=== PATIENT | female | born 1955 | race Caucasian/White ===

== ENCOUNTER 2021-05-26 15:22 | Emergency (ER) | payer OTHER, MEDICARE, SELFPAY ==
--- NOTE | ~2021-05-26 | CT_ITS ---
EXAMINATION: CT ABDOMEN AND PELVIS WITHOUT CONTRAST CLINICAL INFORMATION: Abdominal pain COMPARISON: CT abdomen pelvis 03/14/2018 TECHNIQUE: Multidetector volumetric imaging was performed from the superior aspect of the liver through the pubic symphysis. Sagittal and coronal reformatted images were obtained on the technologist's workstation. This CT examination was performed using dose optimization techniques as appropriate, variously including the following: *Automated exposure control *Adjustment of mA and/or kV according to patient size (this includes techniques or standardized protocols for targeted exams where dose is matched to indication/reason for exam; i.e. extremities or head) *Use of iterative reconstruction technique DLP: 671 mGy-cm FINDINGS: LUNG BASES: The visualized lung bases are unremarkable aside from the presence of a large hiatal hernia. LIVER, GALLBLADDER, AND BILIARY TREE: The liver is normal in size, shape, and attenuation. No focal hepatic lesion or biliary ductal dilatation is present. The gallbladder contains multiple layering gallstones but is otherwise unremarkable with no evidence of wall thickening, or obvious pericholecystic inflammatory changes. PANCREAS: Unremarkable. SPLEEN: Unremarkable. Splenules are present ADRENAL GLANDS: 1.8 cm left adrenal mass measuring water density is stable consistent with a benign adenoma. The right adrenal gland appears normal. KIDNEYS AND URETERS: The kidneys are normal in size, shape, and attenuation. No hydronephrosis, hydroureter, or calculi seen. No perinephric stranding. BLADDER: Empty but unremarkable GASTROINTESTINAL TRACT: There is thickening of the proximal sigmoid colon with inflammatory changes in the surrounding fat consistent with acute diverticulitis. No free air or pericolonic fluid collections are seen. On the prior 03/14/2018 study this area of colon appeared normal. The small and large bowel are otherwise unremarkable. The appendix is unremarkable. ABDOMINAL WALL: No significant hernia is appreciated. LYMPH NODES: Normal. VASCULAR: Unremarkable. PELVIC VISCERA: An anteverted uterus is present. An abnormal adnexal mass or free intraperitoneal fluid is not seen. OSSEOUS STRUCTURES: Minor degenerative changes present in the spine. A hemangioma is present in L4. CT/CT abdomen pelvis wo con IMPRESSION: Acute uncomplicated sigmoid diverticulitis
[2021-05-26 15:43] VITALS: BP 135/71; PULSE 83; RESP 18; TEMP 37; O2SAT 96; BMI 32.8
--- NOTE | 2021-05-26 17:28 | ED_ITS ---
HPI - Abdominal Pain General Chief Complaint: Abdominal Pain Stated Complaint: abd pain Source: patient Mode of arrival: ambulatory Limitations: no limitations History of Present Illness HPI narrative: 65-year-old female is here today with past medical history of GERD, diverticulitis, hiatal hernia, right breast cyst removal, anemia, hypertension, cholesterolemia is here for complaining of abdominal pain x1 week. Patient reports that her pain is in right and left lower quadrant. Patient reports that is tender to touch and radiates to her flanks bilaterally. Patient denies any urinary frequency, burning, odor, hematuria. Patient reports nausea no vomiting, no diarrhea. Reports she moves her bowels normally. Patient states that she had low blood count and had exploratory capsule upper endoscopy as well as colonoscopy at [facility].. Patient reports that her colonoscopy showed no polyps and no acute processes. Patient does report that she had diverticulitis in the past. Patient reports that this pain does not feel as bad as the pain that she had when she had diverticulitis. MD elicited complaint: abdominal pain and flank pain Pertinent past history: diverticulitis and gastritis Onset (ago): day(s) Pain Consistency: constant Location: RLQ, LLQ, L flank and R flank Quality: cramping Radiation: bilateral flank Exacerbating factors: nothing Relieving factors: nothing Related Data Previous Rx's Medication Instructions Recorded ciprofloxacin HCl 500 mg tablet 500 mg PO BID 10 Days #20 tab 05/26/21 ibuprofen 600 mg tablet 600 mg PO Q8H PRN #20 tab 05/26/21 metronidazole 500 mg tablet 500 mg PO TID 10 Days #30 tab 05/26/21 (Flagyl) Allergies Allergy/AdvReac Type Severity Reaction Status Date / Time Sulfa (Sulfonamide Allergy Unknown UNKNOWN, Verified 05/26/21 15:42 Antibiotics) rash, [SULFA (SULFONAMIDE sweating ANTIBIOTICS)] telmisartan Allergy Unknown Unknown Verified 05/26/21 15:42 Review of Systems Review of Systems Constitutional : No Weight loss, No Fever, No Chills, No Night Sweats, No Fatigue, No Malaise ENT/Mouth : No Hearing loss, No Ear Pain, No Nasal Congestion, No Sinus Pain, No Hoarseness, No sore throat, No Rhinorrhea, No Swallowing Difficulty Eyes: No Eye Pain, No Swelling, No Redness, No Foreign Body, No Discharge, No Vision Changes Cardiovascular : No Chest Pain, No SOB, No Dyspnea on Exertion, No Orthopnea, No Edema, No Palpitations Respiratory : No Cough, No Sputum, No Wheezing, No Smoke Exposure, No Dyspnea Gastrointestinal : Nausea, No Vomiting, No Diarrhea, No Constipation, abdominal Pain, No Hematochezia, No Melena Genitourinary : no irregular bleeding, No Dysuria, No Urinary Frequency, No Hematuria, No Urinary Incontinence, No Urgency, Flank Pain, No Urinary Flow Changes, No Hesitancy Musculoskeletal : No joint pain, No Myalgias, No Joint Swelling Skin : No Skin Lesions, No rash Neuro : No Weakness, No Numbness, No Paresthesias, No Loss of Consciousness, No Dizziness, No Headache Psych : No Anxiety/Panic, No Depression, No SI/HI/AH/VH, No Social Issues, Heme/Lymph: No Bruising, No Bleeding,No Lymphadenopathy Endocrine : No Polyuria, No Polydipsia, No Temperature Intolerance Yes all other systems are reviewed and are negative Physical Exam Vital Signs: Vital Signs: Last Vital Signs Temp 98 F 05/26/21 17:34 Pulse 79 05/26/21 17:34 Resp 18 05/26/21 17:34 BP 151/65 H 05/26/21 17:34 Pulse Ox 96 05/26/21 17:34 Body Mass Index 32.8 Const: General: healthy appearing, well developed and in distress Nutritional Appearance: well nourished Orientation/consciousness: patient oriented x3 HENMT: Head: Yes normal to inspection, Yes normocephalic and Yes atraumatic Ears: hearing grossly normal bilaterally and external ears normal General nose exam: Normal external nose present Face and sinus: Yes normal facial exam Mouth: Normal oral and palatal mucosa present Throat: Yes posterior oropharynx normal and Yes tonsils normal Neck: Neck: Yes normal visual inspection, Yes full ROM and Yes trachea midline Thyroid: Thyroid normal Resp: Effort & Inspection: normal respiratory effort and able to speak in complete sentences Auscultation: clear to auscultation bilaterally Cardio: Rate: regular rate Rhythm: regular rhythm GI: Inspection: Yes normal to inspection, No distended and Yes obesity Palpation (GI): Soft to palpation, Tenderness to palpation present (GI) (Right and left lower quadrant) and No hepatosplenomegaly present Auscultation: normal bowel sounds Skin: General skin exam: elasticity normal, turgor normal and dry skin Neuro: General: patient oriented x3 Course Course Course Narrative: 65-year-old female with past medical history of GERD, diverticulitis, hiatal hernia, right breast cyst removal, anemia, hypertension and cholesterolemia is here today for complaining of bilateral lower quadrant pain. Patient reports that the pain started about a week ago and it radiates to her back. Patient denies urinary frequency, pain with urination, hematuria. Reports nausea, no vomiting, no diarrhea, no constipation, no hematochezia, no melena, no dysphagia, no odynophagia or dyspepsia. Patient reports that she just had exploratory upper endoscopy with capsule and colonoscopy for anemia. That was done at [facility]. Will order labs, abdominal CT rule out diverticulitis, kidney stones, hydronephrosis Reevaluation(s) Reevaluation #1: Mild leukocytosis, urine came back positive for nitrates,, CT scan shows acute uncomplicated sigmoid diverticulitis. Patient has a history of diverticulitis in the past and was on oral antibiotics at home. Patient clinically looks great, pain under control. Call placed to Dr. Dukes for consult. . Patient does have a GI specialist at [facility] that she can follow-up with. I will give her dose of levofloxacin for UTI her, that will cover her for diverticulitis. I will also give her oral Flagyl. Reevaluation #2: Spoke with Dr. Dukes and will send patient home. Patient will take her 1st dose antibiotics and she can continue for 10 more days. Patient was instructed to call her GI specialist . Patient is agreeable to this plan and verbalizes understanding of instructions. She was given the opportunity to ask questions and all questions answered. I advised her to return to emergency department if her symptoms will get she will have any other concerning symptoms MDM - Abdominal Pain Lab Data Result diagrams: 05/26/21 17:47 05/26/21 18:41 Labs: Lab Results 05/26/21 05/26/21 05/26/21 Range/Units 17:47 17:47 17:47 WBC 12.9 H (4.8-10.8) X10*3/uL RBC 4.52 (4.20-5.50) X10*6/uL Hgb 11.9 L (12.0-16.0) g/dl Hct 37.8 (37-47) % MCV 83.6 (80-98) fL MCH 26.3 L (27.0-33.0) pg MCHC 31.5 (31.0-35.0) g/dl RDW 13.2 (11.0-16.0) % Plt Count 231 (160-400) X10*3/uL MPV 11.2 (9.4-12.3) fL Immature Gran % (Auto) 0.5 H (0.0-0.4) % Neut % (Auto) 81.9 H (45-73) % Lymph % (Auto) 7.7 L (20-40) % [place] % (Auto) 9.5 (2-11) % Eos % (Auto) 0.2 (0-4) % Baso % (Auto) 0.2 (0-2) % Lymph # (Auto) 1.0 L (1.2-4.9) X10*3/uL [place] # (Auto) 1.2 (0.1-1.2) X10*3/uL Eos # (Auto) 0.0 (0.0-0.4) X10*3/uL Baso # (Auto) 0.0 (0.0-0.2) X10*3/uL Abs Immat Gran (auto) 0.07 H (0.00-0.03) X10*3/uL Absolute Neuts (auto) 10.6 H (2.0-8.3) X10*3/uL Absolute Nucleated RBC 0.000 (0.0-0.012) X10*3/uL Nucleated RBC % (auto) 0.0 (0.0-0.2) /100WBC Sodium (135-145) mmol/L Potassium (3.3-5.1) mmol/L Chloride (96-108) mmol/L Carbon Dioxide (22-29) mmol/L Anion Gap (12-20) BUN (9-16) mg/dL Creatinine (0.5-1.4) mg/dL Estim Creat Clear Calc Estimated GFR Random Glucose (60-115) mg/dL Calcium (8.4-10.2) mg/dL Total Bilirubin (0.0-1.0) mg/dL AST (5-31) U/L ALT (0-31) U/L Alkaline Phosphatase (39-117) U/L Total Protein (6.5-8.0) g/dL Albumin (3.5-5.0) g/dL Lipase Cancelled Urine Color YELLOW Urine Appearance HAZY Urine pH 6.0 (5.0-8.0) Ur Specific [place] 1.025 (1.005-1.025) Urine Protein 2+ H (NEG-TRACE) MG/DL Urine Glucose (UA) 100 H (NEG) MG/DL Urine Ketones 5 (NEG) MG/DL Urine Blood TRACE (NEG) Urine Nitrite POS H (NEG) Ur Leukocyte Esterase 1+ H (NEG) Urine RBC 0-2 (0) /HPF Urine WBC 1-4 (0-4) /HPF Ur Squamous Epith Cells 3+ /LPF Calcium Oxalate Crystal 1+ /LPF Urine Bacteria 2+ /LPF Urine Yeast TRACE /HPF 05/26/21 Range/Units 18:41 WBC (4.8-10.8) X10*3/uL RBC (4.20-5.50) X10*6/uL Hgb (12.0-16.0) g/dl Hct (37-47) % MCV (80-98) fL MCH (27.0-33.0) pg MCHC (31.0-35.0) g/dl RDW (11.0-16.0) % Plt Count (160-400) X10*3/uL MPV (9.4-12.3) fL Immature Gran % (Auto) (0.0-0.4) % Neut % (Auto) (45-73) % Lymph % (Auto) (20-40) % [place] % (Auto) (2-11) % Eos % (Auto) (0-4) % Baso % (Auto) (0-2) % Lymph # (Auto) (1.2-4.9) X10*3/uL [place] # (Auto) (0.1-1.2) X10*3/uL Eos # (Auto) (0.0-0.4) X10*3/uL Baso # (Auto) (0.0-0.2) X10*3/uL Abs Immat Gran (auto) (0.00-0.03) X10*3/uL Absolute Neuts (auto) (2.0-8.3) X10*3/uL Absolute Nucleated RBC (0.0-0.012) X10*3/uL Nucleated RBC % (auto) (0.0-0.2) /100WBC Sodium 140 (135-145) mmol/L Potassium 3.1 L (3.3-5.1) mmol/L Chloride 105 (96-108) mmol/L Carbon Dioxide 26 (22-29) mmol/L Anion Gap 12 (12-20) BUN 8 L (9-16) mg/dL Creatinine 0.73 (0.5-1.4) mg/dL Estim Creat Clear Calc 83.6 Estimated GFR > 60 Random Glucose 105 (60-115) mg/dL Calcium 8.6 (8.4-10.2) mg/dL Total Bilirubin 0.6 (0.0-1.0) mg/dL AST 9 (5-31) U/L ALT < 6 (0-31) U/L Alkaline Phosphatase 100 (39-117) U/L Total Protein 6.2 L (6.5-8.0) g/dL Albumin 3.8 (3.5-5.0) g/dL Lipase 16 Urine Color Urine Appearance Urine pH (5.0-8.0) Ur Specific [place] (1.005-1.025) Urine Protein (NEG-TRACE) MG/DL Urine Glucose (UA) (NEG) MG/DL Urine Ketones (NEG) MG/DL Urine Blood (NEG) Urine Nitrite (NEG) Ur Leukocyte Esterase (NEG) Urine RBC (0) /HPF Urine WBC (0-4) /HPF Ur Squamous Epith Cells /LPF Calcium Oxalate Crystal /LPF Urine Bacteria /LPF Urine Yeast /HPF Imaging Data CT scan - abdomen: Radiologist's impression: FINDINGS: LUNG BASES: The visualized lung bases are unremarkable aside from the presence of a large hiatal hernia.? LIVER, GALLBLADDER, AND BILIARY TREE: The liver is normal in size, shape, and attenuation. No focal hepatic lesion or biliary ductal dilatation is present. The gallbladder contains multiple layering gallstones but is otherwise unremarkable with no evidence of ? wall thickening, or obvious pericholecystic inflammatory changes.? PANCREAS: Unremarkable.? SPLEEN: Unremarkable. Splenules are present ADRENAL GLANDS:? 1.8 cm left adrenal mass measuring water density is stable consistent with a benign adenoma. The right adrenal gland appears normal.? KIDNEYS AND URETERS: The kidneys are normal in size, shape, and attenuation. No hydronephrosis, hydroureter, or calculi seen. No perinephric stranding. ? BLADDER: Empty but unremarkable? GASTROINTESTINAL TRACT: There is thickening of the proximal sigmoid colon with inflammatory changes in the surrounding fat consistent with acute diverticulitis. No free air or pericolonic fluid collections are seen. On the prior 03/14/2018 study this area of colon appeared normal. The small and large bowel are otherwise unremarkable. The appendix is unremarkable.? ABDOMINAL WALL: No significant hernia is appreciated.? LYMPH NODES: Normal. VASCULAR: Unremarkable. PELVIC VISCERA: An anteverted uterus is present. An abnormal adnexal mass or free intraperitoneal fluid is not seen.? OSSEOUS STRUCTURES: Minor degenerative changes present in the spine. A hemangioma is present in L4.? Discharge Plan Discharge Clinical Impression: Diverticulitis, Abdominal pain, Acute UTI Patient Disposition: Home, Self-Care Instructions: Diverticulitis (ED), Urinary Tract Infection in Women (ED), Diverticulitis Diet (ED) Additional Instructions: You were seen here today for abdominal pain. Your urine shows urinary tract infection. CT of abdomen shows non complicated diverticulitis. You were given 1st dose of antibiotics at the emergency room and will be placed on 7 day therapy. Please follow-up with your GI specialist at [facility], please follow-up with your primary care provider. You may need more antibiotics. Please follow diverticulitis diet as given to you at the emergency department. Please do clear liquids for the next 3 days. You may return to emergency department if his symptoms will get worse or if you experience any additional can concerning symptoms Prescriptions: New ciprofloxacin HCl 500 mg tablet 500 mg PO BID 10 Days Qty: 20 RF: 0 metronidazole [Flagyl] 500 mg tablet 500 mg PO TID 10 Days Qty: 30 RF: 0 ibuprofen 600 mg tablet 600 mg PO Q8H PRN (Reason: pain) Qty: 20 RF: 0 Interventions: ED Discharge Assessment Last Done: 05/26/21 20:44 Discharge Date/Time: 05/26/21 21:03 [facility] Past Medical History Medical History (Updated 05/27/21 @ 00:01 by Lynn Polk) Breast CA Diverticulitis Social History Social History Alcohol intake: never Patient Tobacco Use Status: Never used Tobacco Use of substances other than those prescribed or required for medical reasons: No Advance Directives: No Advance Directives Information Provided: No
[2021-05-26 17:34] VITALS: BP 151/65; PULSE 79; RESP 18; TEMP 36.6; O2SAT 96
[2021-05-26 17:55] LABS: MANUAL DIFF FLAG NO
[2021-05-26 17:58] LABS: Appearance Urine HAZY; Color Urine YELLOW; Glucose Urine UA 100 MG/DL (NEG); Leukocyte Esterase Urine 1+ (NEG); Nitrite Urine POS (NEG); Specific Gravity - Urine 1.025 (1.005-1.025); UACC Culture Trigger YES; Urine Blood TRACE (NEG); Urine Ketones 5 MG/DL (NEG); Urine Protein 2+ MG/DL (NEG-TRACE)
[2021-05-26 18:00] LABS: Basophils Percent Auto 0.2 % (0-2); Eosinophils Percent Auto 0.2 % (0-4); Hematocrit 37.8 % (37-47); Hemoglobin 11.9 g/dl (12.0-16.0); Imm Gran Abs Auto 0.07 X10*3/uL (0.00-0.03); Imm Gran Pct Auto 0.5 % (0.0-0.4); Lymphocytes Percent Auto 7.7 % (20-40); Mean Corpuscular HGB Conc 31.5 g/dl (31.0-35.0); Mean Corpuscular Hemoglobin 26.3 pg (27.0-33.0); Mean Corpuscular Volume 83.6 fL (80-98); Mean Platelet Volume 11.2 fL (9.4-12.3); Monocytes Absolute Auto 1.2 X10*3/uL (0.1-1.2); Monocytes Percent Auto 9.5 % (2-11); Neutrophils Absolute Auto 10.6 X10*3/uL (2.0-8.3); Neutrophils Percent Auto 81.9 % (45-73); Platelet Count 231 X10*3/uL (160-400); Red Blood Count 4.52 X10*6/uL (4.20-5.50); Red Cell Distribution Width 13.2 % (11.0-16.0); White Blood Count 12.9 X10*3/uL (4.8-10.8)
[2021-05-26] MEDS: Morphine Sulfate 2 MG/ML CARTRIDGE IVPUSH (18:17)
[2021-05-26] MEDS: 0.9 % Sodium Chloride 1,000 ML 999 ML IV (18:18)
[2021-05-26 18:21] LABS: Bacteria Urine 2+ /LPF; Calcium Oxalate Crystals Urine 1+ /LPF; Squamous Epithelial Cell Urine 3+ /LPF
[2021-05-26 18:23] LABS: RBC Urine 0-2 /HPF (0)
[2021-05-26 19:08] LABS: Alanine Aminotransferase < 6 U/L (0-31); Albumin Level 3.8 g/dL (3.5-5.0); Alkaline Phosphatase 100 U/L (39-117); Anion Gap 12 (12-20); Aspartate Amino Transferase 9 U/L (5-31); Bilirubin Total 0.6 mg/dL (0.0-1.0); Blood Urea Nitrogen 8 mg/dL (9-16); Calcium 8.6 mg/dL (8.4-10.2); Carbon Dioxide 26 mmol/L (22-29); Chloride 105 mmol/L (96-108); Creatinine Clr Calc Pharmacy 83.6; Estimated Glomerular Filt Rate > 60; Glucose Random 105 mg/dL (60-115); Lipase 16 U/L (8-78); Potassium 3.1 mmol/L (3.3-5.1); Sodium 140 mmol/L (135-145); Total Protein 6.2 g/dL (6.5-8.0)
[2021-05-26] MEDS: metroNIDAZOLE 500 MG TABLET PO (20:22)
[2021-05-26] MEDS: levoFLOXacin 500 MG TABLET PO (20:22)
== END 2021-05-26 21:03 | disposition home or self-care (01) ==
PROVIDERS: Nurse Practitioner Family; Emergency Provider Emergency Medicine Emergency Medical Services
DX: K57.32 Diverticulitis of large intestine without perforation or abscess without bleeding (principal); N39.0 Urinary tract infection, site not specified; R10.9 Unspecified abdominal pain; Z79.899 Other long term (current) drug therapy
CPT/HCPCS: 36415; 74176; 80053; 81001; 83690; 85025; 87086; 96361; 96374; 99284; J2270

== ENCOUNTER 2023-06-01 01:22 | Day surgery (SDC) | payer OTHER, MEDICARE, SELFPAY ==
[2023-06-01] VITALS (9 sets, daily range): BP systolic 123–180; BP diastolic 55–93; PULSE 75–93; RESP 16–18; TEMP 36.8–38.1; O2SAT 94–99; BMI 28.7
--- NOTE | ~2023-06-01 | FL_ITS ---
EXAMINATION: XR FLUOROSCOPY WITH IMAGES CLINICAL INFORMATION: Left ureteral stone. COMPARISON: None available. TECHNIQUE: Fluoroscopy Supervised By: Dr. Supa Doll. Fluoroscopy Time: 47.5 seconds. Cumulative Dose: 15.89 mGy. DAP: None available. Images: 2. FINDINGS: Images demonstrate a left ureteral stent in satisfactory position. There is an oval-shaped increased density questionable for a distal left ureteral stone. FL/FL guidance in OR IMPRESSION: Fluoroscopy guidance for left internal ureteral stent placement
--- NOTE | ~2023-06-01 | CT_ITS ---
EXAMINATION: CT ABDOMEN AND PELVIS WITHOUT CONTRAST CLINICAL INFORMATION: Left ureteral stone COMPARISON: 05/26/2021 TECHNIQUE: Multidetector volumetric imaging was performed from the superior aspect of the liver through the pubic symphysis. Sagittal and coronal reformatted images were obtained on the technologist's workstation. This CT examination was performed using dose optimization techniques as appropriate, variously including the following: *Automated exposure control *Adjustment of mA and/or kV according to patient size (this includes techniques or standardized protocols for targeted exams where dose is matched to indication/reason for exam; i.e. extremities or head) *Use of iterative reconstruction technique DLP: 600 mGy-cm FINDINGS: LUNG BASES: Mild bibasilar atelectasis. Large hiatal hernia. LIVER, GALLBLADDER, AND BILIARY TREE: The liver demonstrates hypoattenuation consistent with steatosis. No focal hepatic lesion or biliary ductal dilatation is identified on this noncontrast exam. Multiple gallstones are present. No appreciable gallbladder wall thickening or surrounding inflammation. PANCREAS: Unremarkable. SPLEEN: Unremarkable. ADRENAL GLANDS: Redemonstrated 1.8 cm left adrenal nodule with density of a lipid rich adenoma; no follow-up recommended. Right adrenal gland is unremarkable. KIDNEYS AND URETERS: There is a mid left ureteral calculus measuring 7 mm with mild hydronephrosis. Few scattered punctate calculi are present in the left kidney. No right hydronephrosis. BLADDER: Nearly empty and not well assessed. GASTROINTESTINAL TRACT: No evidence of bowel obstruction or significant wall thickening. The appendix is unremarkable. No free fluid or free air is seen. ABDOMINAL WALL: No significant hernia is appreciated. LYMPH NODES: Normal. VASCULAR: Scattered atherosclerotic calcification. PELVIC VISCERA: Unremarkable. OSSEOUS STRUCTURES: Multilevel degenerative changes in the spine. CT/CT abdomen pelvis wo IV con IMPRESSION: 1. Mid left ureteral calculus measuring 7 mm with mild hydronephrosis. 2. Few scattered punctate left renal calculi. 3. Cholelithiasis. 4. Large hiatal hernia.
[2023-06-01 01:44] LABS: MANUAL DIFF FLAG NO
[2023-06-01 01:50] LABS: Basophils Percent Auto 0.3 % (0-2); Hematocrit 33.7 % (37.0-47.0); Hemoglobin 10.2 g/dl (12.0-16.0); Imm Gran Abs Auto 0.08 X10*3/uL (0.00-0.03); Imm Gran Pct Auto 0.6 % (0.0-0.4); Lymphocytes Absolute Auto 0.9 X10*3/uL (1.2-4.9); Lymphocytes Percent Auto 6.6 % (20-40); Mean Corpuscular HGB Conc 30.3 g/dl (31.0-35.0); Mean Corpuscular Hemoglobin 24.5 pg (27.0-33.0); Mean Platelet Volume 11.2 fL (9.4-12.3); Monocytes Absolute Auto 0.6 X10*3/uL (0.1-1.2); Monocytes Percent Auto 4.6 % (2-11); Neutrophils Absolute Auto 11.9 x10*3/uL (2.0-8.3); Neutrophils Percent Auto 87.9 % (45-73); Platelet Count 278 X10*3/uL (160-400); Red Blood Count 4.16 X10*6/uL (4.20-5.50); Red Cell Distribution Width 15.4 % (11.0-16.0); White Blood Count 13.6 X10*3/uL (4.8-10.8)
[2023-06-01 01:59] LABS: Anion Gap 15 (12-20); Blood Urea Nitrogen 10 mg/dL (9-16); Calcium 9.7 mg/dL (8.4-10.2); Carbon Dioxide 22 mmol/L (22-29); Chloride 108 mmol/L (96-108); Creatinine Clr Calc Pharmacy 45.2; Estimated Glomerular Filt Rate 49; Glucose Random 138 mg/dL (60-115); Potassium 3.4 mmol/L (3.3-5.1); Sodium 142 mmol/L (135-145)
--- NOTE | 2023-06-01 02:02 | ED.FEMALEGU ---
HPI - Female Genitourinary General Chief complaint: Urogenital-Female Stated complaint: Kidney stones Time Seen by Provider: 06/01/23 01:52 Source: patient Mode of arrival: ambulatory Limitations: no limitations History of Present Illness HPI Narrative: Patient with History of kidney stones was seen at [facility] on 05/27 diagnosed with 5 mm mid ureteral stone with mild hydronephrosis patient was seen by urologist yesterday advised to go to the ER if pain gets worse for last few hours patient been having severe pain with nausea and vomiting no fever no chills Related Data Previous Rx's Medication Instructions Recorded ciprofloxacin HCl 500 mg tablet 500 mg PO BID 10 days #20 tabs 05/26/21 ibuprofen 600 mg tablet 600 mg PO Q8H PRN pain #20 tabs 05/26/21 metronidazole 500 mg tablet 500 mg PO TID 10 days #30 tabs 05/26/21 (Flagyl) Allergies Allergy/AdvReac Type Severity Reaction Status Date / Time Sulfa (Sulfonamide Allergy Unknown UNKNOWN, Verified 05/26/21 15:42 Antibiotics) rash, [SULFA (SULFONAMIDE sweating ANTIBIOTICS)] telmisartan Allergy Unknown Unknown Verified 05/26/21 15:42 Review of Systems Review of Systems: Yes all other systems are reviewed and are negative [facility] Past Medical History Medical History Kidney stone Breast CA Diverticulitis Social History Social History Alcohol intake: current Alcohol intake frequency: holidays/special occasions only Patient Tobacco Use Status: Never used Tobacco Smoked in Last 30 Days: No Use of substances other than those prescribed or required for medical reasons: No Advance Directives: No Advance Directives Information Provided: Yes Physical Exam Vital Signs: Vital Signs: Last Vital Signs Temp 100.5 F H 06/01/23 01:24 Pulse 93 06/01/23 01:24 Resp 16 06/01/23 01:24 BP 180/55 H 06/01/23 01:24 Pulse Ox 99 06/01/23 01:24 O2 Del Method Room Air 06/01/23 01:24 BMI result Body Mass Index 28.7 Appearance: Alert. Oriented X3. In moderate distress. Eyes: PERRLA, No Nystagmus ENT: Pharynx normal. Oral Mucosa moist Neck: Normal inspection. Neck supple. CVS: Normal heart rate and rhythm. Pulses normal. Respiratory: No respiratory distress. Equal air entry bilateral, no wheezing/rales/rhonchi Abdomen: Soft and nontender. Bowel sounds are present, no mass palpable, L CVA tenderness+ Skin: Skin warm and dry. Normal skin color. Normal skin turgor. Extremities: No lower extremity edema. No calf tenderness Neuro: Oriented X 3. No motor deficit. Medications Administered Generic Name Dose Route Start Last Admin Trade Name Freq PRN Reason Stop Dose Admin Sodium Chloride 1,000 mls @ 999 mls/hr 06/01/23 06:10 06/01/23 06:41 Ns IV 06/01/23 07:10 999 mls/hr .Q1H1M ONE Administration Discontinued Medications Generic Name Dose Route Start Last Admin Trade Name Freq PRN Reason Stop Dose Admin Sodium Chloride 1,000 mls @ 999 mls/hr 06/01/23 02:14 06/01/23 04:35 Ns IV 06/01/23 03:14 Infused .Q1H1M ONE Infusion Ketorolac Tromethamine 30 mg 06/01/23 02:14 06/01/23 02:37 Ketorolac Tromethamine 30 Mg/Ml Vial IVPUSH 06/01/23 02:15 30 mg ONCE ONE Administration Morphine Sulfate 4 mg 06/01/23 02:14 06/01/23 02:37 Morphine Sulfate 4 Mg/Ml Cartridge IVPUSH 06/01/23 02:15 4 mg ONCE ONE Administration Protocol Ondansetron HCl 4 mg 06/01/23 02:14 06/01/23 02:37 Ondansetron Hcl 4 Mg/2 Ml Vial IVPUSH 06/01/23 02:15 4 mg ONCE ONE Administration Tamsulosin HCl 0.4 mg 06/01/23 05:55 06/01/23 06:42 Tamsulosin Hcl 0.4 Mg Capsule PO 06/01/23 05:56 0.4 mg ONCE ONE Administration Medical Decision Making Medical Decision Making [facility] Narrative: Patient with left renal colic with 5 mm mid ureteric stone seen in the CT scan done on 05/27 at [facility] patient received IV pain medication still having dull pain will continue to hydrate case discussed with urologist see the patient in the ER advised to get ultrasound of the kidneys Case discussed with radiology would be better to do CT scan as stone is in mid ureter will do CT scan CT scan showed still left mid ureteric stone with moderate hydro Dr. Doll to see the patient in a Differential Diagnosis Differential Diagnoses: The differential diagnosis associated with the presentation includes Ureteric stone/UTI/diverticular disease Admission/Observation Consideration of admission/observation: Escalation of care including admission/observation considered Lab Data MDM Lab Attestation statement: I reviewed the patient's lab results. 06/01/23 01:39 06/01/23 01:39 Labs: Lab Results 06/01/23 Range/Units 01:39 WBC 13.6 H (4.8-10.8) X10*3/uL RBC 4.16 L (4.20-5.50) X10*6/uL Hgb 10.2 L (12.0-16.0) g/dl Hct 33.7 L (37.0-47.0) % MCV 81.0 (80.0-98.0) fL MCH 24.5 L (27.0-33.0) pg MCHC 30.3 L (31.0-35.0) g/dl RDW 15.4 (11.0-16.0) % Plt Count 278 (160-400) X10*3/uL MPV 11.2 (9.4-12.3) fL Immature Gran % (Auto) 0.6 H (0.0-0.4) % Neut % (Auto) 87.9 H (45-73) % Lymph % (Auto) 6.6 L (20-40) % [place] % (Auto) 4.6 (2-11) % Eos % (Auto) 0.0 (0-4) % Baso % (Auto) 0.3 (0-2) % Lymph # (Auto) 0.9 L (1.2-4.9) X10*3/uL [place] # (Auto) 0.6 (0.1-1.2) X10*3/uL Eos # (Auto) 0.0 (0.0-0.4) X10*3/uL Baso # (Auto) 0.0 (0.0-0.2) X10*3/uL Abs Immat Gran (auto) 0.08 H (0.00-0.03) X10*3/uL Absolute Neuts (auto) 11.9 H (2.0-8.3) x10*3/uL Absolute Nucleated RBC 0.000 (0.0-0.012) X10*3/uL Nucleated RBC % (auto) 0.0 (0.0-0.2) /100WBC Sodium 142 (135-145) mmol/L Potassium 3.4 (3.3-5.1) mmol/L Chloride 108 (96-108) mmol/L Carbon Dioxide 22 (22-29) mmol/L Anion Gap 15 (12-20) BUN 10 (9-16) mg/dL Creatinine 1.10 (0.5-1.4) mg/dL Estim Creat Clear Calc 45.2 Estimated GFR 49 Random Glucose 138 H (60-115) mg/dL Calcium 9.7 D (8.4-10.2) mg/dL Independent Interpretation I performed an independent interpretation of an: CT Scan Interpretation: Left mid ureteric stone with mod hydronephrosis Discharge Plan Discharge Clinical Impression: Ureteric calculus Prescriptions: No Action ciprofloxacin HCl 500 mg tablet 500 mg PO BID 10 Days Qty: 20 0RF metronidazole [Flagyl] 500 mg tablet 500 mg PO TID 10 Days Qty: 30 0RF ibuprofen 600 mg tablet 600 mg PO Q8H PRN (Reason: pain) Qty: 20 0RF
[2023-06-01] MEDS: Ketorolac Tromethamine 30 MG/ML VIAL IVPUSH (02:37)
[2023-06-01] MEDS: 0.9 % Sodium Chloride 1,000 ML 999 ML IV ×2 (02:37→06:41)
[2023-06-01] MEDS: ondansetron HCL 4 MG/2 ML VIAL IVPUSH ×2 (02:37→09:53)
[2023-06-01] MEDS: Morphine Sulfate 4 MG/ML CARTRIDGE IVPUSH (02:37)
--- OUTSIDE RECORDS SUMMARY | 2023-06-01 02:43 | XMS_ITS | Continuity of Care Document ---
Author Name Unknown Organization [facility] Adult Address [address] [place] [address]- Care Team Providers Care Cpc Coder Name Role Phone Louis ALVES, Radha Primary Care Physician Encounter [facility] [place] Date(s): 01/27/22 - 02/26/22 [facility] [address] [place] [id number]- Attending Physician: Ernie Sánchez Admitting Physician: Ernie Sánchez Referring Physician: AdmtrErnie Allergies, Adverse Reactions, Alerts Substance Reaction Severity Status sulfa drugs swelling, itching Active Immunizations Given and Recorded Vaccine Date Status Refusal Reason SARS-CoV-2 (COVID-19) mRNA BNT-162b2 vac 08/16/21 Recorded SARS-CoV-2 (COVID-19) mRNA BNT-162b2 vac 01/23/21 Recorded SARS-CoV-2 (COVID-19) mRNA BNT-162b2 vac 01/02/21 Recorded influenza virus vaccine, inactivated 06/21/21 Yash rded influenza virus vaccine, inactivated 06/09/20 Yash rded influenza virus vaccine, inactivated 1 06/19/19 Gi josefina zoster vaccine, inactivated 11/07/18 Recorded zoster vaccine, inactivated 09/06/18 Recorded Influenza Virus Vaccine (oldterm) 06/04/18 Recorde d Influenza Virus Vaccine (oldterm) 05/07/17 Recorde d Influenza Virus Vaccine (oldterm) 05/22/16 Recorde d Influenza Virus Vaccine (oldterm) 08/10/15 Recorde d Influenza Virus Vaccine (oldterm) 06/18/14 Recorde d Influenza Virus Vaccine (oldterm) 06/26/13 Recorde d Influenza Virus Vaccine (oldterm) 07/30/12 Recorde d pneumococcal 13-valent vaccine 03/04/18 Recorded Zoster Vaccine Live 11/10/13 Recorded Zoster Vaccine Live 08/11/13 Recorded pneumococcal 23-valent vaccine 07/30/13 Recorded tetanus/diphtheria/pertussis, acel(Tdap) 04/14/11 Given 1Result Comment: [facility] [id number] Medications amLODIPine 5 mg oral tablet 5 mg, 1, tablet, By Mouth, Daily, # 90 tablet, Refills 3, Tot. Refills 3, Maintenance, 12/09/21 16:47:00 EDT, Route to Pharmacy Electronically, [facility]/pharmacy #[id number], Partial fill upon patient request if the prescription is for a schedule II opioid drug.... Start Date: 12/09/21 Status: Ordered CPAP Machine See Instructions, # 1 each, Maintenance, AutoCPAP 8-20 cm H20, use Daily when sleeping, 12/17/21 13:03:00 EDT, Supply Start Date: 12/17/21 Status: Ordered [facility] OLOPATADINE 0.1% EYE DROPS INSTILL 1 DROP ONCE/DAY BOTH EYES EVERYDAY FOR ALLERGY Start Date: 12/17/21 Status: Ordered ferrous sulfate 325 mg oral enteric coated tablet 1, tablet, By Mouth, 2 times a day, # 180 tablet, Refills 1, Route to Pharmacy Electronically, [facility] STORE [id number], 165.1, cm, 01/27/22 12:56:00 EDT, Height, 84.36, kg, 12/17/21 15:48:00 EDT, Dry Weight Start Date: 02/08/22 Status: Ordered Multivitamin Daily, 0 Refills, Maintenance, 09/15/20 15:23:00 EST, Partial fill upon patient request if the prescription is for a schedule II opioid drug. Start Date: 09/15/20 Status: Ordered omeprazole 40 mg oral enteric coated capsule 1 capsule, By Mouth, Daily, # 30 capsule, 2 Refills, [facility] STORE [id number], 165.1, cm, 01/10/22 15:58:00 EDT, Height, 84.36, kg, 12/17/21 15:48:00 EDT, Dry Weight Start Date: 01/16/22 Status: Ordered Potassium Chloride (Xst-Ebqf-Zml 10) 10 mEq oral tablet, extended release 1 tablet = 10 mEq, By Mouth, Daily, # 90 tablet, 3 Refills, Maintenance, 11/29/21 19:05:00 EDT, [id number], Partial fill upon patient request if the prescription is for a schedule II opioid drug., 165.1, cm, 11/28/21 15:50:00 EDT, Height, 89.7... Start Date: 11/29/21 Status: Ordered pravastatin 40 mg oral tablet 1 tablet, By Mouth, Daily at bedtime, # 90 tablet, 1 Refills, 12/07/21 13:16:00 EDT, [id number], 165.1, cm, 12/07/21 7:39:00 EDT, Height, 84.2, kg, 12/02/21 22:06:00 EDT, Dry Weight Start Date: 12/07/21 Status: Ordered ProAir HFA 90 mcg/inh inhalation aerosol 2 puffs, Inhalation, 4 times a day, PRN NEEDED FOR WHEEZING, # 18 each, 5 Refills, [facility] STORE [id number], 17, INHALE 2 PUFFS BY MOUTH FOUR TIMES DAILY NEEDED FOR WHEEZING, 165.1, cm, 08/25/21 10:33:00 EST, Height, 89.7, kg, 12/17/20 9:14:00 EDT, Dry W... Start Date: 09/06/21 Status: Ordered sertraline 100 mg oral tablet 1 tablet = 100 mg, By Mouth, Daily, # 90 tablet, 3 Refills, Soft Stop, 08/25/20 9:28:00 EST, [id number], 165, cm, 08/16/20 14:03:00 EST, Height, 79, kg, 04/05/20 8:33:00 EDT, Dry Weight Start Date: 08/25/20 Status: Ordered tamoxifen 20 mg oral tablet 1 tablet = 20 mg, By Mouth, Daily, # 90 tablet, 3 Refills, Maintenance, 02/25/21 11:24:00 EDT, Tablet, [id number], Partial fill upon patient request if the prescription is for a schedule II opioid drug., 165.1, cm, 02/25/21 11:11:00 EDT, Heigh... 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 Sex
--- OUTSIDE RECORDS SUMMARY | 2023-06-01 02:43 | XMS_ITS | Continuity of Care Document ---
Author Name Unknown Organization [facility] Address [address] [place] [address] [address] [place] [address]- Care Team Providers Care Household Coordinator Name Role Phone Louis ALVES, Radha Primary Care Physician [place] [facility] [id number] Date(s): 06/05/22 - 06/12/[address] [place] [address]- Encounter Diagnosis Diverticulitis(Discharge Diagnosis) - 06/05/22 Attending Physician: Alberto ALVES, Mayra Acosta Referring Physician: Noah Silvestre MD Allergies, Adverse Reactions, Alerts Substance Reaction Severity Status sulfa drugs swelling, itching Active Immunizations Given and Recorded Vaccine Date Status Refusal Reason SARS-CoV-2 (COVID-19) mRNA-1273 vaccine 02/25/22 R ecorded SARS-CoV-2 (COVID-19) mRNA BNT-162b2 vac 08/16/21 Recorded [...] Recorded tetanus/diphtheria/pertussis, acel(Tdap) 04/14/11 Given 1Result Comment: [facility] 35213-227-26 Medications amLODIPine 5 mg oral tablet 5 mg, 1, tablet, By Mouth, Daily, # 90 tablet, Refills 3, Tot. Refills 3, Maintenance, 12/09/21 16:47:00 EDT, Route to Pharmacy Electronically, [facility]/pharmacy #[id number], Partial fill upon patient request if the prescription is for a schedule II opioid drug.... Start Date: 12/09/21 Status: Ordered CPAP Machine See Instructions, # 1 each, Maintenance, AutoCPAP 8-20 cm H20, use Daily when sleeping, 12/17/21 13:03:00 EDT, Supply Start Date: 12/17/21 Status: Ordered [facility] OLOPATADINE 0.1% EYE DROPS INSTILL 1 DROP ONCE/DAY BOTH EYES EVERYDAY FOR ALLERGY Start Date: 12/17/21 Status: Ordered esomeprazole 40 mg oral enteric coated capsule 1 capsule = 40 mg, By Mouth, Daily, # 90 capsule, 1 Refills, Maintenance, 03/16/22 15:30:00 EDT, ECCapsule, [facility]/pharmacy #[id number], Partial fill upon patient request if the prescription is for a schedule II opioid drug., 165.1, cm, 03/14/22 11:16:00 EDT,... Start Date: 03/16/22 Status: Ordered Multivitamin Daily, 0 Refills, Maintenance, 09/15/20 15:23:00 EST, Partial fill upon patient request if the prescription is for a schedule II opioid drug. Start Date: 09/15/20 Status: Ordered Potassium Chloride (Hqu-Yqto-Pyn 10) 10 mEq oral tablet, extended release [...] at bedtime, # 90 tablet, 1 Refills, Maintenance, 06/03/22 20:32:00 EDT, [id number], 165, cm, 04/04/22 12:32:00 EDT, Height, 83.5, kg, 04/04/22 12:32:00 EDT, Dry Weight Start Date: 06/03/22 Status: Ordered ProAir HFA 90 mcg/inh inhalation aerosol 2 puffs, Inhalation, 4 times a day, PRN NEEDED FOR WHEEZING, # 18 each, 2 Refills, 03/14/22 11:48:00 EDT, [id number], 17, 2 puffs Inhalation 4 times a day,PRN: NEEDED FOR WHEEZING, 165.1, cm, 03/14/22 11:16:00 EDT, Height, 84.36, kg, 04/0... Start Date: 03/14/22 Status: Ordered Readi-Cat 2 oral suspension See Instructions, take [address] scan as directed by radiology, # 2 each, 0 Refills, Maintenance, 04/04/22 13:43:00 EDT, [id number], Partial fill upon patient request if the prescription is for a schedule II opioid drug., take 2 landon... Start Date: 04/04/22 Status: Ordered sertraline 100 mg oral tablet [...] EDT, Heigh... Start Date: 02/25/21 Status: Ordered Vitamin D3 1000 intl units oral capsule 1 capsule = 25 mcg, By Mouth, Daily, # 75 capsule, 0 Refills, Maintenance, 04/04/22 12:15:00 EDT, Capsule, Partial fill upon patient request if the prescription is for a schedule II opioid drug. Start Date: 04/04/22 Status: Ordered Problem List Condition Confirmation Course Effective Dates Status H ealth Status Informant Asthma Confirmed Active Asthma Confirmed Active Atypical ductal hyperplasia of right breast and flat atypia Confirmed 09/02/20 Active Diverticulitis Confirmed Active Hyperlipidemia, unspecified Confirmed Active HTN (hypertension) Confirmed Active Iron deficiency anemia Confirmed Active Obese class I Confirmed Active Sleep apnea, obstructive Confirmed 2010 Active Major depression, recurrent Confirmed Active Spinal stenosis Confirmed Active Diagnosis Diagnosis Type Effective Dates Health Status Cl inical Service Informant Diverticulitis Discharge Diagnosis 06/05/22 Vital Signs Most recent to oldest [Reference Range]: 1 Height 165 cm (06/05/22 9:55 AM) Weight 83.0 kg (06/05/22 9:55 AM) Pulse Rate [55-90 bpm] 77 bpm (06/05/22 9:55 AM) Body Mass Index [18.5-24.99 kg/m2] 30.49 kg/m2 *>HHI* (06/05/22 9:55 AM) Blood Pressure [90-138/55-84 mm Hg] 125/ 77mm Hg (06/05/22 9:55 AM) Temperature [96.8-100.4 DegF] 97.8 DegF (06/05/22 9:55 AM) Blood pressure sites Arm, right (06/05/22 9:55 AM) Temperature Route Temporal (06/05/22 9:55 AM) Social History Social History Type Response Tobacco Other: none. Sex Patient Care team information Personnel Name: Radha Myers MD Address: Address: [address] [place] [address] [address]
--- OUTSIDE RECORDS SUMMARY | 2023-06-01 02:43 | XMS_ITS | Continuity of Care Document ---
Author Name Unknown Organization [facility] Adult Address [address] [place] [address]- Care Team Providers Care Commercial Airline Pilot Name Role Phone Louis ALVES, Radha Primary Care Physician [phone] Encounter [facility] [place] Date(s): 04/02/23 - 05/02/23 [facility] [address] [place] [address]- Allergies, Adverse Reactions, Alerts Substance Reaction Severity Status sulfa drugs swelling, itching Active Immunizations Given and Recorded Vaccine Date Status Refusal Reason influenza virus vaccine, inactivated 1 07/16/22 Gi josefina influenza virus vaccine, inactivated 06/21/21 Yash rded influenza virus vaccine, inactivated 06/09/20 Yash rded influenza virus vaccine, inactivated 2 06/19/19 Gi josefina SARS-CoV-2 (COVID-19) mRNA-1273 vaccine 02/25/22 R ecorded SARS-CoV-2 (COVID-19) mRNA BNT-162b2 vac 08/16/21 Recorded SARS-CoV-2 (COVID-19) mRNA BNT-162b2 vac 01/23/21 Recorded SARS-CoV-2 (COVID-19) mRNA BNT-162b2 vac 01/02/21 Recorded zoster vaccine, inactivated 11/07/18 Recorded zoster vaccine, inactivated 09/06/18 Recorded Influenza Virus Vaccine (oldterm) 06/04/18 Recorde d Influenza Virus Vaccine (oldterm) 05/07/17 Recorde d Influenza Virus Vaccine (oldterm) 05/22/16 Recorde d Influenza Virus Vaccine (oldterm) 08/10/15 Recorde d Influenza Virus Vaccine (oldterm) 06/18/14 Recorde d Influenza Virus Vaccine (oldterm) 10/17/13 Recorde d Influenza Virus Vaccine (oldterm) 07/30/12 Recorde d pneumococcal 13-valent vaccine 03/04/18 Recorded Zoster Vaccine Live 11/10/13 Recorded Zoster Vaccine Live 08/11/13 Recorded pneumococcal 23-valent vaccine 07/30/13 Recorded tetanus/diphtheria/pertussis, acel(Tdap) 04/14/11 Given 1Early/Late Reason: Early/Late Reason: Other : Requested from pharmacy, arrived late 2Result Comment: [facility] [id number] Medications amLODIPine 10 mg oral tablet 10 mg, 1, tablet, By Mouth, Daily, # 90 tablet, Refills 1, Tot. Refills 1, Maintenance, 02/22/23 16:16:00 EDT, Route to Pharmacy Electronically, [facility]/pharmacy #[id number], Partial fill upon patient request if the prescription is for a schedule II opioid drug... Start Date: 02/22/23 Status: Ordered CPAP Machine See Instructions, # 1 each, Maintenance, AutoCPAP 8-20 cm H20, use Daily when sleeping, 12/17/21 13:03:00 EDT, Supply Start Date: 12/17/21 Status: Ordered ferrous sulfate 325 mg oral enteric coated tablet 1, tablet, By Mouth, 2 times a day, # 180 tablet, Refills 1, Maintenance, 02/12/23 18:37:00 EDT, Route to Pharmacy Electronically, [id number], 165, cm, 01/11/23 11:14:00 EDT, Height, 80.6, kg, 02/09/23 12:00:00 EDT, Dry Weight Start Date: 02/12/23 Status: Ordered gabapentin 600 mg oral tablet 1 tablet = 600 mg, 2 times a day, 0 Refills, Maintenance, 06/21/22 12:59:00 EDT, Partial fill upon patient request if the prescription is for a schedule II opioid drug. Start Date: 06/21/22 Status: Ordered Multivitamin Daily, 0 Refills, Maintenance, 09/15/20 15:23:00 EST, Partial fill upon patient request if the prescription is for a schedule II opioid drug. Start Date: 09/15/20 Status: Ordered omeprazole 40 mg oral enteric coated capsule 1 capsule = 40 mg, By Mouth, Daily, # 90 capsule, 1 Refills, Maintenance, 09/20/22 18:10:00 EST, ECCapsule, [facility]/pharmacy #[id number], Partial fill upon patient request if the prescription is for a schedule II opioid drug., 165, cm, 09/15/22 13:35:00 EST, H... Start Date: 09/20/22 Status: Ordered Potassium Chloride (Xsq-Amcu-Idb 10) 10 mEq oral tablet, extended release 1 tablet, By Mouth, Daily, # 30 tablet, 11 Refills, Maintenance, 10/26/22 15:24:00 EST, [id number], 165, cm, 09/15/22 13:35:00 EST, Height, 79.8, kg, 07/30/22 10:04:00 EST, Dry Weight Start Date: 10/26/22 Status: Ordered pravastatin 40 mg oral tablet 1 tablet, By Mouth, Daily at bedtime, # 30 tablet, 5 Refills, Maintenance, 04/18/23 7:34:00 EDT, [facility], 158.5, cm, 03/22/23 13:30:00 EDT, Height, 79.6, kg, 03/28/23 5:12:00 EDT, Dry Weight Start Date: 04/18/23 Status: Ordered ProAir HFA 90 mcg/inh inhalation aerosol 2 puffs, Inhalation, 4 times a day, PRN NEEDED FOR WHEEZING, # 18 each, 2 Refills, 03/14/22 11:48:00 EDT, [facility]/pharmacy #[id number], 17, 2 puffs Inhalation 4 times a day,PRN: NEEDED FOR WHEEZING, 165.1, cm, 03/14/22 11:16:00 EDT, Height, 84.36, kg, 04/0... Start Date: 03/14/22 Status: Ordered sertraline 100 mg oral tablet 1 tablet, By Mouth, Daily, # 90 tablet, 3 Refills, Maintenance, 06/30/22 13:51:00 EDT, [facility] STORE 43228, 165, cm, 06/21/22 12:30:00 EDT, Height, 83.5, kg, 04/04/22 12:32:00 EDT, Dry Weight Start Date: 06/30/22 Status: Ordered tamoxifen 20 mg oral tablet 1 tablet = 20 mg, By Mouth, Daily, # 30 tablet, 11 Refills, Maintenance, 09/13/22 10:45:00 EST, Tablet, [id number], Partial fill upon patient request if the prescription is for a schedule II opioid drug., 165, cm, 09/13/22 10:29:00 EST, Height... Start Date: 09/13/22 Status: Ordered traMADol 50 mg oral tablet 0.5 tablet = 25 mg, Daily, 0 Refills, Maintenance, 06/21/22 13:28:00 EDT, Partial fill upon patientrequest if the prescription is for a schedule II opioid drug. Start Date: 06/21/22 Status: Ordered Problem List Condition Confirmation Course Effective Dates Status Health St atus Informant Asthma Confirmed Active Asthma Confirmed Active Atypical ductal hyperplasia (ADH), Right breast, 2020 Confirmed 09/02/20 Active Hyperlipidemia, unspecified Confirmed Active HTN (hypertension) Confirmed Active Iron deficiency anemia Confirmed Active Obese class I Confirmed Active Sleep apnea, obstructive Confirmed 2009 Active Major depression, recurrent Confirmed Active Spinal stenosis Confirmed Active Social History Social History Type Response Tobacco Other: none. Sex Patient Care team information Care Team Personnel Name: Yaneth Frankel RN Position: [facility] RN Member Role: Primary Care Nurse Name: Keena Thakkar RN Position: [facility] RN Member Role: Primary Care Nurse Name: Emili Alexander RN Position: [facility] RN Member Role: Primary Care Nurse Name: Sapna Narayanan RN Position: S RN Member Role: Primary Care Nurse Name: Anna Vaca RN Position: [facility] RN Member Role: Primary Care Nurse Name: Loren Spangler RN Position: [facility] RN Member Role: Primary Care Nurse Name: Cayla Gannon RN Position: [facility] SN RN Member Role: Primary Care Nurse Name: Mignon Ibarra RN Position: [facility] RN Member Role: Primary Care Nurse Name: Patricia Lieberman RN Position: [facility] OB RN Member Role: Primary Care Nurse Name: Radha Myers MD Position: [facility] Physician - Primary Care Member Role: PCP Address: Address: [address] [place] [address] [address] [place] [address]- [place] Name: Asiya Baker RN Position: S RN Member Role: Primary Care Nurse Name: Paramjit Solomon RN Position: S RN Member Role: Primary Care Nurse Care Team Related Persons Name: RAKAN FIGUEROA Address: home [address] [place] [address] JAMI AMADOR [id number]
--- OUTSIDE RECORDS SUMMARY | 2023-06-01 02:43 | XMS_ITS | Continuity of Care Document ---
Author Name Unknown Organization [facility] Adult Address [address] [place] [address]- Care Team Providers Care Director Digital Sales Name Role Phone Louis ALVES, Ajaywestern reserve hospitalfig[facility]eroa Primary Care Physician Encounter [facility] [place] Date(s): 08/27/19 - 09/03/[address] [address]- [facility] Encounter Diagnosis Asthma exacerbation(Discharge Diagnosis) - 08/27/19 Attending Physician: Joycelyn ALVES Magi Allergies, Adverse Reactions, Alerts Substance Reaction Severity Status sulfa drugs Active Immunizations Given and Recorded Vaccine Date Status Refusal Reason influenza virus vaccine, inactivated 1 06/19/19 Gi josefina zoster vaccine, inactivated 11/07/18 Recorded Influenza Virus Vaccine (oldterm) 06/04/18 Recorde [...] Recorded tetanus/diphtheria/pertussis, acel(Tdap) 04/14/11 Given 1Result Comment: [facility] [id number] Medications albuterol 0.083% inhalation solution 3 mL = 2.5 mg, Inhalation, Every 6 hours, PRN for wheezing, # 25 each, 0 Refills, Maintenance, 08/27/19 14:29:00 EST, Solution, [facility]/pharmacy #[id number], 167, cm, 08/27/19 13:50:00 EST, Height, 88, kg, 06/08/19 6:36:00 EDT, Dry Weight Start Date: 08/27/19 Status: Ordered albuterol 0.083% inhalation solution 3 mL = 2.5 mg, Inhalation, Once, PRN for wheezing, admin via [facility] in office Lot# [id number] exp#09/29/20, # 3 mL, 0 Refills, Soft Stop, 08/27/19 14:44:00 EST, Solution, Dry Weight Start Date: 08/27/19 Status: Ordered amLODIPine 2.5 mg oral tablet 2.5 mg, 1, tablet, By Mouth, Daily, # 90 tablet, Refills 3, Tot. Refills 3, Maintenance, 05/19/19 11:59:33 EDT, Route to Pharmacy Electronically, [id number], [facility]/pharmacy #[id number] Start Date: 05/19/19 Status: Ordered Azithromycin 5 Day Dose Pack 250 mg oral tablet 1 pack/packet, By Mouth, Once, # 6 tablet, 0 Refills, Soft Stop, 08/27/19 14:27:00 EST, Tablet, [facility]/pharmacy #[id number], 167, cm, 08/27/19 13:50:00 EST, Height, 88, kg, 06/08/19 6:36:00 EDT, Dry Weight Start Date: 08/27/19 Status: Ordered Breo Ellipta 200 mcg-25 mcg/inh inhalation powder TAKE 1 PUFF BY MOUTH EVERY DAY Start Date: 08/27/19 Status: Ordered Dulera 200 mcg-5 mcg/inh inhalation aerosol 2 puffs, Inhalation, 2 times a day, 0 Refills, Maintenance, 04/09/14 12:14:01, Aerosol Start Date: 04/09/14 Status: Ordered Horizant 600 mg oral tablet, extended release = 600 mg, By Mouth, 2 times a day, # 60 capsule, 0 Refills, Maintenance, 03/26/18 14:57:09 EDT, ER Tablet Start Date: 03/26/18 Status: Ordered omeprazole 40 mg oral enteric coated capsule 1 capsule = 40 mg, By Mouth, Daily, # 90 capsule, 3 Refills, Maintenance, 03/17/19 15:03:22 EDT, ECCapsule Start Date: 03/17/19 Status: Ordered pravastatin 20 mg oral tablet 1 tablet = 20 mg, By Mouth, Daily, # 30 tablet, 0 Refills, Maintenance, 04/09/14 12:14:31, Tablet Start Date: 04/09/14 Status: Ordered predniSONE 10 mg oral tablet See Instructions, 4 tablet By Mouth Daily for 3 days, 3 tabs for 3 days, 2 tabs for 3 days, 1 tab for 3 days, # 30 tablet, 0 Refills, Maintenance, 08/27/19 14:26:00 EST, [id number], 167, cm, 08/27/19 13:50:00 EST, Height, 88, kg, 06/08/19 6:36... Start Date: 08/27/19 Status: Ordered ProAir HFA 90 mcg/inh inhalation aerosol with adapter 2 puffs, Inhalation, 4 times a day, 0 Refills, Maintenance, 07/08/14 9:44:33 Start Date: 07/08/14 Status: Ordered Remifentanil 1 tablet, By Mouth, 2 times a day, 0 Refills, Maintenance, 10/11/11 10:08:43 Start Date: 10/11/11 Status: Ordered sertraline 100 mg oral tablet See Instructions, # 90 tablet, Refills 1 Tot. Refills 1, TAKE 1 TABLET BY MOUTH EVERY DAY, [id number] Start Date: 07/08/19 Status: Ordered Problem List Condition Effective Dates Status Health Status Inform ant Asthma(Confirmed) Active Depression(Confirmed) Active Hypertension(Confirmed) 2012 Active Sleep apnea, obstructive(Confirmed) 2009 Active Osteoarthritis(Confirmed) Active Spinal stenosis(Confirmed) Active Diagnosis Diagnosis Type Effective Dates Health Status Clinical Service Informant Asthma exacerbation Discharge Diagnosis 08/27/19 Vital Signs Most recent to oldest [Reference Range]: 1 Height 167 cm (08/27/19 1:50 PM) Weight 87.4 kg (08/27/19 1:50 PM) Oxygen Saturation [94-100 %] 98 % (08/27/19 1:50 PM) Pulse Rate [55-90 bpm] 97 bpm *H* (08/27/19 1:50 PM) Body Mass Index [18.5-24.99] 31.34 *>HHI* (08/27/19 1:50 PM) Blood Pressure [90-138/55-84 mm Hg] 110/ 62mm Hg (08/27/19 1:50 PM) Temperature [96.8-100.4 DegF] 98.5 DegF (08/27/19 1:50 PM) Mode of Delivery (Oxygen) Room air (08/27/19 1:50 PM) Blood pressure sites Arm, left (08/27/19 1:50 PM) Temperature Route Oral (08/27/19 1:50 PM) Weight Obtained Via Standing scale (08/27/19 1:50 PM) Social History Social History Type Response Tobacco Other: none. Sex
--- OUTSIDE RECORDS SUMMARY | 2023-06-01 02:43 | XMS_ITS | Continuity of Care Document ---
Author Name Unknown Organization [facility] Adult Address [address] [place] [address]- Care Team Providers Care Elementary Science Teacher Name Role Phone Louis ALVES, Radha Primary Care Physician [phone] Encounter [facility] Date(s): 04/05/20 - 05/05/20 [facility] Adult [address] [place] [address]- [facility] Allergies, Adverse Reactions, Alerts Substance Reaction Severity [...] Recorded tetanus/diphtheria/pertussis, acel(Tdap) 04/14/11 Given 1Result Comment: [facility] [id number] Medications albuterol 0.083% inhalation solution 3 mL = 2.5 mg, Inhalation, Every 6 hours, PRN for wheezing, # 25 each, 0 Refills, Maintenance, 03/30/20 2:55:00 EDT, Solution Start Date: 03/30/20 Status: Ordered Horizant 600 mg oral tablet, extended release = 600 mg, By Mouth, 2 times a day, # 60 capsule, 0 Refills, Maintenance, 03/30/20 2:55:00 EDT, ER Tablet Start Date: 03/30/20 Status: Ordered ipratropium nasal 21 mcg/inh spray 2 sprays, Nares, Both, 2 times a day, # 30 mL, 0 Refills, Maintenance, 03/30/20 2:55:00 EDT, [place] Start Date: 03/30/20 Status: Ordered NuLYTELY with Flavor Packs oral powder for reconstitution 240 mL, By Mouth, Every 10 minutes, # 4,000 mL, 0 Refills, Maintenance, 03/30/20 19:13:00 EDT, REC Powder, [facility]/pharmacy #[id number], 240 mL By Mouth Every 10 minutes, 165, cm, 03/30/20 14:58:00 EDT, Height, 79.8, kg, 03/30/20 15:13:00 EDT, Dry Weight Start Date: 03/30/20 Status: Ordered omeprazole 40 mg oral enteric coated capsule 1 capsule = 40 mg, By Mouth, Daily, # 30 capsule, 0 Refills, Maintenance, 03/30/20 2:56:00 EDT, EC Capsule Start Date: 03/30/20 Status: Ordered pravastatin 40 mg oral tablet 1 tablet = 40 mg, By Mouth, Daily at bedtime, # 30 tablet, 0 Refills, Maintenance, 03/30/20 2:56:00EDT, Tablet Start Date: 03/30/20 Status: Ordered sertraline 100 mg oral tablet 1 tablet = 100 mg, By Mouth, Daily, # 30 tablet, 0 Refills, Maintenance, 03/30/20 2:56:00 EDT, Tablet Start Date: 03/30/20 Status: Ordered Problem List Condition Effective Dates Status Health Status Inform ant Symptomatic anemia(Confirmed) Active Asthma(Confirmed) Active Asthma(Confirmed) Active Depression(Confirmed) Active Hypertension(Confirmed) 2013 Active Sleep apnea, obstructive(Confirmed) 2009 Active Osteoarthritis(Confirmed) Active Spinal stenosis(Confirmed) Active Social History Social History Type Response Tobacco Other: none. Sex
--- OUTSIDE RECORDS SUMMARY | 2023-06-01 02:43 | XMS_ITS | Continuity of Care Document ---
Author Name Unknown Organization [facility] Address [address] [place] [address]- Care Team Providers Care Rigging Worker Name Role Phone Louis ALVES, Radha Primary Care Physician [phone] Encounter [facility] Date(s): 01/27/21 - 02/26/21 [facility] [address] [facility] [place] [address]- Allergies, Adverse Reactions, Alerts Substance Reaction Severity [...] Recorded tetanus/diphtheria/pertussis, acel(Tdap) 04/14/11 Given 1Result Comment: [facility] [id number] Medications Albuterol (Eqv-ProAir HFA) Inhalation, Every 6 hours, 0 Refills, Maintenance, 09/15/20 15:34:00 EST, Partial fill upon patientrequest if the prescription is for a schedule II opioid drug. Start Date: 09/15/20 Status: Ordered ferrous sulfate 325 mg oral enteric coated tablet 325 mg, 1, tablet, By Mouth, 2 times a day, # 180 tablet, Refills 1, Tot. Refills 1, Maintenance, 12/23/20 11:27:00 EDT, Route to Pharmacy Electronically, [facility]/pharmacy #[id number], Partial fill upon patient request if the prescription is for a schedule II o... Start Date: 12/23/20 Status: Ordered Horizant 600 mg oral tablet, extended release = 600 mg, By Mouth, 2 times a day, # 60 capsule, 0 Refills, Maintenance, 03/30/20 2:55:00 EDT, ER Tablet Start Date: 03/30/20 Status: Ordered Magnesium Citrate = 500 mg, By Mouth, Daily, 0 Refills, Maintenance, 09/15/20 15:23:00 EST, Partial fill upon patientrequest if the prescription is for a schedule II opioid drug. Start Date: 09/15/20 Status: Ordered Multivitamin Daily, 0 Refills, Maintenance, 09/15/20 15:23:00 EST, Partial fill upon patient request if the prescription is for a schedule II opioid drug. Start Date: 09/15/20 Status: Ordered omeprazole 40 mg oral enteric coated capsule 1 capsule = 40 mg, By Mouth, Daily, # 90 capsule, 1 Refills, Maintenance, 11/21/20 16:41:00 EDT, Suspension, [facility]/pharmacy #[id number], 165.1, cm, 09/30/20 16:26:00 EST, Height, 87.5, kg, 09/30/20 16:26:00 EST, Dry Weight Start Date: 11/21/20 Stop Date: 05/20/21 Status: Ordered pravastatin 40 mg oral tablet 1 tablet, By Mouth, Daily at bedtime, # 90 tablet, 1 Refills, Maintenance, 12/23/20 11:27:00 EDT, [facility]/pharmacy #[id number], 165.1, cm, 12/17/20 9:14:00 EDT, Height, 89.7, kg, 12/17/20 9:14:00 EDT, Dry Weight Start Date: 12/23/20 Status: Ordered sertraline 100 mg oral tablet [...] right breast and flat atypia(Confirmed) 09/02/20 Active Depression(Confirmed) Active Iron deficiency anemia(Confirmed) Active Sleep apnea, obstructive(Confirmed) 2009 Active Spinal stenosis(Confirmed) Active Social History Social History Type Response Tobacco Other: none. Sex
--- OUTSIDE RECORDS SUMMARY | 2023-06-01 02:43 | XMS_ITS | Continuity of Care Document ---
Author Name Unknown Organization [facility] Adult Address [address] [place] [address]- Care Team Providers Care Academic Affairs Assistant Name Role Phone Louis ALVES, Radha Primary Care Physician En[facility] Date(s): 08/16/20 - 08/23/20 [facility] Adult [address] [place] [address]- Encounter Diagnosis Well adult exam(Discharge Diagnosis) - 08/16/20 Dizziness(Discharge Diagnosis) - 08/16/20 Iron deficiency anemia(Discharge Diagnosis) - 08/20/20 Attending Physician: Radha Myers MD Allergies, Adverse Reactions, Alerts Substance Reaction [...] Recorded tetanus/diphtheria/pertussis, acel(Tdap) 04/14/11 Given 1Result Comment: [facility] [id number] Medications ferrous sulfate 325 mg oral enteric coated tablet 325 mg, 1, tablet, By Mouth, 2 times a day, # 180 tablet, Refills 1, Tot. Refills 1, Maintenance, 08/20/20 18:07:00 EST, Route to Pharmacy Electronically, [facility]/pharmacy #[id number], Partial fill upon patient request if the prescription is for a schedule II o... Start Date: 08/20/20 Status: Ordered Horizant 600 mg oral tablet, extended release = 600 mg, By Mouth, 2 times a day, # 60 capsule, 0 Refills, Maintenance, 03/30/20 2:55:00 EDT, ER Tablet Start Date: 03/30/20 Status: Ordered omeprazole 40 mg oral enteric coated capsule 1 capsule = 40 mg, By Mouth, Daily, # 90 capsule, 1 Refills, Maintenance, 05/25/20 16:41:00 EDT, Suspension, [facility]/pharmacy #[id number], 165, cm, 04/22/20 7:24:00 EDT, Height, 79, kg, 04/05/20 8:33:00 EDT, Dry Weight Start Date: 05/25/20 Stop Date: 11/21/20 Status: Ordered pravastatin 40 mg oral tablet [...] Status Inform ant Asthma(Confirmed) Active Asthma(Confirmed) Active Depression(Confirmed) Active Iron deficiency anemia(Confirmed) Active Sleep apnea, obstructive(Confirmed) 2009 Active Spinal stenosis(Confirmed) Active Diagnosis Diagnosis Type Effective Dates Health Status Clinical Service Informant Well adult exam Discharge Diagnosis 08/16/20 Dizziness Discharge Diagnosis 08/16/20 Iron deficiency anemia Discharge Diagnosis 08/20/20 Vital Signs Most recent to oldest [Reference Range]: 1 Height 165 cm (08/16/20 2:03 PM) Weight 86.6 kg (08/16/20 2:03 PM) Oxygen Saturation [94-100 %] 99 % (08/16/20 2:03 PM) Pulse Rate [55-90 bpm] 85 bpm (08/16/20 2:03 PM) Body Mass Index [18.5-24.99] 31.81 *>HHI* (08/16/20 2:03 PM) Blood Pressure [90-138/55-84 mm Hg] 128/ 70mm Hg (08/16/20 2:03 PM) Respiratory Rate [16-30 br/min] 18 br/mi n (08/16/20 2:03 PM) Temperature [96.8-100.4 DegF] 98.1 DegF (08/16/20 2:03 PM) Mode of Delivery (Oxygen) Room air (08/16/20 2:03 PM) Blood pressure sites Arm, left (08/16/20 2:03 PM) Temperature Route Oral (08/16/20 2:03 PM) Weight Obtained Via Standing scale (08/16/20 2:03 PM) Social History Social History Type Response Tobacco Other: none. Sex
--- OUTSIDE RECORDS SUMMARY | 2023-06-01 02:43 | XMS_ITS | Continuity of Care Document ---
Author Name Unknown Organization [facility] Adult Address [address] [place] [address]- Care Team Providers Care Log Operations Coordinator Name Role Phone Louis ALVES, Radha Primary Care Physician Encounter [facility] Date(s): 03/29/20 - 04/28/20 [facility] Adult [address] [place] [address] [facility] Allergies, Adverse Reactions, Alerts Substance [...] Recorded tetanus/diphtheria/pertussis, acel(Tdap) 04/14/11 Given 1Result Comment: [facility] [id number] Medications albuterol 0.083% inhalation solution 3 mL [...] mL, 0 Refills, Maintenance, 03/30/20 2:55:00 EDT, [place] Start Date: 03/30/20 Status: Ordered NuLYTELY with Flavor Packs oral powder for reconstitution 240 mL, By Mouth, Every 10 minutes, # 4,000 mL, 0 Refills, Maintenance, 03/30/20 19:13:00 EDT, REC Powder, [facility]/pharmacy #[id number], 240 mL By Mouth Every 10 [...]
--- OUTSIDE RECORDS SUMMARY | 2023-06-01 02:43 | XMS_ITS | Continuity of Care Document ---
Author Name Unknown Organization [facility] Address [address] [place] [phone]- Care Team Providers Care Transformer Shop Supervisor Name Role Phone Louis ALVES, Radha Primary Care Physician [phone] Encounter [facility] Date(s): 12/17/21 - 12/20/[address] [address] Discharge Disposition: A-D/C Home Attending Physician: Kenia YUNG MD, Adin T Admitting Physician: Kenia YUNG MD, Adin T Referring Physician: Not on Staff, Referring MD Allergies, Adverse Reactions, Alerts Substance Reaction [...] 04/14/11 Given 1Result Comment: [facility] [id number] Medications acetaminophen 325 mg oral tablet 650 mg, Tablet, By Mouth, 12/20/21 5:00:00 EDT Start Date: 12/20/21 Stop Date: 12/20/21 Status: Completed acetaminophen 325 mg oral tablet 650 mg, 2, tablet, By Mouth, Every 4 hours, # 24 tablet, Refills 0, Tot. Refills 0, Maintenance, 12/20/21 11:37:00 EDT, Route to Pharmacy Electronically, [facility], Partial fill upon patient request if the prescription is for a schedule... Start Date: 12/20/21 Status: Ordered amLODIPine 5 mg oral tablet 5 mg, Tablet, By Mouth, 12/20/21 9:00:00 EDT Start Date: 12/20/21 Stop Date: 12/20/21 Status: Completed amLODIPine 5 mg oral tablet 5 mg, 1, tablet, By Mouth, Daily, # 90 tablet, Refills 3, Tot. Refills 3, Maintenance, 12/09/21 16:47:00 EDT, Route to Pharmacy Electronically, [facility]/pharmacy #[id number], Partial fill upon patient request if the prescription is for a schedule II opioid drug.... Start Date: 12/09/21 Status: Ordered Augmentin 875 mg-125 mg oral tablet 1 tablet, By Mouth, Every 12 hours, for 10 days, # 20 tablet, 0 Refills, Acute 12/30/21 11:28:00 EDT, 12/20/21 11:28:00 EDT, Tablet, [facility], Partial fill upon patient request if theprescription is for a schedule II opioid drug., 165... Start Date: 12/20/21 Stop Date: 12/30/21 Status: Ordered CPAP Machine See Instructions, # 1 each, Maintenance, AutoCPAP 8-20 cm H20, use Daily when sleeping, 12/17/21 13:03:00 EDT, Supply Start Date: 12/17/21 Status: Ordered [facility] OLOPATADINE 0.1% EYE DROPS INSTILL 1 DROP ONCE/DAY BOTH EYES EVERYDAY FOR ALLERGY Start Date: 12/17/21 Status: Ordered ferrous sulfate 325 mg oral enteric coated tablet 325 mg, 1, tablet, By Mouth, 2 times a day, # 180 tablet, Refills 1, Tot. Refills 1, Maintenance, 09/05/21 13:29:00 EST, Route to Pharmacy Electronically, [facility]/pharmacy #[id number], Partial fill upon patient request if the prescription is for a schedule II o... Start Date: 09/05/21 Status: Ordered gabapentin 300 mg oral capsule 600 mg, Capsule, By Mouth, 12/20/21 9:00:00 EDT Start Date: 12/20/21 Stop Date: 12/20/21 Status: Completed Horizant 600 mg oral tablet, extended release = 600 mg, By Mouth, 2 times a day, # 60 capsule, 0 Refills, Maintenance, 03/30/20 2:55:00 EDT, ER Tablet Start Date: 03/30/20 Status: Ordered Multivitamin Daily, 0 Refills, Maintenance, 09/15/20 15:23:00 EST, Partial fill upon patient request if the prescription is for a schedule II opioid drug. Start Date: 09/15/20 Status: Ordered omeprazole 40 mg oral enteric coated capsule 1 capsule, By Mouth, Daily, # 30 capsule, 2 Refills, [facility] STORE [id number], 165.1, cm, 11/11/21 12:40:00 EST, Height, 89.7, kg, 12/17/20 9:14:00 EDT, Dry Weight Start Date: 11/14/21 Status: Ordered Potassium Chloride (Tcz-Dfqw-Uep 10) 10 mEq oral tablet, extended release 1 tablet = 10 mEq, By Mouth, Daily, # 90 tablet, 3 Refills, Maintenance, 11/29/21 19:05:00 EDT, [facility]/pharmacy #[id number], Partial fill upon patient [...] FOR WHEEZING, # 18 each, 5 Refills, [id number], 17, INHALE 2 PUFFS BY MOUTH FOUR [...] 3 Refills, Maintenance, 02/25/21 11:24:00 EDT, Tablet, [facility]/pharmacy #[id number], Partial fill upon patient request if the prescription is for a schedule II opioid drug., 165.1, cm, 02/25/21 11:11:00 EDT, Heigh... Start Date: 02/25/21 Status: Ordered turmeric 500 mg oral capsule 1 capsule = 500 mg, By Mouth, Daily, # 60 capsule, 0 Refills, Maintenance, 12/17/21 13:03:00 EDT, Capsule, Partial fill upon patient request if the prescription is for a schedule II opioid drug. 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) 09/02/20 Active Hyperlipidemia, unspecified(Confirmed) Active HTN (hypertension)(Confirmed) Active Iron deficiency anemia(Confirmed) Active Obese class I(Confirmed) Active Sleep apnea, obstructive(Confirmed) 2009 Active Major depression, recurrent(Confirmed) Active Spinal stenosis(Confirmed) Active Results Orders for Microbiology Reports Name Date Wound Deep Culture w/ Gram Smear (DEEP W OUND CULTURE) 12/17/21 Anaerobic Culture 12/17/21 Microbiology Reports TEST:Anaerobic Culture STATUS:Unauthenticated BODY SITE: SOURCE:FLUID COLLECTED DATE/TIME:12/17/21 3:30 PM Anaerobic Culture SPECIMEN DESCRIPTION : FLUID ABDOMEN SPECIAL REQUESTS : NONE CULTURE : NO ANAEROBES ISOLATED SO FAR. REPORT STATUS : PRELIMINARY REPORT TEST:Deep Wound Culture STATUS:Auth (Verified) BODY SITE: SOURCE:FLUID COLLECTED DATE/TIME:12/17/21 3:30 PM Deep Wound Culture SPECIMEN DESCRIPTION : FLUID ABDOMEN SPECIAL REQUESTS : NONE GRAM STAIN : 1+ SQ.EPITHELIAL CELLS 1+ GRAM NEGATIVE RODS CULTURE : NO GROWTH 2 DAYS REPORT STATUS : FINAL 12/20/2021 Vital Signs Most recent to oldest [Reference Range]: 1 2 3 Height 165.1 cm (12/19/21 7:43 PM) 165.1 cm (12/18/21 2:00 PM) 165.1 cm (12/18/21 12:00 PM) Weight 84.36 kg (12/17/21 3:48 PM) Oxygen Saturation [94-100 %] 97 % (12/20/21 12:00 PM) 97 % (12/20/21 7:00 AM) 97 % (12/20/21 4:00 AM) Pulse Rate [55-90 bpm] 59 bpm (12/20/21 12:00 PM) 50 bpm *L* (12/20/21 7:00 AM) 54 bpm *L* (12/20/21 4:00 AM) Body Mass Index [18.5-24.99] 30.95 *>HHI* (12/17/21 3:48 PM) Blood Pressure [90-138/55-84 mm Hg] 114/63mm Hg (12/20/21 12:00 PM) 126/63mm Hg (12/20/21 7:56 AM) 128/63mm Hg (12/20/21 4:00 AM) Respiratory Rate [16-30 br/min] 18 br/min (12/20/21 12:00 PM) 18 br/min (12/20/21 9:17 AM) 18 br/min (12/20/21 9:17 AM) Temperature [96.8-100.4 DegF] 98.2 DegF (12/20/21 12:00 PM) 97.7 DegF (12/20/21 7:00 AM) 97.9 DegF (12/20/21 4:00 AM) Mode of Delivery (Oxygen) Room air (12/20/21 12:00 PM) Room air (12/20/21 7:00 AM) Room air (12/20/21 4:00 AM) Blood pressure sites Arm, left (12/20/21 12:00 PM) Arm, left (12/20/21 7:00 AM) Arm, left (12/20/21 4:00 AM) Temperature Route Oral (12/20/21 12:00 PM) Oral (12/20/21 7:00 AM) Oral (12/20/21 4:00 AM) Dry Weight 84.36 kg (12/17/21 3:48 PM) Weight Obtained Via Patient/family state d (12/17/21 3:48 PM) Social History Social History Type Response Tobacco Other: none. Sex
--- OUTSIDE RECORDS SUMMARY | 2023-06-01 02:43 | XMS_ITS | Continuity of Care Document ---
Author Name Unknown Organization [facility] Adult Address [address] [place] [address]- Care Team Providers Care Mail Messenger Name Role Phone Louis ALVES, [facility] Primary Care Physician Encounter [facility] Date(s): 12/09/21 - 02/08/22 [facility] Adult [address] [place] [address]- Attending Physician: Not on Staff, Attending MD Allergies, Adverse Reactions, Alerts Substance Reaction [...] tetanus/diphtheria/pertussis, acel(Tdap) 04/14/11 Given 1Result Comment: [facility] [id number] Medications amLODIPine 5 mg oral tablet 5 mg, 1, tablet, By Mouth, Daily, # 90 tablet, Refills 3, Tot. Refills 3, Maintenance, 12/09/21 16:47:00 EDT, Route to Pharmacy Electronically, [facility]/pharmacy #[id number], Partial fill upon patient request if the prescription is for a schedule II opioid drug.... Start Date: 12/09/21 Status: Ordered CPAP Machine See Instructions, # 1 each, Maintenance, AutoCPAP 8-20 cm H20, use Daily when sleeping, 12/17/21 13:03:00 EDT, Supply Start Date: 12/17/21 Status: Ordered [facility] OLOPATADINE 0.1% EYE DROPS INSTILL 1 DROP ONCE/DAY BOTH EYES EVERYDAY FOR ALLERGY Start Date: 12/17/21 Status: Ordered ferrous sulfate 325 mg oral enteric coated tablet 1, tablet, By Mouth, 2 times a day, # 180 tablet, Refills 1, Route to Pharmacy Electronically, [id number], 165.1, cm, 01/27/22 12:56:00 EDT, Height, 84.36, kg, 12/17/21 15:48:00 EDT, Dry Weight Start Date: 02/08/22 Status: Ordered Multivitamin Daily, 0 Refills, Maintenance, 09/15/20 15:23:00 EST, Partial fill upon patient request if the prescription is for a schedule II opioid drug. Start Date: 09/15/20 Status: Ordered omeprazole 40 mg oral enteric coated capsule 1 capsule, By Mouth, Daily, # 30 capsule, 2 Refills, [facility], 165.1, cm, 01/10/22 15:58:00 EDT, Height, 84.36, kg, 12/17/21 15:48:00 EDT, Dry Weight Start Date: 01/16/22 Status: Ordered Potassium Chloride (Mwm-Utcf-Muf 10) 10 mEq oral tablet, extended release [...] # 18 each, 5 Refills, [id number], 17, INHALE 2 PUFFS BY MOUTH FOUR [...]
--- OUTSIDE RECORDS SUMMARY | 2023-06-01 02:43 | XMS_ITS | Continuity of Care Document ---
Author Name Unknown Organization [facility] Address [address] [place] [address]- Care Team Providers Care Institute Scientist Name Role Phone Radha Myers MD Primary Care Physician Encounter [facility] Date(s): 10/20/19 - 10/21/[address] [address]- [facility] Encounter Diagnosis Influenza A(Final) - 10/21/19 Discharge Disposition: A-D/C Home Attending Physician: Pillo Flores MD Admitting Physician: Pillo Flores MD Referring Physician: Not on Staff, Referring MD [...] Recorded tetanus/diphtheria/pertussis, acel(Tdap) 04/14/11 Given 1Result Comment: [facility] [id number] Medications albuterol 0.083% inhalation solution 3 mL = 2.5 mg, Inhalation, Every 6 hours, PRN for wheezing, # 25 each, 0 Refills, Maintenance, 08/27/19 14:29:00 EST, Solution, [facility]/pharmacy #[id number], 167, cm, 08/27/19 13:50:00 EST, Height, 88, kg, 06/08/19 6:36:00 EDT, Dry Weight Start Date: 08/27/19 Status: Ordered albuterol 0.083% inhalation solution 3 mL = 2.5 mg, Inhalation, Once, PRN for wheezing, admin via [facility] in office Lot# [id number] exp#09/29/20, # 3 mL, 0 Refills, Soft Stop, 08/27/19 14:44:00 EST, Solution, Dry Weight Start Date: 08/27/19 Status: Ordered amLODIPine 2.5 mg oral tablet 2.5 mg, 1, tablet, By Mouth, Daily, # 90 tablet, Refills 3, Tot. Refills 3, Maintenance, 05/19/19 11:59:33 EDT, Route to Pharmacy Electronically, [id number], [facility]/pharmacy #[id number] Start Date: 05/19/19 Status: Ordered Azithromycin 5 Day Dose Pack 250 mg oral tablet 1 pack/packet, By Mouth, Once, # 6 tablet, 0 Refills, Soft Stop, 08/27/19 14:27:00 EST, Tablet, [facility]/pharmacy #[id number], 167, cm, 08/27/19 13:50:00 EST, Height, [...] tablet, 0 Refills, Maintenance, 08/27/19 14:26:00 EST, [facility]/pharmacy #[id number], 167, cm, 08/27/19 13:50:00 EST, Height, 88, kg, 06/08/19 6:36... Start Date: 08/27/19 Status: Ordered predniSONE 20 mg oral tablet 2 tablet = 40 mg, By Mouth, Daily, for 5 days, # 10 tablet, 0 Refills, Acute 10/26/19 2:18:00 EST, 10/21/19 2:18:00 EST, Tablet, [facility]/pharmacy #[id number], 167, cm, 08/27/19 13:50:00 EST, Height, 88, kg, 06/08/19 6:36:00 EDT, Dry Weight Start Date: 10/21/19 Stop Date: 10/26/19 Status: Ordered ProAir HFA 90 mcg/inh inhalation [...] 2009 Active Osteoarthritis(Confirmed) Active Spinal stenosis(Confirmed) Active Results Radiology Reports * Exam Date Time Procedure Performing Provider Status 10/20/19 8:50 PM Chest 2 Views Frontal and Lat Hanna Justin; Auth (Verified) Notes: (Chest 2 Views Frontal and Lat) Reason For Exam: Cough RESULT: Chest 2 Views Frontal and Lat Chest 2 Views Frontal and Lat Reason: Cough; Clinical Question(s): Other:; Hx of Present Illness: cough x 2 mths and has been on 2 prescriptions already and was sent toed by pcp and sent to [place] [facility] after having hoarse voise today and was sent to ed by Dr Stein; Other Objective Findings: Pt with cough, hoarse vioce, sppeakingshort sentences. clear mucus. COMPARISON: 04/08/14. FINDINGS: LINES AND TUBES: None. LUNGS AND PLEURA: Clear lungs. Normal pulmonary vascularity. No pleural effusion. No pneumothorax. HEART, MEDIASTINUM AND WOODY: Heart is normal in size. There is a large hiatal hernia. BONES AND SOFT TISSUES: No acute abnormality. IMPRESSION: No pneumonia. Large hiatal hernia. WSN: [id number] Dictated By: Ismael Becerril MD Dictated Date/Time: 10/20/19 9:12 pm Reviewed By: Ismael Becerril MD Signed By: Ismael Becerril MD Signed Date/Time: 10/20/19 9:12 pm Transcribed By: XAVIER Transcribed Date/Time: 10/20/19 9:10 pm Vital Signs Most recent to oldest [Reference Range]: 1 2 3 Oxygen Saturation [94-100 %] 97 % (10/21/19 2:20 AM) 98 % (10/21/19 1:16 AM) 96 % (10/20/19 8:30 PM) Pulse Rate [55-90 bpm] 76 bpm (10/21/19 2:20 AM) 78 bpm (10/21/19 1:16 AM) 78 bpm (10/20/19 8:30 PM) Blood Pressure [90-138/55-84 mm Hg] 127/72mm Hg (10/21/19 2:20 AM) 135/49mm Hg (10/21/19 1:16 AM) 103/77mm Hg (10/20/19 8:30 PM) Respiratory Rate [16-30 br/min] 20 br/min (10/21/19 2:20 AM) 21 br/min (10/21/19 1:16 AM) 19 br/min (10/20/19 8:30 PM) Temperature [96.8-100.4 DegF] 98.4 DegF (10/21/19 1:16 AM) 99.3 DegF (10/20/19 8:30 PM) 98.7 DegF (10/20/19 6:43 PM) Mode of Delivery (Oxygen) Room air (10/21/19 2:20 AM) Room air (10/21/19 1:16 AM) Room air (10/20/19 8:30 PM) Blood pressure sites Arm, right (10/21/19 2:20 AM) Arm, right (10/20/19 8:30 PM) Temperature Route Oral (10/21/19 1:16 AM) Oral (10/20/19 8:30 PM) Oral (10/20/19 6:43 PM) Social History Social History Type Response Tobacco Other: none. Sex
--- OUTSIDE RECORDS SUMMARY | 2023-06-01 02:43 | XMS_ITS | Continuity of Care Document ---
Author Name Unknown Organization [facility] Address [address] [place] [address]- Care Team Providers Care Field Hauler Name Role Phone Louis ALVES, Radha Primary Care Physician [phone] [place] [facility] [place] 10[place]/20 [facility] [address] [place] [address]- Attending Physician: Ernie Sánchez Admitting Physician: Ernie [...] Recorded tetanus/diphtheria/pertussis, acel(Tdap) 04/14/11 Given 1Result Comment: [facility] [id number] Medications Albuterol (Eqv-ProAir HFA) Inhalation, Every 6 [...] 08/20/20 18:07:00 EST, Route to Pharmacy Electronically, [facility]/pharmacy #[id number], Partial fill upon patient [...] 1 Refills, Maintenance, 05/25/20 16:41:00 EDT, Suspension, [facility]/pharmacy #[id number], 165, cm, 04/22/20 7:24:00 EDT, Height, 79, kg, 04/05/20 8:33:00 EDT, Dry Weight Start Date: 05/25/20 Stop Date: 11/21/20 Status: Ordered pravastatin 40 mg oral tablet 1 tablet = 40 mg, By Mouth, Daily at bedtime, will need labs for refills, # 30 tablet, 0 Refills, Maintenance, 08/31/20 16:02:00 EST, Tablet, [id number], Partial fill upon patient request if the prescription is for a schedule II opioid drug.,... 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 Sex
--- OUTSIDE RECORDS SUMMARY | 2023-06-01 02:43 | XMS_ITS | Continuity of Care Document ---
Author Name Unknown Organization [facility] Address [address] [place] [address]- Care Team Providers Care Optimization Manager Name Role Phone Radha Myers MD Primary Care Physician [place] [facility] [place] 11/14/21 - 12/14/21 [facility] [address] [place] [address]- Allergies, Adverse Reactions, Alerts Substance Reaction Severity [...] Recorded tetanus/diphtheria/pertussis, acel(Tdap) 04/14/11 Given 1Result Comment: [facility] [id number] Medications amLODIPine 5 mg oral tablet 5 mg, 1, tablet, By Mouth, Daily, # 90 tablet, Refills 3, Tot. Refills 3, Maintenance, 12/09/21 16:47:00 EDT, Route to Pharmacy Electronically, [facility]/pharmacy #[id number], Partial fill upon patient request if the prescription is for a schedule II opioid drug.... Start Date: 12/09/21 Status: Ordered ferrous sulfate 325 mg oral enteric coated tablet 325 mg, 1, tablet, By Mouth, 2 times a day, # 180 tablet, Refills 1, Tot. Refills 1, Maintenance, 09/05/21 13:29:00 EST, Route to Pharmacy Electronically, [facility]/pharmacy #[id number], Partial fill upon patient request if the prescription is for a schedule II o... Start Date: 09/05/21 Status: Ordered Horizant 600 mg oral tablet, [...] # 30 capsule, 2 Refills, [facility] STORE [id number], 165.1, cm, 11/11/21 12:40:00 EST, Height, 89.7, kg, 12/17/20 9:14:00 EDT, Dry Weight Start Date: 11/14/21 Status: Ordered Potassium Chloride (Lbz-Hptr-Fnt 10) 10 mEq oral tablet, extended release [...] # 18 each, 5 Refills, [facility], 17, INHALE 2 PUFFS BY MOUTH FOUR [...] flat atypia(Confirmed) 09/02/20 Active Hyperlipidemia, unspecified(Confirmed) Active Iron deficiency anemia(Confirmed) Active Obese class I(Confirmed) Active Sleep apnea, obstructive(Confirmed) 2009 Active Major depression, recurrent(Confirmed) Active Spinal stenosis(Confirmed) Active Social History Social History Type Response Tobacco Other: none. Sex
--- OUTSIDE RECORDS SUMMARY | 2023-06-01 02:43 | XMS_ITS | Continuity of Care Document ---
Author Name Unknown Organization [facility] Address [address] [place] [address]- Care Team Providers Care Material Handling Supervisor Name Role Phone Louis ALVES, Radha Primary Care Physician [phone] [place] [facility] [place] 03/28/23 - 03/28/[address] [address]- Discharge Disposition: A-D/C Walkout Attending Physician: Not on Staff, Attending MD Admitting Physician: Not on Staff, Admitting MD Referring Physician: Not on Staff, Referring [...] Requested from pharmacy, arrived late 2Result Comment: [facility] [id number] Medications amLODIPine 10 mg oral tablet 10 mg, 1, tablet, By Mouth, Daily, # 90 tablet, Refills 1, Tot. Refills 1, Maintenance, 02/22/23 16:16:00 EDT, Route to Pharmacy Electronically, [facility]/pharmacy #[id number], Partial fill upon patient request if [...] EDT, Route to Pharmacy Electronically, [id number], 165, cm, 01/11/23 11:14:00 EDT, Height, 80.6, [...] 1 Refills, Maintenance, 09/20/22 18:10:00 EST, ECCapsule, [facility]/pharmacy #[id number], Partial fill upon patient request if the prescription is for a schedule II opioid drug., 165, cm, 09/15/22 13:35:00 EST, H... Start Date: 09/20/22 Status: Ordered Potassium Chloride (Lgw-Iyft-Kaf 10) 10 mEq oral tablet, extended release 1 tablet, By Mouth, Daily, # 30 tablet, 11 Refills, Maintenance, 10/26/22 15:24:00 EST, [facility], 165, cm, 09/15/22 13:35:00 EST, Height, 79.8, kg, 07/30/22 10:04:00 EST, Dry Weight Start Date: 10/26/22 Status: Ordered pravastatin 40 mg oral tablet 1 tablet, By Mouth, Daily at bedtime, # 30 tablet, 5 Refills, Maintenance, 10/26/22 14:06:00 EST, [facility], 165, cm, 09/15/22 13:35:00 EST, Height, 79.8, kg, 07/30/22 10:04:00 EST, Dry Weight Start Date: 10/26/22 Status: Ordered ProAir HFA 90 mcg/inh inhalation aerosol 2 puffs, Inhalation, 4 times a day, PRN NEEDED FOR WHEEZING, # 18 each, 2 Refills, 03/14/22 11:48:00 EDT, [facility]/pharmacy #[id number], 17, 2 puffs Inhalation 4 times a day,PRN: NEEDED FOR WHEEZING, 165.1, cm, 03/14/22 11:16:00 EDT, Height, 84.36, kg, 04/0... Start Date: 03/14/22 Status: Ordered sertraline 100 mg oral tablet 1 tablet, By Mouth, Daily, # 90 tablet, 3 Refills, Maintenance, 06/30/22 13:51:00 EDT, [facility], 165, cm, 06/21/22 12:30:00 EDT, Height, 83.5, kg, 04/04/22 12:32:00 EDT, Dry Weight Start Date: 06/30/22 Status: Ordered tamoxifen 20 mg oral tablet 1 tablet = 20 mg, By Mouth, Daily, # 30 tablet, 11 Refills, Maintenance, 09/13/22 10:45:00 EST, Tablet, [facility]/pharmacy #[id number], Partial fill upon patient request if [...] Active Atypical ductal hyperplasia (ADH), Right breast, 2019 Confirmed 09/02/20 Active Hyperlipidemia, unspecified Confirmed Active HTN (hypertension) Confirmed Active Iron deficiency anemia Confirmed Active Obese class I Confirmed Active Sleep apnea, obstructive Confirmed 2009 Active Major depression, recurrent Confirmed Active Spinal stenosis Confirmed Active Vital Signs Most recent to oldest [Reference Range]: 1 Oxygen Saturation [94-100 %] 96 % (03/28/23 5:12 AM) Pulse Rate [55-90 bpm] 85 bpm (03/28/23 5:12 AM) Blood Pressure [90-138/55-84 mm Hg] 148/ 80mm Hg *H* (03/28/23 5:12 AM) Temperature [96.8-100.4 DegF] 98.4 DegF (03/28/23 5:12 AM) Mode of Delivery (Oxygen) Room air (03/28/23 5:12 AM) Blood pressure sites Arm, left (03/28/23 5:12 AM) Temperature Route Oral (03/28/23 5:12 AM) Dry Weight 79.6 kg (03/28/23 5:12 AM) Social History Social History Type Response Tobacco Other: none. Sex Patient Care team information Care Team Personnel Name: Yaneth Frankel RN Position: [facility] RN Member Role: Primary Care Nurse Name: Keena Thakkar RN Position: [facility] RN Member Role: Primary Care Nurse Name: Emili Alexnader RN Position: [facility] RN Member Role: Primary Care Nurse Name: Sapna Narayanan RN Position: [facility] RN Member Role: Primary Care Nurse Name: Anna Vaca RN Position: [facility] RN Member Role: Primary Care Nurse Name: Loren Spangler RN Position: [facility] RN Member Role: Primary Care Nurse Name: Mignon Ibarra RN Position: [facility] RN Member Role: Primary Care Nurse Name: Patricia Lieberman RN Position: [facility] OB RN Member Role: Primary Care Nurse Name: Radha Meyrs MD Position: [facility] Physician - Primary Care Member Role: PCP Address: Address: [address] [place] [address]- Name: Asiya Baker RN Position: [facility] RN Member Role: Primary Care Nurse Name: Paramjit Solomon RN Position: [facility] RN Member Role: Primary Care Nurse Care Team Related Persons Name: RAKAN FIGUEROA Address: [address] [address]
--- OUTSIDE RECORDS SUMMARY | 2023-06-01 02:44 | XMS_ITS | Continuity of Care Document ---
Author Name Unknown Organization [facility] Address [address] [place] [address]- Care Team Providers Care Junior Legal Secretary Name Role Phone Radha Myers MD Primary Care Physician [phone] [place] [facility] [place]): [place]17[place] [facility] [address] [place] [address]- Encounter Diagnosis History of diverticulitis(Discharge Diagnosis) - 01/16/22 Attending Physician: Radha Myers MD Allergies, Adverse [...] Recorded tetanus/diphtheria/pertussis, acel(Tdap) 04/14/11 Given 1Result Comment: [facility] [id number] Medications acetaminophen 325 mg oral tablet 650 mg, 2, tablet, By Mouth, Every 4 hours, # 24 tablet, Refills 0, Tot. Refills 0, Maintenance, 12/20/21 11:37:00 EDT, Route to Pharmacy Electronically, [facility], Partial fill upon patient request if the prescription is for a schedule... Start Date: 12/20/21 Status: Ordered amLODIPine 5 mg oral tablet 5 mg, 1, tablet, By Mouth, Daily, # 90 tablet, Refills 3, Tot. Refills 3, Maintenance, 12/09/21 16:47:00 EDT, Route to Pharmacy Electronically, [facility]/pharmacy #[id number], Partial fill upon patient request if the prescription is for a schedule II opioid drug.... Start Date: 12/09/21 Status: Ordered CPAP Machine See Instructions, # 1 each, Maintenance, AutoCPAP 8-20 cm H20, use Daily when sleeping, 12/17/21 13:03:00 EDT, Supply Start Date: 12/17/21 Status: Ordered [facility] OLOPATADINE 0.1% EYE DROPS INSTILL 1 DROP ONCE/DAY BOTH EYES EVERYDAY FOR ALLERGY Start Date: 12/17/21 Status: Ordered ferrous sulfate 325 mg oral enteric coated tablet 325 mg, 1, tablet, By Mouth, 2 times a day, # 180 tablet, Refills 1, Tot. Refills 1, Maintenance, 09/05/21 13:29:00 EST, Route to Pharmacy Electronically, [facility]/pharmacy #[id number], Partial fill upon patient request if the prescription is for a schedule II o... Start Date: 09/05/21 Status: Ordered Multivitamin Daily, 0 Refills, Maintenance, 09/15/20 15:23:00 EST, Partial fill upon patient request if the prescription is for a schedule II opioid drug. Start Date: 09/15/20 Status: Ordered NuLYTELY with Flavor Packs oral powder for reconstitution See Instructions, per GI office, # 4,000 mL, 0 Refills, Maintenance, 01/11/22 13:46:00 EDT, [facility], Partial fill upon patient request if the prescription is for a schedule II opioiddrug., per GI office, 165.1, cm, 01/10/22 15:58:00... Start Date: 01/11/22 Status: Ordered omeprazole 40 mg oral enteric coated capsule 1 capsule, By Mouth, Daily, # 30 capsule, 2 Refills, [facility], 165.1, cm, 01/10/22 15:58:00 EDT, Height, 84.36, kg, 12/17/21 15:48:00 EDT, Dry Weight Start Date: 01/16/22 Status: Ordered Potassium Chloride (Zww-Bltd-Qfc 10) 10 mEq oral tablet, extended release 1 tablet = 10 mEq, By Mouth, Daily, # 90 tablet, 3 Refills, Maintenance, 11/29/21 19:05:00 EDT, [facility]/pharmacy #[id number], Partial fill upon patient request [...] # 18 each, 5 Refills, [facility], 17, INHALE 2 PUFFS BY MOUTH FOUR [...] Major depression, recurrent(Confirmed) Active Spinal stenosis(Confirmed) Active Diagnosis Diagnosis Type Effective Dates Health Status Clinical Service Informant History of diverticulitis Discharge Diagnosis 01/16/22 Vital Signs Most recent to oldest [Reference Range]: 1 2 3 Height 165.1 cm (01/10/22 3:58 PM) 165.1 cm (01/10/22 3:27 PM) 165.1 cm (01/10/22 3:11 PM) Weight 82.8 kg (01/10/22 3:11 PM) Oxygen Saturation [94-100 %] 95 % (01/10/22 3:58 PM) 92 % *L* (01/10/22 3:11 PM) Pulse Rate [55-90 bpm] 80 bpm (01/10/22 3:58 PM) 94 bpm *H* (01/10/22 3:11 PM) Body Mass Index [18.5-24.99] 30.38 *>HHI* (01/10/22 3:11 PM) Blood Pressure [90-138/55-84 mm Hg] 127/83mm Hg (01/10/22 3:58 PM) 141/83mm Hg *H* (01/10/22 3:27 PM) 143/75mm Hg *H* (01/10/22 3:11 PM) Respiratory Rate [16-30 br/min] 20 br/min (01/10/22 3:58 PM) Temperature [96.8-100.4 DegF] 98.2 DegF (01/10/22 3:11 PM) Mode of Delivery (Oxygen) Room air (01/10/22 3:58 PM) Room air (01/10/22 3:11 PM) Blood pressure sites Arm, left (01/10/22 3:58 PM) Arm, right (01/10/22 3:11 PM) Temperature Route Oral (01/10/22 3:11 PM) Weight Obtained Via Standing scale (01/10/22 3:11 PM) Social History Social History Type Response Tobacco Other: none. Sex
--- OUTSIDE RECORDS SUMMARY | 2023-06-01 02:44 | XMS_ITS | Continuity of Care Document ---
Author Name Unknown Organization [facility] Address [address] [place] [address]- Care Team Providers Care Senior Strategy Analyst Name Role Phone Louis ALVES, Radha Primary Care Physician [place] [facility] [place](s): 10/26/20 - 11/25/20 [facility] [address] [place] [phone]- Allergies, Adverse Reactions, Alerts Substance Reaction Severity [...] tetanus/diphtheria/pertussis, acel(Tdap) 04/14/11 Given 1Result Comment: [facility] [id number] Medications Albuterol (Eqv-ProAir HFA) Inhalation, Every 6 [...] 08/20/20 18:07:00 EST, Route to Pharmacy Electronically, [facility]/pharmacy #[id number], Partial fill upon patient request if [...] 1 Refills, Maintenance, 11/21/20 16:41:00 EDT, Suspension, [facility]/pharmacy #[id number], 165.1, cm, 09/30/20 16:26:00 EST, Height, 87.5, kg, 09/30/20 16:26:00 EST, Dry Weight Start Date: 11/21/20 Stop Date: 05/20/21 Status: Ordered pravastatin 40 mg oral tablet 1 tablet = 40 mg, By Mouth, Daily at bedtime, will need labs for refills, # 30 tablet, 0 Refills, Maintenance, 11/21/20 10:54:00 EDT, Tablet, [facility]/pharmacy #[id number], Partial fill upon patient request if the prescription is for a schedule II opioid drug.,... Start Date: 11/21/20 Status: Ordered sertraline 100 mg oral tablet [...]
--- OUTSIDE RECORDS SUMMARY | 2023-06-01 02:44 | XMS_ITS | Continuity of Care Document ---
Author Name Unknown Organization [facility] Address [address] [place] [address]- Care Team Providers Care Veneer Grader Name Role Phone Louis ALVES, Radha Primary Care Physician [id number] Date(s): 06/22/22 - 09/11/22 [facility] [address] [place] [address]- Discharge Disposition: A-D/C Home Attending Physician[facility] Admitting Physician: Solange Walker Referring Physician: Candida SECONDS INSPECTOR, Shine Dattatra Allergies, Adverse Reactions, Alerts Substance Reaction Severity [...] late 2Result Comment: [facility] 43223-065-85 Medications acetaminophen 325 mg oral tablet 650 mg, 2, tablet, By Mouth, Every 6 hours, PRN, # 30 tablet, Refills 0, Tot. Refills 0, Maintenance, Pain , Moderate, 07/18/22 10:14:00 EST, Route to Pharmacy Electronically, [facility]/pharmacy #[id number], Partial fill upon patient request if the prescription i... Start Date: 07/18/22 Status: Ordered amLODIPine 5 mg oral tablet 5 mg, 1, tablet, By Mouth, Daily, # 90 tablet, Refills 3, Tot. Refills 3, Maintenance, 12/09/21 16:47:00 EDT, Route to Pharmacy Electronically, [facility]/pharmacy #[id number], Partial fill upon patient request if the prescription is for a schedule II opioid drug.... Start Date: 12/09/21 Status: Ordered CPAP Machine See Instructions, # 1 each, Maintenance, AutoCPAP 8-20 cm H20, use Daily when sleeping, 12/17/21 13:03:00 EDT, Supply Start Date: 12/17/21 Status: Ordered [facility] OLOPATADINE 0.1% EYE DROPS INSTILL 1 DROP ONCE/DAY BOTH EYES EVERYDAY FOR ALLERGY Start Date: 12/17/21 Status: Ordered [facility] OLOPATADINE 0.1% EYE DROPS [facility] OLOPATADINE 0.1% EYE DROPS, 0 Refills, Maintenance, 06/21/22 12:58:00 EDT Start Date: 06/21/22 Status: Ordered dexamethasone/neomycin/polymyxin B ophthalmic 1 mg-3.5 mg-42262 u/gm ointment 0 Refills, Maintenance, 06/21/22 12:59:00 EDT, Partial fill upon patient request if the prescription is for a schedule II opioid drug. Start Date: 06/21/22 Status: Ordered ferrous sulfate 325 mg oral enteric coated tablet 1, tablet, By Mouth, 2 times a day, # 180 tablet, Refills 1, Maintenance, 06/30/22 13:50:00 EDT, Route to [facility]ically[id number], 165, cm, 06/21/22 12:30:00 EDT, Height, 83.5, kg, 04/04/22 12:32:00 EDT, Dry Weight Start Date: 06/30/22 Status: Ordered gabapentin 600 mg oral tablet [...] Daily, # 30 capsule, 0 Refills, Maintenance, 06/21/22 12:59:00 EDT, [facility], Partial fill upon patient request if the prescription is for a schedule II opioid drug. Start Date: 06/21/22 Status: Ordered Potassium Chloride (Icm-Eslg-Sng 10) 10 mEq oral tablet, extended release 0 Refills, Maintenance, 06/21/22 12:58:00 EDT, Partial fill upon patient request if the prescription is for a schedule II opioid drug. Start Date: 06/21/22 Status: Ordered pravastatin 40 mg oral tablet 1 tablet, By Mouth, Daily at bedtime, # 90 tablet, 1 Refills, Maintenance, 06/03/22 20:32:00 EDT, [facility]/pharmacy #[id number], 165, cm, 04/04/22 12:32:00 EDT, Height, 83.5, kg, 04/04/22 12:32:00 EDT, Dry Weight Start Date: 06/03/22 Status: Ordered ProAir HFA 90 mcg/inh inhalation aerosol 2 puffs, Inhalation, 4 times a day, PRN NEEDED FOR WHEEZING, # 18 each, 2 Refills, 03/14/22 11:48:00 EDT, [facility]/pharmacy #[id number], 17, 2 puffs Inhalation 4 times a day,PRN: NEEDED FOR WHEEZING, 165.1, cm, 03/14/22 11:16:00 EDT, Height, 84.36, kg, 04/0... Start Date: 03/14/22 Status: Ordered sertraline 100 mg oral tablet 1 tablet, By Mouth, Daily, # 90 tablet, 3 Refills, Maintenance, 06/30/22 13:51:00 EDT, [id number], 165, cm, 06/21/22 12:30:00 EDT, Height, 83.5, kg, 04/04/22 12:32:00 EDT, Dry Weight Start Date: 06/30/22 Status: Ordered tamoxifen 20 mg oral tablet 1 tablet = 20 mg, By Mouth, Daily, # 90 tablet, 3 Refills, Maintenance, 02/25/21 11:24:00 EDT, Tablet, [facility]/pharmacy #[id number], Partial fill upon patient request if the prescription is for a schedule II opioid drug., 165.1, cm, 02/25/21 11:11:00 EDT, Nav[facility]... Start Date: 02/25/21 Status: Ordered traMADol 50 mg oral tablet 0.5 tablet = 25 mg, Daily, 0 Refills, Maintenance, 06/21/22 13:28:00 EDT, Partial fill upon patientrequest if the prescription is for a schedule II opioid drug. Start Date: 06/21/22 Status: Ordered Vitamin D3 1000 intl units [...] (ADH), Right breast, 2020 Confirmed 09/02/20 Active Diverticulitis Confirmed Active Hyperlipidemia, unspecified Confirmed Active HTN (hypertension) Confirmed Active Iron deficiency anemia Confirmed Active Sleep apnea, obstructive Confirmed 2010 Active Major depression, recurrent Confirmed Active Spinal stenosis Confirmed Active Vital Signs Most recent to oldest [Reference Range]: 1 Height 165 cm (07/12/22 2:23 PM) Weight 82.5 kg (07/12/22 2:23 PM) Oxygen Saturation [94-100 %] 98 % (07/12/22 2:23 PM) Pulse Rate [55-90 bpm] 87 bpm (07/12/22 2: PM) Body Mass Index [18.5-24.99 kg/m2] 30.3 kg/m2 *>HHI* (07/12/22 2:23 PM) Blood Pressure [90-138/55-84 mm Hg] 165/ 84mm Hg *H* (07/12/22: PM) Temperature [96.8-100.4 DegF] 98.2 DegF (07/12/22 2:23 PM) Mode of Delivery (Oxygen) Room air (07/12/22: PM) Blood pressure sites Arm, right (07/12/22 2:23 PM) Temperature Route Oral (07/12/22 2:23 PM) Dry Weight 82.5 kg (07/12/22 2:23 PM) Weight Obtained Via Standing scale (07/12/22 2:23 PM) Dry Weight Obtained Via Standing scale (07/12/22 2:23 PM) Social History Social History Type Response Tobacco Other: none. Sex Note * Martine Michaud: PERFORM, SIGN, VERIFY Event Display: Patient Education/Instruction Authored Date: [id number] [facility] *Heme/Onc Adult Clinical Summary Name SHALOM FIGUEROA Age 66 Years 1955 PCP Louis ALVES, Radha PCP Visit Date 06/22/2022 15:53:00 Additional Instructions: Scheduled Appointments?? Future Appointments ?[facility] ?Phone:??--?Fax:??-- ?Appt. Date:??07/14/2022?7:15 AM ?Scheduled Provider:??Alberto ALVES , Mayra Acosta ?*[facility] [address] ?[place],??[place],??[address] ?Phone:??--?Fax:??-- ?Appt. Date:??08/17/2022?2:00 PM ?Scheduled Provider:??Alberto ALVES , Mayra N ?*[facility] ?[address]??[place],??[place],??[address] ?Phone:??--?Fax:??-- ?Appt. Date:??08/30/2022?1:30 PM ?Scheduled Provider:??Coleman SECONDS INSPECTOR , Jasmyne L ?*[facility] ?[address]??[place],??[place],??[address] ?Phone:??--?Fax:??-- ?Appt. Date:??09/15/2022?2:05 PM ?Scheduled Provider:??Radha Myers MD ?[facility] ?[address]??[place],??[place],??[address] ?Phone:??[phone]?Fax:??-- ?Appt. Date:??10/03/2022?1:00 PM ?Scheduled Provider:??[facility] 5 Follow-Up Instructions ?? With: Address: When: Donna Weems [address] [place] [address] [place] [address] [facility] (1) 10/12/2022 11:30 AM Diagnosis Medications: Please continue your medications until treatment is completed or stopped by your provider. Discuss any questions related to medications with your provider. Medications to Continue Taking That Have Changed These medications were not printed or sent to your pharmacy - Ferrous Sulfate (ferrous sulfate 325 mg oral enteric coated tablet) 1 tab(s) Oral twice a day. Refills: 1. Next Dose: - Sertraline (sertraline 100 mg oral tablet) 1 tab(s) Oral Daily. Refills: 3. Next Dose: Medications to Continue with No Changes These medications were not printed or sent to your pharmacy Albuterol (ProAir HFA 90 mcg/inh inhalation aerosol) 2 puff(s) Inhalation 4 times a day as needed NEEDED FOR WHEEZING. Refills: 2. Next Dose: Amlodipine (amLODIPine 5 mg oral tablet) 1 tab(s) Oral Daily. Refills: 3. Next Dose: Barium Sulfate (Readi-Cat 2 oral suspension) take [address] scan as directed by radiology. Refills: 0. Next Dose: Cholecalciferol (Vitamin D3 1000 intl units oral capsule) 1 capsule Oral Daily. Next Dose: Dexameth/Neomycin/Polymyxin B ophthalmic (dexamethasone/neomycin/polymyxin B ophthalmic 1 mg-3.5 mg-54603 u/gm ointment) Next Dose: Durable Medical Equipment (CPAP Machine) See Instructions. AutoCPAP 8-20 cm H20, use Daily when sleeping. Next Dose: Durable Medical Equipment ([facility] OLOPATADINE 0.1% EYE DROPS) INSTILL 1 DROP ONCE/DAY BOTH EYES EVERYDAY FOR ALLERGY. Next Dose: Gabapentin (gabapentin 600 mg oral tablet) 1 tab(s) twice a day. Next Dose: Miscellaneous Rx ([facility] OLOPAT[facility]INE 0.1% EYE DROPS) Next Dose: Multivitamin Daily. Next Dose: Omeprazole (omeprazole 40 mg oral enteric coated capsule) 1 capsule Oral Daily. Next Dose: Potassium Chloride (Potassium Chloride (Qok-Eazl-Bze 10) 10 mEq oral tablet, extended release) Next Dose: Pravastatin (pravastatin 40 mg oral tablet) 1 tab(s) Oral Daily at Bedtime. Refills: 1. Next Dose: Tamoxifen (tamoxifen 20 mg oral tablet) 1 tab(s) Oral Daily. Refills: 3. Next Dose: Tramadol (traMADol 50 mg oral tablet) 0.5 tab(s) Daily. Next Dose: Allergy Info:?? sulfa drugs Medications Given This Visit Future Orders ?No future orders Vital Signs Height 165 cm Weight 82.5 kg BMI 30.3 kg/m2 Blood Pressure 165 mm Hg/84 mm Hg Temperature 98.2 DegF Pulse Rate 87 bpm Respiratory Rate 02 Sat Mode of Delivery 98 %/Room air You can now view a summary of your hospital visit from the comfort of your home through a free online portal called [employer]. [employer] is a website that allows you to securely view your medical information including discharge summary, medications and follow-up visits. ??You can alsosend a secure electronic message to your doctor???s office to request appointments, renew medications or just ask a question. You can enroll at [email or web address] or register during your next office visit. Disclaimer:?? The information provided is of a general nature and is intended to be used in conjunction with the recommendations and advice of your health care practitioner. ??Every effort has been made to ensure that the information provided is accurate and complete at the time it is provided to you however, as your needs change, or, as new ??information becomes available, different or additional instructions may be required. If you have questions, please consult with your primary care provider or pharmacist, as appropriate. ??This information is not intended to serve as substitution for assessment and evaluation by a qualified health care provider. If you do not have a primary care provider, you may find a [facility] provider by calling [facility] [employer] at [phone]. For information about the plan of care including goals and instructions for your diagnosis, please see the patient education orders section of this document. Patient Education Materials?? The content of this educational material or handout may have been modified, supplemented, or adapted from its original content and format to support your individualized medical care. Patient Care team information Care Team Personnel Name: Yaneth Frankel RN Position: [facility] RN Member Role: Primary Care Nurse Name: Keena Thakkar RN Position: S RN Member Role: Primary Care Nurse Name: Emili Alexander RN Position: S RN Member Role: Primary Care Nurse Name: Sapna Cagle RN Position: S RN Member Role: Primary Care Nurse Name: Anna Vaca RN Position: S RN Member Role: Primary Care Nurse Name: Loren Spangler RN Position: S RN Member Role: Primary Care Nurse Name: Cayla Gannon RN Position: S RN Member Role: Primary Care Nurse Name: Mignon Ibarra RN Position: S RN Member Role: Primary Care Nurse Name: Patricia Lieberman RN Position: [facility] AMB Nurse Member Role: Primary Care Nurse Name: Radha Myers MD Position: [facility] Primary Care Physician Member Role: PCP Address: Address: [address] [place] [address]- Name: Asiya Baker RN Position: S RN Member Role: Primary Care Nurse Name: Paramjit Solomon RN Position: S RN Member Role: Primary Care Nurse Care Team Related Persons Name: RAKAN FIGUEROA Address: home [address] [place] [address]
--- OUTSIDE RECORDS SUMMARY | 2023-06-01 02:44 | XMS_ITS | Continuity of Care Document ---
Author Name Unknown Organization [facility] Address [address] [place] [address]- Care Team Providers Care Hotel Room Attendant Name Role Phone Louis ALVES, Radha [id number] Date[facility] 10/09/22 - 03/13/23 [facility] [address] [place] [address]- Discharge Disposition: A-D/C Home Attending Physician: Donna Weems MD Admitting Physician: Donna Weems MD Referring Physician: Radha Myers MD Allergies, Adverse Reactions, [...] Requested from pharmacy, arrived late 2Result Comment: [facility] [id number] Medications albuterol CFC free 90 mcg/inh inhalation aerosol 2, puffs, Inhalation, 4 times a day, PRN, # 6.7 Gm, Refills 0, Tot. Refills 0, Maintenance, 12/06/22 16:55:00 EDT, Aerosol, Route to Pharmacy Electronically, [id number], [facility]/pharmacy #[id number], 165, cm, 12/06/22 14:13:00 EDT, Hei... Start Date: 12/06/22 Stop Date: 01/05/23 Status: Ordered amLODIPine 10 mg oral tablet 10 mg, 1, tablet, By Mouth, Daily, # 90 tablet, Refills 1, Tot. Refills 1, Maintenance, 02/22/23 16:16:00 EDT, Route to Pharmacy Electronically, [facility]/pharmacy #[id number], Partial fill upon patient request if the prescription is for a schedule II opioid drug... Start Date: 02/22/23 Status: Ordered CPAP Machine See Instructions, # 1 each, Maintenance, AutoCPAP 8-20 cm H20, use Daily when sleeping, 12/17/21 13:03:00 EDT, Supply Start Date: 12/17/21 Status: Ordered [facility] OLOPATADINE 0.1% EYE DROPS [facility] OLOPATADINE 0.1% EYE DROPS, 0 Refills, Maintenance, 06/21/22 12:58:00 EDT Start Date: 06/21/22 Status: Ordered dexamethasone/neomycin/polymyxin B ophthalmic 1 mg-3.5 mg-71626 u/gm ointment 0 Refills, Maintenance, 06/21/22 12:59:00 EDT, Partial fill upon patient request if the prescription is for a schedule II opioid drug. Start Date: 06/21/22 Status: Ordered ferrous sulfate 325 mg oral enteric coated tablet 1, tablet, By Mouth, 2 times a day, # 180 tablet, Refills 1, Maintenance, 02/12/23 18:37:00 EDT, Route to Pharmacy Electronically, [id number], 165, cm, 01/11/23 11:14:00 EDT, Height, 80.6, kg, 02/09/23 12:00:00 EDT, Dry Weight Start Date: 02/12/23 Status: Ordered fluticasone 50 mcg/inh nasal spray 2 sprays, Nares, Both, Daily in AM, # 16 Gm, 0 Refills, Maintenance, 11/26/22 13:41:00 EDT, [place], [facility]/pharmacy #[id number], Partial fill upon patient request if the prescription is for a schedule II opioid drug., 2 sprays Nares, Both Daily in AM, 165, cm,... Start Date: 11/26/22 Status: Ordered gabapentin 600 mg oral tablet [...] 1 Refills, Maintenance, 09/20/22 18:10:00 EST, ECCapsule, [facility]/pharmacy #[id number], Partial fill upon patient request if the prescription is for a schedule II opioid drug., 165, cm, 09/15/22 13:35:00 EST, H... Start Date: 09/20/22 Status: Ordered Potassium Chloride (Jzv-Fpnm-Tzi 10) 10 mEq oral tablet, extended release 1 tablet, By Mouth, Daily, # 30 tablet, 11 Refills, Maintenance, 10/26/22 15:24:00 EST, [facility], 165, cm, 09/15/22 13:35:00 EST, Height, 79.8, kg, 07/30/22 10:04:00 EST, Dry Weight Start Date: 10/26/22 Status: Ordered pravastatin 40 mg oral tablet 1 tablet, By Mouth, Daily at bedtime, # 30 tablet, 5 Refills, Maintenance, 10/26/22 14:06:00 EST, [facility], 165, cm, 09/15/22 13:35:00 EST, Height, 79.8, [...] Refills, Maintenance, 06/30/22 13:51:00 EDT, [facility], 165, cm, 06/21/22 12:30:00 EDT, Height, 83.5, [...] anemia Confirmed Active Sleep apnea, obstructive Confirmed 2009 Active Major depression, recurrent Confirmed Active Spinal stenosis Confirmed Active Results Orders for Microbiology Reports Name Date Urine Culture (Culture Urine) 01/11/23 Microbiology Reports TEST:Urine Culture STATUS:Auth (Verified) BODY SITE: SOURCE:URINE COLLECTED DATE/TIME:01/11/23 12:09 PM Urine Culture SPECIMEN DESCRIPTION : URINE CLEAN CATCH/MIDSTREAM SPECIAL REQUESTS : NONE CULTURE : Mixed bacterial nicky, indicative of urogenital contamination. REPORT STATUS : FINAL 01/12/2023 Vital Signs Most recent to oldest [Reference Range]: 1 Height 165 cm (01/11/23 11:14 AM) Weight 79.2 kg (01/11/23 11:14 AM) Oxygen Saturation [94-100 %] 97 % (01/11/23 11:14 AM) Pulse Rate [55-90 bpm] 85 bpm (01/11/23 11:14 AM) Body Mass Index [18.5-24.99 kg/m2] 29.09 kg/m2 *H* (01/11/23 11:14 AM) Blood Pressure [90-138/55-84 mm Hg] 141/ 87mm Hg *H* (01/11/23 11:14 AM) Temperature [96.8-100.4 DegF] 97.3 DegF (01/11/23 11:14 AM) Mode of Delivery (Oxygen) Room air (01/11/23 11:14 AM) Blood pressure sites Arm, left (01/11/23 11:14 AM) Temperature Route Temporal (01/11/23 11:14 AM) Dry Weight 79.2 kg (01/11/23 11:14 AM) Weight Obtained Via Standing scale (01/11/23 11:14 AM) Dry Weight Obtained Via Standing scale (01/11/23 11:14 AM) Social History Social History Type Response Tobacco Other: none. Sex Patient Care team information Care Team Personnel Name: Jostin RN, Yaneth Position: [facility] RN Member Role: Primary Care Nurse Name: Keena Thakkar RN Position: [facility] RN Member Role: Primary Care Nurse Name: Emili Alexander RN Position: [facility] RN Member Role: Primary Care Nurse Name: Sapna Narayanan RN Position: [facility] RN Member [...] Primary Care Member Role: PCP Address: Address: [address] [place] [phone]- Name: Asiya Baker RN Position: [facility] RN Member Role: Primary Care Nurse Name: Paramjit Solomon RN Position: [facility] RN Member Role: Primary Care Nurse Care Team Related Persons Name: RAKAN FIGUEROA Address: [address] [address]
--- OUTSIDE RECORDS SUMMARY | 2023-06-01 02:44 | XMS_ITS | Continuity of Care Document ---
Author Name Unknown Organization [facility] Adult Address [address] [place] [address]- Care Team Providers Care Notching Machine Operator Name Role Phone Radha Myers MD Primary Care Physician [phone] [facility] Date(s): 12/16/21 - 01/15/22 [facility] [address] [place] [address]- Allergies, Adverse Reactions, Alerts Substance Reaction Severity [...] tetanus/diphtheria/pertussis, acel(Tdap) 04/14/11 Given 1Result Comment: [facility] 41937-389-02 Medications acetaminophen 325 mg oral tablet 650 mg, 2, tablet, By Mouth, Every 4 hours, # 24 tablet, Refills 0, Tot. Refills 0, Maintenance, 12/20/21 11:37:00 EDT, Route to Pharmacy Electronically, [facility], Partial fill upon patient request if the prescription is for a schedule... Start Date: 12/20/21 Status: Ordered amLODIPine 5 mg oral tablet 5 mg, 1, tablet, By Mouth, Daily, # 90 tablet, Refills 3, Tot. Refills 3, Maintenance, 12/09/21 16:47:00 EDT, Route to Pharmacy Electronically, [facility]/pharmacy #[id number], Partial fill upon patient request if the prescription is for a schedule II opioid drug.... Start Date: 12/09/21 Status: Ordered CPAP Machine See Instructions, # 1 each, Maintenance, AutoCPAP 8-20 cm H20, use Daily when sleeping, 12/17/21 13:03:00 EDT, Supply Start Date: 12/17/21 Status: Ordered [facility] OLOPATADINE 0.1% EYE DROPS INSTILL 1 DROP ONCE/DAY BOTH EYES EVERYDAY FOR ALLERGY Start Date: 12/17/21 Status: Ordered ferrous sulfate 325 mg oral enteric coated tablet 325 mg, 1, tablet, By Mouth, 2 times a day, # 180 tablet, Refills 1, Tot. Refills 1, Maintenance, 09/05/21 13:29:00 EST, Route to Pharmacy Electronically, [facility]/pharmacy #[id number], Partial fill upon [...] mL, 0 Refills, Maintenance, 01/11/22 13:46:00 EDT, [facility], Partial fill upon patient request if the prescription is for a schedule II opioiddrug., per GI office, 165.1, cm, 01/10/22 15:58:00... Start Date: 01/11/22 Status: Ordered omeprazole 40 mg oral enteric coated capsule 1 capsule, By Mouth, Daily, # 30 capsule, 2 Refills, [id number], 165.1, cm, 11/11/21 12:40:00 EST, Height, 89.7, kg, 12/17/20 9:14:00 EDT, Dry Weight Start Date: 11/14/21 Status: Ordered Potassium Chloride (Jdo-Aeur-Tso 10) 10 mEq oral tablet, extended release [...] FOR WHEEZING, # 18 each, 5 Refills, [facility], 17, INHALE 2 PUFFS BY MOUTH FOUR [...]
--- OUTSIDE RECORDS SUMMARY | 2023-06-01 02:44 | XMS_ITS | Continuity of Care Document ---
Author Name Unknown Organization [facility] Adult Address [address] [place] [address]- Care Team Providers Care Loader Machine Name Role Phone Louis ALVES, Radha Primary Care Physician En[place] [facility] Date(s): 05/17/20 - 06/16/20 [facility] Adult [address] [place] [address]- [facility] Allergies, Adverse Reactions, Alerts Substance [...] Recorded tetanus/diphtheria/pertussis, acel(Tdap) 04/14/11 Given 1Result Comment: [facility] 84047-445-29 Medications albuterol 0.083% inhalation solution 3 mL [...] mL, 0 Refills, Maintenance, 03/30/20 2:55:00 EDT, [place] Start Date: 03/30/20 Status: Ordered NuLYTELY with Flavor Packs oral powder for reconstitution 240 mL, By Mouth, Every 10 minutes, # 4,000 mL, 0 Refills, Maintenance, 03/30/20 19:13:00 EDT, REC Powder, [facility]/pharmacy #[id number], 240 mL By Mouth Every 10 minutes, 165, cm, 03/30/20 14:58:00 EDT, Height, 79.8, kg, 03/30/20 15:13:00 EDT, Dry Weight Start Date: 03/30/20 Status: Ordered omeprazole 40 mg oral enteric coated capsule 1 capsule = 40 mg, By Mouth, Daily, # 90 capsule, 1 Refills, Maintenance, 05/25/20 16:41:00 EDT, Suspension, [facility]/pharmacy #[id number], 165, cm, 04/22/20 [...] Asthma(Confirmed) Active Asthma(Confirmed) Active Depression(Confirmed) Active Hypertension(Confirmed) 2012 Active Sleep apnea, obstructive(Confirmed) 2009 Active Osteoarthritis(Confirmed) Active Spinal stenosis(Confirmed) Active Social History Social History Type Response Tobacco Other: none. Sex
--- OUTSIDE RECORDS SUMMARY | 2023-06-01 02:44 | XMS_ITS | Continuity of Care Document ---
Author Name Unknown Organization [facility] ter Address [address] [place] [address]- Care Team Providers Care Copyist Name Role Phone Radha Myers MD Primary Care Physician Encounter [facility] [place] Date(s): 04/05/20 - 04/05/[address] [address]- [facility] Discharge Disposition: A-D/C Home Attending Physician: Noah Silvestre MD Admitting Physician: Noah Silvestre MD Referring Physician: Noah Silvestre MD Allergies, Adverse [...] Comment: [facility] 56138-016-29 Medications albuterol 0.083% inhalation solution 3 mL [...] mL, 0 Refills, Maintenance, 03/30/20 2:55:00 EDT, [place] Start Date: 03/30/20 Status: Ordered NuLYTELY with Flavor Packs oral powder for reconstitution 240 mL, By Mouth, Every 10 minutes, # 4,000 mL, 0 Refills, Maintenance, 03/30/20 19:13:00 EDT, REC Powder, [facility]/pharmacy #[id number], 240 mL By Mouth Every [...] 2009 Active Osteoarthritis(Confirmed) Active Spinal stenosis(Confirmed) Active Procedures Procedure Date Related Diagnosis Body Site Status Colonoscopy 7/27/20 Completed Colonoscopy 04/05/20 Completed Esophagogastroduodenoscopy and biopsy 04/05/20 Completed Vital Signs Most recent to oldest [Reference Range]: 1 2 3 Height 165 cm (04/05/20 8:33 AM) Oxygen Saturation [94-100 %] 98 % (04/05/20 11:01 AM) 100 % (04/05/20 10:47 AM) 97 % (04/05/20 8:33 AM) Pulse Rate [55-90 bpm] 79 bpm (04/05/20 8:33 AM) Blood Pressure [90-138/55-84 mm Hg] 160/75mm Hg *H* (04/05/20 11:01 AM) 128/90mm Hg (04/05/20 10:47 AM) 153/83mm Hg *H* (04/05/20 8:33 AM) Respiratory Rate [16-30 br/min] 18 br/min (04/05/20 11:01 AM) 18 br/min (04/05/20 10:47 AM) 20 br/min (04/05/20 8:33 AM) Temperature [96.8-100.4 DegF] 97.6 DegF (04/05/20 8:33 AM) Mode of Delivery (Oxygen) Room air (04/05/20 11:01 AM) Room air (04/05/20 10:47 AM) Room air (04/05/20 8:33 AM) Blood pressure sites Arm, left (04/05/20 11:01 AM) Arm, left (04/05/20 10:47 AM) Arm, right (04/05/20 8:33 AM) Temperature Route Temporal (04/05/20 8:33 AM) Dry Weight 79 kg (04/05/20 8:33 AM) Dry Weight Obtained Via Patient/family s tated (04/05/20 8:33 AM) Social History Social History Type Response Tobacco Other: none. Sex
--- OUTSIDE RECORDS SUMMARY | 2023-06-01 02:44 | XMS_ITS | Continuity of Care Document ---
Author Name Unknown Organization [facility] Adult Address [address] [place] [address]- Care Team Providers Care Bit Bender Name Role Phone Louis ALVES, Radha Primary Care Physician [place] [facility] [place] 04/10/23 - 05/10/23 [facility] Adult [address] [place] [id number]- Allergies, Adverse Reactions, Alerts Substance Reaction Severity [...] Requested from pharmacy, arrived late 2Result Comment: [facility] [id number] Medications amLODIPine 10 mg oral tablet 10 mg, 1, tablet, By Mouth, Daily, # 90 tablet, Refills 1, Tot. Refills 1, Maintenance, 02/22/23 16:16:00 EDT, Route to Pharmacy Electronically, [facility]/pharmacy #[id number], Partial fill upon [...] EDT, Route to Pharmacy Electronically, [id number], 165, cm, 01/11/23 11:14:00 EDT, Height, 80.6, [...] 1 Refills, Maintenance, 09/20/22 18:10:00 EST, ECCapsule, [facility]/pharmacy #[id number], Partial fill upon patient request if the prescription is for a schedule II opioid drug., 165, cm, 09/15/22 13:35:00 EST, H... Start Date: 09/20/22 Status: Ordered Potassium Chloride (Wnv-Emeb-Vxy 10) 10 mEq oral tablet, extended release 1 tablet, By Mouth, Daily, # 30 tablet, 11 Refills, Maintenance, 10/26/22 15:24:00 EST, [id number], 165, cm, 09/15/22 13:35:00 EST, Height, 79.8, kg, 07/30/22 10:04:00 EST, Dry Weight Start Date: 10/26/22 Status: Ordered pravastatin 40 mg oral tablet 1 tablet, By Mouth, Daily at bedtime, # 30 tablet, 5 Refills, Maintenance, 04/18/23 7:34:00 EDT, [id number], 158.5, cm, 03/22/23 13:30:00 EDT, Height, 79.6, kg, 03/28/23 5:12:00 EDT, Dry Weight Start Date: 04/18/23 Status: Ordered ProAir HFA 90 mcg/inh inhalation aerosol 2 puffs, Inhalation, 4 times a day, PRN NEEDED FOR WHEEZING, # 18 each, 2 Refills, 03/14/22 11:48:00 EDT, [facility]/pharmacy #[id number], 17, 2 puffs Inhalation 4 times a day,PRN: NEEDED FOR WHEEZING, 165.1, cm, 03/14/22 11:16:00 EDT, Height, 84.36, kg, 04/0... Start Date: 03/14/22 Status: Ordered sertraline 100 mg oral tablet 1 tablet, By Mouth, Daily, # 90 tablet, 3 Refills, Maintenance, 06/30/22 13:51:00 EDT, [id number], 165, cm, 06/21/22 12:30:00 EDT, Height, 83.5, [...] Team Personnel Name: Yaneth Frankel RN Position: [facility] RN Member Role: Primary Care Nurse Name: Keena Thakkar RN Position: [facility] RN Member Role: Primary Care Nurse Name: Emili Alexander RN Position: [facility] RN Member Role: Primary Care Nurse Name: Sapna Narayanan RN Position: [facility] RN Member Role: Primary Care Nurse Name: Anna Vaca RN Position: [facility] RN Member Role: Primary Care Nurse Name: Loren Spangler RN Position: [facility] RN Member Role: Primary Care Nurse Name: Cayla Gannon RN Position: [facility] SN RN Member Role: Primary Care Nurse Name: Mignon Ibarra RN Position: [facility] RN Member Role: Primary Care Nurse Name: Patricia Lieberman RN Position: [facility] AMB Nurse Member Role: Primary Care Nurse Name: Radha Myers MD Position: [facility] Physician - Primary Care Member Role: PCP Address: Address: [address] [place] [address] [address] [place] [address]- [place] Name: Asiya Baker RN Position: S RN Member Role: Primary Care Nurse Name: Paramjit Solomon RN Position: [facility] RN Member Role: Primary Care Nurse Care Team Related Persons Name: RAKAN FIGUEROA Address: home [address] [place] [address] [place] [address]
--- OUTSIDE RECORDS SUMMARY | 2023-06-01 02:44 | XMS_ITS | Continuity of Care Document ---
Author Name Unknown Organization [facility] ter Address [address] [place] [address]- Care Team Providers Care Capper Machine Operator Name Role Phone Louis ALVES, Radha Primary Care Physician [place] [facility] [place] 10/13/[address] [address] Attending Physician: Robert Eldridge DO Admitting Physician: Robert Eldridge DO Allergies, Adverse Reactions, Alerts Substance Reaction Severity [...] Recorded tetanus/diphtheria/pertussis, acel(Tdap) 04/14/11 Given 1Result Comment: [facility] 75031-430-04 Medications Albuterol (Eqv-ProAir HFA) Inhalation, Every 6 [...] 08/20/20 18:07:00 EST, Route to Pharmacy Electronically, [facility]/pharmacy #[id number], Partial fill upon patient [...] 1 Refills, Maintenance, 05/25/20 16:41:00 EDT, Suspension, [facility]/pharmacy #[id number], 165, cm, 04/22/20 7:24:00 EDT, Height, 79, kg, 04/05/20 8:33:00 EDT, Dry Weight Start Date: 05/25/20 Stop Date: 11/21/20 Status: Ordered pravastatin 40 mg oral tablet 1 tablet = 40 mg, By Mouth, Daily at bedtime, will need labs for refills, # 30 tablet, 0 Refills, Maintenance, 08/31/20 16:02:00 EST, Tablet, [facility]/pharmacy #[id number], Partial fill upon patient [...]
--- OUTSIDE RECORDS SUMMARY | 2023-06-01 02:44 | XMS_ITS | Continuity of Care Document ---
Author Name Unknown Organization [facility] Adult Address [address] [place] [address]- Care Team Providers Care Transportation Mechanic Name Role Phone Louis ALVES, Radha Primary Care Physician Encounter [facility] [place] Date(s): 09/17/22 - 10/17/22 [facility] [address] [place] [address]- Allergies, Adverse Reactions, Alerts Substance Reaction Severity [...] Requested from pharmacy, arrived late 2Result Comment: [facility] [id number] Medications amLODIPine 5 mg oral tablet 5 [...] EDT, Supply Start Date: 12/17/21 Status: Ordered [facility] OLOPATADINE 0.1% EYE DROPS [facility] OLOPATADINE 0.1% EYE DROPS, 0 Refills, Maintenance, 06/21/22 12:58:00 EDT Start Date: 06/21/22 Status: Ordered dexamethasone/neomycin/polymyxin B ophthalmic 1 mg-3.5 mg-95432 u/gm ointment 0 Refills, Maintenance, 06/21/22 12:59:00 EDT, Partial fill upon patient request if the prescription is for a schedule II opioid drug. Start Date: 06/21/22 Status: Ordered ferrous sulfate 325 mg oral enteric coated tablet 1, tablet, By Mouth, 2 times a day, # 180 tablet, Refills 1, Maintenance, 06/30/22 13:50:00 EDT, Route to Pharmacy Electronically, [id number], 165, cm, 06/21/22 12:30:00 EDT, Height, 83.5, [...] 1 Refills, Maintenance, 09/20/22 18:10:00 EST, ECCapsule, [facility]/pharmacy #[id number], Partial fill upon patient request if the prescription is for a schedule II opioid drug., 165, cm, 09/15/22 13:35:00 EST, H... Start Date: 09/20/22 Status: Ordered pravastatin 40 mg oral tablet [...] Refills, Maintenance, 06/30/22 13:51:00 EDT, [facility], 165, cm, 06/21/22 12:30:00 EDT, Height, 83.5, [...] Team Personnel Name: Yaneth Frankel RN Position: [facility] RN Member Role: Primary Care Nurse Name: Keena Thakkar RN Position: [facility] RN Member Role: Primary Care Nurse Name: Emili Alexander RN Position: [facility] RN Member Role: Primary Care Nurse Name: Sapna Narayanan RN Position: [facility] RN Member Role: Primary Care Nurse Name: Anna Vaca RN Position: [facility] RN Member Role: Primary Care Nurse Name: Loren Spangler RN Position: [facility] RN Member Role: Primary Care Nurse Name: Cayla Gannon RN Position: [facility] RN Member Role: Primary Care Nurse Name: Mignon Ibarra RN Position: [facility] RN Member Role: Primary Care Nurse Name: Patricia Lieberman RN Position: [facility] [place] Nurse Member Role: Primary Care Nurse Name: Radha Myers MD Position: [facility] Primary Care Physician Member Role: PCP [facility] 3rd [place] [address]- Name: Asiya Baker RN Position: [facility] RN Member Role: Primary Care Nurse Name: Paramjit Solomon RN Position: [facility] RN Member Role: Primary Care Nurse Care Team Related Persons Name: RAKAN FIGUEROA Address: [address] [place] [address]
--- OUTSIDE RECORDS SUMMARY | 2023-06-01 02:44 | XMS_ITS | Continuity of Care Document ---
Author Name Unknown Organization [facility] Adult Address [address] [place] [address]- Care Team Providers Care Sql Server Bi Developer Name Role Phone Louis ALVES, Radha Primary Care Physician [phone] Encounter [facility] [place] Date(s): 09/18/22 - 10/18/22 [facility] Adult [address] [place] [phone]- Allergies, Adverse Reactions, Alerts Substance Reaction Severity [...] 2Result Comment: [facility] 56579-896-33 Medications amLODIPine 5 mg oral tablet 5 mg, 1, tablet, By Mouth, Daily, # 90 tablet, Refills 3, Tot. Refills 3, Maintenance, 12/09/21 16:47:00 EDT, Route to Pharmacy Electronically, [facility]/pharmacy #[id number], Partial fill upon patient request if the prescription is for a schedule II opioid drug.... Start Date: 12/09/21 Status: Ordered CPAP Machine See Instructions, # 1 each, Maintenance, AutoCPAP 8-20 cm H20, use Daily when sleeping, 12/17/21 13:03:00 EDT, Supply Start Date: 12/17/21 Status: Ordered [facility] OLOPATADINE 0.1% EYE DROPS [facility] OLOPATADINE 0.1% EYE DROPS, 0 Refills, Maintenance, 06/21/22 12:58:00 EDT Start Date: 06/21/22 Status: Ordered dexamethasone/neomycin/polymyxin B ophthalmic 1 mg-3.5 mg-78412 u/gm ointment 0 Refills, Maintenance, 06/21/22 12:59:00 EDT, Partial fill upon patient request if the prescription is for a schedule II opioid drug. Start Date: 06/21/22 Status: Ordered ferrous sulfate 325 mg oral enteric coated tablet 1, tablet, By Mouth, 2 times a day, # 180 tablet, Refills 1, Maintenance, 06/30/22 13:50:00 EDT, Route to Pharmacy Electronically, [id number], 165, cm, 06/21/22 12:30:00 EDT, Height, 83.5, [...] 1 Refills, Maintenance, 09/20/22 18:10:00 EST, ECCapsule, [facility]/pharmacy #[id number], Partial fill upon patient request if the prescription is for a schedule II opioid drug., 165, cm, 09/15/22 13:35:00 EST, H... Start Date: 09/20/22 Status: Ordered pravastatin 40 mg oral tablet 1 tablet, By Mouth, Daily at bedtime, # 90 tablet, 1 Refills, Maintenance, 06/03/22 20:32:00 EDT, [facility]/pharmacy #[id number], 165, cm, 04/04/22 12:32:00 EDT, Height, 83.5, kg, 04/04/22 12:32:00 EDT, Dry Weight Start Date: 06/03/22 Status: Ordered ProAir HFA 90 mcg/inh inhalation aerosol 2 puffs, Inhalation, 4 times a day, PRN NEEDED FOR WHEEZING, # 18 each, 2 Refills, 03/14/22 11:48:00 EDT, [facility]/pharmacy #[id number], 17, 2 puffs Inhalation 4 times a day,PRN: NEEDED FOR WHEEZING, 165.1, cm, 03/14/22 11:16:00 EDT, Height, 84.36, kg, 04/0... Start Date: 03/14/22 Status: Ordered sertraline 100 mg oral tablet 1 tablet, By Mouth, Daily, # 90 tablet, 3 Refills, Maintenance, 06/30/22 13:51:00 EDT, [id number], 165, cm, 06/21/22 12:30:00 EDT, Height, 83.5, [...] Team Personnel Name: Yaneth Frankel RN Position: [facility] RN Member Role: Primary Care Nurse Name: Keena Thakkar RN Position: [facility] RN Member Role: Primary Care Nurse Name: Emili Alexander RN Position: [facility] RN Member Role: Primary Care Nurse Name: Sapna Narayanan RN Position: [facility] RN Member Role: Primary Care Nurse Name: Anna Vaca RN Position: [facility] RN Member Role: Primary Care Nurse Name: Loren Spangler RN Position: [facility] RN Member Role: Primary Care Nurse Name: Cayla Gannon RN Position: [facility] RN Member Role: Primary Care Nurse Name: Mignon Ibarra RN Position: [facility] RN Member Role: Primary Care Nurse Name: Patricia Lieberman RN Position: [facility] [place] Nurse Member Role: Primary Care Nurse Name: Radha Myers MD Position: [facility] Primary Care Physician Member Role: PCP [facility]: [address] [address] [place] [address]- Name: Asiya Baker RN Position: [facility] RN Member Role: Primary Care Nurse Name: Paramjit Solomon RN Position: [facility] RN Member Role: Primary Care Nurse Care Team Related Persons Name: RAKAN FIGUEROA Address: [address] [place] [address]
--- OUTSIDE RECORDS SUMMARY | 2023-06-01 02:44 | XMS_ITS | Continuity of Care Document ---
Author Name Unknown Organization [facility] Address [address] [place] [address]- Care Team Providers Care Cctv Technician Name Role Phone Louis ALVES, Radha Primary [facility] Phys[id number] Date(s): 08/23/20 - 09/22/20 [facility] [address] [place] [address]- Attending Physician: Ernie Sánchez Admitting Physician: Ernie [...] Recorded tetanus/diphtheria/pertussis, acel(Tdap) 04/14/11 Given 1Result Comment: [facility] [id number] Medications Albuterol (Eqv-ProAir HFA) Inhalation, Every 6 [...] 08/20/20 18:07:00 EST, Route to Pharmacy Electronically, [facility]/pharmacy #[id number], Partial fill upon patient request if [...] 1 Refills, Maintenance, 05/25/20 16:41:00 EDT, Suspension, [facility]/pharmacy #[id number], 165, cm, 04/22/20 7:24:00 EDT, Height, 79, kg, 04/05/20 8:33:00 EDT, Dry Weight Start Date: 05/25/20 Stop Date: 11/21/20 Status: Ordered oxyCODONE 5 mg oral tablet 5 mg, 1, tablet, By Mouth, Every 4 hours, PRN, # 5 tablet, Refills 0, Tot. Refills 0, Acute 09/24/20 14:30:00 EST, Pain , Mild, 09/22/20 14:16:00 EST, Print Requisition, Partial fill upon patient request if the prescription is for a schedule II opioid... Start Date: 09/22/20 Stop Date: 09/24/20 Status: Ordered pravastatin 40 mg oral tablet [...] Dry Weight Start Date: 08/25/20 Status: Ordered traMADol 50 mg oral tablet 1 tablet = 50 mg, By Mouth, Every 6 hours, PRN Pain , Severe, # 10 tablet, 0 Refills, Acute 09/25/20 12:20:00 EST, 09/22/20 12:20:00 EST, [id number], Partial fill upon patient request if the prescription is for a schedule II opioid drug., 165.... 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 Sex
--- OUTSIDE RECORDS SUMMARY | 2023-06-01 02:44 | XMS_ITS | Continuity of Care Document ---
Author Name Unknown Organization [facility] Address [address] [place] [address]- Care Team Providers Care Shock Absorber Installer Name Role Phone Louis ALVES, Radha Primary Care Physician Encounter [facility] Date(s): 09/15/22 - 09/22/22 [facility] [address] [place] [address]- Encounter Diagnosis Iron deficiency anemia(Discharge Diagnosis) - 09/15/22 HTN (hypertension)(Discharge Diagnosis) - 09/17/22 Hyperlipidemia, unspecified(Discharge Diagnosis) - 09/17/22 Attending Physician: Radha Myers MD Allergies, Adverse [...] Requested from pharmacy, arrived late 2Result Comment: [facility] 81717-825-81 Medications amLODIPine 5 mg oral tablet 5 mg, 1, tablet, By Mouth, Daily, # 90 tablet, Refills 3, Tot. Refills 3, Maintenance, 12/09/21 16:47:00 EDT, Route to Pharmacy Electronically, [facility]/pharmacy #[id number], Partial fill upon patient request if the prescription is for a schedule II opioid drug.... Start Date: 12/09/21 Status: Ordered CPAP Machine See Instructions, # 1 each, Maintenance, AutoCPAP 8-20 cm H20, use Daily when sleeping, 12/17/21 13:03:00 EDT, Supply Start Date: 12/17/21 Status: Ordered [facility] OLOPATADINE 0.1% EYE DROPS [facility] OLOPATADINE 0.1% EYE DROPS, 0 Refills, Maintenance, 06/21/22 12:58:00 EDT Start Date: 06/21/22 Status: Ordered dexamethasone/neomycin/polymyxin B ophthalmic 1 mg-3.5 mg-25512 u/gm ointment 0 Refills, Maintenance, 06/21/22 12:59:00 EDT, Partial fill upon patient request if the prescription is for a schedule II opioid drug. Start Date: 06/21/22 Status: Ordered ferrous sulfate 325 mg oral enteric coated tablet 1, tablet, By Mouth, 2 times a day, # 180 tablet, Refills 1, Maintenance, 06/30/22 13:50:00 EDT, Route to Pharmacy Electronically, [facility] STORE [id number], 165, cm, 06/21/22 12:30:00 EDT, Height, 83.5, [...] 1 Refills, Maintenance, 09/20/22 18:10:00 EST, ECCapsule, [facility]/pharmacy #[id number], Partial fill upon patient request [...] Refills, Maintenance, 06/30/22 13:51:00 EDT, [facility], 165, cm, 06/21/22 12:30:00 EDT, Height, 83.5, [...] Confirmation Course Effective Dates Status Health St at Informant Asthma Confirmed Active Asthma Confirmed Active Atypical ductal hyperplasia (ADH), Right breast, 2020 Confirmed 09/02/20 Active Hyperlipidemia, unspecified Confirmed Active HTN (hypertension) Confirmed Active Iron deficiency anemia Confirmed Active Sleep apnea, obstructive Confirmed 2009 Active Major depression, recurrent Confirmed Active Spinal stenosis Confirmed Active Diagnosis Diagnosis Type Effective Dates Health Status Clinical Service Informant Iron deficiency anemia Discharge Diagnosis 09/15/22 HTN (hypertension) Discharge Diagnosis 09/17/22 Hyperlipidemia, unspecified Discharge Diagnosis 09/17/22 Vital Signs Most recent to oldest [Reference Range]: 1 Height 165 cm (09/15/22 1:35 PM) Weight 80.7 kg (09/15/22 1:35 PM) Oxygen Saturation [94-100 %] 97 % (09/15/22 1:35 PM) Pulse Rate [55-90 bpm] 91 bpm *H* (09/15/22 1:35 PM) Body Mass Index [18.5-24.99 kg/m2] 29.64 kg/m2 *H* (09/15/22 1:35 PM) Blood Pressure [90-138/55-84 mm Hg] 123/ 79mm Hg (09/15/22 1:35 PM) Temperature [96.8-100.4 DegF] 98.4 DegF (09/15/22 1:35 PM) Mode of Delivery (Oxygen) Room air (09/15/22 1:35 PM) Blood pressure sites Arm, right (09/15/22 1:35 PM) Temperature Route Oral (09/15/22 1:35 PM) Weight Obtained Via Standing scale (09/15/22 1:35 PM) Social History Social History Type Response Tobacco Other: none. Sex Note * Anna Cee: PERFORM, SIGN, VERIFY Event Display: Patient Education/Instruction Authored Date: [id number] [facility] *[facility] Clinical Summary Name SHALOM FIGUEROA Age 66 Years 1955 PCP Louis ALVES, Radha PCP Visit Date 09/15/2022 13:32:00 Additional Instructions: Scheduled Appointments?? Future Appointments ?[facility] ?[address]??[place],??[place],??[address] ?Phone:??[phone]?Fax:??-- ?Appt. Date:??10/03/2022?1:00 PM ?Scheduled Provider:??[facility] 5 Follow-Up Instructions ?? Diagnosis Iron deficiency anemia, unspecified Medications: Please continue your medications until treatment is completed or stopped by your provider. Discuss any questions related to medications with your provider. Medications to Continue Taking That Have Changed These medications were not printed or sent to your pharmacy - Durable Medical Equipment (CPAP Machine) See Instructions. AutoCPAP 8-20 cm H20, use Daily when sleeping. Next Dose: Medications to Continue with No Changes These medications were not printed or sent to your pharmacy Albuterol (ProAir HFA 90 mcg/inh inhalation aerosol) 2 puff(s) Inhalation 4 times a day as needed NEEDED FOR WHEEZING. Refills: 2. Next Dose: Amlodipine (amLODIPine 5 mg oral tablet) 1 tab(s) Oral Daily. Refills: 3. Next Dose: Cholecalciferol (Vitamin D3 1000 intl units oral capsule) 1 capsule Oral Daily. Next Dose: Dexameth/Neomycin/Polymyxin B ophthalmic (dexamethasone/neomycin/polymyxin B ophthalmic 1 mg-3.5 mg-44045 u/gm ointment) Next Dose: Ferrous Sulfate (ferrous sulfate 325 mg oral enteric coated tablet) 1 tab(s) Oral twice a day. Refills: 1. Next Dose: Gabapentin (gabapentin 600 mg oral tablet) 1 tab(s) twice a day. Next Dose: Miscellaneous Rx ([facility] OLOPATADINE 0.1% EYE DROPS) Next Dose: Multivitamin Daily. Next Dose: Omeprazole (omeprazole 40 mg oral enteric coated capsule) 1 capsule Oral Daily. Next Dose: Potassium Chloride (Potassium Chloride (Jfp-Tiyu-Peu 10) 10 mEq oral tablet, extended release) Next Dose: Pravastatin (pravastatin 40 mg oral tablet) 1 tab(s) Oral Daily at Bedtime. Refills: 1. Next Dose: Sertraline (sertraline 100 mg oral tablet) 1 tab(s) Oral Daily. Refills: 3. Next Dose: Tamoxifen (tamoxifen 20 mg oral tablet) 1 tab(s) Oral Daily. Refills: 11. Next Dose: Tramadol (traMADol 50 mg oral tablet) 0.5 tab(s) Daily. Next Dose: No Longer Take the Following Medications Acetaminophen (acetaminophen 325 mg oral tablet) 2 tab(s) Oral every 6 hours as needed Pain , Moderate. Refills: 0. Allergy Info:?? sulfa drugs Medications Given This Visit Future Orders ?Comprehensive Metabolic Panel? Order Date:09/15/22?- Complete on or after?09/15/22 ?CBC? Order Date:09/15/22?- Complete on or after?09/15/22 Vital Signs Height 165 cm Weight 80.7 kg BMI 29.64 kg/m2 Blood Pressure 123 mm Hg/79 mm Hg Temperature 98.4 DegF Pulse Rate 91 bpm Respiratory Rate 02 Sat Mode of Delivery 97 %/Room air You can now view a summary of your hospital visit from the comfort of your home through a free online portal called [employer]. [employer] is a website that allows you to securely view your medical information including discharge summary, medications and follow-up visits. ??You can alsosend a secure electronic message to your doctor???s office to request appointments, renew medications or just ask a question. You can enroll at [email or web address] or register during your next office visit. [...] primary care provider, you may find a [facility] provider by calling [facility] Link at [phone]. For information about the plan of care [...] Team Personnel Name: Yaneth Frankel RN Position: [facility] RN Member Role: Primary Care Nurse Name: Keena Thakkar RN Position: [facility] RN Member Role: Primary Care Nurse Name: Emili Alexander RN Position: [facility] RN Member Role: Primary Care Nurse Name: Sapna Narayanan RN Position: [facility] RN Member Role: Primary Care Nurse Name: Anna Vaca RN Position: [facility] RN Member Role: Primary Care Nurse Name: Loren Spangler RN Position: [facility] RN Member Role: Primary Care Nurse Name: Cayla Gannon RN Position: [facility] RN Member Role: Primary Care Nurse Name: Mignon Ibarra RN Position: [facility] RN Member Role: Primary Care Nurse Name: Patricia Lieberman RN Position: [facility] Nurse Member Role: Primary Care Nurse Name: Radha Myers MD Position: [facility] Primary Care Physician Member Role: PCP Address: Address: [address] [place] [address] [address] [place] [address]- Name: Asiya Baker RN Position: [facility] RN Member Role: Primary Care Nurse Name: Paramjit Solomon RN Position: [facility] RN Member Role: Primary Care Nurse Care Team Related Persons Name: RAKAN FIGUEROA Address: [address] [address]
--- OUTSIDE RECORDS SUMMARY | 2023-06-01 02:44 | XMS_ITS | Continuity of Care Document ---
Author Name Unknown Organization [facility] Address [address] [place] [address]- Care Team Providers Care Auto Striper Name Role Phone Louis ALVES, Radha Primary Care Physician [phone] Encounter [facility] Date(s): 04/14/20 - 04/21/20 [facility] [address] [place] [address]- [facility] Attending Physician: Not on Staff, Attending MD [...] Comment: [facility] [id number] Medications albuterol 0.083% inhalation solution 3 mL [...] mL, 0 Refills, Maintenance, 03/30/20 2:55:00 EDT, [place] Start Date: 03/30/20 Status: Ordered NuLYTELY with Flavor Packs oral powder for reconstitution 240 mL, By Mouth, Every 10 minutes, # 4,000 mL, 0 Refills, Maintenance, 03/30/20 19:13:00 EDT, REC Powder, [facility]/pharmacy #[id number], 240 mL By Mouth [...] 2009 Active Osteoarthritis(Confirmed) Active Spinal stenosis(Confirmed) Active Vital Signs Most recent to oldest [Reference Range]: 1 Height 165 cm (04/14/20 12:54 PM) Weight 80.1 kg (04/14/20 12:54 PM) Oxygen Saturation [94-100 %] 98 % (04/14/20 12:54 PM) Pulse Rate [55-90 bpm] 82 bpm (04/14/20 12:54 PM) Body Mass Index [18.5-24.99] 29.42 *H* (04/14/20 12:54 PM) Blood Pressure [90-138/55-84 mm Hg] 130/ 58mm Hg (04/14/20 12:54 PM) Blood pressure sites Arm, right (04/14/20 12:54 PM) Social History Social History Type Response Tobacco Other: none. Sex
--- OUTSIDE RECORDS SUMMARY | 2023-06-01 02:44 | XMS_ITS | Continuity of Care Document ---
Author Name Unknown Organization [facility] Address Unknown Care Team Providers Care Vice President Of Business Development Name Role Phone Louis ALVES, Radha Primary Care Physician [phone] Encounter [facility] Date(s): 01/04/22 - 01/11/22 [facility] Attending Physician: Cayden Delgado MD Allergies, Adverse Reactions, Alerts Substance Reaction [...] tetanus/diphtheria/pertussis, acel(Tdap) 04/14/11 Given 1Result Comment: [facility] [id number] Medications acetaminophen 325 mg oral tablet 650 mg, 2, tablet, By Mouth, Every 4 hours, # 24 tablet, Refills 0, Tot. Refills 0, Maintenance, 12/20/21 11:37:00 EDT, Route to Pharmacy Electronically, [facility], Partial fill upon patient request if the prescription is for a schedule... Start Date: 12/20/21 Status: Ordered amLODIPine 5 mg oral tablet 5 mg, 1, tablet, By Mouth, Daily, # 90 tablet, Refills 3, Tot. Refills 3, Maintenance, 12/09/21 16:47:00 EDT, Route to Pharmacy Electronically, [facility]/pharmacy #[id number], Partial fill upon patient request if the prescription is for a schedule II opioid drug.... Start Date: 12/09/21 Status: Ordered CPAP Machine See Instructions, # 1 each, Maintenance, AutoCPAP 8-20 cm H20, use Daily when sleeping, 12/17/21 13:03:00 EDT, Supply Start Date: 12/17/21 Status: Ordered [facility] OLOPATADINE 0.1% EYE DROPS INSTILL 1 DROP ONCE/DAY BOTH EYES EVERYDAY FOR ALLERGY Start Date: 12/17/21 Status: Ordered ferrous sulfate 325 mg oral enteric coated tablet 325 mg, 1, tablet, By Mouth, 2 times a day, # 180 tablet, Refills 1, Tot. Refills 1, Maintenance, 09/05/21 13:29:00 EST, Route to Pharmacy Electronically, [facility]/pharmacy #[id number], Partial fill upon patient request [...] mL, 0 Refills, Maintenance, 01/11/22 13:46:00 EDT, [facility], Partial fill upon patient request if the prescription is for a schedule II opioiddrug., per GI office, 165.1, cm, 01/10/22 15:58:00... Start Date: 01/11/22 Status: Ordered omeprazole 40 mg oral enteric coated capsule 1 capsule, By Mouth, Daily, # 30 capsule, 2 Refills, [email or web address], 165.1, cm, 11/11/21 12:40:00 EST, Height, 89.7, kg, 12/17/20 9:14:00 EDT, Dry Weight Start Date: 11/14/21 Status: Ordered Potassium Chloride (Ryx-Gxyb-Hio 10) 10 mEq oral tablet, extended release [...] FOR WHEEZING, # 18 each, 5 Refills, [email or web address], 17, INHALE 2 PUFFS BY MOUTH FOUR [...] Major depression, recurrent(Confirmed) Active Spinal stenosis(Confirmed) Active Vital Signs Most recent to oldest [Reference Range]: 1 Height 165.1 cm (01/04/22 2:32 PM) Weight 82.0 kg (01/04/22 2:32 PM) Pulse Rate [55-90 bpm] 84 bpm (01/04/22 2:32 PM) Body Mass Index [18.5-24.99] 30.08 *>HHI* (01/04/22 2:32 PM) Blood Pressure [90-138/55-84 mm Hg] 132/ 55mm Hg (01/04/22 2:32 PM) Temperature [96.8-100.4 DegF] 97.6 DegF (01/04/22 2:32 PM) Blood pressure sites Arm, left (01/04/22 2:32 PM) Temperature Route Temporal (01/04/22 2:32 PM) Weight Obtained Via Standing scale (01/04/22 2:32 PM) Social History Social History Type Response Tobacco Other: none. Sex
--- OUTSIDE RECORDS SUMMARY | 2023-06-01 02:44 | XMS_ITS | Continuity of Care Document ---
Author Name Unknown Organization [facility] Address [address] [place] [address]- Care Team Providers Care Shampoo Assistant Name Role Phone Radha Myers MD Primary Care Physician [place] [facility] [place] 02/25[place]21 - 03/04/21 [facility] [address] [place] [address]- Encounter Diagnosis Burn-out(Final) - Discharge Disposition: A-D/C Home Attending Physician: Aminata Deras MD Admitting Physician: Aminata Deras MD Referring Physician: Radha Myers MD Allergies, [...] Recorded tetanus/diphtheria/pertussis, acel(Tdap) 04/14/11 Given 1Result Comment: [facility] [id number] Medications Albuterol (Eqv-ProAir HFA) Inhalation, Every 6 [...] 12/23/20 11:27:00 EDT, Route to Pharmacy Electronically, [facility]/pharmacy #[id number], Partial fill upon patient request [...] 1 Refills, Maintenance, 11/21/20 16:41:00 EDT, Suspension, [facility]/pharmacy #[id number], 165.1, cm, 09/30/20 16:26:00 EST, Height, 87.5, kg, 09/30/20 16:26:00 EST, Dry Weight Start Date: 11/21/20 Stop Date: 05/20/21 Status: Ordered pravastatin 40 mg oral tablet 1 tablet, By Mouth, Daily at bedtime, # 90 tablet, 1 Refills, Maintenance, 12/23/20 11:27:00 EDT, [id number], 165.1, cm, 12/17/20 9:14:00 EDT, Height, [...] 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 Sex
--- OUTSIDE RECORDS SUMMARY | 2023-06-01 02:44 | XMS_ITS | Continuity of Care Document ---
Author Name Unknown Organization [facility] Address [address] [place] [address]- Care Team Providers Care Waste Management Recycling Technician Name Role Phone Louis ALVES, Radha Primary Care Physician Encounter [facility] [place] Date(s): 09/08/21 - 10/08/21 [facility] [address] [place] [address]- Attending Physician: Ernie Sánchez Admitting Physician: Ernie [...] tetanus/diphtheria/pertussis, acel(Tdap) 04/14/11 Given 1Result Comment: [facility] [id number] Medications ferrous sulfate 325 mg oral enteric coated tablet 325 mg, 1, tablet, By Mouth, 2 times a day, # 180 tablet, Refills 1, Tot. Refills 1, Maintenance, 09/05/21 13:29:00 EST, Route to Pharmacy Electronically, [facility]/pharmacy #[id number], Partial fill upon patient request if [...] Mouth, Daily, # 30 capsule, 2 Refills, [facility] ST[facility] 51423, 165.1, cm, 09/08/21 8:30:00 EST, Height, 89.7, kg, 12/17/20 9:14:00 EDT, Dry Weight Start Date: 09/23/21 Status: Ordered pravastatin 40 mg oral tablet 1 tablet, By Mouth, Daily at bedtime, # 90 tablet, 1 Refills, [facility] 28875, 165.1, cm, 06/23/21 9:19:00 EDT, Height, 89.7, kg, 12/17/20 9:14:00 EDT, Dry Weight Start Date: 07/23/21 Status: Ordered ProAir HFA 90 mcg/inh inhalation aerosol 2 puffs, Inhalation, 4 times a day, PRN NEEDED FOR WHEEZING, # 18 each, 5 Refills, [facility], 17, INHALE 2 PUFFS BY MOUTH FOUR [...] 3 Refills, Maintenance, 02/25/21 11:24:00 EDT, Tablet, [facility]/pharmacy #[id number], Partial fill upon patient request if [...]
--- OUTSIDE RECORDS SUMMARY | 2023-06-01 02:44 | XMS_ITS | Continuity of Care Document ---
Author Name Unknown Organization [facility] Address [address] [place] [address]- Care Team Providers Care Library Services Dean Name Role Phone Radha Myers MD Primary Care Physician Encounter [facility] Date(s): 06/21/22 - 07/21/22 [facility] [address] [place], [place] [address] Attending Physician: Ernie Sánchez Admitting Physician: AdmErnie corado Referring Physician: Admtr, Edgard8 Allergies, Adverse Reactions, Alerts Substance Reaction Severity [...] Requested from pharmacy, arrived late 2Result Comment: [facility] [id number] Medications acetaminophen 325 mg oral tablet 650 mg, 2, tablet, By Mouth, Every 6 hours, PRN, # 30 tablet, Refills 0, Tot. Refills 0, Maintenance, Pain , Moderate, 07/18/22 10:14:00 EST, Route to Pharmacy Electronically, [facility]/pharmacy #[id number], Partial fill upon patient request if the prescription i... Start Date: 07/18/22 Status: Ordered amLODIPine 5 mg oral tablet 5 mg, 1, tablet, By Mouth, Daily, # 90 tablet, Refills 3, Tot. Refills 3, Maintenance, 12/09/21 16:47:00 EDT, Route to Pharmacy Electronically, [facility]/pharmacy #[id number], Partial fill upon patient request if [...] Status: Ordered dexamethasone/neomycin/polymyxin B ophthalmic 1 mg-3.5 mg-89510 u/gm ointment 0 Refills, Maintenance, 06/21/22 12:59:00 EDT, Partial fill upon patient request if the prescription is for a schedule II opioid drug. Start Date: 06/21/22 Status: Ordered ferrous sulfate 325 mg oral enteric coated tablet 1, tablet, By Mouth, 2 times a day, # 180 tablet, Refills 1, Maintenance, 06/30/22 13:50:00 EDT, Route to [facility]acy Electronically, [facility], 165, cm, 06/21/22 12:30:00 EDT, Height, 83.5, [...] Start Date: 06/21/22 Status: Ordered Potassium Chloride (Nnm-Gigp-Hti 10) 10 mEq oral tablet, extended release 0 Refills, Maintenance, 06/21/22 12:58:00 EDT, Partial fill upon patient request if the prescription is for a schedule II opioid drug. Start Date: 06/21/22 Status: Ordered pravastatin 40 mg oral tablet 1 tablet, By Mouth, Daily at bedtime, # 90 tablet, 1 Refills, Maintenance, 06/03/22 20:32:00 EDT, [facility]/pharmacy #[id number], 165, cm, 04/04/22 12:32:00 EDT, Height, 83.5, kg, 04/04/22 12:32:00 EDT, Dry Weight Start Date: 06/03/22 Status: Ordered ProAir HFA 90 mcg/inh inhalation aerosol 2 puffs, Inhalation, 4 times a day, PRN NEEDED FOR WHEEZING, # 18 each, 2 Refills, 03/14/22 11:48:00 EDT, [facility]/pharmacy #[id number], 17, 2 puffs Inhalation 4 times a day,PRN: NEEDED FOR WHEEZING, 165.1, cm, 03/14/22 11:16:00 EDT, Height, 84.36, kg, 04/0... Start Date: 03/14/22 Status: Ordered sertraline 100 mg oral tablet 1 tablet, By Mouth, Daily, # 90 tablet, 3 Refills, Maintenance, 06/30/22 13:51:00 EDT, [facility], 165, cm, 06/21/22 12:30:00 EDT, Height, 83.5, kg, 04/04/22 12:32:00 EDT, Dry Weight Start Date: 06/30/22 Status: Ordered tamoxifen 20 mg oral tablet 1 tablet = 20 mg, By Mouth, Daily, # 90 tablet, 3 Refills, Maintenance, 02/25/21 11:24:00 EDT, Tablet, [facility]/pharmacy #[id number], Partial fill upon patient request if the prescription is for a schedule II opioid drug., 165.1, cm, 02/25/21 11:11:00 EDT, Heigh... Start Date: 02/25/21 Status: Ordered traMADol 50 [...] Team Personnel Name: Yaneth Frankel RN Position: [facility] RN Member Role: Primary Care Nurse Name: Keena Thakkar RN Position: [facility] RN Member Role: Primary Care Nurse Name: Emili Alexander RN Position: [facility] RN Member Role: Primary Care Nurse Name: Sapna Cagle RN Position: [facility] RN Member Role: Primary Care Nurse Name: Loren Spangler RN Position: [facility] RN Member Role: Primary Care Nurse Name: Mignon Ibarra RN Position: [facility] RN Member Role: Primary Care Nurse Name: Patricia Lieberman RN Position: [facility] AMB Nurse Member Role: Primary Care Nurse Name: Radha Myers MD Position: [facility] Primary Care Physician Member Role: PCP Address: Address: [address] [place] [address] [address] [place] [address]- Name: Asiya Baker RN Position: [facility] RN Member Role: Primary Care Nurse Name: Paramjit Solomon RN Position: [facility] RN Member Role: Primary Care Nurse Care Team Related Persons Name: RAKAN FIGUEROA Address: [address] [address]
--- OUTSIDE RECORDS SUMMARY | 2023-06-01 02:44 | XMS_ITS | Continuity of Care Document ---
Author Name Unknown Organization [facility] ter Address [address] [place] [id number]- Care Team Providers Care Draw Bench Operator Name Role Phone Louis ALVES, Radha Primary Care Physician [place] [facility] [place] 05/26/23 - 05/27/[address] [address]- Encounter Diagnosis Abdominal pain(Final) - 05/26/23 Discharge Disposition: A-D/C Home Attending Physician: Raya Redding MD Admitting Physician: Raya Redding MD Referring Physician: Not on Staff, Referring [...] Requested from pharmacy, arrived late 2Result Comment: [facility] [id number] Medications acetaminophen 500 mg oral tablet 2 tablet = 1,000 mg, By Mouth, Every 6 hours, PRN as needed for pain, for 5 days, # 40 tablet, 0 Refills, Acute 06/01/23 1:44:00 EDT, 05/27/23 1:44:00 EDT, Tablet, [facility]/pharmacy #[id number], Partial fill upon patient request if the prescription is for a sche... Start Date: 05/27/23 Stop Date: 06/01/23 Status: Ordered Albuterol (Eqv-ProAir HFA) 90 mcg/inh inhalation aerosol 2 puffs, Inhalation, 4 times a day, PRN NEEDED FOR WHEEZING, # 8.5 each, 2 Refills, Maintenance,05/16/23 21:53:00 EDT, [facility]/pharmacy #[id number], 17, 2 puffs Inhalation 4 times a day,x30 days,PRN: NEEDED FOR WHEEZING, 158.5, cm, 03/22/23 13:30:00 EDT,... Start Date: 05/16/23 Stop Date: 08/14/23 Status: Ordered amLODIPine 10 mg oral tablet 10 mg, 1, tablet, By Mouth, Daily, # 90 tablet, Refills 1, Tot. Refills 1, Maintenance, 02/22/23 16:16:00 EDT, Route to Pharmacy Electronically, [facility]/pharmacy #[id number], Partial fill upon patient request if [...] 02/12/23 18:37:00 EDT, Route to Pharmacy Electronically, [facility] STORE [id number], 165, cm, 01/11/23 11:14:00 EDT, Height, 80.6, kg, 02/09/23 12:00:00 EDT, Dry Weight Start Date: 02/12/23 Status: Ordered gabapentin 600 mg oral tablet 1 tablet = 600 mg, 2 times a day, 0 Refills, Maintenance, 06/21/22 12:59:00 EDT, Partial fill upon patient request if the prescription is for a schedule II opioid drug. Start Date: 06/21/22 Status: Ordered MorPHINE Immediate Release Tablet 15 mg, Tablet, By Mouth, Every 4 hours, PRN for Pain , Moderate, STAT, 05/27/23 0:48:00 EDT Start Date: 05/27/23 Stop Date: 05/27/23 Status: Discontinued Multivitamin Daily, 0 Refills, Maintenance, 09/15/20 15:23:00 EST, Partial fill upon patient request if the prescription is for a schedule II opioid drug. Start Date: 09/15/20 Status: Ordered omeprazole 40 mg oral enteric coated capsule 1 capsule = 40 mg, By Mouth, Daily, # 90 capsule, 1 Refills, Maintenance, 09/20/22 18:10:00 EST, ECCapsule, [facility]/pharmacy #[id number], Partial fill upon patient request if the prescription is for a schedule II opioid drug., 165, cm, 09/15/22 13:35:00 EST, H... Start Date: 09/20/22 Status: Ordered Potassium Chloride (Kcs-Xbqz-Uji 10) 10 mEq oral tablet, extended release 1 tablet, By Mouth, Daily, # 30 tablet, 11 Refills, Maintenance, 10/26/22 15:24:00 EST, [id number], 165, cm, 09/15/22 13:35:00 EST, Height, 79.8, kg, 07/30/22 10:04:00 EST, Dry Weight Start Date: 10/26/22 Status: Ordered pravastatin 40 mg oral tablet 1 tablet, By Mouth, Daily at bedtime, # 30 tablet, 5 Refills, Maintenance, 04/18/23 7:34:00 EDT, [id number], 158.5, cm, 03/22/23 13:30:00 EDT, Height, 79.6, kg, 03/28/23 5:12:00 EDT, Dry Weight Start Date: 04/18/23 Status: Ordered sertraline 100 mg oral tablet 1 tablet, By Mouth, Daily, # 90 tablet, 3 Refills, Maintenance, 06/30/22 13:51:00 EDT, [id number], 165, cm, 06/21/22 12:30:00 EDT, Height, 83.5, kg, 04/04/22 12:32:00 EDT, Dry Weight Start Date: 06/30/22 Status: Ordered tamoxifen 20 mg oral tablet 1 tablet = 20 mg, By Mouth, Daily, # 30 tablet, 11 Refills, Maintenance, 09/13/22 10:45:00 EST, Tablet, [facility]/pharmacy #[id number], Partial fill upon patient request if the prescription is for a schedule II opioid drug., 165, cm, 09/13/22 10:29:00 EST, Height... Start Date: 09/13/22 Status: Ordered tamsulosin 0.4 mg oral capsule 0.4 mg, 1, capsule, By Mouth, Daily, # 14 capsule, Refills 0, Tot. Refills 0, Maintenance, :48:00 EDT, Route to Pharmacy Electronically, [facility]/pharmacy #[id number], Partial fill upon patient request if the prescription is for a schedule II opioid . Start Date: 05/27/23 Stop Date: 06/10/23 Status: Ordered traMADol 50 mg oral tablet [...] Confirmed Active Spinal stenosis Confirmed Active Results Radiology Reports * Exam Date Time Procedure Performing Provider Status 05/26/23 11:[address] Abd/Pelvis W/ IV Contrast Only Valeria Linares; Auth (Verified) Notes: (CT Abd/Pelvis W/ IV Contrast Only) Reason For Exam: LLQ abdominal pain;Other: RESULT: CT Abd/Pelvis W/ IV Contrast Only CT Abd/Pelvis W/ IV Contrast Only Hx of Present Illness: L flank pain x 2 days; Reason: Other:; LLQ abdominal pain; Clinical Question(s): Abscess. TECHNIQUE: Spiral CT through the abdomen and pelvis with IV contrast formatted in 3 planes. 100 cc of Omnipaque 300 was administered intravenously. This study was performed without oral contrast. Weight-based protocol using automatic tube modulation was used to optimize exposure parameters. CTDIvol Body: 14.20 mGy, DLP Body: 696 mGy*cm. COMPARISON: Multiple priors most recently 04/12/2022. FINDINGS: [employer] Leak Tester View Findings, Lines and Tubes: None. Visualized Chest: Lung bases are clear. No pleural effusion. The heart is normal in size. No pericardial effusion. Diaphragm: Unremarkable. Liver: Diffuse low-attenuation throughout the liver parenchyma consistent with hepatic steatosis. No evidence of mass. Gallbladder: Cholelithiasis without evidence of acute cholecystitis. Bile ducts: No biliary ductal dilation. Spleen: Normal. Accessory splenic tissue is incidentally noted. Pancreas: Parenchymal calcification seen at the head of the pancreas, may be due to prior episodes of pancreatitis. Adrenal glands: Stable 1.5 cm left adrenal adenoma. Unremarkable appearance of the right adrenal gland. Kidneys and ureters: 5 mm stone in the mid left ureter resulting in mild left hydronephrosis. Subtle delayed nephrogram of the left kidney. Mild hyperemia and stranding around the proximal ureter. Additional tiny punctate nonobstructing stones seen within the left kidney. Mild scarring at the lowerpole of the right kidney, otherwise normal. Small hypodensities that are too small to characterize are noted, requiring no dedicated follow up. Bladder: Normal. Reproductive organs: Unremarkable. Stomach, small bowel, and large bowel: Large type III paraesophageal hernia. No evidence of obstruction or inflammation. Mild colonic diverticulosis. Evidence of prior sigmoid anastomosis appears intact. Appendix: Normal. Peritoneum and retroperitoneum: No ascites or pneumoperitoneum. No omental or mesenteric lesions. Lymph nodes: No enlarged lymph nodes. Blood vessels: Mild vascular calcifications but no aneurysm. No evidence of venous thrombosis. Abdominal and pelvic wall: Unremarkable. Bones: No acute abnormality. 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 Mild multilevel degenerative change in the spine. IMPRESSION: 5 mm stone in the mid left ureter resulting in mild hydronephrosis. Findings were communicated [employer] by Dr. Pollo Vasquez to Magalie Lynn DO on 05/27/2023 at 12:09 AM . I have personally reviewed the images and I agree with this report. WSN: [id number] Ordering Physician: Magalie Lynn Dictated By: Pollo Vasquez DO Dictated Date/Time: 05/27/23 5:56 am Reviewed By: Sandi Ray MD Signed By: Sandi Ray MD Signed Date/Time: 05/27/23 6:01 am Transcribed By: XAVIER Transcribed Date/Time: 05/27/23 0:17 am Vital Signs Most recent to oldest [Reference Range]: 1 2 3 Height 158 cm (05/27/23 1:53 AM) 158 cm (05/26/23 11:26 PM) 158 cm (05/26/23 9:12 PM) Weight 75.9 kg (05/27/23 1:53 AM) 75.9 kg (05/26/23 11:26 PM) 75.9 kg (05/26/23 9:12 PM) Oxygen Saturation [94-100 %] 97 % (05/27/23 1:53 AM) 97 % (05/26/23 11:26 PM) 97 % (05/26/23 9:12 PM) Pulse Rate [55-90 bpm] 75 bpm (05/27/23 1:53 AM) 70 bpm (05/26/23 11:26 PM) 83 bpm (05/26/23 9:12 PM) Body Mass Index [18.5-24.99 kg/m2] 30.4 kg/m2 *>HHI* (05/27/23 1:53 AM) 30.4 kg/m2 *>HHI* (05/26/23 11:26 PM) 30.4 kg/m2 *>HHI* (05/26/23 9:12 PM) Blood Pressure [90-138/55-84 mm Hg] 157/57mm Hg *H* (05/27/23 1:53 AM) 148/62mm Hg *H* (05/26/23 11:26 PM) 104/81mm Hg (05/26/23 9:12 PM) Respiratory Rate [16-30 br/min] 18 br/min (05/27/23 1:53 AM) 19 br/min (05/27/23 12:51 AM) 16 br/min (05/26/23 11:26 PM) Temperature [96.8-100.4 DegF] 99.0 DegF (05/27/23 1:53 AM) 99.2 DegF (05/26/23 11:26 PM) 99.5 DegF (05/26/23 9:12 PM) Mode of Delivery (Oxygen) Room air (05/27/23 1:53 AM) Room air (05/26/23 11:26 PM) Room air (05/26/23 9:05 PM) Blood pressure sites Arm, left (05/27/23 1:53 AM) Arm, left (05/26/23 11:26 PM) Arm, right (05/26/23 9:12 PM) Temperature Route Oral (05/27/23 1:53 AM) Oral (05/26/23 11:26 PM) Oral (05/26/23 9:12 PM) Dry Weight 75.9 kg (05/27/23 1:53 AM) 75.9 kg (05/26/23 11:26 PM) 75.9 kg (05/26/23 9:12 PM) Weight Obtained Via Standing scale (05/26/23 9:12 PM) Dry Weight Obtained Via Standing scale (05/26/23 9:12 PM) Social History Social History Type Response Tobacco Other: none. Sex EKG study * Event Display: EKG Authored Date: Note * Rosalba Kathleen: PERFORM Event Display: Patient Education Leaflets Authored Date: Kidney Stone with Pain ?? [id number] Kidney Stone with Pain The sharp cramping pain on either side of your lower back and nausea or vomiting that you have are because of??a small stone that has formed in the kidney. It's now passing down a narrow tube (ureter) on its way to your bladder. Once the stone reaches your bladder, the pain will often decrease. Butit may come back as the stone continues to pass out of the bladder and through the urethra. The ston e may pass in your urine stream in 1 piece. The size may be 1/16 inch to 1/4 inch (1 mm to 6 mm). Or the stone may break up into tenzin-like fragments that you may not even notice. Once you have had a kidney stone, you may be at risk of getting another one in the future. There are 4 types of kidney stones. Eighty percent are calcium stones???mostly calcium oxalate but also somewith calcium phosphate. The other 3 types include uric acid stones, struvite stones (from a preceding infection) and, rarely, cystine stones. Most stones will pass on their own. But they may take from a few hours to a few days. Sometimes thestone is too large to pass by itself. In that case, the healthcare provider will need to use??otherways to remove the stone. These methods include: ??? Shock Wave Lithotripsy. This??noninvasive procedure uses high energy sound waves to break up the stone and allow it to easily pass. ??? Ureteroscopy. This??procedure inserts a tool through the urethra and bladder and into the ureter to pull out the stone. This procedure is done under anesthesia. ??? Surgery. You may need surgery to remove the stone. Home care The following are general care guidelines: ??? Drink plenty of fluids. This means at least 12, 8-ounce glasses of fluid???mostly water???a day. ??? Each time you pee (urinate), do so in a jar. Pour the urine from the jar through the strainer and into the toilet. Continue doing this until 24 hours after your pain stops. By then, if there was a kidney stone, it should pass from your bladder. Some stones dissolve into sand-like particles and pass right through the strainer. In that case, you won???t ever see a stone. ??? Save any stone that you find in the strainer and bring it to your healthcare provider for a detailed exam. It may be possible to stop certain types of stones from forming. Forthis reason, it's important to know what kind of stone you have. ??? Try to stay as active as possible. This will help the stone pass. Don't stay in bed unless your pain keeps you from getting up. You may notice a red, pink, or brown color to your urine. This is normal while passing a kidney stone.??? If you develop pain, you may take ibuprofen or naproxen for pain, unless another medicine was pr escribed.??Talk with your healthcare provider before using these medicines if you have chronic liver or kidney disease. Or if you've??had a stomach ulcer or digestive bleeding. ?? Preventing??stones Each year for the next 5 to??7 years,??you are at risk that??a??new stone will form. Your risk is a50% chance over this time period.??The risk is higher??if you have a family history of kidney stones or have certain chronic illnesses like high blood pressure, obesity, or??diabetes.?Making changes to your lifestyle and diet may lower your??risk for another stone. Most kidney stones are made of calcium. The following is advice for preventing another??calcium stone.??If you don???t know the type of stone you have, follow this advice until the cause of your stone is found. Things that help: ??? The most important thing you can do is to drink plenty of fluids each day. See home care above.? Eat foods that contain phytates. These include??wheat, rice, rye, barley, and beans. Phytates are substances that may lower your risk for??any type of stone to form. ??? Eat more fruits and vegetables.??Choose those that are??high in potassium. ??? Eat foods high in natural citrate, such as??fruit and low-sugar fruit juices, such as lemon juice. Citrate can protect againstkidney stones because it stops crystals from turning into stones ??? Having too little calcium in your diet can put you at risk for??calcium??kidney stones. Eat a normal amount of calcium in your diet and talk??with your healthcare provider??if you are taking calcium supplements. Cutting back on your calcium intake may raise your risk.??New research shows that eating calcium-rich and oxalate-richfoods together lowers your risk for stones by binding the minerals in the stomach and intestines before they can reach the kidneys. ? Limit salt intake to 2??grams (1??teaspoon) per day. High sodium in your diet will increase the amount of calcium sent into your urine. This can increase your chances of developing another stone. Use limited amounts when cooking, and don???t add salt at the table.??Processed and canned foods are usually high in salt.? Spinach, rhubarb, peanuts, cashews, almonds, grapefruit, and grapefruit juice are all high oxalate foods. You should limit how much of these you eat or??eat them with??calcium-rich foods. These include dairy products, dark leafy greens, soy products, and calcium-enriched foods. ??? Reducing the amount of animal meat, shellfish, and high protein foods in your diet may lower your risk for uric acid stones. These foods have high amounts of a natural chemical compound called purines. Eating a lot of food with purines can make your body produce more uric acid. Limiting alcohol is also recommended to decrease uric acid production. ??? Limit the amount of sugar (sucrose) and soft drinks with fructose in??your??diet.? If you take vitamin C as a supplement, don't take more than 1,000 mg a day. ??? A dietitian or your healthcareprovider can give you??information about??changes in your diet that will help prevent more??kidney stones from forming. ?? Follow-up care Follow up with your??healthcare provider, or as advised,??if the pain lasts more than 48 hours. Talk with your provider about urine and blood tests to find out the cause of your stone. If you had an X-ray, CT scan, or other diagnostic test, you will be told of any new findings that may affect your care. ?? Call 911 Call 911 if you have: ??? Weakness, dizziness, or fainting ?? When to get medical care Call your healthcare provider right away if any of these occur: ??? Pain that is not controlled by the medicine given ??? Repeated vomiting or unable to keep down fluids ??? Fever of 100.4??F (38??C)or higher, or as advised by your provider ??? Passage of solid red or brown urine (can't see through it) or urine with lots of blood clots ??? Foul-smelling or cloudy urine ??? Unable to pee for 8 hours and increasing bladder pressure ?? Last Reviewed Date: 2022 ?? [id number] [employer]. All rights reserved. This information is not intended as a substitute for professional medical care. Always follow your healthcare professional's instructions. ?? * Padma WING, Rosalba Lawler: PERFORM Event Display: Patient Education Leaflets Authored Date: [id number] Urine Strainer ?? [id number] Urine Strainer You may be trying to pass a kidney stone. A urine strainer is used to collect a kidney stone from the urine stream. Collection method ??? Each time you urinate, do so in a jar. ??? Pour the urine from the jar through the strainer and into the toilet. ??? Save any particles or stones. ??? Wash your hands when you are done. ??? Keep doing this until 24 hours after your pain stops. By then, if there was a kidney stone, it should have passed out of your bladder. Some stones dissolve into sandlike particles. These pass right through the strainer. In that case, you won't ever see a stone. ?? Follow-up care Save any stone that you find in a small container, and bring it to your healthcare provider for analysis. This will help your healthcare provider find out what type of stone was passed. This information may be used to help prevent some types of stones from forming again. Follow your provider's advice on fluid intake, possible diet changes, and follow-up appointments. ?? When to get medical advice Contact your healthcare provider right away if symptoms of a kidney stone return, such as: ??? Sharp pain in your lower belly, side, or lower back ??? Fever of 100.4??F (38??C) or higher, or as directed by your healthcare provider ??? Vomiting ??? Bloody or bad-smelling urine ??? Pain that increases or gets worse with urination ?? Last Reviewed Date: 2022 ?? [employer]. All rights reserved. This information is not intended as a substitute for professional medical care. Always follow your healthcare professional's instructions. ?? Patient Care team information Care Team Personnel Name: Yaneth Frankel RN Position: [facility] RN Member Role: Primary Care Nurse Name: Keena Thakkar RN Position: [facility] RN Member Role: Primary Care Nurse Name: Emili Alexander RN Position: [facility] RN Member Role: Primary Care Nurse Name: Sapna Narayanan RN Position: [facility] RN Member Role: Primary Care Nurse Name: Anna Vaca RN Position: [facility] RN Member Role: Primary Care Nurse Name: Loren Spangler RN Position: [facility] RN Member Role: Primary Care Nurse Name: Cayla Gannon RN Position: [facility] SN RN Member Role: Primary Care Nurse Name: Mginon Ibarra RN Position: [facility] RN Member Role: Primary Care Nurse Name: Patricia Lieberman RN Position: [facility] OB RN Member Role: Primary Care Nurse Name: Radha Myers MD Position: [facility] Physician - Primary Care Member Role: PCP Address: Address: [address] [place] [id number]- Name: Asiya Baker RN Position: [facility] RN Member Role: Primary Care Nurse Name: Paramjit Solomon RN Position: [facility] RN Member Role: Primary Care Nurse Name: Irais Chavez Position: [facility] ED TA [facility] Member Role: Devops Consultant Name: Rosalba Kathleen Position: [facility] Associate Professional Member Role: ED Physician Forger Helper Address: Address: [address] [place] [id number]- Name: Raya Redding MD Position: [facility] ED Medicine MD Member Role: ED Attending Physician Address: Address: [address] [place] [id number]- Name: Kylah Magaña RN Position: [facility] ED RN W/OE and Tasks Member Role: Patient Care Provider Name: Chelsea Bolden Position: [facility] ED [facility] Member Role: Devops Consultant Care Team Related Persons Name: RAKAN FIGUEROA Address: home [address] [place] [address] [place] [address]
--- OUTSIDE RECORDS SUMMARY | 2023-06-01 02:44 | XMS_ITS | Continuity of Care Document ---
Author Name Unknown Organization [facility] Address [address] [place] [address] ve [address] [place] [address]- Care Team Providers Care Picker Name Role Phone Louis ALVES, Radha Primary Care Physician [phone] Encounter [facility] Date(s): 08/17/22 - 09/16/[address] [place] [address]- Attending Physician: Ernie Sánchez Admitting Physician: Ernie [...] Requested from pharmacy, arrived late 2Result Comment: [facility] [id number] Medications amLODIPine 5 mg oral tablet 5 mg, 1, tablet, By Mouth, Daily, # 90 tablet, Refills 3, Tot. Refills 3, Maintenance, 12/09/21 16:47:00 EDT, Route to Pharmacy Electronically, [facility]/pharmacy #[id number], Partial fill upon patient request if the prescription is for a schedule II opioid drug.... Start Date: 12/09/21 Status: Ordered CPAP Machine See Instructions, # 1 each, Maintenance, AutoCPAP 8-20 cm H20, use Daily when sleeping, 12/17/21 13:03:00 EDT, Supply Start Date: 12/17/21 Status: Ordered [facility] OLOPATADINE 0.1% EYE DROPS [facility] OLOPATADINE 0.1% EYE DROPS, 0 Refills, Maintenance, 06/21/22 12:58:00 EDT Start Date: 06/21/22 Status: Ordered dexamethasone/neomycin/polymyxin B ophthalmic 1 mg-3.5 mg-68787 u/gm ointment 0 Refills, Maintenance, 06/21/22 12:59:00 EDT, Partial fill upon patient request if the prescription is for a schedule II opioid drug. Start Date: 06/21/22 Status: Ordered ferrous sulfate 325 mg oral enteric coated tablet 1, tablet, By Mouth, 2 times a day, # 180 tablet, Refills 1, Maintenance, 06/30/22 13:50:00 EDT, Route to Pharmacy Electronically, [facility] STORE [id number], 165, cm, 06/21/22 12:30:00 EDT, Height, 83.5, [...] Start Date: 06/21/22 Status: Ordered Potassium Chloride (Aau-Ycnz-Koi 10) 10 mEq oral tablet, extended release 0 Refills, Maintenance, 06/21/22 12:58:00 EDT, Partial fill upon patient request if the prescription is for a schedule II opioid drug. Start Date: 06/21/22 Status: Ordered pravastatin 40 mg oral tablet 1 tablet, By Mouth, Daily at bedtime, # 90 tablet, 1 Refills, Maintenance, 06/03/22 20:32:00 EDT, [facility]/pharmacy #[id number], 165, cm, 04/04/22 12:32:00 EDT, Height, 83.5, kg, 04/04/22 12:32:00 EDT, Dry Weight Start Date: 06/03/22 Status: Ordered ProAir HFA 90 mcg/inh inhalation aerosol 2 puffs, Inhalation, 4 times a day, PRN NEEDED FOR WHEEZING, # 18 each, 2 Refills, 03/14/22 11:48:00 EDT, [facility]/pharmacy #[id number], 17, 2 puffs Inhalation 4 times a day,PRN: NEEDED FOR WHEEZING, 165.1, cm, 03/14/22 11:16:00 EDT, Height, 84.36, kg, 04/0... Start Date: 03/14/22 Status: Ordered sertraline 100 mg oral tablet 1 tablet, By Mouth, Daily, # 90 tablet, 3 Refills, Maintenance, 06/30/22 13:51:00 EDT, [facility], 165, cm, 06/21/22 12:30:00 EDT, Height, 83.5, kg, 04/04/22 12:32:00 EDT, Dry Weight Start Date: 06/30/22 Status: Ordered tamoxifen 20 mg oral tablet 1 tablet = 20 mg, By Mouth, Daily, # 30 tablet, 11 Refills, Maintenance, 09/13/22 10:45:00 EST, Tablet, [facility]/pharmacy #[id number], Partial fill upon patient request if [...] team information Care Team Personnel Name: Yaneth Frnakel RN Position: [facility] RN Member Role: Primary Care Nurse [...] Care Nurse Name: Cayla Gannon RN Position: [facility] RN Member Role: Primary Care Nurse Name: Mignon Ibarra RN Position: [facility] RN Member Role: Primary Care Nurse Name: Patricia Lieberman RN Position: [facility] AMB Nurse Member Role: Primary Care Nurse Name: Radha Myers MD Position: [facility] Primary Care Physician Member Role: PCP Address: Address: [address] [place] [address]- Name: Asiya Baker RN Position: [facility] RN Member Role: Primary Care Nurse Name: Paramjit Solomon RN Position: [facility] RN Member Role: Primary Care Nurse Care Team Related Persons Name: RAKAN FIGUEROA Address: [address] [place] [address]
--- OUTSIDE RECORDS SUMMARY | 2023-06-01 02:44 | XMS_ITS | Continuity of Care Document ---
Author Name Unknown Organization [facility] Address [address] [place] [address]- Care Team Providers Care Rebar Bender Name Role Phone Radha Myers MD Primary Care Physician Encounter [facility] Date(s): 12/15/21 - 01/14/22 [facility] [address] [place] [address]- Allergies, Adverse Reactions, Alerts Substance Reaction Severity [...] Recorded tetanus/diphtheria/pertussis, acel(Tdap) 04/14/11 Given 1Result Comment: [facility] [id number] Medications acetaminophen 325 mg oral tablet 650 mg, 2, tablet, By Mouth, Every 4 hours, # 24 tablet, Refills 0, Tot. Refills 0, Maintenance, 12/20/21 11:37:00 EDT, Route to Pharmacy Electronically, [facility], Partial fill upon patient request if the prescription is for a schedule... Start Date: 12/20/21 Status: Ordered amLODIPine 5 mg oral tablet 5 mg, 1, tablet, By Mouth, Daily, # 90 tablet, Refills 3, Tot. Refills 3, Maintenance, 12/09/21 16:47:00 EDT, Route to Pharmacy Electronically, [facility]/pharmacy #[id number], Partial fill upon patient request if the prescription is for a schedule II opioid drug.... Start Date: 12/09/21 Status: Ordered CPAP Machine See Instructions, # 1 each, Maintenance, AutoCPAP 8-20 cm H20, use Daily when sleeping, 12/17/21 13:03:00 EDT, Supply Start Date: 12/17/21 Status: Ordered [facility] OLOPATADINE 0.1% EYE DROPS INSTILL 1 DROP ONCE/DAY BOTH EYES EVERYDAY FOR ALLERGY Start Date: 12/17/21 Status: Ordered ferrous sulfate 325 mg oral enteric coated tablet 325 mg, 1, tablet, By Mouth, 2 times a day, # 180 tablet, Refills 1, Tot. Refills 1, Maintenance, 09/05/21 13:29:00 EST, [facility] mL, 0 Refills, Maintenance, 01/11/22 13:46:00 EDT, [facility], Partial fill upon patient request if the prescription is for a schedule II opioiddrug., per GI office, 165.1, cm, 01/10/22 15:58:00... Start Date: 01/11/22 Status: Ordered omeprazole 40 mg oral enteric coated capsule 1 capsule, By Mouth, Daily, # 30 capsule, 2 Refills, [facility], 165.1, cm, 11/11/21 12:40:00 EST, Height, 89.7, kg, 12/17/20 9:14:00 EDT, Dry Weight Start Date: 11/14/21 Status: Ordered Potassium Chloride (Zta-Eqnq-Xth 10) 10 mEq oral tablet, extended release [...] FOR WHEEZING, # 18 each, 5 Refills, [facility] 43840, 17, INHALE 2 PUFFS BY MOUTH FOUR [...]
--- OUTSIDE RECORDS SUMMARY | 2023-06-01 02:44 | XMS_ITS | Continuity of Care Document ---
Author Name Unknown Organization [facility] Address [address] [place] [address]- Care Team Providers Care Campus Ambassador Name Role Phone Louis ALVES, Radha Primary Care Physician Encounter [facility] Date(s): 04/05/20 - 05/09/20 [facility] [address] [place] [address]- [facility] Attending Physician: Radha Myers MD Allergies, Adverse [...] Recorded tetanus/diphtheria/pertussis, acel(Tdap) 04/14/11 Given 1Result Comment: [facility] 37750-533-72 Medications albuterol 0.083% inhalation solution 3 mL [...] mL, 0 Refills, Maintenance, 03/30/20 2:55:00 EDT, Bernard Start Date: 03/30/20 Status: Ordered NuLYTELY with Flavor Packs oral powder for reconstitution 240 mL, By Mouth, Every 10 minutes, # 4,000 mL, 0 Refills, Maintenance, 03/30/20 19:13:00 EDT, REC Powder, [facility]/pharmacy #[id number], 240 mL By Mouth [...]
--- OUTSIDE RECORDS SUMMARY | 2023-06-01 02:45 | XMS_ITS | Continuity of Care Document ---
Author Name Unknown Organization [facility] Address [address] [place] [address]- Care Team Providers Care Pipe Organ Technician Name Role Phone Louis ALVES, Radha Primary Care Physician [phone] [place] [facility] [place]s): 11/04/19 - 11/14/19 [facility] [address] [place] [address]- [facility] Attending Physician: Ernie Sánchez Admitting Physician: Ernie Sánchez Referring Physician: Ernie Sánchez Allergies, Adverse Reactions, Alerts Substance Reaction Severity [...] 04/14/11 Given 1Result Comment: [facility] 38839-924-69 Medications albuterol 0.083% inhalation solution 3 mL = 2.5 mg, Inhalation, Every 6 hours, PRN for wheezing, # 25 each, 0 Refills, Maintenance, 08/27/19 14:29:00 EST, Solution, [facility]/pharmacy #[id number], 167, cm, 08/27/19 13:50:00 EST, Height, 88, kg, 06/08/19 6:36:00 EDT, Dry Weight Start Date: 08/27/19 Status: Ordered albuterol 0.083% inhalation solution 3 mL = 2.5 mg, Inhalation, Once, PRN for wheezing, admin via [facility] in office Lot# [id number] exp#09/29/20, # 3 mL, 0 Refills, Soft Stop, 08/27/19 14:44:00 EST, Solution, Dry Weight Start Date: 08/27/19 Status: Ordered amLODIPine 2.5 mg oral tablet 2.5 mg, 1, tablet, By Mouth, Daily, # 90 tablet, Refills 3, Tot. Refills 3, Maintenance, 05/19/19 11:59:33 EDT, Route to Pharmacy Electronically, [id number], [facility]/pharmacy #[id number] Start Date: 05/19/19 Status: Ordered Azithromycin 5 Day Dose Pack 250 mg oral tablet 1 pack/packet, By Mouth, Once, # 6 tablet, 0 Refills, Soft Stop, 08/27/19 14:27:00 EST, Tablet, [facility]/pharmacy #[id number], 167, cm, 08/27/19 13:50:00 EST, Height, 88, kg, 06/08/19 6:36:00 EDT, Dry Weight Start Date: 08/27/19 Status: Ordered Breo Ellipta 200 mcg-25 mcg/inh inhalation powder TAKE 1 PUFF BY MOUTH EVERY DAY Start Date: 08/27/19 Status: Ordered Horizant 600 mg oral tablet, [...]
--- OUTSIDE RECORDS SUMMARY | 2023-06-01 02:45 | XMS_ITS | Continuity of Care Document ---
Author Name Unknown Organization [facility] Address [address] [place] [address]- Care Team Providers Care Recreation Facility Attendant Name Role Phone Radha Myers MD Primary Care Physician Encounter [facility] Date(s): 08/23/20 - 03/24/21 [facility] [address] [place] [address] Discharge Disposition: A-D/C Home Attending Physician: Patricia Linda MD Admitting Physician: Patricia Linda MD Referring Physician: Radha Myers MD Allergies, [...] tetanus/diphtheria/pertussis, acel(Tdap) 04/14/11 Given 1Result Comment: [facility] [id number] Medications Albuterol (Eqv-ProAir HFA) Inhalation, Every 6 [...] 12/23/20 11:27:00 EDT, Route to Pharmacy Electronically, [facility]/pharmacy #[id number], Partial fill upon patient request [...] 1 Refills, Maintenance, 11/21/20 16:41:00 EDT, Suspension, [id number], 165.1, cm, 09/30/20 16:26:00 EST, Height, [...]
--- OUTSIDE RECORDS SUMMARY | 2023-06-01 02:45 | XMS_ITS | Continuity of Care Document ---
Author Name Unknown Organization [facility] Address [address] [place] [address]- Care Team Providers Care Print Designer Name Role Phone Louis ALVES, Radha Primary Care Physician Encounter [facility] Date(s): 08/21/20 - 09/20/20 [facility] [address] [place] [address]- Allergies, Adverse Reactions, Alerts Substance Reaction Severity [...] tetanus/diphtheria/pertussis, acel(Tdap) 04/14/11 Given 1Result Comment: [facility] [id number] Medications Albuterol (Eqv-ProAir HFA) Inhalation, Every 6 [...] 08/20/20 18:07:00 EST, Route to Pharmacy Electronically, [facility]/pharmacy #[id number], Partial fill upon patient request [...] 1 Refills, Maintenance, 05/25/20 16:41:00 EDT, Suspension, [facility]/pharmacy #[id number], 165, cm, 04/22/20 7:24:00 EDT, Height, [...]
--- OUTSIDE RECORDS SUMMARY | 2023-06-01 02:45 | XMS_ITS | Continuity of Care Document ---
Author Name Unknown Organization [facility] Address [address] [place] [address]- Care Team Providers Care Hairspring Assembler Name Role Phone Radha Myers MD Primary Care Physician Encounter [facility] Date(s): 05/21/21 - 09/18/21 [facility] [address] [place] [address]- Attending Physician: Aminata Deras MD Admitting Physician: [...] 06/26/13 Recorde d Influenza Virus Vaccine (oldterm) 11/20/12 Recorde d pneumococcal 13-valent vaccine 03/04/18 Recorded Zoster Vaccine Live 11/10/13 Recorded Zoster Vaccine Live 08/11/13 Recorded pneumococcal 23-valent vaccine 07/30/13 Recorded tetanus/diphtheria/pertussis, acel(Tdap) 04/14/11 Given 1Result Comment: [facility] 3] [id number] Medications ferrous sulfate 325 mg oral enteric coated tablet 325 mg, 1, tablet, By Mouth, 2 times a day, # 180 tablet, Refills 1, Tot. Refills 1, Maintenance, 09/05/21 13:29:00 EST, Route to Pharmacy Electronically, [facility]/pharmacy [...] Mouth, Daily, # 30 capsule, 2 Refills, [facility] 55495, 165.1, cm, 06/23/21 9:19:00 EDT, Height, 89.7, kg, 12/17/20 9:14:00 EDT, Dry Weight Start Date: 07/22/21 Status: Ordered pravastatin 40 mg oral tablet 1 tablet, By Mouth, Daily at bedtime, # 90 tablet, 1 Refills, [facility] 43682, 165.1, cm, 06/23/21 9:19:00 EDT, Height, 89.7, kg, 12/17/20 9:14:00 EDT, Dry Weight Start Date: 07/23/21 Status: Ordered ProAir HFA 90 mcg/inh inhalation aerosol 2 puffs, Inhalation, 4 times a day, PRN NEEDED FOR WHEEZING, # 18 each, 5 Refills, [facility], 17, INHALE 2 PUFFS BY MOUTH FOUR [...] 3 Refills, Maintenance, 02/25/21 11:24:00 EDT, Tablet, [facility]/pharmacy #[id number], Partial fill upon patient [...]
--- OUTSIDE RECORDS SUMMARY | 2023-06-01 02:45 | XMS_ITS | Continuity of Care Document ---
Author Name Unknown Organization [facility] Address [address] [place] [address]- Care Team Providers Care Orchid Hand Name Role Phone Radha Myers MD Primary Care Physician Encounter [facility] Date(s): 08/15/21 - 08/22/21 [facility] [address] [place] [address]- Encounter Diagnosis Well adult exam(Discharge Diagnosis) - 08/15/21 Asthma(Discharge Diagnosis) - 08/15/21 Iron deficiency anemia(Discharge Diagnosis) - 08/15/21 Major depression, recurrent(Discharge Diagnosis) - 08/15/21 Hyperlipidemia, unspecified(Discharge Diagnosis) - 08/15/21 Elevated blood sugar(Discharge Diagnosis) - 08/17/21 Attending Physician: Radha Myers MD Allergies, Adverse Reactions, Alerts Substance Reaction Severity Status sulfa drugs swelling, itching Active Immunizations Given and Recorded Vaccine Date Status Refusal Reason influenza virus vaccine, inactivated 06/21/21 Yash rded influenza virus vaccine, inactivated 06/09/20 Yash rded influenza virus vaccine, inactivated 1 06/19/19 Gi josefina SARS-CoV-2 (COVID-19) mRNA BNT-162b2 vac 01/23/21 Recorded [...] Recorded tetanus/diphtheria/pertussis, acel(Tdap) 04/14/11 Given 1Result Comment: [facility] 24770-139-36 Medications albuterol CFC free 90 mcg/inh inhalation aerosol 2, puffs, Inhalation, 4 times a day, PRN, # 18 Gm, Refills 0, Tot. Refills 0, Maintenance, 06/28/2117:03:00 EDT, Aerosol, Route to Pharmacy Electronically, [id number], [facility]/pharmacy #[id number], 165.1, cm, 06/23/21 9:19:00 EDT, Hei... Start Date: 06/28/21 Status: Ordered ferrous sulfate 325 mg oral enteric coated tablet 325 mg, 1, tablet, By Mouth, 2 times a day, # 180 tablet, Refills 1, Tot. Refills 1, Maintenance, 04/07/21 16:15:00 EDT, Route to Pharmacy Electronically, [facility]/pharmacy #[id number], Partial fill upon patient request if the prescription is for a schedule II o... Start Date: 04/07/21 Status: Ordered Horizant 600 mg oral tablet, [...] # 30 capsule, 2 Refills, [facility], 165.1, cm, 06/23/21 9:19:00 EDT, Height, 89.7, kg, 12/17/20 9:14:00 EDT, Dry Weight Start Date: 07/22/21 Status: Ordered pravastatin 40 mg oral tablet 1 tablet, By Mouth, Daily at bedtime, # 90 tablet, 1 Refills, [facility], 165.1, cm, 06/23/21 9:19:00 EDT, Height, 89.7, kg, 12/17/20 9:14:00 EDT, Dry Weight Start Date: 07/23/21 Status: Ordered sertraline 100 mg oral tablet [...] Hyperlipidemia, unspecified(Confirmed) Active Iron deficiency anemia(Confirmed) Active Sleep apnea, obstructive(Confirmed) 2009 Active Major depression, recurrent(Confirmed) Active Spinal stenosis(Confirmed) Active Diagnosis Diagnosis Type Effective Dates Health Status Clinical Service Informant Well adult exam Discharge Diagnosis 08/15/21 Asthma Discharge Diagnosis 08/15/21 Iron deficiency anemia Discharge Diagnosis 08/15/21 Major depression, recurrent Discharge Diagnosis 08/15/21 Hyperlipidemia, unspecified Discharge Diagnosis 08/15/21 Elevated blood sugar Discharge Diagnosis 08/17/21 Vital Signs Most recent to oldest [Reference Range]: 1 Height 165.10 cm (08/15/21 11:08 AM) Weight 86 kg (08/15/21 11:08 AM) Oxygen Saturation [94-100 %] 96 % (08/15/21 11:08 AM) Pulse Rate [55-90 bpm] 78 bpm (08/15/21 11:08 AM) Body Mass Index [18.5-24.99] 31.55 *>HHI* (08/15/21 11:08 AM) Blood Pressure [90-138/55-84 mm Hg] 137/ 84mm Hg (08/15/21 11:08 AM) Mode of Delivery (Oxygen) Room air (08/15/21 11:08 AM) Blood pressure sites Arm, left (08/15/21 11:08 AM) Weight Obtained Via Standing scale (08/15/21 11:08 AM) Social History Social History Type Response Tobacco Other: none. Sex
--- OUTSIDE RECORDS SUMMARY | 2023-06-01 02:45 | XMS_ITS | Continuity of Care Document ---
Author Name Unknown Organization [facility] Address [address] [place] [address]- Care Team Providers Care Board Finisher Name Role Phone Louis ALVES, Radha Primary Care Physician Encounter [facility] Date(s): 09/05/21 - 10/05/21 [facility] [address] [place] [address]- Allergies, Adverse Reactions, Alerts Substance Reaction Severity [...] Recorded tetanus/diphtheria/pertussis, acel(Tdap) 04/14/11 Given 1Result Comment: [facility] 84512-747-84 Medications ferrous sulfate 325 mg oral enteric coated tablet 325 mg, 1, tablet, By Mouth, 2 times a day, # 180 tablet, Refills 1, Tot. Refills 1, Maintenance, 09/05/21 13:29:00 EST, Route to Pharmacy Electronically, [facility]/pharmacy #[id number], Partial fill upon patient [...] Mouth, Daily, # 30 capsule, 2 Refills, [facility] 87486, 165.1, cm, 09/08/21 8:30:00 EST, Height, 89.7, kg, 12/17/20 9:14:00 EDT, Dry Weight Start Date: 09/23/21 Status: Ordered pravastatin 40 mg oral tablet 1 tablet, By Mouth, Daily at bedtime, # 90 tablet, 1 Refills, [facility] 30127, 165.1, cm, 06/23/21 9:19:00 EDT, Height, 89.7, kg, 12/17/20 9:14:00 EDT, Dry Weight Start Date: 07/23/21 Status: Ordered ProAir HFA 90 mcg/inh inhalation aerosol 2 puffs, Inhalation, 4 times a day, PRN NEEDED FOR WHEEZING, # 18 each, 5 Refills, [facility]6880, 17, INHALE 2 PUFFS BY MOUTH FOUR [...]
--- OUTSIDE RECORDS SUMMARY | 2023-06-01 02:45 | XMS_ITS | Continuity of Care Document ---
Author Name Unknown Organization [facility] Address [address] [place] [address]- Care Team Providers Care Cnc Lathe Programmer Name Role Phone Louis ALVES, Radha Primary Care Physician [phone] Encounter [facility] Date(s): 06/22/22 - 07/22/22 [facility] [address] [place] [address] Attending Physician: Admmickie, Ernie Admitting Physician: Admtr, Ernie Referring Physician: Admtr, Ar8 Allergies, Adverse Reactions, Alerts Substance Reaction Severity [...] Comment: [facility] 09171-027-97 Medications acetaminophen 325 mg oral tablet 650 mg, 2, tablet, By Mouth, Every 6 hours, PRN, # 30 tablet, Refills 0, Tot. Refills 0, Maintenance, Pain , Moderate, 07/18/22 10:14:00 EST, Route to Pharmacy Electronically, [facility]/pharmacy #[id number], Partial fill upon patient request if the prescription i... Start Date: 07/18/22 Status: Ordered amLODIPine 5 mg oral tablet 5 mg, 1, tablet, By Mouth, Daily, # 90 tablet, Refills 3, Tot. Refills 3, Maintenance, 12/09/21 16:47:00 EDT, Route to Pharmacy Electronically, [facility]/pharmacy #[id number], Partial fill upon patient request if [...] Status: Ordered dexamethasone/neomycin/polymyxin B ophthalmic 1 mg-3.5 mg-10283 u/gm ointment 0 Refills, Maintenance, 06/21/22 12:59:00 EDT, Partial fill upon patient request if the prescription is for a schedule II opioid drug. Start Date: 06/21/22 Status: Ordered ferrous sulfate 325 mg oral enteric coated tablet 1, tablet, By Mouth, 2 times a day, # 180 tablet, Refills 1, Maintenance, 06/30/22 13:50:00 EDT, Route to Pharmacy Electronically, [facility], 165, cm, 06/21/22 12:30:00 EDT, Height, 83.5, [...] Start Date: 06/21/22 Status: Ordered Potassium Chloride (Esc-Zidp-Tlr 10) 10 mEq oral tablet, extended release 0 Refills, Maintenance, 06/21/22 12:58:00 EDT, Partial fill upon patient request if the prescription is for a schedule II opioid drug. Start Date: 06/21/22 Status: Ordered pravastatin 40 mg oral tablet 1 tablet, By Mouth, Daily at bedtime, # 90 tablet, 1 Refills, Maintenance, 06/03/22 20:32:00 EDT, [facility]/pharmacy #[id number], 165, cm, 04/04/22 12:32:00 EDT, Height, 83.5, kg, 04/04/22 12:32:00 EDT, Dry Weight Start Date: 06/03/22 Status: Ordered ProAir HFA 90 mcg/inh inhalation aerosol 2 puffs, Inhalation, 4 times a day, PRN NEEDED FOR WHEEZING, # 18 each, 2 Refills, 03/14/22 11:48:00 EDT, [facility]/pharmacy #[id number], 17, 2 puffs Inhalation 4 times a day,PRN: NEEDED FOR WHEEZING, 165.1, cm, 03/14/22 11:16:00 EDT, Height, 84.36, kg, 04/0... Start Date: 03/14/22 Status: Ordered sertraline 100 mg oral tablet 1 tablet, By Mouth, Daily, # 90 tablet, 3 Refills, Maintenance, 06/30/22 13:51:00 EDT, [facility], 165, cm, 06/21/22 12:30:00 EDT, Height, 83.5, kg, 04/04/22 12:32:00 EDT, Dry Weight Start Date: 06/30/22 Status: Ordered tamoxifen 20 mg oral tablet 1 tablet = 20 mg, By Mouth, Daily, # 90 tablet, 3 Refills, Maintenance, 02/25/21 11:24:00 EDT, Tablet, [facility]/pharmacy #[id number], Partial fill upon patient request if [...] Team Personnel Name: Yaneth Frankel RN Position: [facility] RN Member Role: Primary Care Nurse Name: Keena Thakkar RN Position: [facility] RN Member Role: Primary Care Nurse Name: Emili Alexander RN Position: S RN Member Role: Primary Care Nurse Name: Sapna Cagle RN Position: [facility] RN Member Role: Primary Care Nurse Name: Loren Spangler RN Position: [facility] RN Member Role: Primary Care Nurse Name: Mignon Ibarra RN Position: [facility] RN Member Role: Primary Care Nurse Name: Patricia Lieberman RN Position: [facility] AMB Nurse Member Role: Primary Care Nurse Name: Radha Myers MD Position: [facility] Primary Care Physician Member Role: PCP Address: Address: [address] [place] [address]- Name: Asiya Baker RN Position: [facility] RN Member Role: Primary Care Nurse Name: Paramjit Solomon RN Position: [facility] RN Member Role: Primary Care Nurse Care Team Related Persons Name: CAROLINA RAKAN Address: [address] [address]
--- OUTSIDE RECORDS SUMMARY | 2023-06-01 02:45 | XMS_ITS | Continuity of Care Document ---
Author Name Unknown Organization [facility] Address [address] [place] [address]- Care Team Providers Care Staffing Consultant Name Role Phone Louis ALVES, Radha Primary Care Physician [phone] [place] [facility] [place] [facility] [address] [place] [address]- Allergies, Adverse Reactions, Alerts Substance Reaction Severity [...] 04/14/11 Given 1Result Comment: [facility] 45033-772-14 Medications acetaminophen 325 mg oral tablet 650 mg, 2, tablet, By Mouth, Every 4 hours, # 24 tablet, Refills 0, Tot. Refills 0, Maintenance, 12/20/21 11:37:00 EDT, Route to Pharmacy Electronically, [facility], Partial fill upon patient request if the prescription is for a schedule... Start Date: 12/20/21 Status: Ordered amLODIPine 5 mg oral tablet 5 mg, 1, tablet, By Mouth, Daily, # 90 tablet, Refills 3, Tot. Refills 3, Maintenance, 12/09/21 16:47:00 EDT, Route to Pharmacy Electronically, [facility]/pharmacy #[id number], Partial fill upon patient request if the prescription is for a schedule II opioid drug.... Start Date: 12/09/21 Status: Ordered Augmentin 875 mg-125 mg oral tablet 1 tablet, By Mouth, Every 12 hours, for 10 days, # 20 tablet, 0 Refills, Acute 12/30/21 11:28:00 EDT, 12/20/21 11:28:00 EDT, Tablet, [facility], Partial fill upon patient request if theprescription is for a schedule II opioid drug., 165... Start Date: 12/20/21 Stop Date: 12/30/21 Status: Ordered CPAP Machine See Instructions, # 1 each, Maintenance, AutoCPAP 8-20 cm H20, use Daily when sleeping, 12/17/21 13:03:00 EDT, Supply Start Date: 12/17/21 Status: Ordered [facility] OLOPATADINE 0.1% EYE DROPS INSTILL 1 DROP ONCE/DAY BOTH EYES EVERYDAY FOR ALLERGY Start Date: 12/17/21 Status: Ordered ferrous sulfate 325 mg oral enteric coated tablet 325 mg, 1, tablet, By Mouth, 2 times a day, # 180 tablet, Refills 1, Tot. Refills 1, Maintenance, 09/05/21 13:29:00 EST, [facility] # 30 capsule, 2 Refills, [id number], 165.1, cm, 11/11/21 12:40:00 EST, Height, 89.7, kg, 12/17/20 9:14:00 EDT, Dry Weight Start Date: 11/14/21 Status: Ordered Potassium Chloride (Csy-Rdst-Cuw 10) 10 mEq oral tablet, extended release [...] # 18 each, 5 Refills, [id number], 17, INHALE 2 PUFFS BY MOUTH FOUR [...]
--- OUTSIDE RECORDS SUMMARY | 2023-06-01 02:45 | XMS_ITS | Continuity of Care Document ---
Author Name Unknown Organization [facility] Adult Address [address] [place] [phone]- Care Team Providers Care Senior Mechanical Engineer Name Role Phone Radha Myers MD Primary Care Physician [phone] [place] [facility] [place]21 [facility] [address] [place] [phone]- Allergies, Adverse Reactions, Alerts Substance Reaction Severity [...] Recorded tetanus/diphtheria/pertussis, acel(Tdap) 04/14/11 Given 1Result Comment: [facility] [place] [id number] Medications amLODIPine 5 mg oral tablet 5 mg, 1, tablet, By Mouth, Daily, # 90 tablet, Refills 3, Tot. Refills 3, Maintenance, 12/09/21 16:47:00 EDT, Route to Pharmacy Electronically, [facility]/pharmacy #[id number], Partial fill upon patient request if the prescription is for a schedule II opioid drug.... Start Date: 12/09/21 Status: Ordered ferrous sulfate 325 mg oral enteric coated tablet 325 mg, 1, tablet, By Mouth, 2 times a day, # 180 tablet, Refills 1, Tot. Refills 1, Maintenance, 09/05/21 13:29:00 EST, Route to Pharmacy Electronically, [facility]/pharmacy #[id number], Partial fill upon patient request [...] Mouth, Daily, # 30 capsule, 2 Refills, [facility], 165.1, cm, 11/11/21 12:40:00 EST, Height, 89.7, kg, 12/17/20 9:14:00 EDT, Dry Weight Start Date: 11/14/21 Status: Ordered Potassium Chloride (Yma-Fpgr-Uaf 10) 10 mEq oral tablet, extended release [...] # 18 each, 5 Refills, [facility], 17, INHALE 2 PUFFS BY MOUTH FOUR [...]
--- OUTSIDE RECORDS SUMMARY | 2023-06-01 02:45 | XMS_ITS | Continuity of Care Document ---
Author Name Unknown Organization [facility] Adult Address [address] [place] [address]- Care Team Providers Care Orchid Transplanter Name Role Phone Louis ALVES, Radha Primary Care Physician En[place] [facility] [place](s): 05/24/20 - 06/23/20 [facility] [address] [place] [phone]- [facility] Allergies, Adverse Reactions, Alerts Substance Reaction Severity [...] Given 1Result Comment: [facility] [id number] Medications albuterol 0.083% inhalation solution 3 mL [...] mL, 0 Refills, Maintenance, 03/30/20 2:55:00 EDT, [place] Start Date: 03/30/20 Status: Ordered NuLYTELY with Flavor Packs oral powder for reconstitution 240 mL, By Mouth, Every 10 minutes, # 4,000 mL, 0 Refills, Maintenance, 03/30/20 19:13:00 EDT, REC Powder, [facility]/pharmacy #[id number], 240 mL By Mouth Every 10 minutes, 165, cm, 03/30/20 14:58:00 EDT, Height, 79.8, kg, 03/30/20 15:13:00 EDT, Dry Weight Start Date: 03/30/20 Status: Ordered omeprazole 40 mg oral enteric coated capsule 1 capsule = 40 mg, By Mouth, Daily, # 90 capsule, 1 Refills, Maintenance, 05/25/20 16:41:00 EDT, Suspension, [facility]/pharmacy #[id number], 165, cm, 04/22/20 7:24:00 EDT, [...]
--- OUTSIDE RECORDS SUMMARY | 2023-06-01 02:45 | XMS_ITS | Continuity of Care Document ---
Author Name Unknown Organization [facility] ter Address [address] [place] [address]- Care Team Providers Care Nuclear Equipment Test Engineer Name Role Phone Radha Myers MD Primary Care Physician [place] [facility] [place] Date(s): 05/25/21 - 05/25/[address] [address]- Discharge Disposition: A-D/C Walkout Attending Physician: Lyle Salcedo MD Admitting Physician: Lyle Salcedo MD Referring Physician: Not on Staff, Referring [...] 1Result Comment: [facility] [id number] Medications Albuterol (Eqv-ProAir HFA) Inhalation, Every 6 [...] 04/07/21 16:15:00 EDT, Route to Pharmacy Electronically, [facility] [...] tablet, 1 Refills, Maintenance, 12/23/20 11:27:00 EDT, [facility]/pharmacy #[id number], 165.1, cm, 12/17/20 9:14:00 EDT, Height, [...] Refills, Maintenance, 02/25/21 11:24:00 EDT, Tablet, [facility] [...] [Reference Range]: 1 Oxygen Saturation [94-100 %] 97 % (05/25/21 5:38 PM) Pulse Rate [55-90 bpm] 81 bpm (05/25/21 5:38 PM) Blood Pressure [90-138/55-84 mm Hg] 147/ 66mm Hg *H* (05/25/21 5:38 PM) Respiratory Rate [16-30 br/min] 18 br/mi n (05/25/21 5:38 PM) Temperature [96.8-100.4 DegF] 98.4 DegF (05/25/21 5:38 PM) Mode of Delivery (Oxygen) Room air (05/25/21 5:38 PM) Blood pressure sites Arm, right (05/25/21 5:38 PM) Temperature Route Oral (05/25/21 5:38 PM) Social History Social History Type Response Tobacco Other: none. Sex
--- OUTSIDE RECORDS SUMMARY | 2023-06-01 02:45 | XMS_ITS | Continuity of Care Document ---
Author Name Unknown Organization [facility] Address [address] [facility] [place] [address]- Care Team Providers Care Ribbon Lapper Tender Name Role Phone Louis ALVES, Radha Primary Care Physician [place] [facility] [place] 10/04/22 - 11/03/22 [facility] [address] [facility] [place] [address]- Allergies, Adverse Reactions, Alerts Substance Reaction Severity [...] Requested from pharmacy, arrived late 2Result Comment: [facility] [id number] Medications amLODIPine 5 mg oral tablet 1 tablet, By Mouth, Daily, # 30 tablet, 5 Refills, Maintenance, 10/26/22 14:05:00 EST, [facility], 165, cm, 09/15/22 13:35:00 EST, Height, 79.8, kg, 07/30/22 10:04:00 EST, Dry Weight Start Date: 10/26/22 Status: Ordered CPAP Machine See Instructions, # 1 each, Maintenance, AutoCPAP 8-20 cm H20, use Daily when sleeping, 12/17/21 13:03:00 EDT, Supply Start Date: 12/17/21 Status: Ordered [facility] OLOPATADINE 0.1% EYE DROPS [facility] OLOP[facility] 0.1% EYE DROPS, 0 Refills, Maintenance, 06/21/22 12:58:00 EDT Start Date: 06/21/22 Status: Ordered dexamethasone/neomycin/polymyxin B ophthalmic 1 mg-3.5 mg-68440 u/gm ointment 0 Refills, Maintenance, 06/21/22 12:59:00 EDT, Partial fill upon patient request if the prescription is for a schedule II opioid drug. Start Date: 06/21/22 Status: Ordered ferrous sulfate 325 mg oral enteric coated tablet 1, tablet, By Mouth, 2 times a day, # 180 tablet, Refills 1, Maintenance, 06/30/22 13:50:00 EDT, Route to Pharmacy Electronically, [id number], 165, cm, 06/21/22 12:30:00 EDT, Height, 83.5, [...] 1 Refills, Maintenance, 09/20/22 18:10:00 EST, ECCapsule, [facility]/pharmacy #[id number], Partial fill upon patient request if the prescription is for a schedule II opioid drug., 165, cm, 09/15/22 13:35:00 EST, H... Start Date: 09/20/22 Status: Ordered Potassium Chloride (Oqv-Dbsw-Yzt 10) 10 mEq oral tablet, extended release 1 tablet, By Mouth, Daily, # 30 tablet, 11 Refills, Maintenance, 10/26/22 15:24:00 EST, [facility], 165, cm, 09/15/22 13:35:00 EST, Height, 79.8, kg, 07/30/22 10:04:00 EST, Dry Weight Start Date: 10/26/22 Status: Ordered pravastatin 40 mg oral tablet 1 tablet, By Mouth, Daily at bedtime, # 30 tablet, 5 Refills, Maintenance, 10/26/22 14:06:00 EST, [facility], 165, cm, 09/15/22 13:35:00 EST, Height, 79.8, [...] Refills, Maintenance, 06/30/22 13:51:00 EDT, [facility], 165, cm, 06/21/22 12:30:00 EDT, Height, 83.5, kg, 04/04/22 12:32:00 EDT, Dry Weight Start Date: 06/30/22 Status: Ordered tamoxifen 20 mg oral tablet 1 tablet = 20 mg, By Mouth, Daily, # 30 tablet, 11 Refills, Maintenance, 09/13/22 10:45:00 EST, Tablet, [facility]/pharmacy #[id number], Partial fill upon patient request if [...] Team Personnel Name: Yaneth Frankel RN Position: [facility] RN Member Role: Primary Care [...] Care Nurse Name: Patricia Lieberman RN Position: [facility] AMB Nurse Member Role: Primary Care Nurse Name: Radha Myers MD Position: [facility] Primary Care Physician Member Role: PCP Address: Address: [address] [place] [address]- Name: Asiya Baker RN Position: [facility] RN Member Role: Primary Care Nurse Name: Paramjit Solomon RN Position: [facility] RN Member Role: Primary Care Nurse Care Team Related Persons Name: RAKAN FIGUEROA Address: home [address] [place] [id number]
--- OUTSIDE RECORDS SUMMARY | 2023-06-01 02:45 | XMS_ITS | Continuity of Care Document ---
Author Name Unknown Organization [facility] Address [address] [place] [address]- Care Team Providers Care Registered Diet Technician Name Role Phone Louis ALVES, Radha Primary Care Physician [phone] [place] [facility] [place]/14[place] - 06/13/20 [facility] [address] [place] [address]- [facility] Allergies, Adverse Reactions, Alerts Substance Reaction [...] 04/14/11 Given 1Result Comment: [facility] [id number] Medications albuterol 0.083% inhalation solution 3 mL [...] mL, 0 Refills, Maintenance, 03/30/20 2:55:00 EDT, [place] Start Date: 03/30/20 Status: Ordered NuLYTELY with Flavor Packs oral powder for reconstitution 240 mL, By Mouth, Every 10 minutes, # 4,000 mL, 0 Refills, Maintenance, 03/30/20 19:13:00 EDT, REC Powder, [facility]/pharmacy #[id number], 240 mL By Mouth Every 10 minutes, 165, cm, 03/30/20 14:58:00 EDT, Height, 79.8, kg, 03/30/20 15:13:00 EDT, Dry Weight Start Date: 03/30/20 Status: Ordered omeprazole 40 mg oral enteric coated capsule 1 capsule = 40 mg, By Mouth, Daily, # 90 capsule, 1 Refills, Maintenance, 05/25/20 16:41:00 EDT, Suspension, [facility]/pharmacy #[id number], 165, cm, 04/22/20 7:24:00 EDT, Height, [...]
--- OUTSIDE RECORDS SUMMARY | 2023-06-01 02:45 | XMS_ITS | Continuity of Care Document ---
Author Name Unknown Organization [facility] Adult Address [address] [place] [address]- Care Team Providers Care Relationship Mgr Name Role Phone Louis ALVES, Radha Primary Care Physician [phone] Encounter [facility] Date(s): 03/22/23 - 03/29/23 [facility] Adult [address] [place] [address]- Encounter Diagnosis Medicare annual wellness visit, subsequent(Discharge Diagnosis) - 03/22/23 Asthma(Discharge Diagnosis) - 03/22/23 Atypical ductal hyperplasia (ADH), Right breast, 2020(Discharge Diagnosis) - 03/22/23 HTN (hypertension)(Discharge Diagnosis) - 03/22/23 Hyperlipidemia, unspecified(Discharge Diagnosis) - 03/22/23 Iron deficiency anemia(Discharge Diagnosis) - 03/22/23 Major depression, recurrent(Discharge Diagnosis) - 03/22/23 Spinal stenosis(Discharge Diagnosis) - 03/22/23 Attending Physician: Radha Myers MD Allergies, Adverse [...] Requested from pharmacy, arrived late 2Result Comment: [facility] [id number] Medications amLODIPine 10 mg oral tablet 10 mg, 1, tablet, By Mouth, Daily, # 90 tablet, Refills 1, Tot. Refills 1, Maintenance, 02/22/23 16:16:00 EDT, Route to Pharmacy Electronically, [facility]/pharmacy #[id number], Partial fill upon patient request if the [...] 02/12/23 18:37:00 EDT, Route to Pharmacy Electronically, [facility] STORE [id number], 165, cm, 01/11/23 11:14:00 EDT, Height, 80.6, kg, 02/09/23 12:00:00 EDT, Dry Weight Start Date: 02/12/23 Status: Ordered gabapentin 600 mg oral tablet 1 tablet = 600 mg, 2 times a day, 0 Refills, Maintenance, 10/12/22 12:59:00 EDT, Partial fill upon patient request [...] 1 Refills, Maintenance, 09/20/22 18:10:00 EST, ECCapsule, [facility]/pharmacy #[id number], Partial fill upon patient request if the prescription is for a schedule II opioid drug., 165, cm, 09/15/22 13:35:00 EST, H... Start Date: 09/20/22 Status: Ordered Potassium Chloride (Uua-Zmbg-Tlo 10) 10 mEq oral tablet, extended release 1 tablet, By Mouth, Daily, # 30 tablet, 11 Refills, Maintenance, 10/26/22 15:24:00 EST, [facility], 165, cm, 09/15/22 13:35:00 EST, Height, 79.8, kg, 07/30/22 10:04:00 EST, Dry Weight Start Date: 10/26/22 Status: Ordered pravastatin 40 mg oral tablet 1 tablet, By Mouth, Daily at bedtime, # 30 tablet, 5 Refills, Maintenance, 10/26/22 14:06:00 EST, [facility], 165, cm, 09/15/22 13:35:00 EST, Height, 79.8, kg, 07/30/22 10:04:00 EST, Dry Weight Start Date: 10/26/22 Status: Ordered ProAir HFA 90 mcg/inh inhalation aerosol 2 puffs, Inhalation, 4 times a day, PRN NEEDED FOR WHEEZING, # 18 each, 2 Refills, 03/14/22 11:48:00 EDT, [facility]/pharmacy #[id number], 17, 2 puffs Inhalation 4 times a day,PRN: NEEDED FOR WHEEZING, 165.1, cm, 03/14/22 11:16:00 EDT, Height, 84.36, kg, 04/0... Start Date: 03/14/22 Status: Ordered sertraline 100 mg oral tablet 1 tablet, By Mouth, Daily, # 90 tablet, 3 Refills, Maintenance, 06/30/22 13:51:00 EDT, [facility], 165, cm, 06/21/22 12:30:00 EDT, Height, 83.5, kg, 04/04/22 12:32:00 EDT, Dry Weight Start Date: 06/30/22 Status: Ordered tamoxifen 20 mg oral tablet 1 tablet = 20 mg, By Mouth, Daily, # 30 tablet, 11 Refills, Maintenance, 09/13/22 10:45:00 EST, Tablet, [facility]/pharmacy #[id number], Partial fill upon patient [...] Effective Dates Health Status Clinical Service Informant Medicare annual wellness visit, subsequent Discharge Diagnosis 03/22/23 Asthma Discharge Diagnosis 03/22/23 Atypical ductal hyperplasia (ADH), Right breast, 2019 Discharge Diagnosis 03/22/23 HTN (hypertension) Discharge Diagnosis 03/22/23 Hyperlipidemia, unspecified Discharge Diagnosis 03/22/23 Iron deficiency anemia Discharge Diagnosis 03/22/23 Major depression, recurrent Discharge Diagnosis 03/22/23 Spinal stenosis Discharge Diagnosis 03/22/23 Vital Signs Most recent to oldest [Reference Range]: 1 2 Height 158.5 cm (03/22/23 1:30 PM) 158.5 cm (03/22/23 1:15 PM) Weight 81.1 kg (03/22/23 1:15 PM) Oxygen Saturation [94-100 %] 97 % (03/22/23 1:15 PM) Pulse Rate [55-90 bpm] 83 bpm (03/22/23 1:15 PM) Body Mass Index [18.5-24.99 kg/m2] 32.28 kg/m2 *>HHI* (03/22/23 1:15 PM) Blood Pressure [90-138/55-84 mm Hg] 131/ 80mm Hg (03/22/23 1:30 PM) 146/80mm Hg *H* (03/22/23 1:15 PM) Temperature [96.8-100.4 DegF] 98.6 DegF (03/22/23 1:15 PM) Mode of Delivery (Oxygen) Room air (03/22/23 1:15 PM) Blood pressure sites Arm, left (03/22/23 1:30 PM) Arm, left (03/22/23 1:15 PM) Temperature Route Oral (03/22/23 1:15 PM) Weight Obtained Via Standing scale (03/22/23 1:15 PM) Social History Social History Type Response Tobacco Other: none. Sex Note * Colon , Jovita: PERFORM, SIGN, VERIFY Event Display: Patient Education/Instruction Authored Date: [id number] [facility] *[facility] [place] [facility] Clinical Summary Name SHALOM FIGUEROA Age 67 Years 1955 PCP Radha Myers MD PCP Visit Date 03/22/2023 13:05:00 Additional Instructions: Scheduled Appointments?? Future Appointments ?[facility] ?[address]??[place],??[place],??[address] ?Phone:??[phone]?Fax:??-- ?Appt. Date:??10/09/2023?10:00 AM ?Scheduled Provider:??[facility] 3D Mammo Rm 2 Follow-Up Instructions ?? With: Address: When: Louis ALVES, Radha 03/22/2023 12:00 AM Comments: fu 6 months annual 1 yr Diagnosis Iron deficiency anemia, unspecified; Hyperlipidemia, unspecified; Unspecified benign mammary dysplasia of right breast; Encounter for general adult medical examination without abnormal findings; Spinal stenosis, site unspecified; Unspecified asthma, uncomplicated; Major depressive disorder, recurrent, unspecified; Essential (primary) hypertension Medications: Please continue your medications until treatment is completed or stopped by your provider. Discuss any questions related to medications with your provider. Medications to Continue Taking That Have Changed These medications were not printed or sent to your pharmacy - Albuterol (ProAir HFA 90 mcg/inh inhalation aerosol) 2 puff(s) Inhalation 4 times a day as neededAS NEEDED FOR WHEEZING. Refills: 2. Next Dose: Medications to Continue with No Changes These medications were not printed or sent to your pharmacy Amlodipine (amLODIPine 10 mg oral tablet) 1 tab(s) Oral Daily. Refills: 1. Next Dose: Durable Medical Equipment (CPAP Machine) See Instructions. AutoCPAP 8-20 cm H20, use Daily when sleeping. Next Dose: Ferrous Sulfate (ferrous sulfate 325 mg oral enteric coated tablet) 1 tab(s) Oral twice a day. Refills: 1. Next Dose: Gabapentin (gabapentin 600 mg oral tablet) 1 tab(s) twice a day. Next Dose: Multivitamin Daily. Next Dose: Omeprazole (omeprazole 40 mg oral enteric coated capsule) 1 capsule Oral Daily. Refills: 1. Next Dose: Potassium Chloride (Potassium Chloride (Ctj-Mqee-Snt 10) 10 mEq oral tablet, extended release) 1 tab(s) Oral Daily. Refills: 11. Next Dose: Pravastatin (pravastatin 40 mg oral tablet) 1 tab(s) Oral Daily at Bedtime. Refills: 5. Next Dose: Sertraline (sertraline 100 mg oral tablet) 1 tab(s) Oral Daily. Refills: 3. Next Dose: Tamoxifen (tamoxifen 20 mg oral tablet) 1 tab(s) Oral Daily. Refills: 11. Next Dose: Tramadol (traMADol 50 mg oral tablet) 0.5 tab(s) Daily. Next Dose: No Longer Take the Following Medications Dexameth/Neomycin/Polymyxin B ophthalmic (dexamethasone/neomycin/polymyxin B ophthalmic 1 mg-3.5 mg-60749 u/gm ointment) Fluticasone Nasal (fluticasone 50 mcg/inh nasal spray) 2 spray(s) Nares, Both Daily in the morning.Refills: 0. Miscellaneous Rx ([facility] OLOPAT[facility] 0.1% EYE DROPS) Allergy Info:?? sulfa drugs Medications Given This Visit Future Orders ?Comprehensive Metabolic Panel? Order Date:03/22/23?- Complete on or after?03/22/23 ?Lipid Panel? Order Date:03/22/23?- Complete on or after?03/22/23 Vital Signs Height 158.5 cm Weight 81.1 kg BMI 32.28 kg/m2 Blood Pressure 131 mm Hg/80 mm Hg Temperature 98.6 DegF Pulse Rate 83 bpm Respiratory Rate 02 Sat Mode of Delivery 97 %/Room air You can now view a summary of your hospital visit from the comfort of your home through a free online portal called [employer]. [employer] is a website that allows you to securely view your medical information including discharge summary, medications and follow-up visits. ??You can alsosend a secure electronic message to your doctor???s office to request appointments, renew medications or just ask a question. You can enroll at [email or web address] or register during your next office [...] primary care provider, you may find a [facility] provider by calling [facility]Water at [phone]. For information about the plan of care including goals and instructions for your diagnosis, please see the patient education orders section of this document. Patient Education Materials?? The content of this educational material or handout may have been modified, supplemented, or adapted from its original content and format to support your individualized medical care. Prevention Guidelines, Women Ages 65 and Older Screening tests and vaccines are an important part of managing your health. Health counseling is essential, too. Below are guidelines for these, for women ages 65 and older. Talk with your healthcareprovider to make sure you???re up to date on what you need. Screening Who needs it How often Type 2 diabetes or prediabetes All adults beginning at age 45 and adults without symptoms at any age who are overweight or obese and have 1 or more additional risk factors for diabetes At least every 3 years Alcohol misuse All women in this age group At routine exams Blood pressure All women in this age group Every 2 years if your blood pressure is less than 120/80 mm Hg; yearly if your systolic blood pressure is 120 to 139 mm Hg, or your diastolic blood pressure reading is 80 to 89 mm Hg Breast cancer All women in this age group Yearly mammogram and clinical breast exam1 Cervical cancer Only women who had abnormal screening results before age 65 Talk with your healthcare provider Chlamydia Women at increased risk for infection At routine exams Colorectal cancer All women in this age group1 Flexible sigmoidoscopy every 5 years, or colonoscopy every 10 years, or double- contrast barium enema every 5 years; yearly fecal occult blood test or fecal immunochemical test; or a stool DNA test asoften as your healthcare provider advises; talk with your healthcare provider about which tests arebest for you Depression All women in this age group At routine exams Gonorrhea Sexually active women at increased risk for infection At routine exams Hepatitis C Anyone at increased risk; 1 time for those born between 1945 and 1964 At routine exams High cholesterol or triglycerides All women in this age group who are at risk for coronary artery disease At least every 5 years HIV Women at increased risk for infection ??? talk with your healthcare provider At routine exams Lung cancer Adults age 55 to 80 who have smoked Yearly screening in smokers with 30 pack-year history of smoking or who quit within 15 years Obesity All women in this age group At routine exams Osteoporosis All women in this age group Bone density test at age 65, then follow-up as advised by your healthcare provider Syphilis Women at increased risk for infection ??? talk with your healthcare provider At routine exams Thyroid-Stimulating Hormone (TSH) All women in this age group Every 5 years Tuberculosis Women at increased risk for infection ??? talk with your healthcare provider Ask your healthcare provider Vision All women in this age group Every 1 to 2 years; if you have a chronic health condition, ask your healthcare provider if you need exams more often Vaccine Who needs it How often Chickenpox (varicella) All women in this age group who have no record of this infection or vaccine 2 doses; second dose should be given at least 4 weeks after the first dose Hepatitis A Women at increased risk for infection ??? talk with your healthcare provider 2 doses given 6 months apart Hepatitis B Women at increased risk for infection ??? talk with your healthcare provider 3 doses over 6 months; second dose should be given 1 month after the first dose; the third dose should be given at least 2 months after the second dose and at least 4 months after the first dose Haemophilus influenza??Type B (HIB) Women at increased risk for infection ??? talk with your healthcare provider 1 to 3 doses Influenza (flu) All women in this age group Once a year Pneumococcal??conjugate vaccine (PCV13)??and pneumococcal polysaccharide??vaccine (PPSV23) All women in this age group 1 dose of each vaccine Tetanus/diphtheria/pertussis (Td/Tdap) booster All women in this age group Td every 10 years, or a one-time dose of Tdap instead of a Td booster after age 18, then Td every 10 years Zoster All women in this age group 1 dose Counseling Who needs it How often Diet and exercise Women who are overweight or obese When diagnosed, and then at routine exams Fall prevention (exercise and vitamin D supplements) All women in this age group At routine exams Sexually transmitted infection prevention Women at increased risk for infection ??? talk with your healthcare provider At routine exams Use of daily aspirin Women ages 55 and up in this age group who are at risk for cardiovascular health problems such as stroke When your risk is known Use of tobacco and the health effects it can cause All women in this age group Every exam 1American [employer] Society ?? 0580-2181 The [employer]. [address] [place] [address]. All rights reserved. This information is not intended as a substitute for professional medical care. Always follow your healthcare professional's instructions. Patient Care team information Care Team Personnel Name: Yaneth Frankel RN Position: [facility] RN Member Role: Primary Care Nurse Name: Keena Thakkar RN Position: [facility] RN Member Role: Primary Care Nurse Name: Emili Alexander RN Position: [facility] RN Member Role: Primary Care Nurse Name: Sapna Narayanan RN Position: [facility] RN Member Role: Primary Care Nurse Name: Anna Vaca RN Position: S RN Member Role: Primary Care Nurse Name: Loren Spangler RN Position: S RN Member Role: Primary Care Nurse Name: Mignon Ibarra RN Position: S RN Member Role: Primary Care Nurse Name: Patricia Lieberman RN Position: [facility] OB RN Member Role: Primary Care Nurse Name: Radha Myers MD Position: [facility] Physician - Primary Care Member Role: PCP Address: Address: [address] [place] [address]- Name: Asiya Baker RN Position: [facility] RN Member Role: Primary Care Nurse Name: Paramjit Solomon RN Position: [facility] RN Member Role: Primary Care Nurse Care Team Related Persons Name: RAKAN FIGUEROA Address: home [address] [place] [id number]
--- OUTSIDE RECORDS SUMMARY | 2023-06-01 02:45 | XMS_ITS | Continuity of Care Document ---
Author Name Unknown Organization [facility] Adult Address [address] [place] [address]- Care Team Providers Care Rn Pediatric Name Role Phone Louis ALVES, Radha Primary Care Physician [place] [facility] [place]04[place] - 11/11/[address] [address]- [facility] Encounter Diagnosis Depression(Discharge Diagnosis) - 11/04/19 Attending Physician: Anisha Galvan NP Allergies, Adverse Reactions, Alerts Substance Reaction Severity [...] 04/14/11 Given 1Result Comment: [facility] [id number] Medications albuterol 0.083% inhalation solution 3 mL = 2.5 mg, Inhalation, Every 6 hours, PRN for wheezing, # 25 each, 0 Refills, Maintenance, 08/27/19 14:29:00 EST, [facility], [id number], 167, cm, 08/27/19 13:50:00 EST, Height, 88, kg, 06/08/19 6:36:00 EDT, Dry Weight Start Date: 08/27/19 Status: Ordered albuterol 0.083% inhalation solution 3 mL = 2.5 mg, Inhalation, Once, PRN for wheezing, admin via [facility] in office Lot# [id number] exp#09/29/20, # 3 mL, 0 Refills, Soft Stop, 08/27/19 14:44:00 EST, Solution, Dry Weight Start Date: 08/27/19 Status: Ordered amLODIPine 2.5 mg oral tablet 2.5 mg, 1, tablet, By Mouth, Daily, # 90 tablet, Refills 3, Tot. Refills 3, Maintenance, 05/19/19 11:59:33 EDT, Route to Pharmacy Electronically, [id number], [id number] Start Date: 05/19/19 Status: Ordered Azithromycin 5 Day Dose Pack 250 mg oral tablet 1 pack/packet, By Mouth, Once, # 6 tablet, 0 Refills, Soft Stop, 08/27/19 14:27:00 EST, Tablet, [id number], 167, cm, 08/27/19 13:50:00 EST, Height, 88, kg, 06/08/19 6:36:00 EDT, Dry Weight Start Date: 08/27/19 Status: Ordered benzonatate 100 mg oral capsule 1 capsule = 100 mg, By Mouth, 3 times a day, for 10 days, # 30 capsule, 0 Refills, Acute 11/14/19 10:23:00 EST, 11/04/19 10:23:00 EST, Capsule, [id number], 167, cm, 11/04/19 10:11:00 EST, Height, 88, kg, 06/08/19 6:36:00 EDT, Dry Weight Start Date: 11/04/19 Stop Date: 11/14/19 Status: Ordered Breo Ellipta 200 mcg-25 mcg/inh inhalation powder TAKE 1 PUFF BY MOUTH EVERY DAY Start Date: 08/27/19 Status: Ordered Horizant 600 mg oral tablet, extended release = 600 mg, By Mouth, 2 times a day, # 60 capsule, 0 Refills, Maintenance, 03/26/18 14:57:09 EDT, ER Tablet Start Date: 03/26/18 Status: Ordered Levaquin 500 mg oral tablet 1 tablet = 500 mg, By Mouth, Every 24 hours, for 10 days, # 10 tablet, 0 Refills, Acute 11/14/19 10:23:00 EST, 11/04/19 10:23:00 EST, Tablet, [facility]/pharmacy #[id number], 167, cm, 11/04/19 10:11:00 EST, Height, 88, kg, 06/08/19 6:36:00 EDT, Dry Weight Start Date: 11/04/19 Stop Date: 11/14/19 Status: Ordered omeprazole 40 mg oral enteric [...] 0 Refills, Maintenance, 08/27/19 14:26:00 EST, [facility]/pharmacy #[id number], 167, cm, 08/27/19 13:50:00 EST, Height, [...] TAKE 1 TABLET BY MOUTH EVERY DAY, [facility]/pharmacy #[id number] Start Date: 07/08/19 Status: Ordered Problem List Condition Effective Dates Status Health Status Inform ant Asthma(Confirmed) Active Depression(Confirmed) Active Hypertension(Confirmed) 2012 Active Sleep apnea, obstructive(Confirmed) 2009 Active Osteoarthritis(Confirmed) Active Spinal stenosis(Confirmed) Active Diagnosis Diagnosis Type Effective Dates Health Status Clini main Service Informant Depression Discharge Diagnosis 11/04/19 Vital Signs Most recent to oldest [Reference Range]: 1 2 Height 167 cm (11/04/19 10:11 AM) 167 cm (11/04/19 10:01 AM) Weight 83.8 kg (11/04/19 10:01 AM) Oxygen Saturation [94-100 %] 97 % (11/04/19 10:01 AM) Pulse Rate [55-90 bpm] 107 bpm *H* (11/04/19 10:01 AM) Body Mass Index [18.5-24.99] 30.05 *>HHI* (11/04/19 10:01 AM) Blood Pressure [90-138/55-84 mm Hg] 136/ 70mm Hg (11/04/19 10:11 AM) 146/72mm Hg *H* (11/04/19 10:01 AM) Temperature [96.8-100.4 DegF] 98.2 DegF (11/04/19 10:01 AM) Mode of Delivery (Oxygen) Room air (11/04/19 10:01 AM) Blood pressure sites Arm, right (11/04/19 10:11 AM) Arm, left (11/04/19 10:01 AM) Temperature Route Oral (11/04/19 10:01 AM) Weight Obtained Via Standing scale (11/04/19 10:01 AM) Social History Social History Type Response Tobacco Other: none. Sex
--- OUTSIDE RECORDS SUMMARY | 2023-06-01 02:45 | XMS_ITS | Continuity of Care Document ---
Author Name Unknown Organization [facility] Adult Address [address] [place] [address]- Care Team Providers Care Social Media Marketing Manager Name Role Phone Radha Myers MD Primary Care Physician Encounter [facility] Date(s): 06/23/21 - 06/30/21 [facility] Adult [address] [place] [address]- Encounter Diagnosis History of diverticulitis(Discharge Diagnosis) - 06/26/21 Attending Physician: Radha Myers MD Allergies, Adverse [...] 04/14/11 Given 1Result Comment: [facility] [id number] Medications Albuterol (Eqv-ProAir HFA) Inhalation, Every 6 hours, 0 Refills, Maintenance, 09/15/20 15:34:00 EST, Partial fill upon patientrequest if the prescription is for a schedule II opioid drug. Start Date: 09/15/20 Status: Ordered albuterol CFC free 90 mcg/inh inhalation aerosol 2, puffs, Inhalation, 4 times a day, PRN, # 18 Gm, Refills 0, Tot. Refills 0, Maintenance, 06/28/2117:03:00 EDT, Aerosol, Route to Pharmacy Electronically, [id number], [facility]/pharmacy #[id number], 165.1, cm, 06/23/21 9:19:00 EDT, Hei... Start Date: 06/28/21 Status: Ordered ferrous sulfate 325 mg oral enteric coated tablet 325 mg, 1, tablet, By Mouth, 2 times a day, # 180 tablet, Refills 1, Tot. Refills 1, Maintenance, 04/07/21 16:15:00 EDT, Route to Pharmacy Electronically, [facility]/pharmacy #[id number], Partial fill upon patient request if [...] capsule 1 capsule, By Mouth, Daily, # 90 capsule, 0 Refills, [facility] STORE 52990, 165.1, cm, 03/04/21 9:26:00 EDT, Height, 89.7, kg, 12/17/20 9:14:00 EDT, Dry Weight Start Date: 05/29/21 Status: Ordered pravastatin 40 mg oral tablet [...] Service Informant History of diverticulitis Discharge Diagnosis 06/26/21 Vital Signs Most recent to oldest [Reference Range]: 1 Height 165.10 cm (06/23/21 9:19 AM) Social History Social History Type Response Tobacco Other: none. Sex
--- OUTSIDE RECORDS SUMMARY | 2023-06-01 02:45 | XMS_ITS | Continuity of Care Document ---
Author Name Unknown Organization [facility] Address [address] [place] [phone]- Care Team Providers Care Cost Manager Name Role Phone Louis ALVES, Radha Primary Care Physician Encounter [facility] Date(s): 06/01/21 - 07/01/21 [facility] [address] [place] [id number]- Allergies, Adverse Reactions, Alerts Substance Reaction Severity [...] acel(Tdap) 04/14/11 Given 1Result Comment: [facility] [id number] Medications Albuterol (Eqv-ProAir HFA) Inhalation, Every 6 [...] 06/28/2117:03:00 EDT, Aerosol, Route to Pharmacy Electronically, [id number], [facility]/pharmacy #[id number], 165.1, cm, 06/23/21 9:19:00 EDT, Hei... Start Date: 06/28/21 Status: Ordered ferrous sulfate 325 mg oral enteric coated tablet 325 mg, 1, tablet, By Mouth, 2 times a day, # 180 tablet, Refills 1, Tot. Refills 1, Maintenance, 04/07/21 16:15:00 EDT, Route to Pharmacy Electronically, [facility]/pharmacy #[id number], Partial fill upon patient request [...] Mouth, Daily, # 90 capsule, 0 Refills, [facility] STORE 88412, 165.1, cm, 03/04/21 9:26:00 EDT, Height, 89.7, [...]
--- OUTSIDE RECORDS SUMMARY | 2023-06-01 02:45 | XMS_ITS | Continuity of Care Document ---
Author Name Unknown Organization [facility] Adult Address [address] [place] [address]- Care Team Providers Care Manager Information Name Role Phone Radha Myers MD Primary Care Physician Encounter [facility] [place] Date(s): 09/08/21 - 09/15/21 [facility] Adult [address] [place] [address]- Attending Physician: Radha Myers MD Allergies, Adverse [...] 13-valent vaccine 03/04/18 Recorded Zoster Vaccine Live 3/3/14 Recorded Zoster Vaccine Live 08/11/13 Recorded pneumococcal 23-valent vaccine 07/30/13 Recorded tetanus/diphtheria/pertussis, acel(Tdap) 04/14/11 Given 1Result Comment: [facility] 23598-535-46 Medications ferrous sulfate 325 mg oral enteric coated tablet 325 mg, 1, tablet, By Mouth, 2 times a day, # 180 tablet, Refills 1, Tot. Refills 1, Maintenance, 09/05/21 13:29:00 EST, Route to Pharmacy Electronically, [facility]/pharmacy #[id number], Partial fill upon patient request [...] Mouth, Daily, # 30 capsule, 2 Refills, [facility] STORE 97362, 165.1, cm, 06/23/21 9:19:00 EDT, Height, 89.7, kg, 12/17/20 9:14:00 EDT, Dry Weight Start Date: 07/22/21 Status: Ordered pravastatin 40 mg oral tablet 1 tablet, By Mouth, Daily at bedtime, # 90 tablet, 1 Refills, [facility] STORE 28188, 165.1, cm, 06/23/21 9:19:00 EDT, Height, 89.7, kg, 12/17/20 9:14:00 EDT, Dry Weight Start Date: 07/23/21 Status: Ordered ProAir HFA 90 mcg/inh inhalation aerosol 2 puffs, Inhalation, 4 times a day, PRN NEEDED FOR WHEEZING, # 18 each, 5 Refills, [facility], 17, INHALE 2 PUFFS BY MOUTH FOUR [...] 3 Refills, Maintenance, 02/25/21 11:24:00 EDT, Tablet, [facility]/pharmacy #[id number], Partial fill upon patient request [...] oldest [Reference Range]: 1 Height 165.10 cm (09/08/21 8:30 AM) Social History Social History Type Response Tobacco Other: none. Sex
--- OUTSIDE RECORDS SUMMARY | 2023-06-01 02:45 | XMS_ITS | Continuity of Care Document ---
Author Name Unknown Organization [facility] Adult Address [address] [place] [address]- Care Team Providers Care Director Of Sports Medicine Name Role Phone Louis ALVES, Radha Primary Care Physician Encounter [facility] [place] Date(s): 03/14/22 - 04/13/22 [facility] Adult [address] [place] [address]- Allergies, Adverse Reactions, Alerts Substance Reaction Severity [...] tetanus/diphtheria/pertussis, acel(Tdap) 04/14/11 Given 1Result Comment: [facility] [id number] Medications amLODIPine 5 mg oral tablet 5 mg, 1, tablet, By Mouth, Daily, # 90 tablet, Refills 3, Tot. Refills 3, Maintenance, 12/09/21 16:47:00 EDT, Route to Pharmacy Electronically, [facility]/pharmacy #[id number], Partial fill upon patient request if the prescription is for a schedule II opioid drug.... Start Date: 12/09/21 Status: Ordered CPAP Machine See Instructions, # 1 each, Maintenance, AutoCPAP 8-20 cm H20, use Daily when sleeping, 12/17/21 13:03:00 EDT, Supply Start Date: 12/17/21 Status: Ordered [facility] OLOPATADINE 0.1% EYE DROPS INSTILL 1 DROP ONCE/DAY BOTH EYES EVERYDAY FOR ALLERGY Start Date: 12/17/21 Status: Ordered esomeprazole 40 mg oral enteric coated capsule 1 capsule = 40 mg, By Mouth, Daily, # 90 capsule, 1 Refills, Maintenance, 03/16/22 15:30:00 EDT, ECCapsule, [facility]/pharmacy #[id number], Partial fill upon patient request if the prescription is for a schedule II opioid drug., 165.1, cm, 03/14/22 11:16:00 EDT,... Start Date: 03/16/22 Status: Ordered Multivitamin Daily, 0 Refills, Maintenance, 09/15/20 15:23:00 EST, Partial fill upon patient request if the prescription is for a schedule II opioid drug. Start Date: 09/15/20 Status: Ordered Potassium Chloride (Ajh-Oxoi-Jlq 10) 10 mEq oral tablet, extended release 1 tablet = 10 mEq, By Mouth, Daily, # 90 tablet, 3 Refills, Maintenance, 11/29/21 19:05:00 EDT, [facility]/pharmacy #[id number], Partial fill upon [...] opioid drug., 165.1, cm, 02/25/21 11:11:00 EDT, [facility]... Start Date: 02/25/21 Status: Ordered Vitamin D3 1000 intl units oral capsule 1 capsule = 25 mcg, By Mouth, Daily, # 75 capsule, 0 Refills, Maintenance, 04/04/22 12:15:00 EDT, Capsule, Partial fill upon patient request if the prescription is for a schedule II opioid drug. Start Date: 04/04/22 Status: Ordered Problem List Condition Effective Dates [...]
--- OUTSIDE RECORDS SUMMARY | 2023-06-01 02:45 | XMS_ITS | Continuity of Care Document ---
Author Name Unknown Organization [facility] Adult Address [address] [place] [address]- Care Team Providers Care Sterile Processing Manager Name Role Phone Radha Myers MD Primary Care Physician Encounter [facility] [place] Date(s): 03/04/21 - 03/11/21 [facility] Adult [address] [place] [address]- Encounter Diagnosis Medicare annual wellness visit, subsequent(Discharge Diagnosis) - 03/04/21 Major depression, recurrent(Discharge Diagnosis) - 03/04/21 Attending Physician: Radha Myers MD Allergies, Adverse [...] Recorded tetanus/diphtheria/pertussis, acel(Tdap) 04/14/11 Given 1Result Comment: [facility] [id number] Medications Albuterol (Eqv-ProAir HFA) Inhalation, Every 6 [...] 12/23/20 11:27:00 EDT, Route to Pharmacy Electronically, [facility]/pharmacy [...] 1 Refills, Maintenance, 11/21/20 16:41:00 EDT, Suspension, [facility]/pharmacy #[id number], 165.1, cm, 09/30/20 16:26:00 EST, Height, [...] Medicare annual wellness visit, subsequent Discharge Diagnosis 03/04/21 Major depression, recurrent Discharge Diagnosis 03/04/21 Vital Signs Most recent to oldest [Reference Range]: 1 Height 165.10 cm (03/04/21 9:26 AM) Weight 89.2 kg (03/04/21 9:26 AM) Oxygen Saturation [94-100 %] 98 % (03/04/21 9:26 AM) Pulse Rate [55-90 bpm] 63 bpm (03/04/21 9:26 AM) Body Mass Index [18.5-24.99] 32.72 *>HHI* (03/04/21 9:26 AM) Blood Pressure [90-138/55-84 mm Hg] 130/ 70mm Hg (03/04/21 9:26 AM) Mode of Delivery (Oxygen) Room air (03/04/21 9:26 AM) Blood pressure sites Arm, left (03/04/21 9:26 AM) Weight Obtained Via Standing scale (6/25/21 9:26 AM) Social History Social History Type Response Tobacco Other: none. Sex
--- OUTSIDE RECORDS SUMMARY | 2023-06-01 02:45 | XMS_ITS | Continuity of Care Document ---
Author Name Unknown Organization [facility] Adult Address [address] [place] [address]- Care Team Providers Care Seed Laboratory Assistant Name Role Phone Louis ALVES, Radha Primary Care Physician Encounter [facility] [place] Date(s): 11/29/21 - 12/29/21 [facility] Adult [address] [place] [address]- Allergies, Adverse Reactions, Alerts Substance Reaction Severity [...] Recorded tetanus/diphtheria/pertussis, acel(Tdap) 04/14/11 Given 1Result Comment: [facility] [id number] Medications acetaminophen 325 mg oral tablet 650 mg, 2, tablet, By Mouth, Every 4 hours, # 24 tablet, Refills 0, Tot. Refills 0, Maintenance, 12/20/21 11:37:00 EDT, Route to Pharmacy Electronically, [facility], Partial fill upon patient request if the prescription is for a schedule... Start Date: 12/20/21 Status: Ordered amLODIPine 5 mg oral tablet 5 mg, 1, tablet, By Mouth, Daily, # 90 tablet, Refills 3, Tot. Refills 3, Maintenance, 12/09/21 16:47:00 EDT, Route to Pharmacy Electronically, [facility]/pharmacy #[id number], Partial fill upon patient request if the prescription is for a schedule II opioid drug.... Start Date: 12/09/21 Status: Ordered Augmentin 875 mg-125 mg oral tablet 1 tablet, By Mouth, Every 12 hours, for 10 days, # 20 tablet, 0 Refills, Acute 12/30/21 11:28:00 EDT, 12/20/21 11:28:00 EDT, Tablet, [facility], Partial fill upon patient request if theprescription is for a schedule II opioid drug., 165... Start Date: 12/20/21 Stop Date: 12/30/21 Status: Ordered CPAP Machine See Instructions, # 1 each, Maintenance, AutoCPAP 8-20 cm H20, use Daily when sleeping, 12/17/21 13:03:00 EDT, Supply Start Date: 12/17/21 Status: Ordered [facility] OLOPATADINE 0.1% EYE DROPS INSTILL 1 DROP ONCE/DAY BOTH EYES EVERYDAY FOR ALLERGY Start Date: 12/17/21 Status: Ordered ferrous sulfate 325 mg oral enteric coated tablet 325 mg, 1, tablet, By Mouth, 2 times a day, # 180 tablet, Refills 1, Tot. Refills 1, Maintenance, 09/05/21 13:29:00 EST, Route to Pharmacy Electronically, [facility]/pharmacy #[id number], Partial fill upon patient [...] # 30 capsule, 2 Refills, [facility], 165.1, cm, 11/11/21 12:40:00 EST, Height, 89.7, kg, 12/17/20 9:14:00 EDT, Dry Weight Start Date: 11/14/21 Status: Ordered Potassium Chloride (Bmx-Ubjs-Hzj 10) 10 mEq oral tablet, extended release [...] # 18 each, 5 Refills, [facility], 17, INHALE 2 PUFFS BY MOUTH FOUR [...]
--- OUTSIDE RECORDS SUMMARY | 2023-06-01 02:45 | XMS_ITS | Continuity of Care Document ---
Author Name Unknown Organization [facility] Address [address] [place] [address]- Care Team Providers Care Senior Energy Market Coordinator Name Role Phone Louis ALVES, Radha Primary Care Physician Encounter [place] Date(s): 12/02/21 - 12/07/[address] [address]- Encounter Diagnosis Diverticulitis(Final) - 12/04/21 Discharge Disposition: A-D/C Home Attending Physician: Chalo GOTTI, Reham Admitting Physician: Wong Soto MD Referring Physician: Not on Staff, Referring [...] Given 1Result Comment: [facility] [id number] Medications ferrous sulfate 325 mg oral enteric coated tablet 325 mg, 1, tablet, By Mouth, 2 times a day, # 180 tablet, Refills 1, Tot. Refills 1, Maintenance, 09/05/21 13:29:00 EST, Route to Pharmacy Electronically, [facility]/pharmacy #[id number], Partial fill upon patient request if the prescription is for a schedule II o... Start Date: 09/05/21 Status: Ordered gabapentin 300 mg oral capsule 600 mg, Capsule, By Mouth, 12/07/21 9:00:00 EDT Start Date: 12/07/21 Stop Date: 12/07/21 Status: Completed gabapentin 300 mg oral capsule 600 mg, Capsule, By Mouth, 12/06/21 21:00:00 EDT Start Date: 12/06/21 Stop Date: 12/06/21 Status: Completed Horizant 600 mg oral tablet, [...] Mouth, Daily, # 30 capsule, 2 Refills, [facility] STORE 03626, 165.1, cm, 11/11/21 12:40:00 EST, Height, 89.7, kg, 12/17/20 9:14:00 EDT, Dry Weight Start Date: 11/14/21 Status: Ordered Potassium Chloride (Ncr-Oyad-Znp 10) 10 mEq oral tablet, extended release [...] # 18 each, 5 Refills, [facility], 17, INHALE 2 PUFFS BY MOUTH FOUR [...] II opioid drug., 165.1, cm, 02/25/21 11:11:00 [place] Start Date: 02/25/21 Status: Ordered Problem List [...] oldest [Reference Range]: 1 2 3 Height 165.10 cm (12/07/21 7:39 AM) 165.10 cm (12/06/21 7:48 PM) 165.10 cm (12/03/21 7:52 PM) Weight 84.2 kg (12/02/21 10:06 PM) 84.2 kg (12/02/21 10:00 PM) Oxygen Saturation [94-100 %] 99 % (12/07/21 7:39 AM) 98 % (12/06/21 7:48 PM) 96 % (12/06/21 8:00 AM) Pulse Rate [55-90 bpm] 50 bpm *L* (12/07/21 7:39 AM) 56 bpm (12/06/21 7:48 PM) 91 bpm *H* (12/06/21 8:00 AM) Body Mass Index [18.5-24.99] 30.89 *>HHI* (12/02/21 10:06 PM) Blood Pressure [90-138/55-84 mm Hg] 144/64mm Hg *H* (12/07/21 7:39 AM) 132/64mm Hg (12/06/21 7:48 PM) 140/58mm Hg *H* (12/06/21 8:00 AM) Respiratory Rate [16-30 br/min] 18 br/min (12/07/21 8:24 AM) 18 br/min (12/07/21 7:39 AM) 17 br/min (12/06/21 9:58 PM) Temperature [96.8-100.4 DegF] 98.2 DegF (12/07/21 7:39 AM) 98.4 DegF (12/06/21 7:48 PM) 97.8 DegF (12/06/21 8:00 AM) Mode of Delivery (Oxygen) Room air (12/07/21 7:39 AM) Room air (12/06/21 7:48 PM) Room air (12/05/21 8:00 PM) Blood pressure sites Arm, right (12/07/21 7:39 AM) Arm, right (12/06/21 7:48 PM) Arm, right (12/06/21 8:00 AM) Temperature Route Oral (12/07/21 7:39 AM) Oral (12/06/21 7:48 PM) Oral (12/06/21 8:00 AM) Dry Weight 84.2 kg (12/02/21 10:06 PM) Weight Obtained Via Bed scale (12/02/21 10:06 PM) Bed scale (12/02/21 10:00 PM) Social History Social History Type Response Tobacco Other: none. Sex
--- OUTSIDE RECORDS SUMMARY | 2023-06-01 02:45 | XMS_ITS | Continuity of Care Document ---
Author Name Unknown Organization [facility] Adult Address [address] [place] [address]- Care Team Providers Care Training Coordinator Name Role Phone Louis ALVES, Radha Primary Care Physician [phone] [place] [facility] [place] 06/28[place]21 - 07/28/21 [facility] Adult [address] [place] [address]- Allergies, Adverse Reactions, Alerts Substance Reaction Severity [...] Given 1Result Comment: [facility] 22736-094-56 Medications Albuterol (Eqv-ProAir HFA) Inhalation, Every 6 [...] 06/28/2117:03:00 EDT, Aerosol, Route to Pharmacy Electronically, [id number], [facility]/pharmacy #[id number], 165.1, cm, 06/23/21 9:19:00 EDT, Hei... Start Date: 06/28/21 Status: Ordered ferrous sulfate 325 mg oral enteric coated tablet 325 mg, 1, tablet, By Mouth, 2 times a day, # 180 tablet, Refills 1, Tot. Refills 1, Maintenance, 04/07/21 16:15:00 EDT, Route to Pharmacy Electronically, [facility]/pharmacy #[id number], Partial fill upon [...] Mouth, Daily, # 30 capsule, 2 Refills, [facility] STORE 01975, 165.1, cm, 06/23/21 9:19:00 EDT, Height, 89.7, kg, 12/17/20 9:14:00 EDT, Dry Weight Start Date: 07/22/21 Status: Ordered pravastatin 40 mg oral tablet 1 tablet, By Mouth, Daily at bedtime, # 90 tablet, 1 Refills, [facility] STORE 56117, 165.1, cm, 06/23/21 9:19:00 EDT, Height, 89.7, [...] 3 Refills, Maintenance, 02/25/21 11:24:00 EDT, Tablet, [facility]/pharmacy #[id number], Partial fill upon [...]
--- OUTSIDE RECORDS SUMMARY | 2023-06-01 02:45 | XMS_ITS | Continuity of Care Document ---
Author Name Unknown Organization [facility] Address [address] [place] [address]- Care Team Providers Care Pathology Tech Name Role Phone Radha Myers MD Primary Care Physician [id number] Date(s): 10/09/22 - 11/08/22 [facility] [address] [place] [address] Attending Physician: Ernie Sánchez Admitting Physician: [...] from pharmacy, arrived late 2Result Comment: [facility] [id number] Medications amLODIPine 5 mg oral tablet 1 tablet, By Mouth, Daily, # 30 tablet, 5 Refills, Maintenance, 10/26/22 14:05:00 EST, [facility], 165, cm, 09/15/22 13:35:00 EST, Height, 79.8, [...] Status: Ordered dexamethasone/neomycin/polymyxin B ophthalmic 1 mg-3.5 mg-42452 u/gm ointment 0 Refills, Maintenance, 06/21/22 12:59:00 EDT, Partial fill upon patient request if the prescription is for a schedule II opioid drug. Start Date: 06/21/22 Status: Ordered ferrous sulfate 325 mg oral enteric coated tablet 1, tablet, By Mouth, 2 times a day, # 180 tablet, Refills 1, Maintenance, 06/30/22 13:50:00 EDT, Route to Pharmacy Electronically, [facility] 48579, 165, cm, 06/21/22 12:30:00 EDT, Height, 83.5, [...] 1 Refills, Maintenance, 09/20/22 18:10:00 EST, ECCapsule, [facility]/pharmacy #[id number], Partial fill upon patient request if the prescription is for a schedule II opioid drug., 165, cm, 09/15/22 13:35:00 EST, H... Start Date: 09/20/22 Status: Ordered Potassium Chloride (Hxz-Bmid-Nno 10) 10 mEq oral tablet, extended release 1 tablet, By Mouth, Daily, # 30 tablet, 11 Refills, Maintenance, 10/26/22 15:24:00 EST, [facility], 165, cm, 09/15/22 13:35:00 EST, Height, 79.8, kg, 07/30/22 10:04:00 EST, Dry Weight Start Date: 10/26/22 Status: Ordered pravastatin 40 mg oral tablet 1 tablet, By Mouth, Daily at bedtime, # 30 tablet, 5 Refills, Maintenance, 10/26/22 14:06:00 EST, [facility], 165, cm, 09/15/22 13:35:00 EST, Height, 79.8, kg, 07/30/22 10:04:00 EST, Dry Weight Start Date: 10/26/22 Status: Ordered ProAir HFA 90 mcg/inh inhalation aerosol 2 puffs, Inhalation, 4 times a day, PRN NEEDED FOR WHEEZING, # 18 each, 2 Refills, 03/14/22 11:48:00 EDT, [facility]/pharmacy #[id number], 17, 2 puffs Inhalation 4 times a day,PRN: NEEDED FOR WHEEZING, 165.1, cm, 03/14/22 11:16:00 EDT, Height, 84.36, kg, 04/0... Start Date: 03/14/22 Status: Ordered sertraline 100 mg oral tablet 1 tablet, By Mouth, Daily, # 90 tablet, 3 Refills, Maintenance, 06/30/22 13:51:00 EDT, [facility], 165, cm, 06/21/22 12:30:00 EDT, Height, 83.5, kg, 04/04/22 12:32:00 EDT, Dry Weight Start Date: 06/30/22 Status: Ordered tamoxifen 20 mg oral tablet 1 tablet = 20 mg, By Mouth, Daily, # 30 tablet, 11 Refills, Maintenance, 09/13/22 10:45:00 EST, Tablet, [facility]/pharmacy #[id number], Partial fill upon patient request [...] Team Personnel Name: Yaneth Frankel RN Position: [facility] RN Member Role: Primary Care [...] Care Nurse Name: Mignon Ibarra RN Position: [facility] RN Member Role: Primary Care Nurse Name: Patricia Lieberman RN Position: [facility] AMB Nurse Member Role: Primary Care Nurse Name: Radha Myers MD Position: [facility] Primary Care Physician Member Role: PCP Address: Address: [address] [place] [address]- Name: Asiya Baker RN Position: [facility] RN Member Role: Primary Care Nurse Name: Paramjit Solomon RN Position: [facility] RN Member Role: Primary Care Nurse Care Team Related Persons Name: RAKAN FIGUEROA Address: home [address] [place] [address]
--- OUTSIDE RECORDS SUMMARY | 2023-06-01 02:45 | XMS_ITS | Continuity of Care Document ---
Author Name Unknown Organization [facility] Adult Address [address] [place] [address]- Care Team Providers Care Bell Captain Name Role Phone Radha Myers MD Primary Care Physician Encounter [facility] [place] Date(s): 11/16/21 - 12/16/21 [facility] [address] [place] [address]- Allergies, Adverse Reactions, Alerts Substance Reaction Severity [...] tetanus/diphtheria/pertussis, acel(Tdap) 04/14/11 Given 1Result Comment: [facility] 26237-445-50 Medications amLODIPine 5 mg oral tablet 5 mg, 1, tablet, By Mouth, Daily, # 90 tablet, Refills 3, Tot. Refills 3, Maintenance, 12/09/21 16:47:00 EDT, Route to Pharmacy Electronically, [facility]/pharmacy #[id number], Partial fill upon patient request if the prescription is for a schedule II opioid drug.... Start Date: 12/09/21 Status: Ordered ferrous sulfate 325 mg oral enteric coated tablet 325 mg, 1, tablet, By Mouth, 2 times a day, # 180 tablet, Refills 1, Tot. Refills 1, Maintenance, 09/05/21 13:29:00 EST, Route to Pharmacy Electronically, [facility]/pharmacy #[id number], Partial fill upon patient request [...] Mouth, Daily, # 30 capsule, 2 Refills, [facility] STORE 40266, 165.1, cm, 11/11/21 12:40:00 EST, Height, 89.7, kg, 12/17/20 9:14:00 EDT, Dry Weight Start Date: 11/14/21 Status: Ordered Potassium Chloride (Qgh-Fpex-Bax 10) 10 mEq oral tablet, extended release [...] FOR WHEEZING, # 18 each, 5 Refills, [facility] ST[facility] 70722, 17, INHALE 2 PUFFS BY MOUTH FOUR [...]
--- OUTSIDE RECORDS SUMMARY | 2023-06-01 02:46 | XMS_ITS | Continuity of Care Document ---
Author Name Unknown Organization [facility] Address [address] [place] [address]- Care Team Providers Care International Guest Coordinator Name Role Phone Radha Myers MD Primary Care Physician [place] [facility] [place](s): 04/12/22 - 05/12/22 [facility] [address] [place] [address]- [place] Allergies, Adverse Reactions, Alerts Substance Reaction Severity [...] 04/14/11 Given 1Result Comment: [facility] [id number] Medications amLODIPine 5 mg oral tablet 5 [...] 1 Refills, Maintenance, 03/16/22 15:30:00 EDT, ECCapsule, [facility]/pharmacy #[id number], Partial fill upon patient request if the prescription is for a schedule II opioid drug., 165.1, cm, 03/14/22 11:16:00 EDT,... Start Date: 03/16/22 Status: Ordered Multivitamin Daily, 0 Refills, Maintenance, 09/15/20 15:23:00 EST, Partial fill upon patient request if the prescription is for a schedule II opioid drug. Start Date: 09/15/20 Status: Ordered Potassium Chloride (Npo-Hwsc-Fwa 10) 10 mEq oral tablet, extended release 1 tablet = 10 mEq, By Mouth, Daily, # 90 tablet, 3 Refills, Maintenance, 11/29/21 19:05:00 EDT, [facility]/pharmacy #[id number], Partial [...] cm, 02/25/21 11:11:00 EDT, Heigh... Start Date: 6/18/21 Status: Ordered Vitamin D3 1000 intl units [...] History Type Response Tobacco Other: none. Sex Care Team Personnel Name: Radha Myers MD Address: [address] [place] [address] [address] [place], [place] [address]
--- OUTSIDE RECORDS SUMMARY | 2023-06-01 02:46 | XMS_ITS | Continuity of Care Document ---
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 [id number] Medications albuterol CFC free 90 mcg/inh inhalation aerosol 2, puffs, Inhalation, 4 times a day, PRN, # 6.7 Gm, Refills 0, Tot. Refills 0, Maintenance, 12/06/22 16:55:00 EDT, Aerosol, Route to Pharmacy Electronically, [id number], [facility]/pharmacy #[id number], 165, cm, 12/06/22 14:13:00 EDT, Hei... Start Date: 12/06/22 Stop Date: 01/05/23 Status: Ordered amLODIPine 10 mg oral tablet 10 mg, 1, tablet, By Mouth, Daily, # 90 tablet, Refills 1, Tot. Refills 1, Maintenance, 02/22/23 16:16:00 EDT, Route to Pharmacy Electronically, [facility]/pharmacy #[id number], Partial fill upon patient request if the prescription is for a schedule II opioid drug... Start Date: 02/22/23 Status: Ordered CPAP Machine See Instructions, # 1 each, Maintenance, AutoCPAP 8-20 cm H20, use Daily when sleeping, 12/17/21 13:03:00 EDT, Supply Start Date: 12/17/21 Status: Ordered [facility] OLOPATADINE 0.1% EYE DROPS [facility] OLOPATADINE 0.1% EYE DROPS, 0 Refills, Maintenance, 06/21/22 12:58:00 EDT Start Date: 06/21/22 Status: Ordered dexamethasone/neomycin/polymyxin B ophthalmic 1 mg-3.5 mg-45623 u/gm ointment 0 Refills, Maintenance, 06/21/22 12:59:00 EDT, Partial fill upon patient request if the prescription is for a schedule II opioid drug. Start Date: 06/21/22 Status: Ordered ferrous sulfate 325 mg oral enteric coated tablet 1, tablet, By Mouth, 2 times a day, # 180 tablet, Refills 1, Maintenance, 02/12/23 18:37:00 EDT, Route to Pharmacy Electronically, [id number], 165, cm, 01/11/23 11:14:00 EDT, Height, 80.6, kg, 02/09/23 12:00:00 EDT, Dry Weight Start Date: 02/12/23 Status: Ordered fluticasone 50 mcg/inh nasal spray 2 sprays, Nares, Both, Daily in AM, # 16 Gm, 0 Refills, Maintenance, 11/26/22 13:41:00 EDT, [place], [facility]/pharmacy #[id number], Partial fill upon patient request if [...] 1 Refills, Maintenance, 09/20/22 18:10:00 EST, ECCapsule, [facility]/pharmacy #[id number], Partial fill upon patient request if the prescription is for a schedule II opioid drug., 165, cm, 09/15/22 13:35:00 EST, H... Start Date: 09/20/22 Status: Ordered Potassium Chloride (Dwe-Nsch-Tex 10) 10 mEq oral tablet, extended release 1 tablet, By Mouth, Daily, # 30 tablet, 11 Refills, Maintenance, 10/26/22 15:24:00 EST, [id number], 165, cm, 09/15/22 13:35:00 EST, Height, 79.8, kg, 07/30/22 10:04:00 EST, Dry Weight Start Date: 10/26/22 Status: Ordered pravastatin 40 mg oral tablet 1 tablet, By Mouth, Daily at bedtime, # 30 tablet, 5 Refills, Maintenance, 10/26/22 14:06:00 EST, [facility], 165, cm, 09/15/22 13:35:00 EST, Height, 79.8, kg, 07/30/22 10:04:00 EST, Dry Weight Start Date: 10/26/22 Status: Ordered ProAir HFA 90 mcg/inh inhalation aerosol 2 puffs, Inhalation, 4 times a day, PRN NEEDED FOR WHEEZING, # 18 each, 2 Refills, 03/14/22 11:48:00 EDT, [facility]/pharmacy #[id number], 17, 2 puffs Inhalation 4 times a day,PRN: NEEDED FOR WHEEZING, 165.1, cm, 03/14/22 11:16:00 EDT, Height, 84.36, kg, 04/0... Start Date: 03/14/22 Status: Ordered sertraline 100 mg oral tablet 1 tablet, By Mouth, Daily, # 90 tablet, 3 Refills, Maintenance, 06/30/22 13:51:00 EDT, [id number], 165, cm, 06/21/22 12:30:00 EDT, Height, 83.5, [...] Effective Dates Health Status Clinical Service Informant HTN (hypertension) Discharge Diagnosis 02/23/23 Iron deficiency anemia Discharge Diagnosis 02/23/23 Vital Signs Most recent to oldest [Reference Range]: 1 Height 165 cm (02/22/23 3:08 PM) Weight 80.4 kg (02/22/23 3:08 PM) Body Mass Index [18.5-24.99 kg/m2] 29.53 kg/m2 *H* (02/22/23 3:08 PM) Weight Obtained Via Patient/family state d (02/22/23 3:08 PM) Social History Social History Type Response Tobacco Other: none. Sex Patient Care team information Care Team Personnel Name: Yaneth Frankel RN Position: [facility] RN Member Role: Primary Care Nurse Name: Keena Thakkar RN Position: [facility] RN Member Role: Primary Care Nurse Name: Emili Alexander RN Position: S RN Member Role: Primary Care Nurse Name: Sapna Narayanan RN Position: [facility] RN Member Role: Primary Care Nurse Name: Anna Vaca RN Position: [facility] RN Member Role: Primary Care Nurse Name: Loren Spangler RN Position: [facility] RN Member Role: Primary Care Nurse Name: Mignon Ibarra RN Position: S RN Member Role: Primary Care Nurse Name: Patricia Lieberman RN Position: [facility] OB RN Member Role: Primary Care Nurse Name: Radha Myers MD Position: [facility] Physician - Primary Care Member Role: PCP Address: Address: [address] [place] [address] [address] [place] [address]- Name: Asiya Baker RN Position: S RN Member Role: Primary Care Nurse Name: Paramjit Solomon RN Position: S RN Member Role: Primary Care Nurse Care Team Related Persons Name: RAKAN FIGUEROA Address: home [address] [place] [address] [place] [address]
--- OUTSIDE RECORDS SUMMARY | 2023-06-01 02:46 | XMS_ITS | Continuity of Care Document ---
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 Role Phone Louis ALVES, Radha Primary Care Physician Encounter [facility] [place] Date(s): 12/03/20 - 01/02/21 [facility] [address] [place] [address]- Allergies, Adverse Reactions, Alerts Substance Reaction Severity [...] Recorded tetanus/diphtheria/pertussis, acel(Tdap) 04/14/11 Given 1Result Comment: [facility] [id number] Medications Albuterol (Eqv-ProAir HFA) Inhalation, Every 6 hours, 0 Refills, Maintenance, 09/15/20 15:34:00 EST, Partial fill upon patientrequest if the prescription is for a schedule II opioid drug. Start Date: 09/15/20 Status: Ordered anastrozole 1 mg oral tablet 1 tablet = 1 mg, By Mouth, Daily, # 30 tablet, 1 Refills, Maintenance, 12/17/20 9:46:00 EDT, Tablet, [facility]/pharmacy #[id number], Partial fill upon patient request if the prescription is for a schedule II opioid drug., 165.1, cm, 12/17/20 9:14:00 EDT, Height,... Start Date: 12/17/20 Status: Ordered ferrous sulfate 325 mg oral enteric coated tablet 325 mg, 1, tablet, By Mouth, 2 times a day, # 180 tablet, Refills 1, Tot. Refills 1, Maintenance, 12/23/20 11:27:00 EDT, Route to Pharmacy Electronically, [facility]/pharmacy #[id number], Partial fill upon patient request [...] 1 Refills, Maintenance, 11/21/20 16:41:00 EDT, Suspension, [facility]/pharmacy #[id number], 165.1, cm, 09/30/20 16:26:00 EST, [...] 3 Refills, Soft Stop, 08/25/20 9:28:00 EST, [facility]/pharmacy #[id number], 165, cm, 08/16/20 14:03:00 EST, Height, [...]
--- OUTSIDE RECORDS SUMMARY | 2023-06-01 02:46 | XMS_ITS | Continuity of Care Document ---
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 Phone Radha Myers MD Primary Care Physician Encounter [facility] Date(s): 02/25/21 - 03/27/21 [facility] [address] [facility] [place] [address]- Attending Physician: Admtr, Ernie Admitting Physician: Admtr, Ar8 Referring Physician: Admtr, Ar8 Allergies, Adverse Reactions, [...] Recorded tetanus/diphtheria/pertussis, acel(Tdap) 04/14/11 Given 1Result Comment: [facility] [place] [id number] Medications Albuterol (Eqv-ProAir HFA) Inhalation, Every 6 [...] 12/23/20 11:27:00 EDT, [facility] 1 Refills, Maintenance, 11/21/20 16:41:00 EDT, Suspension, [facility]/pharmacy #[id number], 165.1, cm, 09/30/20 16:26:00 EST, Height, 87.5, kg, 09/30/20 16:26:00 EST, Dry Weight Start Date: 11/21/20 Stop Date: 05/20/21 Status: Ordered pravastatin 40 mg oral tablet 1 tablet, By Mouth, Daily at bedtime, # 90 tablet, 1 Refills, Maintenance, 12/23/20 11:27:00 EDT, [facility]/pharmacy #[id number], 165.1, cm, 12/17/20 9:14:00 EDT, [...] 3 Refills, Maintenance, 02/25/21 11:24:00 EDT, Tablet, [facility]/pharmacy #[id number], Partial [...]
--- OUTSIDE RECORDS SUMMARY | 2023-06-01 02:46 | XMS_ITS | Continuity of Care Document ---
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 Refills 0, Maintenance, Pain , Moderate, 07/18/22 10:14:00 EST, Route to Pharmacy Electronically, [facility]/pharmacy #[id number], Partial fill upon patient request if the prescription i... Start Date: 07/18/22 Status: Ordered amLODIPine 5 mg oral tablet 5 mg, 1, tablet, By Mouth, Daily, # 90 tablet, Refills 3, Tot. Refills 3, Maintenance, 12/09/21 16:47:00 EDT, Route to Pharmacy Electronically, [facility]/pharmacy #[id number], Partial fill upon patient [...] Status: Ordered dexamethasone/neomycin/polymyxin B ophthalmic 1 mg-3.5 mg-06811 u/gm ointment 0 Refills, Maintenance, 06/21/22 12:59:00 EDT, Partial fill upon patient request if the prescription is for a schedule II opioid drug. Start Date: 06/21/22 Status: Ordered ferrous sulfate 325 mg oral enteric coated tablet 1, tablet, By Mouth, 2 times a day, # 180 tablet, Refills 1, Maintenance, 06/30/22 13:50:00 EDT, Route to Pharmacy Electronically, [facility] ST[facility] [id number], 165, cm, 06/21/22 12:30:00 EDT, Height, 83.5, [...] Start Date: 06/21/22 Status: Ordered Potassium Chloride (Uri-Xloe-Ewk 10) 10 mEq oral tablet, extended release 0 Refills, Maintenance, 06/21/22 12:58:00 EDT, Partial fill upon patient request if the prescription is for a schedule II opioid drug. Start Date: 06/21/22 Status: Ordered pravastatin 40 mg oral tablet 1 tablet, By Mouth, Daily at bedtime, # 90 tablet, 1 Refills, Maintenance, 06/03/22 20:32:00 EDT, [facility]/pharmacy #[id number], 165, cm, 04/04/22 12:32:00 EDT, Height, 83.5, kg, 04/04/22 12:32:00 EDT, Dry Weight Start Date: 06/03/22 Status: Ordered ProAir HFA 90 mcg/inh inhalation aerosol 2 puffs, Inhalation, 4 times a day, PRN NEEDED FOR WHEEZING, # 18 each, 2 Refills, 03/14/22 11:48:00 EDT, [facility]/pharmacy #[id number], 17, 2 puffs Inhalation 4 times a day,PRN: NEEDED FOR WHEEZING, 165.1, cm, 03/14/22 11:16:00 EDT, Height, 84.36, kg, 04/0... Start Date: 03/14/22 Status: Ordered sertraline 100 mg oral tablet 1 tablet, By Mouth, Daily, # 90 tablet, 3 Refills, Maintenance, 06/30/22 13:51:00 EDT, [facility], 165, cm, 06/21/22 12:30:00 EDT, Height, 83.5, kg, 04/04/22 12:32:00 EDT, Dry Weight Start Date: 06/30/22 Status: Ordered tamoxifen 20 mg oral tablet 1 tablet = 20 mg, By Mouth, Daily, # 90 tablet, 3 Refills, Maintenance, 02/25/21 11:24:00 EDT, Tablet, [facility]/pharmacy #[id number], Partial fill upon patient [...] Team Personnel Name: Yaneth Frankel RN Position: [facility] RN Member Role: Primary Care Nurse Name: Keena Thakkar RN Position: [facility] RN Member Role: Primary Care Nurse Name: Emili Alexander RN Position: [facility] RN Member Role: Primary Care Nurse Name: Sapna Cagle RN Position: [facility] RN Member Role: Primary Care Nurse Name: Anna Vaca RN Position: [facility] RN Member Role: Primary Care Nurse Name: Loren Spangler RN Position: [facility] RN Member Role: Primary Care Nurse Name: Cayla Gannon RN Position: [facility] RN Member Role: Primary Care Nurse Name: Mignon Ibarra RN Position: [facility] RN Member Role: Primary Care Nurse Name: Patricia Lieberman RN Position: [facility] AMB Nurse Member Role: Primary Care Nurse Name: Radha Myers MD Position: [facility] Primary Care Physician Member Role: PCP Address: Address: [address] [place] [address]- Name: Asiya Baker RN Position: [facility] RN Member Role: Primary Care Nurse Name: Paramjit Solomon RN Position: [facility] RN Member Role: Primary Care Nurse Care Team Related Persons Name: CAROLINARAKAN Medina Address: [address] [address]
--- OUTSIDE RECORDS SUMMARY | 2023-06-01 02:46 | XMS_ITS | Continuity of Care Document ---
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 Name Role Phone Radha Myers MD Primary Care Physician Encounter [facility] [place] Date(s): 06/23/21 - 07/23/21 [facility] [address] [place] [address]- Attending Physician: Ernie Sánchez Admitting Physician: AdmErnie corado Referring Physician: Admtr, Ar8 Allergies, Adverse Reactions, [...] Comment: [facility] [id number] Medications Albuterol (Eqv-ProAir HFA) Inhalation, Every 6 [...] 06/28/2117:03:00 EDT, Aerosol, Route to Pharmacy Electronically, [id number], [facility]/pharmacy #[id number], 165.1, cm, 06/23/21 9:19:00 EDT, Hei... Start Date: 06/28/21 Status: Ordered ferrous sulfate 325 mg oral enteric coated tablet 325 mg, 1, tablet, By Mouth, 2 times a day, # 180 tablet, Refills 1, Tot. Refills 1, Maintenance, 04/07/21 16:15:00 EDT, Route to Pharmacy Electronically, [facility]/pharmacy [...] capsule, 2 Refills, [facility] [id number], 165.1, cm, 06/23/21 9:19:00 EDT, Height, 89.7, kg, 12/17/20 9:14:00 EDT, Dry Weight Start Date: 07/22/21 Status: Ordered pravastatin 40 mg oral tablet 1 tablet, By Mouth, Daily at bedtime, # 90 tablet, 1 Refills, [facility], 165.1, cm, 06/23/21 9:19:00 EDT, Height, 89.7, [...]
--- OUTSIDE RECORDS SUMMARY | 2023-06-01 02:46 | XMS_ITS | Continuity of Care Document ---
Author Name Unknown Organization 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 Name Role Phone Radha Myers MD Primary Care Physician [phone] Encounter [facility] Date(s): 07/14/22 - 07/18/[address] [address] Discharge Disposition: A-D/C Home Attending Physician: Mayra Dominguez MD Admitting Physician: Mayra Dominguez MD Referring Physician: Mayra Dominguez MD Allergies, Adverse Reactions, Alerts Substance Reaction [...] late 2Result Comment: [facility] [id number] Medications acetaminophen 325 mg oral tablet 650 mg, 2, tablet, By Mouth, Every 6 hours, PRN, # 30 tablet, Refills 0, Tot. Refills 0, Maintenance, Pain , Moderate, 07/18/22 10:14:00 EST, Route to Pharmacy Electronically, [facility]/pharmacy #[id number], Partial fill upon patient request if the prescription i... Start Date: 07/18/22 Status: Ordered amLODIPine 5 mg oral tablet 5 mg, 1, tablet, By Mouth, Daily, # 90 tablet, Refills 3, Tot. Refills 3, Maintenance, 12/09/21 16:47:00 EDT, Route to Pharmacy Electronically, [facility]/pharmacy #[id number], Partial fill upon patient request [...] Status: Ordered dexamethasone/neomycin/polymyxin B ophthalmic 1 mg-3.5 mg-50783 u/gm ointment 0 Refills, Maintenance, 06/21/22 12:59:00 EDT, Partial fill upon patient request if the prescription is for a schedule II opioid drug. Start Date: 06/21/22 Status: Ordered ferrous sulfate 325 mg oral enteric coated tablet 1, tablet, By Mouth, 2 times a day, # 180 tablet, Refills 1, Maintenance, 06/30/22 13:50:00 EDT, Route to Pharmacy Electronically, [id number], 165, cm, 06/21/22 12:30:00 EDT, Height, 83.5, [...] Start Date: 06/21/22 Status: Ordered Potassium Chloride (Mpq-Lduu-Szm 10) 10 mEq oral tablet, extended release 0 Refills, Maintenance, 06/21/22 12:58:00 EDT, Partial fill upon patient request if the prescription is for a schedule II opioid drug. Start Date: 06/21/22 Status: Ordered pravastatin 40 mg oral tablet 1 tablet, By Mouth, Daily at bedtime, # 90 tablet, 1 Refills, Maintenance, 06/03/22 20:32:00 EDT, [facility]/pharmacy #[id number], 165, cm, 04/04/22 12:32:00 EDT, Height, 83.5, kg, 04/04/22 12:32:00 EDT, Dry Weight Start Date: 06/03/22 Status: Ordered ProAir HFA 90 mcg/inh inhalation aerosol 2 puffs, Inhalation, 4 times a day, PRN NEEDED FOR WHEEZING, # 18 each, 2 Refills, 03/14/22 11:48:00 EDT, [facility]/pharmacy #[id number], 17, 2 puffs Inhalation 4 times a day,PRN: NEEDED FOR WHEEZING, 165.1, cm, 03/14/22 11:16:00 EDT, Height, 84.36, kg, 04/0... Start Date: 03/14/22 Status: Ordered sertraline 100 mg oral tablet 1 tablet, By Mouth, Daily, # 90 tablet, 3 Refills, Maintenance, 06/30/22 13:51:00 EDT, [id number], 165, cm, 06/21/22 12:30:00 EDT, Height, 83.5, kg, 04/04/22 12:32:00 EDT, Dry Weight Start Date: 06/30/22 Status: Ordered tamoxifen 20 mg oral tablet 1 tablet = 20 mg, By Mouth, Daily, # 90 tablet, 3 Refills, Maintenance, 02/25/21 11:24:00 EDT, Tablet, [facility]/pharmacy #[id number], Partial fill upon patient request [...] Range]: 1 2 3 Height 165 cm (07/17/22 4:09 PM) 165 cm (07/17/22 11:32 AM) 165 cm (07/17/22 7:50 AM) Weight 82.5 kg (07/14/22 12:11 PM) 83 kg (07/14/22 6:44 AM) 83 kg (07/12/22 9:11 AM) Oxygen Saturation [94-100 %] 98 % (07/18/22 8:00 AM) 96 % (07/18/22 3:00 AM) 96 % (07/17/22 11:00 PM) Pulse Rate [55-90 bpm] 58 bpm (07/18/22 8:00 AM) 63 bpm (07/18/22 3:00 AM) 62 bpm (07/17/22 11:00 PM) Body Mass Index [18.5-24.99 kg/m2] 30.3 kg/m2 *>HHI* (07/14/22 12:11 PM) 30.49 kg/m2 *>HHI* (07/14/22 6:44 AM) 30.49 kg/m2 *>HHI* (07/12/22 9:11 AM) Blood Pressure [90-138/55-84 mm Hg] 140/67mm Hg *H* (07/18/22 8:00 AM) 144/66mm Hg *H* (07/18/22 3:00 AM) 144/68mm Hg *H* (07/17/22 11:00 PM) Respiratory Rate [16-30 br/min] 18 br/min (07/18/22 8:00 AM) 16 br/min (07/18/22 3:00 AM) 18 br/min (07/17/22 11:00 PM) Temperature [96.8-100.4 DegF] 98.1 DegF (07/18/22 8:00 AM) 98.1 DegF (07/18/22 3:00 AM) 97.6 DegF (07/17/22 11:00 PM) Liters per Minute 1 L/min (07/16/22 7:00 AM) 2 L/min (07/16/22 4:00 AM) 1 L/min (07/15/22 3:00 PM) Mode of Delivery (Oxygen) Room air (07/18/22 8:00 AM) Room air (07/18/22 3:00 AM) Room air (07/17/22 11:00 PM) Blood pressure sites Arm, right (07/18/22 8:00 AM) Arm, left (07/18/22 3:00 AM) Arm, right (07/17/22 11:00 PM) Temperature Route Oral (07/18/22 8:00 AM) Oral (07/18/22 3:00 AM) Oral (07/17/22 11:00 PM) Dry Weight 82.5 kg (07/14/22 12:11 PM) Social History Social History Type Response Tobacco Other: none. Sex Surgical pathology study * Event Display: Surgical Pathology Authored Date: [id number] Patient Name: SHALOM FIGUEROA Lab Patient : 1955 (Age: 66) Collection Date: 07/14/2022 Accession Date: 07/14/2022 Sign Out Date: 07/17/2022 Tissue Source: 1:SIGMOID COLON Final Diagnosis: Sigmoid colon, segmental resection: - Segment of colon (19.5 cm in length) with diverticulosis and diverticulitis with abscess formation in pericolonic adipose tissue. - Two colonic anastomotic rings with no significant pathologic changes. Primary Pathologist:Nir Dowell M.D. electronically signed out by: Nir Dowell M.D. / DAVID Clinical History: Diverticulitis Gross Description: Specimen received labeled as sigmoid colon , received in formalin stapled in the proximal margin and opened in the distal margin with 2 donuts in the same container. Proximal margin is inked in blueand distal margin in black by the prosector . The specimen is 19.5 cm in length, proximal circumference 5 cm, distal circumference 5.8 cm with upto 5 cm of attached adipose tissue. The mucosa is mooney-pink smooth and glistening with no masses or tumor identified. Multiple diverticula are found throughout the whole length of the specimen and some of them filled withfecal material . There is a 2 cm focal constricted area which is 9 cm from the distal margin and 10 cm from the proximal margin. [employer] Nanny sections are submitted as follows 1 and 2-1 piece each, sigmoid diverticula. 3-1 piece, diverticula from the constricted area. 4-1 piece, possible abscess. 5-1 piece, section from the constricted area. 6-2 pieces, sections from the donuts. (CONNIE). Phone #: [phone], On-Call Pathologist: [id number] History and physical note * Event Display: History and Physical Hospital Authored Date: Note * Asiya Baker RN: PERFORM Event Display: Discharge/Transfer Note Hospital Authored Date: [id number] Nursing Discharge Note Entered On: 07/18/2022 17:19 EST Performed On: 07/18/2022 17:19 EST by Asiya Baker RN Nursing Discharge Note 2 Discharge Time : 07/18/2022 17:00 EST Asiya Baker RN - 07/18/2022 17:19 EST Discharge Level of Care at Discharge : Home/Senior Care/Foster Care Asiya Baker RN - 07/18/2022 17:29 EST Patient Left Unit Via : Wheelchair Patient Accompanied Off Unit with : Significant other DC Instructions Provided & Signed by Pt : Yes Patient Understands D/C Instructions : Yes Patient Instructions Discharge Signed : Yes Did Pt have Specialty Bed or Wound Vac : No Asiya Baker RN - 07/18/2022 17:19 EST * Leigh Ann Maloney: PERFORM, MODIFY Event Display: Discharge/Transfer Note Hospital Authored Date: [id number] Patient: ??SHALOM FIGUEROA ? Age:??66 Years?Sex:??Female?:??1955?? Admit Date Admission Date: 07/14/2022 Discharge Date 07/18/2022 Discharge Diagnoses 1.??HTN (hypertension), 07/18/2022 2.??Diverticulitis, 07/18/2022 3.??Asthma, 07/18/2022 4.??Iron deficiency anemia, 07/18/2022 5.??Obese class I, 07/18/2022 6.??Sleep apnea, obstructive, 07/18/2022 Hospital Course Patient is a 66-year-old female with history of recurrent sigmoid diverticulitis who was admitted on 07/14/2022 for elective surgery and underwent cystoscopy with bilateral ureteral catheter placementand robot-assisted, laparoscopic sigmoid colectomy.?? There were no complications.?? One ureteral catheter was removed immediately postop.?? She was started on IV multimodal pain regiment and a clear liquid diet.?? The second ureteral catheter was removed the following day. Over the next few days her Gates catheter was removed and she was able to void without difficulty.??Her diet was slowly advanced as she had return of bowel function. She was transitioned to oral medications and??her pain wascontrolled with Tylenol. On??POD 4 she was cleared for discharge to home??and provided with a script for Tylenol.?? She was instructed to follow-up in surgery office from 08/17/2022 at 2:[address] Dominguez for a??postop visit. Objective/Physical Exam on Day of Discharge Vitals & Measurements T:??98.1?F ?? HR:??73(Monitored)?? NJ:??58?? RR:??18?? BP:??140/67?? SpO2:??98%?? HT:??165??cm?? WT:??82.5??kg?? BMI:??30.3? General: No acute distress, awake, alert Cardio: Regular rate and rhythm Lungs: CTA Abdomen: soft, obese, non-tender Neuro: A&O x 3 Extremities: No edema Incision: Umbilical incision clean, dry, intact, no surrounding erythema Future Appointments 2021 2:00 PM EST ?? With: Alberto ALVES, Mayra Acosta Where: [facility] [address] [place] [address] Drive [address] [place], [place] - Sunday 1:30 PM EST ?? With: Coleman NAIK, Jasmyne Bernstein Where: [facility] [address] [place], [place] - Sunday 2:05 PM EST ?? With: Radha Myers MD Where: [facility] [address] [place] [address]- Sunday 1:00 PM EST ?? With: Where: [facility] Radiology [facility] [address], [address] [place] [address]- Patient Discharge Condition good Discharge Disposition home with family Inpatient Medications Medications (13) Active SCHEDULED: (9) Acetaminophen 325 mg Tablet (Acetaminophen Tablet) ??975 mg, By Mouth, Every 6 hours Albuterol/Ipratropium Inhalation Vesta 3mL (Duoneb Inhalation Solution) ??1 vials, BAND Nebulizer, 4 times a day Enoxaparin 40 mg Inj (Enoxaparin Inj) ??40 mg 0.4 mL, Subcutaneous Injection, Daily Ketorolac 30 mg/mL Inj (Toradol Inj) ??15 mg 0.5 mL, IV Push Slowly, Every 6 hours Magnesium Sulfate 1 Gm/ 100 mL D5W (Magnesium Sulfate IVPB) ??1 Gm 100 mL, IVPB, Once Potassium Chloride 10mEq ER Tablet (Potassium Chloride Tablet) ??20 mEq, By Mouth, 2 times a day Pravastatin 20 mg Tablet (pravastatin 20 mg oral tablet) ??40 mg, By Mouth, Daily at bedtime Sertraline 50 mg Tablet (sertraline 50 mg oral tablet) ??100 mg, By Mouth, Daily Tamoxifen 10 mg Tablet (tamoxifen 10 mg oral tablet) ??20 mg, By Mouth, Daily CONTINUOUS: (0) PRN: (4) Albuterol 90mcg/Inhalation Inhaler HFA (Ventolin 90 mcg Inhaler) ??180 mcg 2 puffs, Inhalation, Every 4 hours Gabapentin 300 mg Capsule (Gabapentin Capsule) ??600 mg, By Mouth, Every 8 hours nalOXONE ??400mcg/mL Inj (nalOXONE Inj) ??0.1 mg 0.25 mL, IV Push Slowly, Every 5 minutes Ondansetron 2mg/mL Inj (2mL Vial) (Zofran Inj *) ??4 mg, IV Push, Every 8 hours Discharge Medications Acetaminophen (acetaminophen 325 mg oral tablet)?650?Milligram?2?tablet?By Mouth?Every 6 hours?as needed?Pain , Moderate Albuterol (ProAir HFA 90 mcg/inh inhalation aerosol)?2?puff(s)?Inhalation?4 times a day?as needed? NEEDED FOR WHEEZING Amlodipine (amLODIPine 5 mg oral tablet)?5?Milligram?1?tablet?By Mouth?Daily Cholecalciferol (Vitamin D3 1000 intl units oral capsule)?1?capsule?25?Microgram?By Mouth?Daily Durable Medical Equipment ([facility] OLOPATADINE 0.1% EYE DROPS)?INSTILL 1 DROP ONCE/DAY BOTH EYES EVERYDAY FOR ALLERGY Durable Medical Equipment (CPAP ??Machine)?See Instructions?AutoCPAP 8-20 cm H20, use Daily when sleeping Ferrous Sulfate (ferrous sulfate 325 mg oral enteric coated tablet)?1?tablet?By Mouth?2times a day Gabapentin (gabapentin 600 mg oral tablet)?1?tab(s)?600?Milligram?2 times a day Multivitamin?Daily Omeprazole (omeprazole 40 mg oral enteric coated capsule)?1?capsule?40?Milligram?By Mouth?Daily Pravastatin (pravastatin 40 mg oral tablet)?1?tab(s)?By Mouth?Daily at bedtime Sertraline (sertraline 100 mg oral tablet)?1?tab(s)?By Mouth?Daily Tamoxifen (tamoxifen 20 mg oral tablet)?1?tab(s)?20?Milligram?By Mouth?Daily Tramadol (traMADol 50 mg oral tablet)?0.5?tab(s)?25?Milligram?Daily Labs Last 24 Hours BLOOD COUNT & DIFF ? Event Name?? Event Result?? Date/Time?? WBC 7.4 k/mm3 07/18/22 00:21:00 RBC 3.37 m/mm3??Low 07/18/22 00:21:00 Hgb 7.7 Gm/dL??Low 07/18/22 00:21:00 Hct 26.9 %??Low 07/18/22 00:21:00 MCV 79.8 femtoliters??Low 07/18/22 00:21:00 MCH 22.8 pg??Low 07/18/22 00:21:00 MCHC 28.6 g/dL??Low 07/18/22 00:21:00 Platelet Count 188 k/mm3 07/18/22 00:21:00 MPV 11.5 femtoliters 07/18/22 00:21:00 Nucleated RBC (Automated) 0 #/100 WBC'S 07/18/22 00:21:00 ? CHEM GENERAL ? Event Name?? Event Result?? Date/Time?? Sodium 146 mmol/L??High 07/18/22 00:21:00 Chloride 112 mmol/L??High 07/18/22 00:21:00 Bicarbonate Level 25 mmol/L 07/18/22 00:21:00 Anion Gap 9 07/18/22 00:21:00 Glucose Level 88 mg/dL 07/18/22 00:21:00 BUN 9 mg/dL 07/18/22 00:21:00 Creatinine-Blood 0.6 mg/dL 07/18/22 00:21:00 Phosphorus 2.6 mg/dL 07/18/22 00:21:00 Magnesium 1.7 mg/dL 07/18/22 00:21:00 ? Patient Education Titles Low-Fiber Diet?? Patient Instructions ?? Colorectal Patients Discharge Instructions For Dr. Jefferson, Dr. Dominguez, Dr. Wilks & Dr. Goodwin/Main office phone [phone]?Avoid strenuous activity until the follow-up appointment with your MD. ?No lifting greater than 5-10 pounds. ?? (5 lbs is a bag of sugar) ?No driving until completely off narcotic pain medication and when cleared with your MD. ?Light walking is allowed and encouraged. ?Daily showering is allowed and encouraged. ?Continue to use your incentive spirometer at home, (as you did in the hospital) until the follow-up appointment with your MD. ?No bathing, No swimming and No hot tubs until the follow-up appointment with your MD. Signs and Symptoms of Infection: ??Call MD office for these:?Fever over 101 degrees ?Increasing redness & swelling of incisions ?Pus or foul smelling drainage coming from your incisions. ?Increasing pain at your incision sites unrelieved by pain medication Call MD office for: ?Persistent nausea and vomiting. ?If your abdomen is getting increasingly bloated, firm and painful. ?Increasing abdominal pain that is not relieved by your pain medication. * Asiya Baker RN: PERFORM Event Display: Patient Education/Instruction Authored Date: [id number] Inpatient Adult Discharge Instructions [address] [address] Name: SHALOM FIGUEROA : 1955 Visit: 07/14/2022 05:37:00 Current Date: 07/18/2022 12:11 Account: [id number] Inpatient Adult Discharge Instructions We would like to thank you for allowing us to assist you with your healthcare needs. The following includes patient education materials and information regarding your injury/illness. Our entire staffstrives to provide an excellent experience for our patients and their families. PLEASE ENSURE YOU FOLLOW-UP PER THE INSTRUCTIONS BELOW! ?? YOUR OPINION IS IMPORTANT TO US! Please complete the survey you may receive by mail or email. Your feedback will be used to make improvements to the healthcare experiences of our patients and their families. Surveys are administered by [employer] ?? If further treatment with your primary care physician or another doctor is recommended, it is important for you to keep the appointment. Call your primary care physician or return to the Emergency Department immediately if your condition worsens, fails to improve, or new symptoms develop. If you need to find a doctor, you can call [facility] for a referral at [phone] or toll free at [phone] ([phone]) or log in to [email or web address].. ?? You can view and manage your care through the patient portal or by using a health care pat of your choosing. [employer] is a website that allows you to securely view your medical information including your hospital discharge summary, office visit summaries, medications and follow-up visits. You can also request appointments, renew medications, and request access to your medical information using a health care pat of your choosing, or just ask a question. You can enroll at [email or web address] or register during your next office visit. You have been discharged from [facility], Patient Care Unit: SW6. If you have any questions regarding these instructions after you leave, please call us and we will be happy to assist you. [facility] Your Care Team Attending Physician Alberto ALVES, Mayra Acosta Consulting Providers Mayra Dominguez MD Discharging Providers Leigh Ann Maloney Reason for Admission DIVERTICULITIS SIGMOIDCOLECTOMY CUCO Your Diagnosis HTN (hypertension) Diverticulitis Asthma Iron deficiency anemia Obese class I Sleep apnea, obstructive Tests Performed Below is a partial list of the tests performed during your hospitalization. You may have had other tests and procedures not included in this list. Please discuss all test results with your provider. Basic Metabolic Panel CBC w/ Differential COVID-19 (2019 Novel Coronavirus) PCR Magnesium Level Phosphorus Level Primary Care Provider Radha Myers MD Advance Directive Health Care Proxy on File Yes - Health Care Proxy No qualifying data available. Discharge Vitals Temperature: 98.1 DegF Height: 165 cm Pulse Rate: 58 bpm Weight: 82.5 kg Respiratory Rate: 18 br/min Body Mass Index:??30.3 kg/m2??Critical Systolic Blood Pressure:??140 mm Hg??High Body surface area: 1.94 Diastolic Blood Pressure: 67 mm Hg ?? Oxygen Saturation: 98 % ?? Studies Pending All tests and labs ordered during this hospital stay have been completed unless listed below. Please discuss all pending results with your provider listed above in these instructions. ?? Basic Metabolic Panel CBC w/ Differential COVID-19 (2019 Novel Coronavirus) PCR Magnesium Level Phosphorus Level What to do next Instructions From Your Doctor ?? Colorectal Patients Discharge Instructions For Dr. Jefferson, Dr. Dominguez, Dr. Wilks & Dr. Goodwin/Main office phone [phone]?Avoid strenuous activity until the follow-up appointment with your MD. ?No lifting greater than 5-10 pounds. ?? (5 lbs is a bag of sugar) ?No driving until completely off narcotic pain medication and when cleared with your MD. ?Light walking is allowed and encouraged. ?Daily showering is allowed and encouraged. ?Continue to use your incentive spirometer at home, (as you did in the hospital) until the follow-up appointment with your MD. ?No bathing, No swimming and No hot tubs until the follow-up appointment with your MD. Signs and Symptoms of Infection: ??Call MD office for these:?Fever over 101 degrees ?Increasing redness & swelling of incisions ?Pus or foul smelling drainage coming from your incisions. ?Increasing pain at your incision sites unrelieved by pain medication Call MD office for: ?Persistent nausea and vomiting. ?If your abdomen is getting increasingly bloated, firm and painful. ?Increasing abdominal pain that is not relieved by your pain medication. Discharge Orders Scheduled Follow-Up Appointments 2021 2:00 PM EST ?? With: Alberto ALVES, Mayra Acosta Where: [facility] General Surgery [address] [place] [address] Drive [address] [place], [place] - Sunday 1:30 PM EST ?? With: Jasmyne Cee NP Where: [facility] [address] [place] [address]- Sunday 2:05 PM EST ?? With: Louis ALVES, Radha Where: [facility] [address] [place] [address]- Sunday 1:00 PM EST ?? With: Where: [facility] Radiology [facility] [address] [place] [address] [address] [place] [address]- Discharge Medications SHALOM FIGUEROA :1955 Visit Date:07/14/2022 Medications: Please continue your medications until treatment is completed or stopped by your provider. Medications not listed below should be discontinued. Discuss any questions related to medications with your provider. What How Much When Why Instructions Next Dose New Acetaminophen (acetaminophen 325 mg oral tablet) 2 tab(s) Oral Every 6 hours as needed for Pain , Moderate Diverticulosis Pickup at [facility]/pharmacy #[id number] Unchanged Albuterol (ProAir HFA 90 mcg/ inh inhalation aerosol) 2 puff(s) Inhalation 4 times a day as needed for NEEDED FOR WHEEZING as prescribed Unchanged Amlodipine (amLODIPine 5 mg oral tablet) 1 tab(s) Oral Daily as prescribed Unchanged Cholecalciferol (Vitamin D3 1000 intl units oral capsule) 1 capsule Oral Daily as prescribed Unchanged Dexameth/ Neomycin/ Polymyxin B ophthalmic (dexamethasone/ neomycin/ polymyxin B ophthalmic 1 mg-3.5 mg-85074 u/ gm ointment) as prescribed Unchanged Durable Medical Equipment (CPAP Machine) See Instructions AutoCPAP 8-20 cm H20, use Daily when sleeping ?? as prescribed Unchanged Durable Medical Equipment ([facility] OLOPATADINE 0.1% EYE DROPS) INSTILL 1 DROP ONCE/ DAY BOTH EYES EVERYDAY FOR ALLERGY ?? as prescribed Unchanged Ferrous Sulfate (ferrous sulfate 325 mg oral enteric coated tablet) 1 tab(s) Oral Twice a day as prescribed Unchanged Gabapentin (gabapentin 600 mg oral tablet) 1 tab(s) Twice a day as prescribed Unchanged Miscellaneous Rx ([facility] OLOPATADINE 0.1% EYE DROPS) as prescribed Unchanged Multivitamin Daily as prescribed Unchanged Omeprazole (omeprazole 40 mg oral enteric coated capsule) 1 capsule Oral Daily as prescribed Unchanged Potassium Chloride (Potassium Chloride (Kgg-Ehmn-Fxp 10) 10 mEq oral tablet, extended release) 11- Unchanged Pravastatin (pravastatin 40 mg oral tablet) 1 tab(s) Oral Daily at Bedtime 11- Unchanged Sertraline (sertraline 100 mg oral tablet) 1 tab(s) Oral Daily 11- Unchanged Tamoxifen (tamoxifen 20 mg oral tablet) 1 tab(s) Oral Daily 11- Unchanged Tramadol (traMADol 50 mg oral tablet) 0.5 tab(s) Daily as prescribed Pharmacy Information [facility]/pharmacy #[id number]: [address] [place], [place] [id number] [phone] ?? What How Much When Comments Stop Taking Barium Sulfate (Readi-Cat 2 oral suspension) See instructions take [address] scan as directed by radiology ?? Test Results Below is a partial list of the most recent Laboratory test results done prior to this discharge. You may have had other tests and procedures not included in this list. Please discuss all test resultswith your provider. (07/14/2022) ???Surgical Pathology - Patient Name: SHALOM FIGUEROA Lab Patient : 1955(Age: 66) Collection Date: 07/14/2022 Accession Date: 07/14/2022 Sign Out Date: 07/17/2022 Tissue Source: 1:SIGMOID COLON Final Diagnosis: Sigmoid colon, segmental resection: - Segment of colon (19.5 cmin length) with diverticulosis and diverticulitis with abscess formation in pericolonic adipose tissue. - Two colonic anastomotic rings with no significant pathologic changes. Primary Pathologist:Nir Dowell M.D. electronically signed out by: Nir Dowell M.D. / DAVID Clinical History: Diverticulitis Gross Description: Specimen received labeled as sigmoid colon , received in formalin stapled inthe proximal margin and opened in the distal margin with 2 donuts in the same container. Proximal margin is inked in blue and distal margin in black by the prosector . The specimen is 19.5 cm in length, proximal circumference 5 cm, distal circumference 5.8 cm with up to 5 cm of attached adipose tissue. The mucosa is mooney-pink smooth and glistening with no masses or tumor identified. Multiple diverticula are found throughout the whole length of the specimen and some of them filled withfecal material . There is a 2 cm focal constricted area which is 9 cm from the distal margin and 10 cm from theproximal margin. [employer] Nanny sections are submitted as follows 1 and 2-1 piece each, sigmoid diverticula. 3-1 piece, diverticula from the constricted area. 4-1 piece, possible abscess. 5-1 piece, section from the constricted area. 6-2 pieces, sections from the donuts. (CONNIE). Phone #: [phone], On-Call Pathologist: [id number] Basic Metabolic Panel (07/18/2022) ???Sodium - 146 mmol/L???Potassium - 3.6 mmol/L???Chloride - 112 mmol/L???Bicarbonate Level - 25 mmol/L???Anion Gap - 9???Glucose Level - 88 mg/dL???BUN - 9 mg/dL???Creatinine-Blood - 0.6 mg/dL???Estimated GFR Creatinine - 98 ML/MIN/1.73 M2???Calcium - 8.2 mg/dL CBC w/ Differential (07/18/2022) ???WBC - 7.4 k/mm3???RBC - 3.37 m/mm3???Hgb - 7.7 Gm/dL???Hct - 26.9 %???MCV - 79.8 femtoliters???MCH - 22.8 pg???MCHC - 28.6 g/dL???Platelet Count - 188 k/mm3???RDW-SD - 50.3 femtoliters???MPV - 11.5 femtoliters???Nucleated RBC (Automated) - 0.0 #/100 WBC'S???Abs. NRBC - 0.0 k/mm3???Abs. Neut - 5.3 k/mm3???Abs. Lymph - 1.0 k/mm3???Abs. Wilkinson - 0.7 k/mm3???Abs. Eo - 0.3 k/mm3???Abs. Baso - 0.1 k/mm3???Neut % - 71.5 %???Lymph % - 13.6 %???Wilkinson % - 9.6 %???Eos % - 4.1 %???Baso % - 0.7 %???Imm Gran- 0.5 %???Abs. Imm Gran - 0.0 k/mm3 COVID-19 (2019 Novel Coronavirus) PCR (07/17/2022) ???COVID-19 PCR Specimen Source - NASAL???COVID-19 PCR Result - NEGATIVE Magnesium Level (07/18/2022) ???Magnesium - 1.7 mg/dL Phosphorus Level (07/18/2022) ???Phosphorus - 2.6 mg/dL Immunizations This Visit Given Vaccine Date Commentsinfluenza virus vaccine, inactivated 07/16/2022 Early/Late Reason: Other : ??Requested from pharmacy, arrived late Allergies (NKA means No Known Allergies) sulfa drugs??(swelling, itching) Problems Active Problems??(11) Asthma?? Asthma?? Atypical ductal hyperplasia of right breast and flat atypia?? Diverticulitis?? HTN (hypertension)?? Hyperlipidemia, unspecified?? Iron deficiency anemia?? Major depression, recurrent?? Obese class I?? Sleep apnea, obstructive?? Spinal stenosis?? Education Materials Below is the list of Educational Leaflet Providered with your Discharge Instructions. Low-Fiber Diet?? Valuables and Belongings I fully understand and agree that [facility] accepts no responsibility for all my personal property including clothing, toilet articles, radios, jewelry, dentures, hearing aids, rings, money, or any other property that is in my possession or is brought to me after admission. I understand certain valuables may be placed in a hospital safe for a short period of time. I understand that the hospital is not liable for loss or damage due to accident, fire, or other natural occurrence while said property is in the safe. I accept full responsibility for any personal property that I keep with me, and will not hold the hospital responsible in case of loss or disappearance. I acknowledge that i have been encouraged to send valuables and belongings home. ?? Review of Valuable and Belonging List: With patient Possessions released to: to pacu Date for Pt to Sign Valuables/Belongings: 07/14/22 12:55:00 ?? Other Discharge Information ? Pulmonary Rehab Status?? Pulmonary Rehab Discharge Status?? CPAP/BiPAP Mask Type: Other: pt home mask CPAP/BiPAP Mask Size: Other: pt home mask Respiratory Rate: 18 br/min ? Common Emergency Awareness Tips IS IT A STROKE? Act FAST and Check for these signs: FACE Does the face look uneven? ARM Does one arm drift down? SPEECH Does their speech sound strange? TIME Call at any sign of stroke ?? Heart Attack Signs Chest discomfort: Most heart attacks involve discomfort in the center of the chest and lasts more than a few minutes, or goes away and comes back. It can feel like uncomfortable pressure, squeezing, fullness or pain. Discomfort in upper body: Symptoms can include pain or discomfort in one or both arms, back, neck, jaw or stomach. Shortness of breath: With or without discomfort. Other signs: Breaking out in a cold sweat, nausea, or lightheaded. Remember, MINUTES DO MATTER. If you experience any of these heart attack warning signs, call to get immediate medical attention! ?? Smoking can increase your chances of developing chronic health problems and can cause harmful effects to other family members in your house. If you smoke, you are strongly encouraged to quit. Please call [facility] at [phone] or [phone] ([phone]) or log in to [email or web address] for referrals to smoking cessation programs. ?? The National Suicide Prevention Hotline is available 02/04 if you or someone you know needs to find a reason to keep living. By calling 4-651-104-[employer] (6820) you'll be connected to a skilled, trained counselor at a crisis center in your area. INPATIENT DISCHARGE INSTRUCTIONS SIGNATURE TAO CAROLINASHALOM Location:[facility] Registration Date and Time:07/14/2022 05:37 EDT Primary Care Physician: Louis ALVES, [facility], I SHALOM FIGUEROA, have received the above patient education materials/instructions and have verbalizedunderstanding. If ambulance or transport services are being used I further acknowledge being given a choice of service. ?? If you need to contact me, please call me at this number: . Patient/School Year Nanny Name: Patient/School Year Nanny Signature: Relationship to Patient: Witness Name/Signature: Date: * Leigh Ann Maloney: PERFORM Event Display: Patient Education Leaflets Authored Date: [id number] Low-Fiber Diet ?? 79020 Low-Fiber Diet Eggs are high in protein and easy to digest. Eating a low-fiber diet means eating foods that don???t have much fiber. These foods are easy to digest. Most of the fiber that you eat passes undigested through your bowel. This is what forms stool. Low-fiber foods can help to slow down your bowel movements. When you eat a low-fiber diet, you have fewer stools. This lets your intestine rest. Your healthcare provider will tell you how long you need to be on this diet. It may only be for a short time. Low-fiber foods often don???t give you all the nutrients you need to??stay??healthy. Yourhealthcare provider may have you take certain vitamins while you are on this diet. Reasons to eat a low-fiber diet The goal of a??low-fiber diet is to??limit the size and number of your stools. It may be prescribedif you: ??? Are going through chemotherapy or radiation treatments ??? Have had intestinal surgery ??? Have trouble digesting food ??? Have a condition that affects your intestine, such as diarrhea, irritable bowel syndrome, Crohn???s disease, ulcerative colitis, or diverticulitis ?? General guidelines for a low-fiber diet In general, a low-fiber diet means having fewer than 13 grams of fiber a day. Your healthcare provider may give you a list of things you can and can???t eat or drink. Read food labels. Choose foods and drinks that have as close to zero grams of fiber as possible. Here are general guidelines to follow: Breads, pasta, cereal, rice, and other starches (6 to 11 servings daily) ??? What to choose: white bread, biscuits, muffins, and white rolls; plain crackers; waffles; whitepasta; white rice; cream of wheat; grits; white pancakes; corn flakes; cooked potatoes without skin; pretzels.??Fiber content of these foods should be less than 0.5 (1/2) gram per serving. ??? What to pass up: whole-wheat or whole-grain breads, crackers, and pasta; breads with seeds or nuts; wheat germ; everett crackers;??cornbread; wild or brown rice; cereals with whole-grain, bran, and granola; cereals with seeds, nuts, coconut, or dried fruit; potatoes with skin Milk and dairy (2 servings daily) ??? What to choose: milk, buttermilk; yogurt or ice cream without seeds or nuts; custard or pudding; sour cream; cheese and cottage cheese; cream sauces, soups, and casseroles ??? What to pass up: ice cream and yogurt with seeds, nuts, or fruit chunks Fruit (2 to 4 servings daily) ??? What to choose: ripe banana; ripe nectarine, peach, apricot, papaya, and plum; soft honeydew melon and cantaloupe; cooked or canned fruit without skin or seeds (not sweetened with sorbitol); applesauce; strained fruit juice (without pulp) ??? What to pass up: raw or dried fruit; all berries; raisins; canned and raw pineapple; prunes and prune juice; fruit juice with pulp Vegetables (3 to 5 servings daily) ??? What to choose: well-cooked or canned vegetables without seeds, such as spinach, eggplant, green and wax beans, carrots, yellow squash, pumpkin; lettuce on a sandwich ??? What to pass up: all rawor steamed vegetables; vegetables with seeds, such as unstrained tomato sauce; green peas; garcia beans; broccoli; corn; parsnips Meats and protein (4 to 6 ounces daily) ??? What to choose: tender, well-cooked meat, including ground meat, poultry, and fish; eggs; tofu;creamy peanut butter ??? What to pass up: processed meats such as hot dogs and sausages, tough, chewy meat with gristle; peas, including split, yellow, and black-eyed; beans, including navy, garcia, black, garbanzo, soy, carrasco, and??lentil; peanuts and crunchy peanut butter?? Fats, oils, sauces, condiments (fewer than 8 teaspoons daily) ??? What to choose: butter, margarine, oils, whipped cream, sour cream, mayonnaise, smooth dressings and sauces; plain gravy; smooth condiments ??? What to pass up: dressing with seeds or fruit chunks; pickles and relishes Other foods and drinks ??? What to choose: water; plain gelatin; plain puddings; pretzels; plain cookies and cakes; honey, syrup; decaffeinated drinks, including tea and coffee? What to pass up: popcorn; potato chips;??spicy foods; fried, greasy foods; alcohol (ask your healthcare provider);marmalade, jam, and preserves; desserts that have seeds, nuts, coconut, dried fruit, whole grains, o r bran; candy that has seeds or nuts; drinks sweetened with sorbitol or other sugar substitutes; caffeinated drinks, including tea, coffee, soda, and energy drinks ?? Last Reviewed Date: 2020 ?? 0786-5997 [employer]. All rights reserved. This information is not intended as a substitute for professional medical care. Always follow your healthcare professional's instructions. ?? * Event Display: Adult Preadmission Health Questionnaire Authored Date: Hospital Progress note * Asiya Baker RN: PERFORM, SIGN, VERIFY Event Display: Progress Note Hospital Authored Date: Patient: SHALOM FIGUEROA Age: 66 years Sex: Female : 1955 Associated Diagnoses: None Author: Asiya Baker RN Findings Problem Related to Alteration in Gastrointestinal : Alteration in Gastrointestinal Func/new 07/18/2022 11:00 EST Alteration in GI status Related to Abdominal Surgery Goals & Outcomes, Gastrointestinal Establish a regular pattern of elimination for pt, Nutritional intake is adequate for metabolic needs, Pt will achieve normal/improved fluid balance, Pt will have a bowel movement prior to discharge, Pt will maintain adequate GI function appropriate for pt, Ptwill maintain normal elimination patterns, Pt will resume/maintain adequate hemodynamic status, Pt w ill tolerate age appropriate diet prior to discharge Interventions, Gastrointestinal Assess/monitor abdomen for distention, tenderness, Assess/monitor abdominal girth & bowel function, Assess/monitor bowel pattern, bowel sounds, flatus BH Goals/Interventions, Gastrointestinal Yes Gastrointestinal, Problem Start 07/14/2022 14:52 Reviewed plan with, Gastrointestinal Patient Patient Progression, Gastrointestinal Pt progressing according to plan . Narrative/Incidental Pt A&Ox3, vital signs stable, CMS WNL. Pt reports pain to lower abdomen 5/10 taking scheduled Meds with adequate relief. pt denies nausea/vomiting, shortness of breath or chest pain. +PP with no edema, pt ambulating with walker and standby assist with steady gait. Lungs CTA, pt declined breathing treatment this morning. abdomen soft round tender with +BSx4. tolerating low fiber diet well and voiding clear yellow urine. lap sites and midline to abdomen with steri strips open to air with minimal dried blood. call lux within reach, pt able to make needs known.. * Marifer Harper RN: PERFORM, SIGN, VERIFY Event Display: Progress Note Hospital Authored Date: [id number] Patient: SHALOM FIGUEROA Age: 66 years Sex: Female : 1955 Associated Diagnoses: None Author: Marifer Harper RN Findings Problem Related to Alteration in Gastrointestinal : Alteration in Gastrointestinal Func/new 07/17/2022 19:00 EST Alteration in GI status Related to Abdominal Surgery Goals & Outcomes, Gastrointestinal Establish a regular pattern of elimination for pt, Nutritional intake is adequate for metabolic needs, Pt will achieve normal/improved fluid balance, Pt will have a bowel movement prior to discharge, Pt will maintain adequate GI function appropriate for pt, Ptwill maintain normal elimination patterns, Pt will resume/maintain adequate hemodynamic status, Pt w ill tolerate age appropriate diet prior to discharge Interventions, Gastrointestinal Assess/monitor abdomen for distention, tenderness, Assess/monitor abdominal girth & bowel function, Assess/monitor bowel pattern, bowel sounds, flatus, Assess/monitor number of bowel movements, Assess/monitor color, quantity, quality, consistency of stoo, Assess/monitor pt for nausea, vomiting, Assess/monitor effects of re-hydration, Assess/monitor intake &output, Assess if pt tolerating diet, DVT prophylaxis as ordered, Taking PO: Encourage/monitor intake & swallowing ability, Teach Pt/caregiver diet & give copy of dietary instructions, Teach Pt/caregiver on bowel elimination interventions, Teach Pt/caregiver re: importance of bowel regime, Teach Pt/caregiver re: nutritional intake & dietary restrict, Teach/encourage deep breath & cough exercises, Teach/encourage use of incentive spirometer Goals/Interventions, Gastrointestinal Yes Gastrointestinal, Problem Start 07/14/2022 14:52 Reviewed plan with, Gastrointestinal Patient Patient Progression, Gastrointestinal Pt progressing according to plan . Nursing Data Gastrointestinal Data. : Gastrointestinal Data. 07/17/2022 19:18 EST Gastrointestinal Symptoms Belching, Flatulence Abdomen Soft, Tender Bowel Sounds LUQ Present Bowel Sounds RUQ Present Bowel Sounds LLQ Present Bowel Sounds RLQ Present Last Bowel Movement 07/17/2022 GI WNL except . Vital Signs : VITAL SIGNS SECTION 07/17/2022 19:00 EST Temperature 98.8 DegF Temperature Route Oral Pulse Rate 66 bpm Respiratory Rate 16 br/min Systolic Blood Pressure 129 mm Hg Diastolic Blood Pressure 59 mm Hg Blood pressure sites Arm, right Oxygen Saturation 97 % Mode of Delivery (Oxygen) Room air . Narrative/Incidental Patient is alert and oriented X3. VSS. Fluids running per MD orders. Maintaining pain control with scheduled medications. Lungs are clear with occasional expiratory wheeze. CPAP on overnight. Using incentive spirometer. Patient has +pedal pulses and no edema. Compression boots on to BLE. Patient has +bowel sounds X4 quadrants. No nausea or vomiting. Abdomen is soft and mildly tender. Tolerating alow fiber diet. Bowel movement tonight. Passing gas. Voiding without difficulty. Out of bed with standby assist. X4 lap sites with steris and midline aquacel are intact. Patient is resting comfortably at this time with call lux in reach and bed in locked, lowest position. . Discharge Information Pulmonary Rehab Discharge : Pulmonary Rehab Discharge Status 07/17/2022 22:22 EST CPAP/BiPAP Mask Type Other: pt home mask CPAP/BiPAP Mask Size Other: pt home mask 07/17/2022 1:41 EST CPAP/BiPAP Mask Type Other: Pt's home mask CPAP/BiPAP Mask Size Medium 07/16/2022 23:51 EST CPAP/BiPAP Mask Type Under the Nose CPAP/BiPAP Mask Size Other: Pt's home mask 07/15/2022 23:17 EDT CPAP/BiPAP Mask Type Under the Nose CPAP/BiPAP Mask Size Other: pt's home mask 07/15/2022 2:15 EDT CPAP/BiPAP Mask Type Under the Nose CPAP/BiPAP Mask Size Other: pt's home mask 07/14/2022 22:48 EDT CPAP/BiPAP Mask Type Under the Nose CPAP/BiPAP Mask Size Other: pt's home mask * Chemo Cordova MD: PERFORM Event Display: Progress Note Hospital Authored Date: [id number] Patient: ??SHALOM FIGUEROA ? Age:??66 Years?Sex:??Female?:??1955?? Subjective ?? Passing flatus, no bowel movement as yet Tolerated clear liquids yesterday. No nausea or emesis Ambulating with minimal 1 person assistance. Voiding spontaneously No fever, chills. No malaise. Pain is well controlled, has not used dPCA Review of Systems ?? Constitutional:??No weight loss, fever, chills, weakness or fatigue. Allergy/Immune: Denies any??Eczema or hives Eyes:??No visual loss, blurred vision, double vision or yellow sclera ENT:??No hearing loss, sneezing, congestion, runny nose or sore throat. Respiratory:??No shortness of breath, cough or sputum production. Cardiovascular:??No chest pain, chest pressure or chest discomfort. No palpitations or pedal edema. Gastrointestinal:??Pain at incision but otherwise doing well. Passing flatus but no BM. Genitourinary:??No burning micturition. No urinary frequency or incontinence. Neurologic:??No headache, dizziness, syncope, unilateral weakness, ataxia, numbness or tingling in the extremities. No change in bowel or bladder control. Musculoskeletal:??No muscle pain, back pain, joint pain or stiffness. Hematologic/Lymphatics:??No bleeding or bruising. No painful lymph nodes. Skin:??No rash or itching. Endocrine:??No reports of sweating. No cold or heat intolerance. No polyuria or polydipsia. Psychiatric:??No depression or anxiety. Physical Exam Vitals & Measurements T:??98.3?F ?? HR:??73(Monitored)?? NJ:??62?? RR:??16?? BP:??136/61?? SpO2:??96%?? HT:??165??cm?? WT:??82.5??kg?? BMI:??30.3?? Vitals reviewed, patient is AVSS WNL ?? Constitutional: Alert, in no distress. Mental Status: Oriented to person, place and time. Head: Normocephalic. Eyes: Pupils are equal, round and reactive to light. Extraocular muscles intact. Ear, Nose and Throat: Oropharynx clear, mucous membranes moist. Ears and nose without masses, lesions or deformities. Trachea midline. Neck: Supple, Full range of motion. Respiratory: Clear to auscultation. No wheezing, rales or rhonchi. Cardiovascular: S1 S2 regular. No murmurs, rubs or gallops. Gastrointestinal: Abdomen soft, tender at incision, Dressings clean.??Mildly distended. No pulsatile mass. No hepatosplenomegaly. Genitourinary: No costovertebral angle tenderness. Neurologic: Cranial nerves II-XII grossly intact. No focal neurological deficits. Flexor plantar response. Moves all extremities spontaneously. Sensation intact bilaterally. Skin: No rashes or lesions. No petechiae or purpura.?? Musculoskeletal: No cyanosis or clubbing. No gross deformities. Normal range of motion. Heme/Lymphatics/Immun: Palpation of neck reveals no swelling or tenderness of neck nodes. Palpationof groin reveals no swelling or tenderness of groin nodes. Psychiatric: Normal mood and affect Assessment/Plan ?? Pt is a 66 year old female with history of diverticulitis who presented for elective robot assistedlaparoscopic sigmoid colectomy with colorectal anastomosis with Dr. Dominguez on 07/14. Post-operatively she is progressing well at this time. Remains on CLD with flatus but no??bowel??movement yet. ?? Plan: - Clears with crackers and then advance as tolerated ?? - OOB and ambulate ? Chemo [place] Discussed with Dr. Dominguez ?? Colorectal surgery service pager [phone] Intake and Output Intake and Output Results?? This visit (24 hour periods starting at 07:00 EST)? 07/17/22 *?? 07/16/22?? 07/15/22 ?? Total Summary?Intake mL?? 1,050.01?? 3,410.02?? 3,530?Output mL?? 400?? 2,125?? 1,125?Fluid Balance ?? 650.01?? 1,285.02?? 2,405?? Intake (8)?Calcium Gluconate mL?? --?? 50?? --?Dextrose 5% in Water, Potassium Phosphate mL?? 250.01?? --?? --?Lactated Ringers Injection 1,000 mL mL?? 700?? 2,400?? 2,500?Magnesium Sulfate mL?? --?? --?? 100?Metronidazole mL?? --?? --?? 10?Oral Fluids mL?? 100?? 510?? 920?Potassium Chloride mL?? --?? 200?? --?Sodium Phosphate mL?? --?? 250.02?? --?Total?? 1,050.01?? 3,410.02?? 3,530?? Output (3)?Misc Output mL?? --?? --?? 50?Urine Catheter mL?? --?? 275?? 1,075?Urine Voided mL?? 400?? 1,850?? --?Total?? 400?? 2,125?? 1,125?? Counts (5)?Misc Output mL?? --?? --?? 50?Oral Fluids mL?? 100?? 510?? 920?Urine Catheter mL?? --?? 275?? 1,075?Urine Count ?? --?? 1?? --?Urine Voided mL?? 400?? 1,850?? --? * This column has not completed the indicated time period.?? Indicates a 25 hour day.?? Labs Last 24 Hours BLOOD COUNT & DIFF ? Event Name?? Event Result?? Date/Time?? WBC 8.4 k/mm3 07/17/22 01:48:00 RBC 3.42 m/mm3??Low 07/17/22 01:48:00 Hgb 7.7 Gm/dL??Low 07/17/22 01:48:00 Hct 27.4 %??Low 07/17/22 01:48:00 MCV 80.1 femtoliters 07/17/22 01:48:00 MCH 22.5 pg??Low 07/17/22 01:48:00 MCHC 28.1 g/dL??Low 07/17/22 01:48:00 Platelet Count 177 k/mm3 07/17/22 01:48:00 MPV 11.7 femtoliters 07/17/22 01:48:00 Nucleated RBC (Automated) 0 #/100 WBC'S 07/17/22 01:48:00 ? CHEM GENERAL ? Event Name?? Event Result?? Date/Time?? Sodium 143 mmol/L 07/17/22 01:48:00 Chloride 107 mmol/L 07/17/22 01:48:00 Bicarbonate Level 24 mmol/L 07/17/22 01:48:00 Anion Gap 12 07/17/22 01:48:00 Glucose Level 93 mg/dL 07/17/22 01:48:00 BUN 6 mg/dL??Low 07/17/22 01:48:00 Creatinine-Blood 0.6 mg/dL 07/17/22 01:48:00 Phosphorus 1.9 mg/dL??Low 07/17/22 01:48:00 Magnesium 1.7 mg/dL 07/17/22 01:48:00 ? * Alberto ALVES, Mayra N: PERFORM Event Display: Progress Note Hospital Authored Date: Attending Attestation:??I have seen and evaluated this patient. ??I have discussed the case and itsmanagement with the resident and agree with the findings and plan as documented in the resident???snote. ?? Awaiting further bowel function and will advance diet accordingly. ?? Mayra Dominguez MD, FACS, FASCRS ?? Patient Care team information Care Team Personnel Name: Yaneth Frankel RN Position: [facility] RN Member Role: Primary Care Nurse Name: Keena Thakkar RN Position: [facility] RN Member Role: Primary Care Nurse Name: Emili Alexander RN Position: [facility] RN Member Role: Primary Care Nurse Name: Sapna Cagle RN Position: [facility] RN Member Role: Primary Care Nurse Name: Loren Spangler RN Position: [facility] RN Member Role: Primary Care Nurse Name: Mignon Ibarra RN Position: [facility] RN Member Role: Primary Care Nurse Name: Patricia Lieberman RN Position: [facility] AMB Nurse Member Role: Primary Care Nurse Name: Radha Myers MD Position: [facility] Primary Care Physician Member Role: PCP Address: Address: [address] [place] [address] [address] [place] [address]- Name: Asiya Baker RN Position: [facility] RN Member Role: Primary Care Nurse Name: Paramjit Solomon RN Position: [facility] RN Member Role: Primary Care Nurse Care Team Related Persons Name: RAKAN FIGUEROA Address: home [address] [place] [id number]
--- OUTSIDE RECORDS SUMMARY | 2023-06-01 02:46 | XMS_ITS | Continuity of Care Document ---
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 Name Role Phone Radha Myers MD Primary Care Physician [phone] Encounter [facility] [place] Date(s): 11/16/20 - 03/16/21 [facility] [address] [place] [address]- Attending Physician: Radha Myers MD Allergies, Adverse [...] Recorded tetanus/diphtheria/pertussis, acel(Tdap) 04/14/11 Given 1Result Comment: [facility] [id number] Medications Albuterol (Eqv-ProAir HFA) Inhalation, Every 6 [...] 12/23/20 11:27:00 EDT, Route to Pharmacy Electronically, [facility]/pharmacy #[id number], Partial fill upon patient request if [...] 1 Refills, Maintenance, 11/21/20 16:41:00 EDT, Suspension, [facility]/pharmacy #[id number], 165.1, cm, 09/30/20 16:26:00 EST, Height, 87.5, kg, 09/30/20 16:26:00 EST, Dry Weight Start Date: 11/21/20 Stop Date: 05/20/21 Status: Ordered pravastatin 40 mg oral tablet 1 tablet, By Mouth, Daily at bedtime, # 90 tablet, 1 Refills, Maintenance, 12/23/20 11:27:00 EDT, [facility]/pharmacy #[id number], 165.1, cm, 12/17/20 9:14:00 EDT, Height, [...] 3 Refills, Maintenance, 02/25/21 11:24:00 EDT, Tablet, [facility]/pharmacy #[id number], Partial fill upon patient request if [...]
--- OUTSIDE RECORDS SUMMARY | 2023-06-01 02:46 | XMS_ITS | Continuity of Care Document ---
Author Name Unknown Organization [facility] Adult Address [address] [place] [address]- Care Team Providers Care Lift Driver Name Role Phone Louis ALVES, Radha Primary Care Physician [place] [facility] [place] 11/11/21 - 11/18/[address] [address]- Encounter Diagnosis LLQ pain(Discharge Diagnosis) - 11/11/21 Difficulty urinating(Discharge Diagnosis) - 11/11/21 Attending Physician: Radha Myers MD Allergies, Adverse [...] 04/14/11 Given 1Result Comment: [facility] 28138-306-39 Medications Cipro 500 mg oral tablet 1 tablet = 500 mg, By Mouth, Every 12 hours, for 10 days, # 20 tablet, 0 Refills, Acute 11/24/21 14:49:00 EDT, 11/14/21 14:49:00 EST, Tablet, [facility]/pharmacy #[id number], Partial fill upon patient request if the prescription is for a schedule II opioid drug.,... Start Date: 11/14/21 Stop Date: 11/24/21 Status: Ordered ferrous sulfate 325 mg oral enteric coated tablet 325 mg, 1, tablet, By Mouth, 2 times a day, # 180 tablet, Refills 1, Tot. Refills 1, Maintenance, 09/05/21 13:29:00 EST, Route to Pharmacy Electronically, [facility]/pharmacy #[id number], Partial fill upon patient request [...] opioid drug. Start Date: 09/15/20 Status: Ordered metroNIDAZOLE 500 mg oral tablet 1 tablet = 500 mg, By Mouth, Every 8 hours, for 10 days, # 30 tablet, 0 Refills, Acute 11/24/21 14:49:00 EDT, 11/14/21 14:49:00 EST, Tablet, [facility]/pharmacy #[id number], Partial fill upon patient request if the prescription is for a schedule II opioid drug., 1... Start Date: 11/14/21 Stop Date: 11/24/21 Status: Ordered Multivitamin Daily, 0 Refills, Maintenance, 09/15/20 15:23:00 EST, Partial fill upon patient request if the prescription is for a schedule II opioid drug. Start Date: 09/15/20 Status: Ordered omeprazole 40 mg oral enteric coated capsule 1 capsule, By Mouth, Daily, # 30 capsule, 2 Refills, [facility], 165.1, cm, 11/11/21 12:40:00 EST, Height, 89.7, kg, 12/17/20 9:14:00 EDT, Dry Weight Start Date: 11/14/21 Status: Ordered pravastatin 40 mg oral tablet 1 tablet, By Mouth, Daily at bedtime, # 90 tablet, 1 Refills, [facility], 165.1, cm, 06/23/21 9:19:00 EDT, Height, 89.7, kg, 12/17/20 9:14:00 EDT, Dry Weight Start Date: 07/23/21 Status: Ordered ProAir HFA 90 mcg/inh inhalation aerosol 2 puffs, Inhalation, 4 times a day, PRN NEEDED FOR WHEEZING, # 18 each, 5 Refills, [facility], 17, INHALE 2 PUFFS BY MOUTH FOUR [...] opioid drug., 165.1, cm, 02/25/21 11:11:00 EDT, [place]. Start Date: 02/25/21 Status: Ordered Zofran 4 mg oral tablet 1 tablet = 4 mg, By Mouth, 2 times a day, PRN Nausea and vomiting, for 7 days, # 15 tablet, 0 Refills, Acute 11/21/21 14:41:00 EDT, 11/14/21 14:41:00 EST, [facility]/pharmacy #[id number], Partial fill upon patient request if the prescription is for a schedule II o... 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) 09/02/20 Active Hyperlipidemia, unspecified(Confirmed) Active Iron deficiency anemia(Confirmed) Active Obese class I(Confirmed) Active Sleep apnea, obstructive(Confirmed) 2009 Active Major depression, recurrent(Confirmed) Active Spinal stenosis(Confirmed) Active Diagnosis Diagnosis Type Effective Dates Health Status Clinical Service Informant Difficulty urinating Discharge Diagnosis 11/11/21 LLQ pain Discharge Diagnosis 11/11/21 Vital Signs Most recent to oldest [Reference Range]: 1 Height 165.10 cm (11/11/21 12:40 PM) Weight 85.2 kg (11/11/21 12:40 PM) Oxygen Saturation [94-100 %] 96 % (11/11/21 12:40 PM) Pulse Rate [55-90 bpm] 75 bpm (11/11/21 12:40 PM) Body Mass Index [18.5-24.99] 31.26 *>HHI* (11/11/21 12:40 PM) Blood Pressure [90-138/55-84 mm Hg] 133/ 84mm Hg (11/11/21 12:40 PM) Respiratory Rate [16-30 br/min] 18 br/mi n (11/11/21 12:40 PM) Temperature [96.8-100.4 DegF] 98.1 DegF (11/11/21 12:40 PM) Mode of Delivery (Oxygen) Room air (11/11/21 12:40 PM) Blood pressure sites Arm, left (11/11/21 12:40 PM) Temperature Route Oral (11/11/21 12:40 PM) Weight Obtained Via Standing scale (11/11/21 12:40 PM) Social History Social History Type Response Tobacco Other: none. Sex
--- OUTSIDE RECORDS SUMMARY | 2023-06-01 02:46 | XMS_ITS | Continuity of Care Document ---
Author Name Unknown Organization [facility] Adult Address [address] [place] [address]- Care Team Providers Care Assistant Facility Manager Name Role Phone Louis ALVES, Radha Primary Care Physician En[place] [facility] [place] Date(s): 09/06/20 - 10/06/20 [facility] [address] [place] [address]- Allergies, Adverse Reactions, Alerts Substance Reaction Severity [...] tetanus/diphtheria/pertussis, acel(Tdap) 04/14/11 Given 1Result Comment: [facility] 22271-600-54 Medications Albuterol (Eqv-ProAir HFA) Inhalation, Every 6 [...] 08/20/20 18:07:00 EST, Route to Pharmacy Electronically, [facility]/pharmacy #[id number], Partial fill upon patient request [...] 1 Refills, Maintenance, 05/25/20 16:41:00 EDT, Suspension, [facility]/pharmacy #[id number], 165, cm, 04/22/20 7:24:00 EDT, [...]
--- OUTSIDE RECORDS SUMMARY | 2023-06-01 02:46 | XMS_ITS | Continuity of Care Document ---
Author Name Unknown Organization [facility] Adult Address [address] [place] [address]- Care Team Providers Care Nurse Consultant Name Role Phone Radha Myers MD Primary Care Physician [phone] Encounter [facility] [place] Date(s): 12/02/21 - 01/01/22 [facility] Adult [address] [place] [address]- Allergies, Adverse Reactions, Alerts Substance Reaction Severity [...] 04/14/11 Given 1Result Comment: [facility] 20699-402-91 Medications acetaminophen 325 mg oral tablet 650 mg, 2, tablet, By Mouth, Every 4 hours, # 24 tablet, Refills 0, Tot. Refills 0, Maintenance, 12/20/21 11:37:00 EDT, Route to Pharmacy Electronically, [facility], Partial fill upon patient request if the prescription is for a schedule... Start Date: 12/20/21 Status: Ordered amLODIPine 5 mg oral tablet 5 mg, 1, tablet, By Mouth, Daily, # 90 tablet, Refills 3, Tot. Refills 3, Maintenance, 12/09/21 16:47:00 EDT, Route to Pharmacy Electronically, [facility]/pharmacy #[id number], Partial fill upon patient request if the prescription is for a schedule II opioid drug.... Start Date: 12/09/21 Status: Ordered CPAP Machine See Instructions, # 1 each, Maintenance, AutoCPAP 8-20 cm H20, use Daily when sleeping, 12/17/21 13:03:00 EDT, Supply Start Date: 12/17/21 Status: Ordered [facility] OLOPATADINE 0.1% EYE DROPS INSTILL 1 DROP ONCE/DAY BOTH EYES EVERYDAY FOR ALLERGY Start Date: 12/17/21 Status: Ordered ferrous sulfate 325 mg oral enteric coated tablet 325 mg, 1, tablet, By Mouth, 2 times a day, # 180 tablet, Refills 1, Tot. Refills 1, Maintenance, 09/05/21 13:29:00 EST, [facility], [id number], Partial fill upon patient request [...] # 30 capsule, 2 Refills, [facility], 165.1, cm, 11/11/21 12:40:00 EST, Height, 89.7, kg, 12/17/20 9:14:00 EDT, Dry Weight Start Date: 11/14/21 Status: Ordered Potassium Chloride (Mkx-Hcaf-Tut 10) 10 mEq oral tablet, extended release [...] FOR WHEEZING, # 18 each, 5 Refills, [facility] 7[facility]24, 17, INHALE 2 PUFFS BY MOUTH FOUR [...] 3 Refills, Maintenance, 02/25/21 11:24:00 EDT, Tablet, [facility]/pharmacy #[id number], Partial fill upon patient [...]
--- OUTSIDE RECORDS SUMMARY | 2023-06-01 02:46 | XMS_ITS | Continuity of Care Document ---
Author Name Unknown Organization [facility] Address [address] [place] [address]- Care Team Providers Care Video Network Engineer Name Role Phone Louis ALVES, Radha Primary Care Physician Encounter [facility] [place] Date(s): 08/25/21 - 09/24/21 [facility] [address] [place] [address]- Attending Physician: Admtr, Ernie Admitting Physician: Admtr, [id number] Referring Physician: Admtr, Ar8 Allergies, Adverse Reactions, [...] Given 1Result Comment: [facility] 11441-397-21 Medications ferrous sulfate 325 mg oral enteric coated tablet 325 mg, 1, tablet, By Mouth, 2 times a day, # 180 tablet, Refills 1, Tot. Refills 1, Maintenance, 09/05/21 13:29:00 EST, Route to Pharmacy Electronically, [facility]/pharmacy #[id number], Partial fill upon patient request [...] Mouth, Daily, # 30 capsule, 2 Refills, [facility] 75820, 165.1, cm, 09/08/21 8:30:00 EST, Height, 89.7, kg, 12/17/20 9:14:00 EDT, Dry Weight Start Date: 09/23/21 Status: Ordered pravastatin 40 mg oral tablet 1 tablet, By Mouth, Daily at bedtime, # 90 tablet, 1 Refills, [facility] 79511, 165.1, cm, 06/23/21 9:19:00 EDT, Height, 89.7, kg, 12/17/20 9:14:00 EDT, Dry Weight Start Date: 07/23/21 Status: Ordered ProAir HFA 90 mcg/inh inhalation aerosol 2 puffs, Inhalation, 4 times a day, PRN NEEDED FOR WHEEZING, # 18 each, 5 Refills, [facility], 17, INHALE 2 PUFFS BY MOUTH FOUR [...]
--- OUTSIDE RECORDS SUMMARY | 2023-06-01 02:47 | XMS_ITS | Continuity of Care Document ---
Author Name Unknown Organization [facility] Adult Address [address] [place] [address]- Care Team Providers Care Lithographic Platemaker Name Role Phone Radha Myers MD Primary Care Physician [place] [facility] [place] 12[place]05/21 [facility] [address] [place] [address]- Encounter Diagnosis Lower abdominal pain(Discharge Diagnosis) - 11/29/21 Major depression, recurrent(Discharge Diagnosis) - 11/29/21 Attending Physician: Radha Myers MD Allergies, Adverse [...] Recorded tetanus/diphtheria/pertussis, acel(Tdap) 04/14/11 Given 1Result Comment: [facility] 62038-917-48 Medications ferrous sulfate 325 mg oral enteric coated tablet 325 mg, 1, tablet, By Mouth, 2 times a day, # 180 tablet, Refills 1, Tot. Refills 1, Maintenance, 09/05/21 13:29:00 EST, Route to Pharmacy Electronically, [facility]/pharmacy #[id number], Partial fill upon patient [...] # 30 capsule, 2 Refills, [facility] 22125, 165.1, cm, 11/11/21 12:40:00 EST, Height, 89.7, kg, 12/17/20 9:14:00 EDT, Dry Weight Start Date: 11/14/21 Status: Ordered Potassium Chloride (Fvc-Ulld-Adv 10) 10 mEq oral tablet, extended release 1 tablet = 10 mEq, By Mouth, Daily, # 90 tablet, 3 Refills, Maintenance, 11/29/21 19:05:00 EDT, [facility]/pharmacy #[id number], Partial fill upon patient request if the prescription is for a schedule II opioid drug., 165.1, cm, 11/28/21 15:50:00 EDT, Height, 89.7... Start Date: 11/29/21 Status: Ordered pravastatin 40 mg oral tablet 1 tablet, By Mouth, Daily at bedtime, # 90 tablet, 1 Refills, [facility], 165.1, cm, 06/23/21 9:19:00 EDT, Height, 89.7, kg, 12/17/20 9:14:00 EDT, Dry Weight Start Date: 07/23/21 Status: Ordered ProAir HFA 90 mcg/inh inhalation aerosol 2 puffs, Inhalation, 4 times a day, PRN NEEDED FOR WHEEZING, # 18 each, 5 Refills, [facility], 17, INHALE 2 PUFFS BY MOUTH FOUR [...] Dates Health Status Cl inical Service Informant Lower abdominal pain Discharge Diagnosis 11/29/21 Major depression, recurrent Discharge Diagnosis 11/29/21 Vital Signs Most recent to oldest [Reference Range]: 1 Height 165.10 cm (11/28/21 3:50 PM) Weight 85.1 kg (11/28/21 3:50 PM) Oxygen Saturation [94-100 %] 96 % (11/28/21 3:50 PM) Pulse Rate [55-90 bpm] 77 bpm (11/28/21 3:50 PM) Body Mass Index [18.5-24.99] 31.22 *>HHI* (11/28/21 3:50 PM) Blood Pressure [90-138/55-84 mm Hg] 132/ 82mm Hg (11/28/21 3:50 PM) Temperature [96.8-100.4 DegF] 98.4 DegF (11/28/21 3:50 PM) Mode of Delivery (Oxygen) Room air (11/28/21 3:50 PM) Blood pressure sites Arm, right (11/28/21 3:50 PM) Temperature Route Oral (11/28/21 3:50 PM) Weight Obtained Via Standing scale (11/28/21 3:50 PM) Social History Social History Type Response Tobacco Other: none. Sex
--- OUTSIDE RECORDS SUMMARY | 2023-06-01 02:47 | XMS_ITS | Continuity of Care Document ---
Author Name Unknown Organization [facility] Adult Address [address] [place] [address]- Care Team Providers Care Invoicing Machine Operator Name Role Phone Louis ALVES, Radha Primary Care Physician [phone] Encounter [facility] [place] Date(s): 06/06/21 - 07/06/21 [facility] Adult [address] [place] [address]- Allergies, Adverse Reactions, Alerts Substance Reaction Severity [...] tetanus/diphtheria/pertussis, acel(Tdap) 04/14/11 Given 1Result Comment: [facility] 12742-354-19 Medications Albuterol (Eqv-ProAir HFA) Inhalation, Every 6 [...] 06/28/2117:03:00 EDT, Aerosol, Route to Pharmacy Electronically, [id number], [facility]/pharmacy #[id number], 165.1, cm, 06/23/21 9:19:00 EDT, Hei... Start Date: 06/28/21 Status: Ordered ferrous sulfate 325 mg oral enteric coated tablet 325 mg, 1, tablet, By Mouth, 2 times a day, # 180 tablet, Refills 1, Tot. Refills 1, Maintenance, 04/07/21 16:15:00 EDT, [facility] Electron[facility], [facility] Mouth, Daily, # 90 capsule, 0 Refills, [facility] 90480, 165.1, cm, 03/04/21 9:26:00 EDT, Height, 89.7, [...]
--- OUTSIDE RECORDS SUMMARY | 2023-06-01 02:47 | XMS_ITS | Continuity of Care Document ---
Author Name Unknown Organization [facility] Address [address] [address]- Care Team Providers Care Chief Lock Operator Name Role Phone Radha Myers MD Primary Care Physician [place] [facility] [place] 03/29[place]22 - 04/28/22 [facility] [address] [address]- [place] Allergies, Adverse Reactions, Alerts Substance Reaction [...] tetanus/diphtheria/pertussis, acel(Tdap) 04/14/11 Given 1Result Comment: [facility] 10371-707-05 Medications amLODIPine 5 mg oral tablet 5 mg, 1, tablet, By Mouth, Daily, # 90 tablet, Refills 3, Tot. Refills 3, Maintenance, 12/09/21 16:47:00 EDT, Route to Pharmacy Electronically, [facility]/pharmacy #[id number], Partial fill upon patient request if the prescription is for a schedule II opioid drug.... Start Date: 12/09/21 Status: Ordered CPAP Machine See Instructions, # 1 each, Maintenance, AutoCPAP 8-20 cm H20, use Daily when sleeping, 12/17/21 13:03:00 EDT, Supply Start Date: 12/17/21 Status: Ordered [facility] OLOPATADINE 0.1% EYE DROPS INSTILL 1 DROP ONCE/DAY BOTH EYES EVERYDAY FOR ALLERGY Start Date: 12/17/21 Status: Ordered esomeprazole 40 mg oral enteric coated capsule 1 capsule = 40 mg, By Mouth, Daily, # 90 capsule, 1 Refills, Maintenance, 03/16/22 15:30:00 EDT, ECCapsule, [facility]/pharmacy #[id number], Partial fill upon patient request if the prescription is for a schedule II opioid drug., 165.1, cm, 03/14/22 11:16:00 EDT,... Start Date: 03/16/22 Status: Ordered Multivitamin Daily, 0 Refills, Maintenance, 09/15/20 15:23:00 EST, Partial fill upon patient request if the prescription is for a schedule II opioid drug. Start Date: 09/15/20 Status: Ordered Potassium Chloride (Djv-Qleg-Zii 10) 10 mEq oral tablet, extended release 1 tablet = 10 mEq, By Mouth, Daily, # 90 tablet, 3 Refills, Maintenance, 11/29/21 19:05:00 EDT, [facility]/pharmacy #[id number], Partial fill upon patient request [...]
--- OUTSIDE RECORDS SUMMARY | 2023-06-01 02:47 | XMS_ITS | Continuity of Care Document ---
Author Name Unknown Organization [facility] Address [address] [place] [address]- Care Team Providers Care Carry Out Clerk And Shelf Stocker Name Role Phone Louis ALVES, Radha Primary Care Physician En[place] [facility] [place] Date(s): 04/22/20 - 05/22/20 [facility] [address] [place] [address] [facility] Attending Physician: Ernie Sánchez Admitting Physician: Ernie [...] Given 1Result Comment: [facility] 54869-181-07 Medications albuterol 0.083% inhalation solution 3 mL [...] mL, 0 Refills, Maintenance, 03/30/20 2:55:00 EDT, [place] Start Date: 03/30/20 Status: Ordered NuLYTELY with Flavor Packs oral powder for reconstitution 240 mL, By Mouth, Every 10 minutes, # 4,000 mL, 0 Refills, Maintenance, 03/30/20 19:13:00 EDT, REC Powder, [facility]/pharmacy #[id number], 240 mL By Mouth Every 10 [...]
--- OUTSIDE RECORDS SUMMARY | 2023-06-01 02:47 | XMS_ITS | Continuity of Care Document ---
Author Name Unknown Organization [facility] Address [address] [place] [address]- Care Team Providers Care Pharmacy Intake Technician Name Role Phone Radha Myers MD Primary Care Physician [place] [facility] [place] 04/05/20 [facility] [address] [place] [address] [facility] Encounter Diagnosis Sinus congestion(Discharge Diagnosis) - 03/30/20 Dizziness(Discharge Diagnosis) - 03/30/20 Attending Physician: Radha Myers MD Allergies, Adverse [...] Comment: [facility] 02256-220-44 Medications albuterol 0.083% inhalation solution 3 mL [...] mL, 0 Refills, Maintenance, 03/30/20 2:55:00 EDT, [place] Start Date: 03/30/20 Status: Ordered NuLYTELY with Flavor Packs oral powder for reconstitution 240 mL, By Mouth, Every 10 minutes, # 4,000 mL, 0 Refills, Maintenance, 03/30/20 19:13:00 EDT, REC Powder, [facility]/pharmacy #[id number], 240 mL By Mouth Every 10 [...] Effective Dates Health Status Clinical Service Informant Sinus congestion Discharge Diagnosis 03/30/20 Dizziness Discharge Diagnosis 03/30/20 Vital Signs Most recent to oldest [Reference Range]: 1 Height 167 cm (03/29/20 12:50 PM) Weight Obtained Via Standing scale (03/29/20 12:50 PM) Social History Social History Type Response Tobacco Other: none. Sex
--- OUTSIDE RECORDS SUMMARY | 2023-06-01 02:47 | XMS_ITS | Continuity of Care Document ---
Author Name Unknown Organization [facility] Address [address] [place] [address]- Care Team Providers Care Blanket Cutting Machine Operator Name Role Phone Radha Myers MD Primary Care Physician [phone] Encounter [facility] [place] Date(s): 12/02/21 - 01/01/22 [facility] [address] [place] [address]- Allergies, Adverse Reactions, Alerts Substance Reaction Severity [...] Comment: [facility] 26981-718-53 Medications acetaminophen 325 mg oral tablet 650 mg, 2, tablet, By Mouth, Every 4 hours, # 24 tablet, Refills 0, Tot. Refills 0, Maintenance, 12/20/21 11:37:00 EDT, Route to Pharmacy Electronically, [facility], Partial fill upon patient request if the prescription is for a schedule... Start Date: 12/20/21 Status: Ordered amLODIPine 5 mg oral tablet 5 mg, 1, tablet, By Mouth, Daily, # 90 tablet, Refills 3, Tot. Refills 3, Maintenance, 12/09/21 16:47:00 EDT, Route to Pharmacy Electronically, [facility]/pharmacy #[id number], Partial fill upon patient request if the prescription is for a schedule II opioid drug.... Start Date: 12/09/21 Status: Ordered CPAP Machine See Instructions, # 1 each, Maintenance, AutoCPAP 8-20 cm H20, use Daily when sleeping, 12/17/21 13:03:00 EDT, Supply Start Date: 12/17/21 Status: Ordered [facility] OLOPATADINE 0.1% EYE DROPS INSTILL 1 DROP [...] # 30 capsule, 2 Refills, [facility], 165.1, cm, 11/11/21 12:40:00 EST, Height, 89.7, kg, 12/17/20 9:14:00 EDT, Dry Weight Start Date: 11/14/21 Status: Ordered Potassium Chloride (Ade-Vfzf-Ili 10) 10 mEq oral tablet, extended release [...] FOR WHEEZING, # 18 each, 5 Refills, [facility] STORE 07957, 17, INHALE 2 PUFFS BY MOUTH FOUR [...] Maintenance, 02/25/21 11:24:00 EDT, Tablet, [facility]/pharmacy #[id number], Partial fill upon patient request if [...]
--- OUTSIDE RECORDS SUMMARY | 2023-06-01 02:47 | XMS_ITS | Continuity of Care Document ---
Author Name Unknown Organization [facility] Address [address] [place] [address] [address] [place] [address]- Care Team Providers Care Business Services Officer Name Role Phone Louis ALVES, Radha Primary Care Physician Encounter [facility] [place] Date(s): 08/17/22 - 08/24/[address] [place] [address]- Encounter Diagnosis Diverticulitis(Discharge Diagnosis) - 08/17/22 Attending Physician: Mayra Dominguez MD Referring Physician: Radha Myers MD Allergies, [...] Requested from pharmacy, arrived late 2Result Comment: [facility] [id number] Medications acetaminophen 325 mg oral tablet 650 mg, 2, tablet, By Mouth, Every 6 hours, PRN, # 30 tablet, Refills 0, Tot. Refills 0, Maintenance, Pain , Moderate, 07/18/22 10:14:00 EST, Route to Pharmacy Electronically, [facility]/pharmacy #[id number], Partial fill upon patient request if the prescription i... Start Date: 07/18/22 Status: Ordered amLODIPine 5 mg oral tablet 5 mg, 1, tablet, By Mouth, Daily, # 90 tablet, Refills 3, Tot. Refills 3, Maintenance, 12/09/21 16:47:00 EDT, Route to Pharmacy Electronically, [facility]/pharmacy #[id number], Partial fill upon patient request [...] Status: Ordered dexamethasone/neomycin/polymyxin B ophthalmic 1 mg-3.5 mg-92612 u/gm ointment 0 Refills, Maintenance, 06/21/22 12:59:00 EDT, Partial fill upon patient request if the prescription is for a schedule II opioid drug. Start Date: 06/21/22 Status: Ordered ferrous sulfate 325 mg oral enteric coated tablet 1, tablet, By Mouth, 2 times a day, # 180 tablet, Refills 1, Maintenance, 06/30/22 13:50:00 EDT, Route to Pharmacy Electronically, [facility], 165, cm, 06/21/22 12:30:00 EDT, Height, 83.5, [...] Start Date: 06/21/22 Status: Ordered Potassium Chloride (Tzm-Djoi-Plj 10) 10 mEq oral tablet, extended release 0 Refills, Maintenance, 06/21/22 12:58:00 EDT, Partial fill upon patient request if the prescription is for a schedule II opioid drug. Start Date: 06/21/22 Status: Ordered pravastatin 40 mg oral tablet 1 tablet, By Mouth, Daily at bedtime, # 90 tablet, 1 Refills, Maintenance, 06/03/22 20:32:00 EDT, [facility]/pharmacy #[id number], 165, cm, 04/04/22 12:32:00 EDT, Height, 83.5, kg, 04/04/22 12:32:00 EDT, Dry Weight Start Date: 06/03/22 Status: Ordered ProAir HFA 90 mcg/inh inhalation aerosol 2 puffs, Inhalation, 4 times a day, PRN NEEDED FOR WHEEZING, # 18 each, 2 Refills, 03/14/22 11:48:00 EDT, [facility]/pharmacy #[id number], 17, 2 puffs Inhalation 4 times a day,PRN: NEEDED FOR WHEEZING, 165.1, cm, 03/14/22 11:16:00 EDT, Height, 84.36, kg, 04/0... Start Date: 03/14/22 Status: Ordered sertraline 100 mg oral tablet 1 tablet, By Mouth, Daily, # 90 tablet, 3 Refills, Maintenance, 06/30/22 13:51:00 EDT, [facility], 165, cm, 06/21/22 12:30:00 EDT, Height, 83.5, kg, 04/04/22 12:32:00 EDT, Dry Weight Start Date: 06/30/22 Status: Ordered tamoxifen 20 mg oral tablet 1 tablet = 20 mg, By Mouth, Daily, # 90 tablet, 3 Refills, Maintenance, 02/25/21 11:24:00 EDT, Tablet, [facility]/pharmacy #[id number], Partial fill upon patient request [...] Cl inical Service Informant Diverticulitis Discharge Diagnosis 08/17/22 Vital Signs Most recent to oldest [Reference Range]: 1 Height 165 cm (08/17/22 2:13 PM) Weight 80.2 kg (08/17/22 2:13 PM) Pulse Rate [55-90 bpm] 76 bpm (08/17/22 2:13 PM) Body Mass Index [18.5-24.99 kg/m2] 29.46 kg/m2 *H* (08/17/22 2:13 PM) Blood Pressure [90-138/55-84 mm Hg] 130/ 73mm Hg (08/17/22 2:13 PM) Temperature [96.8-100.4 DegF] 97.4 DegF (08/17/22 2:13 PM) Blood pressure sites Arm, right (08/17/22 2:13 PM) Temperature Route Temporal (08/17/22 2:13 PM) Social History Social History Type Response Tobacco Other: none. Sex Note * Graciela Wilkerson MA: PERFORM, SIGN, VERIFY Event Display: Patient Education/Instruction Authored Date: [facility] *BSA Gen Surg Clinical Summary Name SHALOM FIGUEROA Age 66 Years 1955 PCP Radha Myers MD PCP Visit Date 08/17/2022 13:58:00 Additional Instructions: Scheduled Appointments?? Future Appointments ?*[facility] ?[address]??[place],??[place],??[address] ?Phone:??--?Fax:??-- ?Appt. Date:??08/30/2022?1:30 PM ?Scheduled Provider:??Coleman NAIK , Jasmyne L ?*[facility] ?[address],??[place],??[address] ?Phone:??--?Fax:??-- ?Appt. Date:??09/15/2022?2:05 PM ?Scheduled Provider:??Radha Myers MD ?[facility] ?[address]??[place],??[place],??[address] ?Phone:??[phone]?Fax:??-- ?Appt. Date:??10/03/2022?1:00 PM ?Scheduled Provider:??[facility] Mammo Rm 5 Follow-Up Instructions ?? Diagnosis Diverticulitis of intestine, part unspecified, without perforation or abscess without bleeding Medications: Please continue your medications until treatment is completed or stopped by your provider. Discuss any questions related to medications with your provider. Medications to Continue with No Changes These medications were not printed or sent to your pharmacy Acetaminophen (acetaminophen 325 mg oral tablet) 2 tab(s) Oral every 6 hours as needed Pain , Moderate. Refills: 0. Next Dose: Albuterol (ProAir HFA 90 mcg/inh inhalation aerosol) 2 puff(s) Inhalation 4 times a day as needed NEEDED FOR WHEEZING. Refills: 2. Next Dose: Amlodipine (amLODIPine 5 mg oral tablet) 1 tab(s) Oral Daily. Refills: 3. Next Dose: Cholecalciferol (Vitamin D3 1000 intl units oral capsule) 1 capsule Oral Daily. Next Dose: Dexameth/Neomycin/Polymyxin B ophthalmic (dexamethasone/neomycin/polymyxin B ophthalmic 1 mg-3.5 mg-81678 u/gm ointment) Next Dose: Durable Medical Equipment (CPAP Machine) See Instructions. AutoCPAP 8-20 cm H20, use Daily when sleeping. Next Dose: Durable Medical Equipment ([facility] OLOPAT[facility] 0.1% EYE DROPS) INSTILL 1 DROP ONCE/DAY BOTH EYES EVERYDAY FOR ALLERGY. Next Dose: Ferrous Sulfate (ferrous sulfate 325 [...] Daily. Next Dose: Potassium Chloride (Potassium Chloride (Ruq-Agzm-Fqu 10) 10 mEq oral tablet, extended release) [...] orders Vital Signs Height 165 cm Weight 80.2 kg BMI 29.46 kg/m2 Blood Pressure 130 mm Hg/73 mm Hg Temperature 97.4 DegF Pulse Rate 76 bpm Respiratory Rate 02 Sat Mode of Delivery / You can now view a summary of your hospital visit from the comfort of your home through a free online portal called [employer]. [employer] is a website that allows you to securely view your medical information including discharge summary, medications and follow-up visits. ??You can alsosend a secure electronic message to your doctor???s office to request appointments, renew medications or just ask a question. You can enroll at [email or web address] or register during your next office [...] primary care provider, you may find a [facility] provider by calling [facility] Link at [phone]. For information about the plan of care [...] Team Personnel Name: Yaneth Frankel RN Position: [facility] RN Member Role: Primary Care Nurse Name: Keena Thakkar RN Position: [facility] RN Member Role: Primary Care Nurse Name: Emili Alexander RN Position: [facility] RN Member Role: Primary Care Nurse Name: Sapna Cagle RN Position: [facility] RN Member Role: Primary Care Nurse Name: Anna Vaca RN Position: [facility] RN Member Role: Primary Care Nurse Name: Loren Spangler RN Position: [facility] RN Member Role: Primary Care Nurse Name: Cayla Gannon RN Position: [facility] RN Member Role: Primary Care Nurse Name: Mignon Ibarra RN Position: [facility] RN Member Role: Primary Care Nurse Name: Patricia Lieberman RN Position: [facility] AMB Nurse Member Role: Primary Care Nurse Name: Radha Myers MD Position: [facility] Primary Care Physician Member Role: PCP Address: Address: [address] [place] [address]- Name: Asiya Baker RN Position: S RN Member Role: Primary Care Nurse Name: Paramjit Solomon RN Position: S RN Member Role: Primary Care Nurse Care Team Related Persons Name: CAROLINA RAKAN Address: home [address] [place] [id number]
--- OUTSIDE RECORDS SUMMARY | 2023-06-01 02:47 | XMS_ITS | Continuity of Care Document ---
Author Name Unknown Organization [facility] Address [address] [place] [address]- Care Team Providers Care Certified Fire Investigator Name Role Phone Louis ALVES, Radha Primary Care Physician [phone] Encounter [facility] [place] Date(s): 09/22/20 - 09/22/[address] [address] Discharge Disposition: A-D/C Home Attending Physician: Robert Eldridge DO Admitting Physician: Robert Eldridge DO Referring Physician: Robert Eldridge DO Allergies, Adverse Reactions, [...] 04/14/11 Given 1Result Comment: [facility] [id number] Medications Albuterol (Eqv-ProAir HFA) Inhalation, Every 6 [...] 08/20/20 18:07:00 EST, Route to Pharmacy Electronically, [facility]/pharmacy #[id number], Partial fill upon [...] 1 Refills, Maintenance, 05/25/20 16:41:00 EDT, Suspension, [facility]/pharmacy #[id number], 165, cm, 04/22/20 [...] Date: 09/22/20 Stop Date: 09/24/20 Status: Ordered OxyCODONE IR Tablet 5 mg, Tablet, By Mouth, Every 4 hours, in PACU ONLY, if patient can tolerate PO, PRN for Pain , Mild, Routine, 09/22/20 13:04:00 EST Start Date: 09/22/20 Stop Date: 09/23/20 Status: Discontinued pravastatin 40 mg oral tablet 1 tablet [...] apnea, obstructive(Confirmed) 2009 Active Spinal stenosis(Confirmed) Active Vital Signs Most recent to oldest [Reference Range]: 1 2 3 Height 165.10 cm (09/22/20 11:12 AM) 165.10 cm (09/15/20 4:03 PM) Weight 87.73 kg (09/22/20 11:12 AM) 87.73 kg (09/15/20 4:03 PM) Oxygen Saturation [94-100 %] 95 % (09/22/20 3:45 PM) 93 % *L* (09/22/20 3:15 PM) 97 % (09/22/20 3:00 PM) Pulse Rate [55-90 bpm] 69 bpm (09/22/20 11:12 AM) Body Mass Index [18.5-24.99] 32.19 *>HHI* (09/22/20 11:12 AM) 32.19 *>HHI* (09/15/20 4:03 PM) Blood Pressure [90-138/55-84 mm Hg] 123/72mm Hg (09/22/20 3:15 PM) 136/101mm Hg (09/22/20 3:00 PM) 125/70mm Hg (09/22/20 2:45 PM) Respiratory Rate [16-30 br/min] 18 br/min (09/22/20 3:48 PM) 12 br/min *L* (09/22/20 3:15 PM) 14 br/min *L* (09/22/20 3:00 PM) Temperature [96.8-100.4 DegF] 98.4 DegF (09/22/20 5:00 PM) 97.5 DegF (09/22/20 2:15 PM) 98.9 DegF (09/22/20 11:12 AM) Liters per Minute 2 L/min (09/22/20 2:45 PM) 4 L/min (09/22/20 2:30 PM) 6 L/min (09/22/20 2:15 PM) Mode of Delivery (Oxygen) Room air (09/22/20 3:15 PM) Nasal cannula (09/22/20 2:45 PM) Simple face mask (09/22/20 2:15 PM) Blood pressure sites Arm, left (09/22/20 11:12 AM) Temperature Route Temporal (09/22/20 5:00 PM) Temporal (09/22/20 2:15 PM) Temporal (09/22/20 11:12 AM) Dry Weight 86.7 kg (09/22/20 11:12 AM) 87.73 kg (09/15/20 4:03 PM) Weight Obtained Via Patient/family state d (09/15/20 4:03 PM) Dry Weight Obtained Via Standing scale (09/22/20 11:12 AM) Social History Social History Type Response Tobacco Other: none. Sex
--- OUTSIDE RECORDS SUMMARY | 2023-06-01 02:47 | XMS_ITS | Continuity of Care Document ---
Author Name Unknown Organization [facility] Address [address] [place] [address]- Care Team Providers Care Statistician Applied Name Role Phone Radha Myers MD Primary Care Physician Encounter [facility] [place] Date(s): 12/30/21 - 01/29/22 [facility] [address] [place] [address] Allergies, Adverse Reactions, Alerts Substance Reaction [...] Given 1Result Comment: [facility] [id number] Medications amLODIPine 5 mg oral tablet 5 mg, 1, tablet, By Mouth, Daily, # 90 tablet, Refills 3, Tot. Refills 3, Maintenance, 12/09/21 16:47:00 EDT, Route to Pharmacy Electronically, [facility]/pharmacy #[id number], Partial fill upon patient request if the prescription is for a schedule II opioid drug.... Start Date: 12/09/21 Status: Ordered CPAP Machine See Instructions, # 1 each, Maintenance, AutoCPAP 8-20 cm H20, use Daily when sleeping, 12/17/21 13:03:00 EDT, Supply Start Date: 12/17/21 Status: Ordered [facility] OLOPATADINE 0.1% EYE DROPS INSTILL 1 DROP [...] capsule, 2 Refills, [facility], 165.1, cm, 01/10/22 15:58:00 EDT, Height, 84.36, kg, 12/17/21 15:48:00 EDT, Dry Weight Start Date: 01/16/22 Status: Ordered Potassium Chloride (Wyu-Zppk-Ork 10) 10 mEq oral tablet, extended release [...] # 18 each, 5 Refills, [facility], 17, INHALE 2 PUFFS BY MOUTH FOUR [...]
--- OUTSIDE RECORDS SUMMARY | 2023-06-01 02:47 | XMS_ITS | Continuity of Care Document ---
Author Name Unknown Organization [facility] Address Unknown Care Team Providers Care Coremaker Bench Name Role Phone Radha Myers MD Primary Care Physician [place] [facility] [place] 01/04/22 - 02/03/22 [facility] Attending Physician: AdmErnie corado Admitting Physician: Admtr, Ernie Referring Physician: Admtr, [...] tetanus/diphtheria/pertussis, acel(Tdap) 04/14/11 Given 1Result Comment: [facility] [id number] Medications amLODIPine 5 mg oral tablet 5 mg, 1, tablet, By Mouth, Daily, # 90 tablet, Refills 3, Tot. Refills 3, Maintenance, 12/09/21 16:47:00 EDT, Route to Pharmacy Electronically, [facility]/pharmacy #[id number], Partial fill upon patient request if the prescription is for a schedule II opioid drug.... Start Date: 12/09/21 Status: Ordered CPAP Machine See Instructions, # 1 each, Maintenance, AutoCPAP 8-20 cm H20, use Daily when sleeping, 12/17/21 13:03:00 EDT, Supply Start Date: 12/17/21 Status: Ordered [facility] OLOPATADINE 0.1% EYE DROPS INSTILL [...] Mouth, Daily, # 30 capsule, 2 Refills, [facility], 165.1, cm, 01/10/22 15:58:00 EDT, Height, 84.36, kg, 12/17/21 15:48:00 EDT, Dry Weight Start Date: 01/16/22 Status: Ordered Potassium Chloride (Fug-Odsp-Fdo 10) 10 mEq oral tablet, extended release [...] # 18 each, 5 Refills, [facility], 17, INHALE 2 PUFFS BY MOUTH FOUR [...]
--- OUTSIDE RECORDS SUMMARY | 2023-06-01 02:47 | XMS_ITS | Continuity of Care Document ---
Author Name Unknown Organization [facility] Address [address] [place] [address]- Care Team Providers Care Manager Terminal Name Role Phone Louis ALVES, Radha Primary Care Physician [phone] Encounter [facility] [place] Date(s): 11/26/22 - 12/26/22 [facility] [address] [place] [address]- Attending Physician: Ernie Sánchez Admitting Physician: Ernie [...] arrived late 2Result Comment: [facility] 51808-525-35 Medications albuterol CFC free 90 mcg/inh inhalation aerosol 2, puffs, Inhalation, 4 times a day, PRN, # 6.7 Gm, Refills 0, Tot. Refills 0, Maintenance, 12/06/22 16:55:00 EDT, Aerosol, Route to Pharmacy Electronically, [id number], [facility]/pharmacy #[id number], 165, cm, 12/06/22 14:13:00 EDT, Hei... Start Date: 12/06/22 Stop Date: 01/05/23 Status: Ordered amLODIPine 5 mg oral tablet 1 tablet, By Mouth, Daily, # 30 tablet, 5 Refills, Maintenance, 10/26/22 14:05:00 EST, [facility] 655[facility], 165, cm, 09/15/22 13:35:00 EST, Height, 79.8, kg, 07/30/22 10:04:00 EST, Dry Weight Start Date: 10/26/22 Status: Ordered CPAP Machine See Instructions, # 1 each, Maintenance, AutoCPAP 8-20 cm H20, use Daily when sleeping, 12/17/21 13:03:00 EDT, Supply Start Date: 12/17/21 Status: Ordered [facility] OLOPATADINE 0.1% EYE DROPS [facility] OL[facility] 0.1% EYE DROPS, 0 Refills, Maintenance, 06/21/22 12:58:00 EDT Start Date: 06/21/22 Status: Ordered dexamethasone/neomycin/polymyxin B ophthalmic 1 mg-3.5 mg-79296 u/gm ointment 0 Refills, Maintenance, 06/21/22 12:59:00 EDT, Partial fill upon patient request if the prescription is for a schedule II opioid drug. Start Date: 06/21/22 Status: Ordered ferrous sulfate 325 mg oral enteric coated tablet 1, tablet, By Mouth, 2 times a day, # 180 tablet, Refills 1, Maintenance, 06/30/22 13:50:00 EDT, Route to Pharmacy Electronically, [facility], 165, cm, 06/21/22 12:30:00 EDT, Height, 83.5, kg, 04/04/22 12:32:00 EDT, Dry Weight Start Date: 06/30/22 Status: Ordered fluticasone 50 mcg/inh nasal spray 2 sprays, Nares, Both, Daily in AM, # 16 Gm, 0 Refills, Maintenance, 11/26/22 13:41:00 EDT, [place], [facility]/pharmacy #[id number], Partial fill upon [...] 1 Refills, Maintenance, 09/20/22 18:10:00 EST, ECCapsule, [id number], Partial fill upon patient request if the prescription is for a schedule II opioid drug., 165, cm, 09/15/22 13:35:00 EST, H... Start Date: 09/20/22 Status: Ordered Potassium Chloride (Adn-Gvyo-Hlk 10) 10 mEq oral tablet, extended release 1 tablet, By Mouth, Daily, # 30 tablet, 11 Refills, Maintenance, 10/26/22 15:24:00 EST, [facility], 165, cm, 09/15/22 13:35:00 EST, Height, 79.8, kg, 07/30/22 10:04:00 EST, Dry Weight Start Date: 10/26/22 Status: Ordered pravastatin 40 mg oral tablet 1 tablet, By Mouth, Daily at bedtime, # 30 tablet, 5 Refills, Maintenance, 10/26/22 14:06:00 EST, [facility], 165, cm, 09/15/22 13:35:00 EST, Height, 79.8, kg, 07/30/22 10:04:00 EST, Dry Weight Start Date: 10/26/22 Status: Ordered ProAir HFA 90 mcg/inh inhalation aerosol 2 puffs, Inhalation, 4 times a day, PRN NEEDED FOR WHEEZING, # 18 each, 2 Refills, 03/14/22 11:48:00 EDT, [facility]/pharmacy #[id number], 17, 2 puffs Inhalation 4 times a day,PRN: NEEDED FOR WHEEZING, 165.1, cm, 03/14/22 11:16:00 EDT, Height, 84.36, kg, 04/0... Start Date: 03/14/22 Status: Ordered sertraline 100 mg oral tablet 1 tablet, By Mouth, Daily, # 90 tablet, 3 Refills, Maintenance, 06/30/22 13:51:00 EDT, [facility], 165, cm, 06/21/22 12:30:00 EDT, Height, 83.5, [...] Team Personnel Name: Yaneth Frankel RN Position: S RN Member Role: Primary [...] RN Position: [facility] OB RN Member Role: Primary Care Nurse Name: Radha Myers MD Position: [facility] Physician - Primary Care Member Role: PCP Address: Address: [address] [place] [address]- Name: Asiya Baker RN Position: S RN Member Role: Primary Care Nurse Name: Paramjit Solomon RN Position: S RN Member Role: Primary Care Nurse Care Team Related Persons Name: RAKAN FIGUEROA Address: home [address] [address]
--- OUTSIDE RECORDS SUMMARY | 2023-06-01 02:47 | XMS_ITS | Continuity of Care Document ---
Author Name Unknown Organization [facility] Address [address] [place] [address]- Care Team Providers Care Hairspring Staker Name Role Phone Louis ALVES, Radha Primary Care Physician [place] [facility] [place] Date(s): 01/27/22 - 02/03/22 [facility] [address] [place] [address]- Encounter Diagnosis HTN (hypertension)(Discharge Diagnosis) - 01/27/22 Hyperlipidemia, unspecified(Discharge Diagnosis) - 01/27/22 Attending Physician: Radha Myers MD Allergies, Adverse [...] Comment: [facility] 17264-478-53 Medications amLODIPine 5 mg oral tablet 5 mg, 1, tablet, By Mouth, Daily, # 90 tablet, Refills 3, Tot. Refills 3, Maintenance, 12/09/21 16:47:00 EDT, Route to Pharmacy Electronically, [facility]/pharmacy #[id number], Partial fill upon patient request if the prescription is for a schedule II opioid drug.... Start Date: 12/09/21 Status: Ordered CPAP Machine See Instructions, # 1 each, Maintenance, AutoCPAP 8-20 cm H20, use Daily when sleeping, 12/17/21 13:03:00 EDT, Supply Start Date: 12/17/21 Status: Ordered [facility] OLOPATADINE 0.1% EYE DROPS INSTILL 1 [...] Refills, [facility] 11630, 165.1, cm, 01/10/22 15:58:00 EDT, Height, 84.36, kg, 12/17/21 15:48:00 EDT, Dry Weight Start Date: 01/16/22 Status: Ordered Potassium Chloride (Mep-Dzuj-Xhv 10) 10 mEq oral tablet, extended release [...] FOR WHEEZING, # 18 each, 5 Refills, [facility] 56713, 17, INHALE 2 PUFFS BY MOUTH FOUR [...] Clinical Service Informant HTN (hypertension) Discharge Diagnosis 01/27/22 Hyperlipidemia, unspecified Discharge Diagnosis 01/27/22 Vital Signs Most recent to oldest [Reference Range]: 1 2 Height 165.1 cm (01/27/22 12:56 PM) 165.1 cm (01/27/22 12:47 PM) Weight 83.1 kg (01/27/22 12:47 PM) Oxygen Saturation [94-100 %] 98 % (01/27/22 12:47 PM) Pulse Rate [55-90 bpm] 72 bpm (01/27/22 12:47 PM) Body Mass Index [18.5-24.99] 30.49 *>HHI* (01/27/22 12:47 PM) Blood Pressure [90-138/55-84 mm Hg] 129/ 84mm Hg (01/27/22 12:56 PM) 141/84mm Hg *H* (01/27/22 12:47 PM) Temperature [96.8-100.4 DegF] 84.4 DegF *L* (01/27/22 12:47 PM) Mode of Delivery (Oxygen) Room air (01/27/22 12:47 PM) Blood pressure sites Arm, right (01/27/22 12:47 PM) Temperature Route Oral (01/27/22 12:47 PM) Weight Obtained Via Standing scale (01/27/22 12:47 PM) Social History Social History Type Response Tobacco Other: none. Sex
--- OUTSIDE RECORDS SUMMARY | 2023-06-01 02:47 | XMS_ITS | Continuity of Care Document ---
Author Name Unknown Organization [facility] Address [address] [place] [address]- Care Team Providers Care Machine Group Leader Name Role Phone Radha Myers MD Primary Care Physician [phone] Encounter [facility] [place] Date(s): 12/09/21 - 12/16/21 [facility] [address] [place] [address]- Encounter Diagnosis History of diverticulitis(Discharge Diagnosis) - 12/16/21 HTN (hypertension)(Discharge Diagnosis) - 12/16/21 Attending Physician: Radha Myers MD Allergies, Adverse [...] Recorded tetanus/diphtheria/pertussis, acel(Tdap) 04/14/11 Given 1Result Comment: [facility] 21158-938-07 Medications amLODIPine 5 mg oral tablet 5 [...] # 30 capsule, 2 Refills, [facility] ST[facility] 62780, 165.1, cm, 11/11/21 12:40:00 EST, Height, 89.7, kg, 12/17/20 9:14:00 EDT, Dry Weight Start Date: 11/14/21 Status: Ordered Potassium Chloride (Kie-Ctnr-Pvt 10) 10 mEq oral tablet, extended release [...] # 18 each, 5 Refills, [facility], 17, INHALE 2 PUFFS BY MOUTH FOUR [...] II opioid drug., 165.1, cm, 02/25/21 11:11:00 EDTNavjotprice... Start Date: 02/25/21 Status: Ordered Problem List [...] Service Informant History of diverticulitis Discharge Diagnosis 12/16/21 HTN (hypertension) Discharge Diagnosis 12/16/21 Vital Signs Most recent to oldest [Reference Range]: 1 2 Height 165.10 cm (12/09/21 3:14 PM) 165.10 cm (12/09/21 2:58 PM) Weight 84.7 kg (12/09/21 2:58 PM) Oxygen Saturation [94-100 %] 97 % (12/09/21 2:58 PM) Pulse Rate [55-90 bpm] 63 bpm (12/09/21 2:58 PM) Body Mass Index [18.5-24.99] 31.07 *>HHI* (12/09/21 2:58 PM) Blood Pressure [90-138/55-84 mm Hg] 159/ 92mm Hg *H* (12/09/21 3:14 PM) 150/71mm Hg *H* (12/09/21 2:58 PM) Temperature [96.8-100.4 DegF] 98.2 DegF (12/09/21 2:58 PM) Mode of Delivery (Oxygen) Room air (12/09/21 2:58 PM) Blood pressure sites Arm, right (12/09/21 2:58 PM) Temperature Route Oral (12/09/21 2:58 PM) Weight Obtained Via Standing scale (12/09/21 2:58 PM) Social History Social History Type Response Tobacco Other: none. Sex
--- OUTSIDE RECORDS SUMMARY | 2023-06-01 02:47 | XMS_ITS | Continuity of Care Document ---
Author Name Unknown Organization [facility] Address [address] [place] [address]- Care Team Providers Care Practice Billing Associate Name Role Phone Radha Myers MD Primary Care Physician Encounter [facility] [place] Date(s): 11/25/20 - 12/02/20 [facility] [address] [place] [address]- Encounter Diagnosis Hyperlipidemia(Discharge Diagnosis) - 11/25/20 Iron deficiency anemia(Discharge Diagnosis) - 11/25/20 Attending Physician: Radha Myers MD Allergies, Adverse [...] 1Result Comment: [facility] [id number] Medications Albuterol (Eqv-ProAir HFA) Inhalation, Every 6 [...] 08/20/20 18:07:00 EST, Route to Pharmacy Electronically, [facility]/pharmacy #[id number], Partial fill upon patient [...] 1 Refills, Maintenance, 11/21/20 16:41:00 EDT, Suspension, [facility]/pharmacy #[id number], 165.1, cm, 09/30/20 16:26:00 EST, Height, 87.5, kg, 09/30/20 16:26:00 EST, Dry Weight Start Date: 11/21/20 Stop Date: 05/20/21 Status: Ordered pravastatin 40 mg oral tablet 1 tablet = 40 mg, By Mouth, Daily at bedtime, will need labs for refills, # 30 tablet, 0 Refills, Maintenance, 11/21/20 10:54:00 EDT, Tablet, [facility]/pharmacy #[id number], Partial fill upon patient [...] Effective Dates Health Status Clinical Service Informant Hyperlipidemia Discharge Diagnosis 11/25/20 Iron deficiency anemia Discharge Diagnosis 11/25/20 Vital Signs Most recent to oldest [Reference Range]: 1 Height 165.10 cm (11/25/20 11:00 AM) Social History Social History Type Response Tobacco Other: none. Sex
--- OUTSIDE RECORDS SUMMARY | 2023-06-01 02:47 | XMS_ITS | Continuity of Care Document ---
Author Name Unknown Organization [facility] Address [address] [place] [address]- Care Team Providers Care Mobile Ui/Ux Designer Name Role Phone Louis ALVES, Radha Primary Care Physician [id number] Date(s): 07/12/22 - 08/11/22 [facility] [address] [place] [address]- Allergies, Adverse Reactions, Alerts Substance Reaction Severity [...] Requested from pharmacy, arrived late 2Result Comment: [facility] [id number] Medications acetaminophen 325 mg oral tablet 650 mg, 2, tablet, By Mouth, Every 6 hours, PRN, # 30 tablet, Refills 0, Tot. Refills 0, Maintenance, Pain , Moderate, 07/18/22 10:14:00 EST, Route to Pharmacy Electronically, [facility]/pharmacy #[id number], Partial fill upon patient request if the prescription i... Start Date: 07/18/22 Status: Ordered amLODIPine 5 mg oral tablet 5 mg, 1, tablet, By Mouth, Daily, # 90 tablet, Refills 3, Tot. Refills 3, Maintenance, 12/09/21 16:47:00 EDT, Route to Pharmacy Electronically, [facility]/pharmacy #[id number], Partial fill upon [...] Status: Ordered dexamethasone/neomycin/polymyxin B ophthalmic 1 mg-3.5 mg-41072 u/gm ointment 0 Refills, Maintenance, 06/21/22 12:59:00 EDT, Partial fill upon patient request if the prescription is for a schedule II opioid drug. Start Date: 06/21/22 Status: Ordered ferrous sulfate 325 mg oral enteric coated tablet 1, tablet, By Mouth, 2 times a day, # 180 tablet, Refills 1, Maintenance, 06/30/22 13:50:00 EDT, Route to Pharmacy Electronically, [facility] STORE [id number], 165, cm, 06/21/22 12:30:00 EDT, Height, 83.5, [...] Start Date: 06/21/22 Status: Ordered Potassium Chloride (Ayw-Rkno-Jwm 10) 10 mEq oral tablet, extended release 0 Refills, Maintenance, 06/21/22 12:58:00 EDT, Partial fill upon patient request if the prescription is for a schedule II opioid drug. Start Date: 06/21/22 Status: Ordered pravastatin 40 mg oral tablet 1 tablet, By Mouth, Daily at bedtime, # 90 tablet, 1 Refills, Maintenance, 06/03/22 20:32:00 EDT, [facility]/pharmacy #[id number], 165, cm, 04/04/22 12:32:00 EDT, Height, 83.5, kg, 04/04/22 12:32:00 EDT, Dry Weight Start Date: 06/03/22 Status: Ordered ProAir HFA 90 mcg/inh inhalation aerosol 2 puffs, Inhalation, 4 times a day, PRN NEEDED FOR WHEEZING, # 18 each, 2 Refills, 03/14/22 11:48:00 EDT, [facility]/pharmacy #[id number], 17, 2 puffs Inhalation 4 times a day,PRN: NEEDED FOR WHEEZING, 165.1, cm, 03/14/22 11:16:00 EDT, Height, 84.36, kg, 04/0... Start Date: 03/14/22 Status: Ordered sertraline 100 mg oral tablet 1 tablet, By Mouth, Daily, # 90 tablet, 3 Refills, Maintenance, 06/30/22 13:51:00 EDT, [id number], 165, cm, 06/21/22 12:30:00 EDT, Height, 83.5, kg, 04/04/22 12:32:00 EDT, Dry Weight Start Date: 06/30/22 Status: Ordered tamoxifen 20 mg oral tablet 1 tablet = 20 mg, By Mouth, Daily, # 90 tablet, 3 Refills, Maintenance, 02/25/21 11:24:00 EDT, Tablet, [facility]/pharmacy #[id number], Partial fill upon [...] Team Personnel Name: Yaneth Frankel RN Position: [facility] RN Member Role: Primary Care Nurse Name: Keena Thakkar RN Position: [facility] RN Member Role: Primary Care Nurse Name: Emili Alexander RN Position: [facility] RN Member Role: Primary Care Nurse Name: Sapna Cagle RN Position: [facility] RN Member Role: Primary Care Nurse Name: Anna Vaca RN Position: [facility] RN Member Role: Primary Care Nurse Name: Loren Spangler RN Position: [facility] RN Member Role: Primary Care Nurse Name: Cayla Gannon RN Position: [facility] RN Member Role: Primary Care Nurse Name: Mignon Ibarra RN Position: [facility] RN Member Role: Primary Care Nurse Name: Patricia Lieberman RN Position: [facility] AMB Nurse Member Role: Primary Care Nurse Name: Radha Myers MD Position: [facility] Primary Care Physician Member Role: PCP Address: Address: [address] [place] [address]- Name: Asiya Baker RN Position: [facility] RN Member Role: Primary Care Nurse Name: Paramjit Solomon RN Position: [facility] RN Member Role: Primary Care Nurse Care Team Related Persons Name: RAKAN FIGUEROA Address: [address] [address]
--- OUTSIDE RECORDS SUMMARY | 2023-06-01 02:47 | XMS_ITS | Continuity of Care Document ---
Author Name Unknown Organization [facility] Address [address] [place] [address]- Care Team Providers Care Cupola Patcher Name Role Phone Louis ALVES, Radha Primary Care Physician [phone] Encounter [facility] [place] Date(s): 03/29/20 - 03/31/[address] [address]- [facility] Discharge Disposition: A-D/C Home Attending Physician: Iron Pike MD Admitting Physician: Luis Felipe Hernandez MD Referring Physician: Not on Staff, Referring [...] Recorded tetanus/diphtheria/pertussis, acel(Tdap) 04/14/11 Given 1Result Comment: [facility] [id number] Medications albuterol 0.083% inhalation solution 3 mL [...] mL, 0 Refills, Maintenance, 03/30/20 2:55:00 EDT, [place] Start Date: 03/30/20 Status: Ordered NuLYTELY with Flavor Packs oral powder for reconstitution 240 mL, By Mouth, Every 10 minutes, # 4,000 mL, 0 Refills, Maintenance, 03/30/20 19:13:00 EDT, REC Powder, [id number], 240 mL By Mouth Every 10 [...] Exam Date Time Procedure Performing Provider Status 03/29/20 5:20 PM Chest Portable Himanshu Willis; Auth ( Verified) Notes: (Chest Portable) Reason For Exam: Shortness of Breath RESULT: Chest Portable Chest Portable Refer to EMR; Reason: Shortness of Breath COMPARISON: 10/20/2019 FINDINGS: LINES AND TUBES: None. LUNGS AND PLEURA: Clear lungs. Normal pulmonary vascularity. No pleural effusion. No pneumothorax. HEART, MEDIASTINUM AND WOODY: Heart is normal in size. Large paraesophageal hernia, similar to prior. BONES AND SOFT TISSUES: No acute abnormality. IMPRESSION: No acute abnormality. WSN: [id number] Ordering Physician: Irma Romero Dictated By: Mario Michaud MD Dictated Date/Time: 03/29/20 5:31 pm Reviewed By: Mario Michaud MD Signed By: Mario Michaud MD Signed Date/Time: 03/29/20 5:31 pm Transcribed By: XAVIER Transcribed Date/Time: 03/29/20 5:29 pm Vital Signs Most recent to oldest [Reference Range]: 1 2 3 Height 165 cm (03/31/20 12:14 AM) 165 cm (03/30/20 7:46 PM) 165 cm (03/30/20 2:58 PM) Weight 79.8 kg (03/29/20 11:15 PM) Oxygen Saturation [94-100 %] 96 % (03/31/20 7:00 AM) 97 % (03/31/20 12:14 AM) 94 % (03/30/20 7:46 PM) Pulse Rate [55-90 bpm] 63 bpm (03/31/20 7:00 AM) 86 bpm (03/31/20 12:14 AM) 76 bpm (03/30/20 7:46 PM) Body Mass Index [18.5-24.99] 29.31 *H* (03/29/20 11:15 PM) Blood Pressure [90-138/55-84 mm Hg] 143/69mm Hg *H* (03/31/20 8:35 AM) 143/69mm Hg *H* (03/31/20 7:00 AM) 111/62mm Hg (03/31/20 12:14 AM) Respiratory Rate [16-30 br/min] 18 br/min (03/31/20 9:23 AM) 18 br/min (03/31/20 8:35 AM) 18 br/min (03/31/20 7:00 AM) Temperature [96.8-100.4 DegF] 98.4 DegF (03/31/20 7:00 AM) 98.9 DegF (03/31/20 12:14 AM) 98.9 DegF (03/30/20 7:46 PM) Liters per Minute 0 L/min (03/30/20 12:15 AM) Mode of Delivery (Oxygen) Room air (03/31/20 7:00 AM) Room air (03/31/20 12:14 AM) Room air (03/30/20 7:46 PM) Blood pressure sites Arm, right (03/31/20 7:00 AM) Arm, right (03/31/20 12:14 AM) Arm, right (03/30/20 7:46 PM) Temperature Route Oral (03/31/20 7:00 AM) Axillary (03/31/20 12:14 AM) Oral (03/30/20 7:46 PM) Dry Weight 79.8 kg (03/29/20 11:15 PM) Weight Obtained Via Standing scale (03/29/20 11:15 PM) Dry Weight Obtained Via Standing scale (03/29/20 11:15 PM) Social History Social History Type Response Tobacco Other: none. Sex
--- OUTSIDE RECORDS SUMMARY | 2023-06-01 02:47 | XMS_ITS | Continuity of Care Document ---
Author Name Unknown Organization [facility] Address [address] [place] [address]- Care Team Providers Care Plastic Panel Installer Name Role Phone Louis ALVES, Radha Primary Care Physician En[place] [facility] [place] Date(s): 08/27/19 - 09/06/[address] [facility] [address] [place] [address]- [facility] Attending Physician: Ernie Sánchez Admitting Physician: AdmErnie corado Referring Physician: Admtr, Ernie Allergies, Adverse Reactions, Alerts Substance Reaction Severity [...] Recorded tetanus/diphtheria/pertussis, acel(Tdap) 04/14/11 Given 1Result Comment: [facility] [id number] Medications albuterol 0.083% inhalation solution 3 mL = 2.5 mg, Inhalation, Every 6 hours, PRN for wheezing, # 25 each, 0 Refills, Maintenance, 08/27/19 14:29:00 EST, Solution, [facility]/pharmacy #[id number], 167, cm, 08/27/19 13:50:00 EST, Height, 88, kg, 06/08/19 6:36:00 EDT, Dry Weight Start Date: 08/27/19 Status: Ordered albuterol 0.083% inhalation solution 3 mL = 2.5 mg, Inhalation, Once, PRN for wheezing, admin via [facility] in office Lot# [id number] exp#09/29/20, # 3 mL, 0 Refills, Soft Stop, 08/27/19 14:44:00 EST, Solution, Dry Weight Start Date: 08/27/19 Status: Ordered amLODIPine 2.5 mg oral tablet 2.5 mg, 1, tablet, By Mouth, Daily, # 90 tablet, Refills 3, Tot. Refills 3, Maintenance, 05/19/19 11:59:33 EDT, Route to Pharmacy Electronically, [id number], [facility]/pharmacy #[id number] Start Date: 05/19/19 Status: Ordered Azithromycin 5 Day Dose Pack 250 mg oral tablet 1 pack/packet, By Mouth, Once, # 6 tablet, 0 Refills, Soft Stop, 08/27/19 14:27:00 EST, Tablet, [facility]/pharmacy #[id number], 167, cm, 08/27/19 13:50:00 EST, [...]
--- OUTSIDE RECORDS SUMMARY | 2023-06-01 02:48 | XMS_ITS | Continuity of Care Document ---
Author Name Unknown Organization [facility] Address [address] [place] [address]- Care Team Providers Care Hydroelectric Component Machinist Name Role Phone Louis ALVES, Radha Primary Care Physician En[place] [facility] [place] Date(s[place] 03/14/22 - 03/21/22 [facility] [address] [place] [address]- Encounter Diagnosis Medicare annual wellness visit, subsequent(Discharge Diagnosis) - 03/14/22 Asthma(Discharge Diagnosis) - 03/14/22 HTN (hypertension)(Discharge Diagnosis) - 03/14/22 Hyperlipidemia, unspecified(Discharge Diagnosis) - 03/14/22 Iron deficiency anemia(Discharge Diagnosis) - 03/14/22 Major depression, recurrent(Discharge Diagnosis) - 03/14/22 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 Refills 3, Maintenance, 12/09/21 16:47:00 EDT, Route to Pharmacy Electronically, [facility]/pharmacy #[id number], Partial fill upon patient request if the prescription is for a schedule II opioid drug.... Start Date: 12/09/21 Status: Ordered CPAP Machine See Instructions, # 1 each, Maintenance, AutoCPAP 8-20 cm H20, use Daily when sleeping, 12/17/21 13:03:00 EDT, Supply Start Date: 12/17/21 Status: Ordered [facility] OLOPATADINE 0.1% EYE DROPS INSTILL 1 DROP ONCE/DAY BOTH EYES EVERYDAY FOR ALLERGY Start Date: 12/17/21 Status: Ordered esomeprazole 40 mg oral enteric coated capsule 1 capsule = 40 mg, By Mouth, Daily, # 90 capsule, 1 Refills, Maintenance, 03/16/22 15:30:00 EDT, ECCapsule, [facility]/pharmacy #[id number], Partial fill upon patient request if the prescription is for a schedule II opioid drug., 165.1, cm, 03/14/22 11:16:00 EDT,... Start Date: 03/16/22 Status: Ordered ferrous sulfate 325 mg oral enteric coated tablet 1, tablet, By Mouth, 2 times a day, # 180 tablet, Refills 1, Route to Pharmacy Electronically, [facility] STORE [id number], 165.1, cm, 01/27/22 12:56:00 EDT, Height, 84.36, kg, 12/17/21 15:48:00 EDT, Dry Weight Start Date: 02/08/22 Status: Ordered Multivitamin Daily, 0 Refills, Maintenance, 09/15/20 15:23:00 EST, Partial fill upon patient request if the prescription is for a schedule II opioid drug. Start Date: 09/15/20 Status: Ordered Potassium Chloride (Yli-Uadf-Fch 10) 10 mEq oral tablet, extended release 1 tablet = 10 mEq, By Mouth, Daily, # 90 tablet, 3 Refills, Maintenance, 11/29/21 19:05:00 EDT, [facility]/pharmacy #[id number], Partial fill upon patient request if the prescription is for a schedule II opioid drug., 165.1, cm, 11/28/21 15:50:00 EDT, Height, 89.7... Start Date: 11/29/21 Status: Ordered pravastatin 40 mg oral tablet 1 tablet, By Mouth, Daily at bedtime, # 90 tablet, 1 Refills, 12/07/21 13:16:00 EDT, [facility]/pharmacy #[id number], 165.1, cm, 12/07/21 7:39:00 EDT, Height, 84.2, kg, 12/02/21 22:06:00 EDT, Dry Weight Start Date: 12/07/21 Status: Ordered ProAir HFA 90 mcg/inh inhalation aerosol 2 puffs, Inhalation, 4 times a day, PRN NEEDED FOR WHEEZING, # 18 each, 2 Refills, 03/14/22 11:48:00 EDT, [facility]/pharmacy #[id number], 17, 2 puffs Inhalation 4 times a day,PRN: NEEDED FOR WHEEZING, 165.1, cm, 03/14/22 11:16:00 EDT, Height, 84.36, kg, 04/0... 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 Discharge Diagnosis 03/14/22 Vital Signs Most recent to oldest [Reference Range]: 1 Height 165.1 cm (03/14/22 11:16 AM) Weight 84.1 kg (03/14/22 11:16 AM) Oxygen Saturation [94-100 %] 96 % (03/14/22 11:16 AM) Pulse Rate [55-90 bpm] 61 bpm (03/14/22 11:16 AM) Body Mass Index [18.5-24.99] 30.85 *>HHI* (03/14/22 11:16 AM) Blood Pressure [90-138/55-84 mm Hg] 135/ 82mm Hg (03/14/22 11:16 AM) Temperature [96.8-100.4 DegF] 98.1 DegF (03/14/22 11:16 AM) Mode of Delivery (Oxygen) Room air (03/14/22 11:16 AM) Blood pressure sites Arm, right (03/14/22 11:16 AM) Temperature Route Oral (03/14/22 11:16 AM) Weight Obtained Via Standing scale (03/14/22 11:16 AM) Social History Social History Type Response Tobacco Other: none. Sex
--- OUTSIDE RECORDS SUMMARY | 2023-06-01 02:48 | XMS_ITS | Continuity of Care Document ---
Author Name Unknown Organization [facility] Address [address] [place] [address]- Care Team Providers Care Central Office Equipment Engineer Name Role Phone Radha Myers MD Primary Care Physician Encounter [facility] Date(s): 11/09/22 - 12/09/22 [facility] [address] [place] [address]- Attending Physician: Ernie Sánchez Admitting Physician: AdmErnie [...] Requested from pharmacy, arrived late 2Result Comment: [facility]NOTE 2] [id number] Medications albuterol CFC free 90 mcg/inh inhalation aerosol 2, puffs, Inhalation, 4 times a day, PRN, # 6.7 Gm, Refills 0, Tot. Refills 0, Maintenance, 12/06/22 16:55:00 EDT, Aerosol, Route to Pharmacy Electronically, [id number], [facility]/pharmacy #[id number], 165, cm, 12/06/22 14:13:00 EDT, Hei... Start Date: 12/06/22 Stop Date: 01/05/23 Status: Ordered amLODIPine 5 mg oral tablet 1 tablet, By Mouth, Daily, # 30 tablet, 5 Refills, Maintenance, 10/26/22 14:05:00 EST, [facility] STORE 00[facility], 165, cm, 09/15/22 13:35:00 EST, Height, 79.8, kg, 07/30/22 10:04:00 EST, Dry Weight Start Date: 10/26/22 Status: Ordered CPAP Machine See Instructions, # 1 each, Maintenance, AutoCPAP 8-20 cm H20, use Daily when sleeping, 12/17/21 13:03:00 EDT, Supply Start Date: 12/17/21 Status: Ordered [facility] OLOPATADINE 0.1% EYE DROPS [facility] OLOPAT[facility]INE 0.1% EYE DROPS, 0 Refills, Maintenance, 06/21/22 12:58:00 EDT Start Date: 06/21/22 Status: Ordered dexamethasone/neomycin/polymyxin B ophthalmic 1 mg-3.5 mg-55997 u/gm ointment 0 Refills, Maintenance, 06/21/22 12:59:00 EDT, Partial fill upon patient request if the prescription is for a schedule II opioid drug. Start Date: 06/21/22 Status: Ordered doxycycline hyclate 100 mg oral capsule 1 capsule = 100 mg, By Mouth, 2 times a day, for 10 days, # 20 capsule, 0 Refills, Acute 12/16/22 16:54:00 EDT, 12/06/22 16:54:00 EDT, Capsule, [facility]/pharmacy #[id number], Partial fill upon patient request if the prescription is for a schedule II opioid drug.... Start Date: 12/06/22 Stop Date: 12/16/22 Status: Ordered ferrous sulfate 325 mg oral enteric coated tablet 1, tablet, By Mouth, 2 times a day, # 180 tablet, Refills 1, Maintenance, 06/30/22 13:50:00 EDT, Route to Pharmacy Electronically, [facility] [id number], 165, cm, 06/21/22 12:30:00 EDT, Height, 83.5, kg, 04/04/22 12:32:00 EDT, Dry Weight Start Date: 06/30/22 Status: Ordered fluticasone 50 mcg/inh nasal spray 2 sprays, Nares, Both, Daily in AM, # 16 Gm, 0 Refills, Maintenance, 11/26/22 13:41:00 EDT, [place], [facility]/pharmacy #[id number], Partial fill [...] opioid drug. Start Date: 06/21/22 Status: Ordered Medrol 4 mg oral tablet 1 pack/packet, By Mouth, Daily, for 6 days, as directed on package labeling, # 21 tablet, 0 Refills, Acute 12/12/22 16:54:00 EDT, 12/06/22 16:54:00 EDT, Tablet, [facility]/pharmacy #[id number], Partial fill upon patient request if the prescription is for a schedul... Start Date: 12/06/22 Stop Date: 12/12/22 Status: Ordered Multivitamin Daily, 0 Refills, Maintenance, 09/15/20 15:23:00 EST, Partial fill upon patient request if the prescription is for a schedule II opioid drug. Start Date: 09/15/20 Status: Ordered omeprazole 40 mg oral enteric coated capsule 1 capsule = 40 mg, By Mouth, Daily, # 90 capsule, 1 Refills, Maintenance, 09/20/22 18:10:00 EST, ECCapsule, [facility]/pharmacy #[id number], Partial fill upon patient request if the prescription is for a schedule II opioid drug., 165, cm, 09/15/22 13:35:00 EST, H... Start Date: 09/20/22 Status: Ordered Potassium Chloride (Had-Wtzs-Fjc 10) 10 mEq oral tablet, extended release 1 tablet, By Mouth, Daily, # 30 tablet, 11 Refills, Maintenance, 10/26/22 15:24:00 EST, [facility], 165, cm, 09/15/22 13:35:00 EST, Height, 79.8, kg, 07/30/22 10:04:00 EST, Dry Weight Start Date: 10/26/22 Status: Ordered pravastatin 40 mg oral tablet 1 tablet, By Mouth, Daily at bedtime, # 30 tablet, 5 Refills, Maintenance, 10/26/22 14:06:00 EST, [facility], 165, cm, 09/15/22 13:35:00 EST, Height, 79.8, [...] Refills, Maintenance, 06/30/22 13:51:00 EDT, [facility], 165, cm, 06/21/22 12:30:00 EDT, Height, 83.5, kg, 04/04/22 12:32:00 EDT, Dry Weight Start Date: 06/30/22 Status: Ordered tamoxifen 20 mg oral tablet 1 tablet = 20 mg, By Mouth, Daily, # 30 tablet, 11 Refills, Maintenance, 09/13/22 10:45:00 EST, Tablet, [facility]/pharmacy #[id number], Partial fill [...] Response Tobacco Other: none. Sex Note * Event Display: Genetic Labs, Non Authored Date: Patient Care team information Care Team Personnel [...] Patricia Lieberman RN Position: [facility] OB RN Member Role: Primary Care Nurse Name: Radha Myers MD Position: [facility] Primary Care Physician Member Role: PCP Address: Address: [address] [place] [address]- Name: Asiya Baker RN Position: [facility] RN Member Role: Primary Care Nurse Name: Paramjit Solomon RN Position: [facility] RN Member Role: Primary Care Nurse Care Team Related Persons Name: RAKAN FIGUEROA Address: [address] [address]
[2023-06-01] MEDS: Tamsulosin HCL 0.4 MG CAPSULE PO (06:42)
--- NOTE | 2023-06-01 08:40 | P.CNUR_ITS ---
History of Present Illness Consult details Consult date: 06/01/23 Narrative: Claudia is a 67 year old female with History of kidney stones over 10 years ago. She was seen at [facility] on 05/27 diagnosed with 5 mm mid ureteral stone with mild hydronephrosis and the patient states she was seen by urologist at [facility] yesterday who discussed elective treatment but advised to go to the ER if pain gets worse. She c/o's having severe pain with nausea and vomiting, denies fever denies chills. CTAP report reviewed: 5 mmm left mid ureteral stone with mild hydronephrosis, additional punctate stones in the left kidney. right kidney lower pole scarring no renal calculi reported. Review of Systems 2 Review of Systems: 10 point ROS negative other than stated in the [facility] Past Medical History Medical History Kidney stone Breast CA Diverticulitis Social History Social History Alcohol intake: current Alcohol intake frequency: holidays/special occasions only Patient Tobacco Use Status: Never used Tobacco Smoked in Last 30 Days: No Use of substances other than those prescribed or required for medical reasons: No Advance Directives: No Advance Directives Information Provided: Yes Meds Allergies Allergy/AdvReac Type Severity Reaction Status Date / Time Sulfa (Sulfonamide Allergy Unknown UNKNOWN, Verified 05/26/21 15:42 Antibiotics) rash, [SULFA (SULFONAMIDE sweating ANTIBIOTICS)] telmisartan Allergy Unknown Unknown Verified 05/26/21 15:42 Active Medications: Current Medications Lactated Ringer's (Lr) 1,000 mls @ 125 mls/hr IVCONT .Q8H KARO Morphine Sulfate (Morphine Sulfate 4 Mg/Ml Cartridge) 4 mg IVPUSH Q4H PRN; Protocol PRN Reason: Pain, Moderate(Pain Scale 4-6) Physical Exam 2 Vital Signs: Vital Signs: Last Vital Signs Temp 100.5 F H 06/01/23 01:24 Pulse 93 06/01/23 01:24 Resp 16 06/01/23 01:24 BP 180/55 H 06/01/23 01:24 Pulse Ox 99 06/01/23 01:24 O2 Del Method Room Air 06/01/23 01:24 BMI result Body Mass Index 28.7 Const: General: cooperative, healthy appearing and no acute distress O rientation/consciousness: patient oriented x3 HEENT: Head: Yes normal to inspection, Yes normocephalic and Yes atraumatic Eyes: Conjunctivae: conjunctivae normal Neck: Neck: Yes normal visual inspection and Yes trachea midline Chest: Chest palpation & inspection: normal inspection of the chest Resp: Effort & Inspection: normal respiratory effort Cardio: Rate: regular rate GI: Inspection: Yes normal to inspection Palpation (GI): Soft to palpation : General: Yes CVA tenderness (left) Back/Spine/Pelvis: Back: CVA tenderness (left) Skin: General skin exam: no rashes or lesions noted Neuro: General: patient oriented x3 Extrem: General: No edema Psych: Appearance: grossly normal Results Labs 06/01/23 01:39 06/01/23 01:39 Labs: Abnormal lab results 06/01/23 Range/Units 01:39 WBC 13.6 H (4.8-10.8) X10*3/uL RBC 4.16 L (4.20-5.50) X10*6/uL Hgb 10.2 L (12.0-16.0) g/dl Hct 33.7 L (37.0-47.0) % MCH 24.5 L (27.0-33.0) pg MCHC 30.3 L (31.0-35.0) g/dl Immature Gran % (Auto) 0.6 H (0.0-0.4) % Neut % (Auto) 87.9 H (45-73) % Lymph % (Auto) 6.6 L (20-40) % Lymph # (Auto) 0.9 L (1.2-4.9) X10*3/uL Abs Immat Gran (auto) 0.08 H (0.00-0.03) X10*3/uL Absolute Neuts (auto) 11.9 H (2.0-8.3) x10*3/uL Random Glucose 138 H (60-115) mg/dL Short CBC 06/01/23 Range/Units 01:39 WBC 13.6 H (4.8-10.8) X10*3/uL Hgb 10.2 L (12.0-16.0) g/dl Hct 33.7 L (37.0-47.0) % Plt Count 278 (160-400) X10*3/uL [facility] 06/01/23 01:39 Sodium 142 Potassium 3.4 Chloride 108 Carbon Dioxide 22 BUN 10 Creatinine 1.10 Calcium 9.[address] scan report/results: report reviewed CT scan - pelvis: report reviewed Assessment and Plan (1) Ureteric calculus: Status: Acute (2) Kidney stone on left side: Status: Acute (3) Left ureteral stone: Status: Acute (4) Hydronephrosis: Status: Acute (5) Flank pain: Status: Acute (6) Nausea & vomiting: Status: Acute Plan Renal US pending Cystoscopy left retrograde, ureteral stent possible ureteroscopy laser. Time Spent With Patient Time: Total time managing care of this patient today ____ minutes. Procedures Date of Service Date of Service: 06/01/23
[2023-06-01] MEDS: Lactated Ringers 1,000 ML 125 ML IVCONT (09:33)
--- NOTE | 2023-06-01 12:45 | PC.NURSE ---
Report given to SSS
[2023-06-01 13:48] LABS: Appearance Urine Clear; Color Urine Dark Yellow; Glucose Urine UA Negative (Negative); Leukocyte Esterase Urine Small (1+) (Negative); Nitrite Urine Negative (Negative); PH 5.5 (5.0-9.0); UMIC TRIGGER UACC YES; Urine Blood Trace (Negative); Urine Ketones Trace mg/dL (Negative); Urine Protein Trace mg/dL (Neg-Trace)
[2023-06-01 13:50] LABS: Bacteria Urine None Seen (None Seen); UACC Culture Trigger YES; WBC Urine 21-50 /HPF (0-5)
--- NOTE | 2023-06-01 15:21 | PC.NURSE ---
Pt has been NPO, IVF infusing, ambulating to BR went to [facility] for procedure
--- NOTE | 2023-06-01 15:44 | P.CONAN_ITS ---
HPI - Anesthesia Eval Consult details Narrative: for cysto, ureteroscopy, poss stent PMFSH Active Problems Active Problems: All Active Problems (Updated 06/01/23 @ 08:52 by Tony Kohli MD) Nausea & vomiting (Acute) Flank pain (Acute) Hydronephrosis (Acute) Left ureteral stone (Acute) Kidney stone on left side (Acute) Ureteric calculus (Acute) Past Medical History Medical History Kidney stone Breast CA Diverticulitis Family History Family history of problems with anesthesia: No Surgical History History of Problems with Anesthesia: Yes (PONV) Social History Social History Alcohol intake: current Alcohol intake frequency: holidays/special occasions only Patient Tobacco Use Status: Never used Tobacco Smoked in Last 30 Days: No Use of substances other than those prescribed or required for medical reasons: No Are you DNR?: No Advance Directives: No Advance Directives Information Provided: Yes Meds Allergies Allergy/AdvReac Type Severity Reaction Status Date / Time Sulfa (Sulfonamide Allergy Unknown UNKNOWN, Verified 05/26/21 15:42 Antibiotics) rash, [SULFA (SULFONAMIDE sweating ANTIBIOTICS)] telmisartan Allergy Unknown Unknown Verified 05/26/21 15:42 Active Medications: Current Medications Lactated Ringer's (Lr) 1,000 mls @ 125 mls/hr IVCONT .Q8H KARO Last Admin: 06/01/23 09:33 Dose: 125 mls/hr Morphine Sulfate (Morphine Sulfate 4 Mg/Ml Cartridge) 4 mg IVPUSH Q4H PRN; Protocol PRN Reason: Pain, Moderate(Pain Scale 4-6) Exam Exam Date and Time: June 01, 2023 1544 Height,Weight and Vital Signs: Height 5 ft 2 in Weight 71.214 kg Last Vital Signs Temp 99.7 F 06/01/23 15:34 Pulse 85 06/01/23 15:34 Resp 16 06/01/23 15:34 BP 144/73 H 06/01/23 15:34 Pulse Ox 96 06/01/23 15:34 O2 Del Method Room Air 06/01/23 15:34 Pertinent Lab Results Pertinent Lab Results: Laboratory Tests 06/01/23 06/01/23 01:39 13:31 WBC 13.6 H RBC 4.16 L Hgb 10.2 L Hct 33.7 L MCV 81.0 MCH 24.5 L MCHC 30.3 L RDW 15.4 Plt Count 278 MPV 11.2 Immature Gran % (Auto) 0.6 H Neut % (Auto) 87.9 H Lymph % (Auto) 6.6 L [place] % (Auto) 4.6 Eos % (Auto) 0.0 Baso % (Auto) 0.3 Lymph # (Auto) 0.9 L [place] # (Auto) 0.6 Eos # (Auto) 0.0 Baso # (Auto) 0.0 Abs Immat Gran (auto) 0.08 H Absolute Neuts (auto) 11.9 H Absolute Nucleated RBC 0.000 Nucleated RBC % (auto) 0.0 Sodium 142 Potassium 3.4 Chloride 108 Carbon Dioxide 22 Anion Gap 15 BUN 10 Creatinine 1.10 Estim Creat Clear Calc 45.2 Estimated GFR 49 Random Glucose 138 H Calcium 9.7 D Urine Color Dark Yellow Urine Appearance Clear Urine pH 5.5 Ur Specific [place] 1.020 Urine Protein Trace Urine Glucose (UA) Negative Urine Ketones Trace Urine Blood Trace H Urine Nitrite Negative Ur Leukocyte Esterase Small (1+) H Urine RBC 11-20 H Urine WBC 21-50 H Ur Squamous Epith Cells 3-5 Urine Bacteria None Seen Hyaline Casts 3-5 Airway Mallampati Class: II TM Dist: >3cm Neck ROM: Full Denture: Upper Heart: ok Lungs: ok Assessment and Plan Assessment Anesthesia Assessment: Anesthesia Plan Discussed and Chart Reviewed Final Anesthetic Review Family History of Problems with Anesthesia: No History of Problems with Anesthesia: Yes (PONV) NPO: Yes ASA Class: II Final Preanesthetic Review: No Changes in Pt Med Stat, Meds/Allgs Chart Reviewed, Consent Obtained/Reviewed and Anes Risks/Benef Reviewed Patient Risk: Intermediate Procedure Risk: Low Anesthetic Plan Anesthetic Plan: GA and Other Disposition: Standard PACU
--- NOTE | 2023-06-01 16:28 | MHC.SHP ---
Pre-Procedural Eval Section A Date of Service: 06/01/23 The patient is an INPATIENT: No Changes since office visit: No Cold of Flu in the past 2 weeks, No New Medical Problems, No Changes in Medication and No Patient answered all questions The History & Physical has been completed within 30 days and I have reviewed it.: Yes Section B Chief Complaint: Kidney stones Allergies: Allergies Allergy/AdvReac Type Severity Reaction Status Date / Time Sulfa (Sulfonamide Allergy Unknown UNKNOWN, Verified 05/26/21 15:42 Antibiotics) rash, [SULFA (SULFONAMIDE sweating ANTIBIOTICS)] telmisartan Allergy Unknown Unknown Verified 05/26/21 15:42 Plan Diagnosis/Plan: Unchanged (cysto, left retrograde, ureteroscopy, laser lithotripsy, stent) I have reviewed the history and physical and performed a pertinent physical examination on my patient. No changes have occurred unless specified. Time Spent With Patient Time: Total time managing care of this patient today ____ minutes.
--- NOTE | 2023-06-01 17:16 | W.PM.OPN ---
Operative Note Operative Note Date of Service: 06/01/23 Narrative: PreOperative Diagnosis: Left proximal ureteric stone Post Operative Diagnosis: Left proximal ureteric stone Procedure: - cystoscopy, left retrograde - left dilatation of ureteric orifice under fluoroscopy - left ureteroscopy, stone basketing - left stent placement Surgeon: Dr Supa Doll Anesthesia: General Indications for procedure: Left proximal ureteric stone, 2nd presentation to emergency room, WBC 13.6, creatinine 1.1 Procedure: After informed consent was verified patient was brought to the operating placed in supine position. Anesthesia was administered per protocol. Patient was placed in modified dorsal lithotomy position and prepped and draped in a sterile fashion. Safety pause time-out and side of surgery confirmed. Antibiotics confirmed. 22 Guamanian cystoscope was inserted per urethra. Bladder was normal in its entirety. Both ureteric orifices were in normal position. The left ureteric orifice was cannulated and a retrograde examination was performed. Possible filling defect left proximal ureter with mild hydroureteronephrosis. A Sensor guidewire was placed up to the level of the renal pelvis under fluoroscopy. The rigid cystoscope was removed and the inner cannula of ureteric access sheath was used under fluoroscopy to dilate the ureteric orifice. The ureteric access sheath was placed and the inner cannula with access wire removed. The digital flexible ureteral scope was placed. Stone was encountered in kidney. Using a 1.9 Guamanian ZeroTip basket the stone was able to be removed and brought out through the access sheath. At the completion of the stone procedure a Sensor wire was placed back into the renal pelvis. A 6 Guamanian by 24 cm double-J stent was placed into the renal pelvis and bladder under a combination of fluoroscopy and direct visualization. The symphisis pubis was used as a radiographic marker to release the stent and good coil was seen within the bladder confirming position The bladder was emptied. The patient tolerated the procedure well and was extubated in the operating room, and transferred in stable condition to the recovery area. Pathology: Stone Drains: Stents above
--- NOTE | 2023-06-03 07:52 | MHC.CM.PN ---
Patient d/c'd home before being seen by case management.
[2023-06-09 19:22] LABS: Stone Source NOT GIVEN
== END 2023-06-01 18:11 | disposition home or self-care (01) ==
LOC: HO.ED 15:25 → HO.SSS 15:32
PROVIDERS: Internal Medicine; Urology; Emergency Provider Emergency Medicine Emergency Medical Services; Visit Provider Pediatrics Pediatric Gastroenterology
PROC: (CPT 52332; principal; 2023-06-01 16:00)
DX: N13.2 Hydronephrosis with renal and ureteral calculous obstruction (principal); Z87.442 Personal history of urinary calculi; R10.9 Unspecified abdominal pain; R11.2 Nausea with vomiting, unspecified; Z87.19 Personal history of other diseases of the digestive system; Z85.3 Personal history of malignant neoplasm of breast; Z79.1 Long term (current) use of non-steroidal anti-inflammatories (NSAID); Z79.899 Other long term (current) drug therapy; Z88.2 Allergy status to sulfonamides; Z88.8 Allergy status to other drugs, medicaments and biological substances
CPT/HCPCS: 52332; 36415; 74176; 80048; 81001; 82365; 85025; 87086; 88300; 96361; 96374; 96375; 99285; C1758; C1769; C1894; C2617; J1885; J1956; J2270; J2405; J3010; Q9967

== ENCOUNTER → 2023-06-01 02:41 | Outpatient (BNV) | payer OTHER, MEDICARE, SELFPAY | PROVIDERS: Emergency Provider Emergency Medicine Emergency Medical Services; Visit Provider Urology | DX: N20.1 Calculus of ureter (principal); N13.30 Unspecified hydronephrosis; R10.9 Unspecified abdominal pain; R11.2 Nausea with vomiting, unspecified | CPT/HCPCS: 52332; 52352; 52356; 74420; 99283 ==

== ENCOUNTER 2023-06-08 09:58 | Outpatient (AMB) | payer OTHER, MEDICARE, SELFPAY ==
--- NOTE | 2023-06-08 10:06 | MHC.OFFVIS ---
Intake Intake Visit Reasons: ER cysto stent removal Intake Note: Patient is Present for Follow Up Stent Removal Urology Medication: Tamsulosin Antibiotic Allergies: Sulfa Antibiotics Blood Thinners: None Pharmacy: [facility] URO-G Disposable Cystoscope LOT: [id number] EXP: 01/21/2025 Allergies Sulfa (Sulfonamide Antibiotics) [SULFA (SULFONAMIDE ANTIBIOTICS)] Allergy (Unknown, Verified 05/26/21 15:42) UNKNOWN, rash, sweating telmisartan Allergy (Unknown, Verified 05/26/21 15:42) Unknown HPI HPI Comments History of Present Illness Details Claudia is a pleasant female. She is seen for the following urologic conditions - nephrolithiasis Here for cystoscopy stent removal Nephrolithiasis Reason presentation through [facility] CT scan - left side proximal ureteric stone Intervention - 06/02 left ureteroscopy Stone composition - 06/02 mixed calcium oxalate, monohydrate 80% Therapeutic plan - imaging surveillance - courage fluids - lemon water therapy PFSH Medical History Kidney stone Breast CA Diverticulitis Social History Alcohol intake: current Alcohol intake frequency: holidays/special occasions only Patient Tobacco Use Status: Never used Tobacco Review of Systems Const Denies chills and Denies fever(s) Card Reports no additional complaints and Denies syncope Resp Denies cough GI Denies abdominal pain and Denies heartburn Reports as per HPI and Denies change in libido Neuro Denies syncope Psych Denies change in libido Endo Denies change in libido Physical Exam Const General: cooperative, healthy appearing, comfortable and no acute distress Orientation/consciousness: patient oriented x3 HEENT Face and sinus: Yes normal facial exam Mouth: moist mucous membranes Neck Neck: Yes normal visual inspection, Yes full ROM and Yes trachea midline Chest Chest palpation & inspection: normal inspection of the chest Resp Effort & Inspection: normal respiratory effort, able to speak in complete sentences and no respiratory distress GI Inspection: Yes normal to inspection Back/Spine/Pelvis Cervical Spine: normal cervical lordosis Thoracic/Lumbar Spine: thoracic and lumbar spine normal to inspection Skin General skin exam: no rashes or lesions noted Neuro General: patient oriented x3, gait normal, tone normal and moves all extremities Extrem General: Yes normal to inspection and Yes capillary refill normal Office Procedures Cystoscopy Consent Discussed risk and benefit or proposed procedure with the patient. Information consent for procedure given to the patient. Discussed technical aspects, risks, benefits and alternatives in full. Addressed all of the patient's questions and concerns regarding the procedure. The patient demonstrated knowledge and understanding. They wish to proceed with this procedure. Preparation The patient was prepped in the usual manner. A diesel dinkey engineer was present and in the room. Genitalia was prepped with betadine solution in a sterile manner. Lidocaine Jelly 2% was placed into the urethra and 16Fr flexible Olympus cystoscope was inserted into the meatus after adequate lubrication. Procedure A well lubricated 16 [place] Guinean cystoscope was placed No abnormality noted of urethra during placement Indwelling stent seen within bladder emerging from left ureteric orifices The stent was grasped with a 3 prong grasper and removed without difficulty The patient tolerated the procedure well [id number] with stent removal DISPOSABLE SCOPE URO-G FLEXIBLE SCOPE Procedure code (CPT) selection complete Office Meds lidocaine HCl 2 % mucosal jelly in applicator Performing Provider: Supa Doll MD Performing Location: [facility] Administered by: Ryan Baires LPN on 06/08/23 10:50 Dose Route Admin Location Dispensed Lot Number Expiration Date ND Pilot Plant Technician 10 mL intra-urethral 10 mL nitrofurantoin monohydrate/macrocrystals 100 mg capsule Performing Provider: Supa Doll MD Performing Location: [facility] Administered by: Ryan aBires LPN on 06/08/23 10:50 Dose Route Admin Location Dispensed Lot Number Expiration Date ND Pilot Plant Technician 100 mg PO 1 cap naproxen 500 mg tablet Performing Provider: Supa Doll MD Performing Location: [facility] Administered by: Ryan Baires LPN on 06/08/23 10:50 Dose Route Admin Location Dispensed Lot Number Expiration Date NDC Pilot Plant Technician 500 mg PO 1 tab Results AMB Urinalysis, Automated UA Leukoctes 500 Moraima/uL Last Edit by Pam Melgar on 06/08/23 10:39 UA Nitrite Negative Last Edit by Pam Melgar on 06/08/23 10:39 UA Urobilinogen 0.2 mg/dL Last Edit by Pam Melgar on 06/08/23 10:39 UA Protein 300 mg/dL Last Edit by Pam Melgar on 06/08/23 10:39 UA pH 6.0 Last Edit by Pam Melgar on 06/08/23 10:39 UA Blood 200 John/uL Last Edit by Pam Melgar on 06/08/23 10:39 UA Specific Emma 1.020 Last Edit by Pam Melgar on 06/08/23 10:39 UA Ketone Negative Last Edit by Pam Melgar on 06/08/23 10:39 UA Bilirubin 1 mg/dL Last Edit by Pam Melgar on 06/08/23 10:39 UA Glucose 0 mg/dL Last Edit by Pam Melgar on 06/08/23 10:39 Results Reviewed Results Reviewed: Laboratory Last Values Urine pH (Auto) 6.0 06/08/23 10:08 Specific Emma (Auto) 1.020 06/08/23 10:08 Urine Protein (Auto) 300 mg/dL 06/08/23 10:08 Glucose (UA)(Auto) 0 mg/dL 06/08/23 10:08 Urine Ketones (Auto) Negative 06/08/23 10:08 Urine Blood (Auto) 200 John/uL 06/08/23 10:08 Urine Nitrite (Auto) Negative 06/08/23 10:08 Urine Bilirubin (Auto) 1 mg/dL 06/08/23 10:08 Urine Urobilinogen (Auto) 0.2 mg/dL 06/08/23 10:08 Leukocyte Esterase (Auto) 500 Moraima/uL 06/08/23 10:08 Assessment & Plan Assessment & Plan (1) Ureteric calculus: Code(s): N20.1 - Calculus of ureter Plan 3m f/u imaging Orders: Orders US renal BI 3 Months N20.1 - Calculus of ureter AMB Urinalysis Automated 06/08/23 Z13.9 - Encounter for screening, unspecified AMB Cystoscopy 06/08/23 N20.0 - Calculus of kidney Patient Instructions: Imaging studies, laboratory and physical exam results were discussed and reviewed in detail. No major barriers to patient understanding were identified. An opportunity to ask questions regarding the treatment plan was provided. All questions were answered. The patient expressed understanding and agreement with the above treatment plan. The patient is aware they should contact our office by phone for worsening of their current condition or the appearance of new urologic symptoms. Compliance is encouraged with any medications and followup testing that is ordered. It is a privilege to participate in the urologic care of your patient. If you have any questions or concerns regarding treatment for the above conditions, or other urologic issues, please do not hesitate to contact me. The office telephone contact is [phone]. This note is constructed using voice recognition software. While every effort has been made to ensure accuracy regional construction manager errors may have been included. Yours sincerely, Dr Supa Doll MD, [facility] - Urology Providers of Expert, Compassionate Care for the Genitourinary System Coding Level of Care Code Est Pt Level 4 (97971) Diagnoses Ureteric calculus N20.1 CPT Codes Cystoscopy - CPT: 78500-[id number] with stent removal ([id number])
== END 2023-06-08 11:11 | disposition home or self-care (01) ==
PROVIDERS: Visit Provider Urology
DX: N20.0 Calculus of kidney (principal); Z96.0 Presence of urogenital implants; Z13.9 Encounter for screening, unspecified
CPT/HCPCS: 52310

== ENCOUNTER → 2023-06-08 09:58 | Outpatient (BNVA) | payer OTHER, MEDICARE, SELFPAY | PROVIDERS: Visit Provider Urology | DX: Z48.816 Encounter for surgical aftercare following surgery on the genitourinary system (principal) | CPT/HCPCS: 52310; 81003 ==

== ENCOUNTER 2023-09-20 12:56 | Outpatient (REF) | payer OTHER, MEDICARE, SELFPAY ==
--- NOTE | ~2023-09-20 | US_ITS ---
EXAMINATION: US RETROPERITONEAL LIMITED (RENAL ONLY) CLINICAL INFORMATION: Calculus of ureter. COMPARISON: CT abdomen and pelvis without contrast 06/01/2023. TECHNIQUE: Real-time imaging of the kidneys. FINDINGS: RIGHT KIDNEY: 10.6 x 6.2 x 5.6 cm (SAG x AP x TRV). The kidney is normal in size, contour, and echogenicity. Renal cortical thickness is normal. No focal parenchymal lesions or hydronephrosis. 3 mm upper pole calculus. LEFT KIDNEY: 9.5 x 4.8 x 4.8 cm (SAG x AP x TRV). The kidney is normal in size, contour, and echogenicity. Renal cortical thickness is normal. No focal parenchymal lesions or hydronephrosis. 3 mm lower pole calculus. 3 mm mid pole calculus. US/US renal BI IMPRESSION: Bilateral nonobstructing renal calculi..
== END 2023-09-20 12:57 | disposition home or self-care (01) ==
LOC: HO.HMGCX 12:56
PROVIDERS: Visit Provider Urology
DX: N20.1 Calculus of ureter (principal)
CPT/HCPCS: 76775

== ENCOUNTER 2023-10-05 12:38 | Outpatient (AMB) | payer OTHER, MEDICARE, SELFPAY ==
--- NOTE | 2023-10-05 13:09 | MHC.OFFVIS ---
Intake Intake Visit Reasons: 3m/US(set) Intake Note: Patient is Present for Follow Up Ultrasound Urology Medication: Tamsulosin Antibiotic Allergies: Sulfa Blood Thinners: None Allergies Sulfa (Sulfonamide Antibiotics) [SULFA (SULFONAMIDE ANTIBIOTICS)] Allergy (Unknown, Verified 05/26/21 15:42) UNKNOWN, rash, sweating telmisartan Allergy (Unknown, Verified 05/26/21 15:42) Unknown Medication List - Last Reconciled 10/05/23 by Supa Doll MD ciprofloxacin HCl 250 mg PO DAILY 7 days metronidazole (Flagyl) 500 mg PO TID 10 days naproxen 500 mg PO BID PRN 7 days phenazopyridine (Pyridium) 100 mg PO TID PRN 4 days tamsulosin 0.4 mg PO BEDTIME 14 days HPI HPI Comments History of Present Illness Details Claudia is a pleasant female. She is seen for the following urologic conditions - nephrolithiasis Three-month follow-up renal imaging Small stone fragments seen on image Six-month follow-up nurse-practitioner renal ultrasound Nephrolithiasis Reason presentation through [facility] CT scan - left side proximal ureteric stone Imaging - 10/03 renal ultrasound bilateral 3 mm - 06/02 CT 7 mm left Intervention - 06/02 left ureteroscopy Stone composition - 06/02 mixed calcium oxalate, monohydrate 80% Therapeutic plan - imaging surveillance - courage fluids - lemon water therapy PFSH Medical History Kidney stone Breast CA Diverticulitis Social History Alcohol intake: current Alcohol intake frequency: holidays/special occasions only Patient Tobacco Use Status: Never used Tobacco Review of Systems Const Denies chills and Denies fever(s) Card Reports no additional complaints and Denies syncope Resp Denies cough GI Denies abdominal pain and Denies heartburn Reports as per HPI and Denies change in libido Neuro Denies syncope Psych Denies change in libido Endo Denies change in libido Physical Exam Const General: cooperative, healthy appearing, comfortable and no acute distress Orientation/consciousness: patient oriented x3 HEENT Face and sinus: Yes normal facial exam Mouth: moist mucous membranes Neck Neck: Yes normal visual inspection, Yes full ROM and Yes trachea midline Chest Chest palpation & inspection: normal inspection of the chest Resp Effort & Inspection: normal respiratory effort, able to speak in complete sentences and no respiratory distress GI Inspection: Yes normal to inspection Back/Spine/Pelvis Cervical Spine: normal cervical lordosis Thoracic/Lumbar Spine: thoracic and lumbar spine normal to inspection Skin General skin exam: no rashes or lesions noted Neuro General: patient oriented x3, gait normal, tone normal and moves all extremities Extrem General: Yes normal to inspection and Yes capillary refill normal Assessment & Plan Assessment & Plan (1) Ureteric calculus: Code(s): N20.1 - Calculus of ureter Plan Six month follow-up renal ultrasound Orders: Orders US renal BI 6 Months N20.1 - Calculus of ureter Patient Instructions: Imaging studies, laboratory and physical exam results were discussed and reviewed in detail. No major barriers to patient understanding were identified. An opportunity to ask questions regarding the treatment plan was provided. All questions were answered. The patient expressed understanding and agreement with the above treatment plan. The patient is aware they should contact our office by phone for worsening of their current condition or the appearance of new urologic symptoms. Compliance is encouraged with any medications and followup testing that is ordered. It is a privilege to participate in the urologic care of your patient. If you have any questions or concerns regarding treatment for the above conditions, or other urologic issues, please do not hesitate to contact me. The office telephone contact is [phone]. This note is constructed using voice recognition software. While every effort has been made to ensure accuracy tactical debriefer errors may have been included. Yours sincerely, Dr Supa Doll MD, [facility] - Urology Providers of Expert, Compassionate Care for the Genitourinary System Coding Level of Care Code Est Pt Level 3 (34734) Diagnoses Ureteric calculus N20.1
== END 2023-10-05 13:53 | disposition home or self-care (01) ==
PROVIDERS: Visit Provider Urology
DX: N20.1 Calculus of ureter (principal)
CPT/HCPCS: 99213

== ENCOUNTER → 2023-10-05 12:38 | Outpatient (BNVA) | payer OTHER, MEDICARE, SELFPAY | PROVIDERS: Visit Provider Urology ==

== ENCOUNTER 2024-03-18 12:57 | Outpatient (REF) | payer OTHER, MEDICARE, SELFPAY ==
--- NOTE | ~2024-03-18 | US_ITS ---
EXAMINATION: US RETROPERITONEAL LIMITED (RENAL ONLY) CLINICAL INFORMATION: Calculus of ureter. COMPARISON: Renal ultrasound 09/20/2023. CT abdomen and pelvis 06/01/2023. X-ray abdomen KUB 02/18/2018. TECHNIQUE: Real-time imaging of the kidneys. FINDINGS: RIGHT KIDNEY: 10.3 x 4.2 x 4.5 cm (SAG x AP x TRV). The kidney is normal in size, contour, and echogenicity. Renal cortical thickness is normal. No focal parenchymal lesions. There is a 4 mm mid renal echogenic focus consistent with a nonobstructing calculus. There is mild hydronephrosis present. LEFT KIDNEY: 10.1 x 5.4 x 4.1 cm (SAG x AP x TRV). The kidney is normal in size, contour, and echogenicity. Renal cortical thickness is normal. No calculi or focal parenchymal lesions. The two small 3 mm stones seen on the prior 09/20/2023 ultrasound are not seen on the current study. There is mild pelvic fullness without hydronephrosis. US/US renal BI IMPRESSION: Mild right-sided hydronephrosis with 4 mm nonobstructing right renal calculus.
== END 2024-03-18 12:58 | disposition home or self-care (01) ==
LOC: HO.HMGCX 12:57
PROVIDERS: PCP Internal Medicine; Visit Provider Urology
DX: N20.1 Calculus of ureter (principal)
CPT/HCPCS: 76775

== ENCOUNTER 2024-03-19 01:04 | Emergency (ER) | payer OTHER, MEDICARE, SELFPAY ==
[2024-03-19] VITALS (8 sets, daily range): BP systolic 123–142; BP diastolic 38–80; PULSE 68–95; RESP 14–20; TEMP 36.1–36.8; O2SAT 96–98; BMI 31.5
--- NOTE | ~2024-03-19 | CT_ITS ---
EXAMINATION: CT ABDOMEN AND PELVIS WITHOUT CONTRAST CLINICAL INFORMATION: Right flank pain. History of renal stones. COMPARISON: Abdomen CT from 06/01/2023 and ultrasound from 09/20/2023. TECHNIQUE: Multidetector volumetric imaging was performed from the superior aspect of the liver through the pubic symphysis. Sagittal and coronal reformatted images were obtained on the technologist's workstation. This CT examination was performed using dose optimization techniques as appropriate, variously including the following: *Automated exposure control *Adjustment of mA and/or kV according to patient size (this includes techniques or standardized protocols for targeted exams where dose is matched to indication/reason for exam; i.e. extremities or head) *Use of iterative reconstruction technique DLP: 559 mGy-cm FINDINGS: LUNG BASES: No pulmonary consolidation or pleural effusion. HEPATOBILIARY: Liver has normal size, shape, and attenuation. Gallbladder has multiple small calcified stones. No gallbladder wall thickening or pericholecystic fluid. No dilated bile ducts. PANCREAS: No edema, pancreatic ductal dilatation or mass. SPLEEN: Normal. ADRENAL GLANDS: 1.8 x 2 cm solid smoothly marginated noncalcified nodule of the left adrenal gland is unchanged compared to 06/01/2023; it has a density of 2 Hounsfield units consistent with lipid rich adenoma. No adrenal imaging follow-up recommended. KIDNEYS AND URETERS: Kidneys are normal in size. There is mild proximal right hydroureter and subtle periureteral edema. However, no stones are seen within the ureter. There is a questionable punctate calyceal stone of the mid right kidney (image 227, series 4), although the finding in question might merely represent some of the background image noise. There are a few small calyceal stones of 0.2 cm and 0.3 cm size of the left kidney. The left ureter is unremarkable. No left-sided hydroureteronephrosis. BLADDER: Normal. BOWEL AND PERITONEUM: Large hiatal hernia is unchanged. No dilated bowel loops. The appendix is normal. No focal bowel wall thickening, mesenteric fat stranding or free fluid. There is an intact sigmoid colon anastomosis in the pelvis. ABDOMINAL WALL: Unremarkable. VASCULATURE: Mild atherosclerosis of the abdominal aorta without aneurysm. LYMPH NODES: No pathologic sized lymph nodes in the abdomen or pelvis. No inguinal lymphadenopathy. PELVIC VISCERA: No uterine or adnexal mass. No pelvic free fluid. MUSCULOSKELETAL: Hemangiomas of the L1 and L4 vertebral bodies. No acute or suspicious osseous abnormality. CT/CT abdomen pelvis wo IV con IMPRESSION: * Although there is mild proximal right hydroureter and subtle periureteral edema, there is no evidence of any obstructing ureteral stone or bladder stone. The significance of these observations is uncertain. Findings could reflect sequela of a recently passed stone or - if in the right clinical context - a mild urinary tract infection. * There are a few small stones of the left kidney without left-sided ureteral stone or hydroureteronephrosis. * Large hiatal hernia. * Cholelithiasis without evidence of cholecystitis.
[2024-03-19] MEDS: Ondansetron ODT 4 MG TAB.RAPDIS TRANSLINGU (01:36)
[2024-03-19 02:01] LABS: MANUAL DIFF FLAG NO
[2024-03-19 02:08] LABS: Basophils Absolute Auto 0.1 X10*3/uL (0.0-0.2); Basophils Percent Auto 0.5 % (0-2); Eosinophils Absolute Auto 0.1 X10*3/uL (0.0-0.4); Hematocrit 41.5 % (37.0-47.0); Hemoglobin 13.5 g/dl (12.0-16.0); Imm Gran Abs Auto 0.07 X10*3/uL (0.00-0.03); Imm Gran Pct Auto 0.7 % (0.0-0.4); Lymphocytes Absolute Auto 0.8 X10*3/uL (1.2-4.9); Lymphocytes Percent Auto 7.3 % (20-40); Mean Corpuscular HGB Conc 32.5 g/dl (31.0-35.0); Mean Corpuscular Hemoglobin 27.8 pg (27.0-33.0); Mean Corpuscular Volume 85.4 fL (80.0-98.0); Mean Platelet Volume 10.9 fL (9.4-12.3); Monocytes Absolute Auto 0.7 X10*3/uL (0.1-1.2); Neutrophils Absolute Auto 8.8 x10*3/uL (2.0-8.3); Neutrophils Percent Auto 83.5 % (45-73); Platelet Count 182 X10*3/uL (160-400); Red Blood Count 4.86 X10*6/uL (4.20-5.50); White Blood Count 10.5 X10*3/uL (4.8-10.8)
[2024-03-19 02:10] LABS: Appearance Urine Turbid; Color Urine Orange; Glucose Urine UA Negative (Negative); Leukocyte Esterase Urine Small (1+) (Negative); Nitrite Urine Negative (Negative); PH 6.5 (5.0-9.0); Specific Gravity - Urine 1.015 (1.005-1.025); UMIC TRIGGER UACC YES; Urine Blood Large (3+) (Negative); Urine Ketones Negative (Negative); Urine Protein 30 (1+) mg/dL (Neg-Trace)
[2024-03-19 02:24] LABS: Alanine Aminotransferase 11 U/L (0-31); Albumin Level 4.5 g/dL (3.5-5.0); Alkaline Phosphatase 105 U/L (39-117); Anion Gap 18 (12-20); Aspartate Amino Transferase 12 U/L (5-31); Bilirubin Total 0.4 mg/dL (0.0-1.0); Blood Urea Nitrogen 14 mg/dL (9-16); Calcium 10.1 mg/dL (8.4-10.2); Carbon Dioxide 19 mmol/L (22-29); Chloride 109 mmol/L (96-108); Estimated Glomerular Filt Rate 58; Glucose Random 145 mg/dL (60-115); Potassium 3.3 mmol/L (3.3-5.1); Sodium 143 mmol/L (135-145); Total Protein 7.3 g/dL (6.5-8.0)
[2024-03-19 02:58] LABS: Bacteria Urine None Seen (None Seen); Other Crystals Urine Present; RBC Urine >20 /HPF (0-2); Squamous Epithelial Cell Urine 0-2 /HPF (0-2); UACC Culture Trigger YES
--- NOTE | 2024-03-19 06:50 | ED.GENADULT ---
HPI - General Adult General Chief complaint: Abdominal Pain Stated complaint: side pain, kidney stones Time Seen by Provider: 03/19/24 06:36 Source: patient Mode of arrival: wheelchair Limitations: no limitations History of Present Illness ED Provider: silverio KNIGHT narrative: Patient is a 68-year-old female with history of kidney stones requiring lithotripsy/stents in the past, breast CA, diverticulitis, afib on Eliquis presenting to the ED with complaint of right flank pain since yesterday morning. Reports associated nausea but denies vomiting or diarrhea. Pain radiating to suprapubic area. Noted some hematuria, denies urinary urgency, frequency, dysuria. Denies fevers/chills/body aches. She had a renal ultrasound yesterday but this was not for her symptoms, it was follow up on a prior stone. complaint: right flank pain Onset (ago): day(s) Location: right Severity scale (1-10): 7 Quality: burning Pain Consistency: constant Associated symptoms: nausea/vomiting Treatments prior to arrival: none Related Data Previous Rx's ?Medication ?Instructions ?Recorded metronidazole 500 mg tablet 500 mg PO TID 10 days #30 tabs 05/26/21 (Flagyl) ciprofloxacin HCl 250 mg tablet 250 mg PO DAILY 7 days #7 tabs 06/01/23 naproxen 500 mg tablet 500 mg PO BID PRN pain 7 days #14 06/01/23 tabs phenazopyridine 100 mg tablet 100 mg PO TID PRN Spasm 4 days #12 06/01/23 (Pyridium) tabs tamsulosin 0.4 mg capsule 0.4 mg PO BEDTIME 14 days #14 caps 06/01/23 prednisone 20 mg tablet 20 mg PO DAILY #5 tabs 03/19/24 Allergies Allergy/AdvReac Type Severity Reaction Status Date / Time Sulfa (Sulfonamide Allergy Unknown UNKNOWN, Verified 03/19/24 01:33 Antibiotics) rash, [SULFA (SULFONAMIDE sweating ANTIBIOTICS)] telmisartan Allergy Unknown Unknown Verified 03/19/24 01:33 Review of Systems Review of Systems: As per HPI. Yes all other systems are reviewed and are negative Constitutional: Constitutional: Reports as per HPI [facility] Past Medical History Medical History Kidney stone Breast CA Diverticulitis Social History Social History Alcohol intake: current Alcohol intake frequency: holidays/special occasions only Patient Tobacco Use Status: Never used Tobacco Advance Directives: No Advance Directives Information Provided: Yes Physical Exam ED Vital Signs: Vital Signs - 24 hr 03/19/24 01:30 03/19/24 05:47 03/19/24 07:55 Temperature 97 F 98.0 F Pulse Rate 95 68 Respiratory Rate 18 20 18 Blood Pressure 127/80 141/54 H Pulse Oximetry 97 96 Oxygen Delivery Method Room Air Room Air 03/19/24 08:40 03/19/24 08:53 03/19/24 09:04 Temperature 98.1 F Pulse Rate 71 Respiratory Rate 14 18 Blood Pressure 125/38 L 128/53 L Pulse Oximetry 96 Oxygen Delivery Method Room Air BMI result Body Mass Index 31.5 Vital signs have been reviewed and appear to be correct. Blood pressure normal. Heart rate normal. Respiratory rate normal. Temperature normal. Oxygen saturation normal. Const General: cooperative, healthy appearing and no acute distress Orientation/consciousness: oriented to person, oriented to place, oriented to time and patient oriented x3 Limitations: no limitations HENMT Head: Yes normocephalic and Yes atraumatic Ears: external ears normal General nose exam: Normal external nose present Face and sinus: Yes face symmetric Mouth: oropharynx normal and moist mucous membranes Throat: Yes uvula midline Eyes Pupils: Equal, round and reactive pupils present Neck Neck: Yes normal visual inspection and Yes supple Resp Effort & Inspection: normal respiratory effort and able to speak in complete sentences Auscultation: clear to auscultation bilaterally Cardio Rate: regular rate Rhythm: regular rhythm Heart sounds: S1 normal heart sound present and S2 normal heart sound present GI Inspection: Yes normal to inspection Palpation (GI): Soft to palpation, Tenderness to palpation present (GI) suprapubicly, no guarding and No Rebound tenderness present Auscultation: normoactive bowel sounds General: Yes CVA tenderness on the right Back/Spine/Pelvis Back: CVA tenderness Skin General skin exam: elasticity normal and turgor normal Neuro General: oriented to person, oriented to place, oriented to time, patient oriented x3, moves all extremities, no focal motor deficits and CN's II-XI intact bilaterally Cranial nerves: Yes Equal, round and reactive pupils present Cognition (Neuro): normal cognition Extrem General: Yes full ROM, Yes no pedal edema and Yes no calf tenderness Psych Mental Status: mental status grossly normal Affect: normal affect Thought process: Normal thought process present Medications Administered Discontinued Medications Generic Name Dose Route Start Last Admin Trade Name Rusty PRN Reason Stop Dose Admin Morphine Sulfate 2 mg 03/19/24 07:34 03/19/24 07:55 Morphine Sulfate 2 Mg/Ml Cartridge IM 03/19/24 07:35 2 mg ONCE ONE Administration Protocol Ondansetron HCl 4 mg 03/19/24 01:34 03/19/24 01:36 Ondansetron Odt 4 Mg Tab.Rapdis TRANSLINGU 03/19/24 01:35 4 mg ONCE ONE Administration Medical Decision Making Medical Decision Making MDM Narrative: Patient is a 68-year-old female with history of kidney stones requiring lithotripsy/stents in the past, breast CA, diverticulitis, afib on Eliquis presenting to the ED with complaint of right flank pain since yesterday morning. On exam patient is awake, A+Ox3, VS WNL, afebrile, normal neurological exam without focal deficits, physical exam findings as above. Given reported symptoms and physical exam findings, initial differential includes renal/ureteral calculi, UTI/pyelonephritis, hydronephrosis. Labs notable for , no anemia, no significant electrolyte abnormalities. Urinalysis notable for 3+ blood, 1+ leukocytes, negative nitrates, 6-10 wbc's, no bacteria. Do not suspect UTI at this time, will wait for culture before treating with antibiotics. CT notable for mild proximal right hydroureter and throttle periureteral edema without evidence of obstructing calculi. Renal ultrasound performed outpatient yesterday notes [id number] calculi on fruit buying grader notes. No official radiologist read at this time. My interpretation is in agreement with the radiologist's interpretation. Feel patient likely passed small calculi. Will discharge home on prednisone, advised patient to use Tylenol, warm compresses. She has follow up appointment with Dr. Doll next week. Return precautions discussed at bedside with patient and family. Patient verbalized understanding of and agreement with plan. Differential Diagnosis Differential Diagnoses: The differential diagnosis associated with the presentation includes As per MDM. Admission/Observation Consideration of admission/observation: Escalation of care including admission/observation considered Patient would have been admitted to the hospital had their work up had any findings where hospital admission was appropriate and their clinical presentation warranted hospital admission. Lab Data [facility] Lab Attestation statement: I reviewed the patient's lab results. As per [facility] 03/19/24 01:57 03/19/24 01:57 Labs: Lab Results 03/19/24 Range/Units 01:57 WBC 10.5 (4.8-10.8) X10*3/uL RBC 4.86 (4.20-5.50) X10*6/uL Hgb 13.5 D (12.0-16.0) g/dl Hct 41.5 D (37.0-47.0) % MCV 85.4 (80.0-98.0) fL MCH 27.8 (27.0-33.0) pg MCHC 32.5 (31.0-35.0) g/dl RDW 16.0 (11.0-16.0) % Plt Count 182 D (160-400) X10*3/uL MPV 10.9 (9.4-12.3) fL Immature Gran % (Auto) 0.7 H (0.0-0.4) % Neut % (Auto) 83.5 H (45-73) % Lymph % (Auto) 7.3 L (20-40) % Lewis % (Auto) 7.0 (2-11) % Eos % (Auto) 1.0 (0-4) % Baso % (Auto) 0.5 (0-2) % Lymph # (Auto) 0.8 L (1.2-4.9) X10*3/uL Lewis # (Auto) 0.7 (0.1-1.2) X10*3/uL Eos # (Auto) 0.1 (0.0-0.4) X10*3/uL Baso # (Auto) 0.1 (0.0-0.2) X10*3/uL Abs Immat Gran (auto) 0.07 H (0.00-0.03) X10*3/uL Absolute Neuts (auto) 8.8 H (2.0-8.3) x10*3/uL Absolute Nucleated RBC 0.000 (0.0-0.012) X10*3/uL Nucleated RBC % (auto) 0.0 (0.0-0.2) /100WBC Sodium 143 (135-145) mmol/L Potassium 3.3 (3.3-5.1) mmol/L Chloride 109 H (96-108) mmol/L Carbon Dioxide 19 L (22-29) mmol/L Anion Gap 18 (12-20) BUN 14 (9-16) mg/dL Creatinine 0.95 (0.5-1.4) mg/dL Estim Creat Clear Calc 54.0 Estimated GFR 58 Random Glucose 145 H (60-115) mg/dL Calcium 10.1 (8.4-10.2) mg/dL Total Bilirubin 0.4 (0.0-1.0) mg/dL AST 12 (5-31) U/L ALT 11 (0-31) U/L Alkaline Phosphatase 105 (39-117) U/L Total Protein 7.3 (6.5-8.0) g/dL Albumin 4.5 (3.5-5.0) g/dL Urine Color [place] A Urine Appearance Turbid Urine pH 6.5 (5.0-9.0) Ur Specific [place] 1.015 (1.005-1.025) Urine Protein 30 (1+) H (Neg-Trace) mg/dL Urine Glucose (UA) Negative (Negative) mg/dL Urine Ketones Negative (Negative) mg/dL Urine Blood Large (3+) H (Negative) Urine Nitrite Negative (Negative) Ur Leukocyte Esterase Small (1+) H (Negative) Urine RBC >20 H (0-2) /HPF Urine WBC 6-10 H (0-5) /HPF Ur Squamous Epith Cells 0-2 (0-2) /HPF Other Crystals Present Urine Bacteria None Seen (None Seen) Hyaline Casts 3-5 (0-2) /LPF Independent Interpretation I performed an independent interpretation of an: CT Scan Interpretation: mild right hydroureter and periureteral edema noted on CT Radiology Impression Discussion of test interpretation with radiology: I have reviewed the radiologist's reading. Radiologist Impression: CT/CT abdomen pelvis wo IV con IMPRESSION: * Although there is mild proximal right hydroureter and subtle periureteral edema, there is no evidence of any obstructing ureteral stone or bladder stone. The significance of these observations is uncertain. Findings could reflect sequela of a recently passed stone or - if in the right clinical context - a mild urinary tract infection. * There are a few small stones of the left kidney without left-sided ureteral stone or hydroureteronephrosis. * Large hiatal hernia. * Cholelithiasis without evidence of cholecystitis. External Record Review External record reviewed: Inpatient record, Office record and Outpatient record Prescription Management I considered prescription management with: Other Discharge Plan Discharge Clinical Impression: Acute right flank pain Patient Disposition: Home, Self-Care Instructions: Kidney Stones (ED), Renal Colic (ED), Flank Pain (ED) Additional Instructions: You were evaluated in the emergency department today for right flank pain. Based on your imaging, it appears that you have recently passed a kidney stone. At this time, your urine did not show evidence of infection. If your urine appears infected on the urine culture which will be resulted in the next few days, you will be contacted and prescribed antibiotics. Keep your follow-up appointment with Dr. Doll next week. Return to the emergency department if you develop increasing pain, persistent vomiting, fever or any other concerning symptoms. Prescriptions: New prednisone 20 mg tablet 20 mg PO DAILY Qty: 5 0RF No Action metronidazole [Flagyl] 500 mg tablet 500 mg PO TID 10 Days Qty: 30 0RF ciprofloxacin HCl 250 mg tablet 250 mg PO DAILY 7 Days Qty: 7 0RF tamsulosin 0.4 mg capsule 0.4 mg PO BEDTIME 14 Days Qty: 14 0RF phenazopyridine [Pyridium] 100 mg tablet 100 mg PO TID PRN (Reason: Spasm) 4 Days Qty: 12 0RF naproxen 500 mg tablet 500 mg PO BID PRN (Reason: pain) 7 Days Qty: 14 0RF Referrals: [facility] [Provider Group] Print Language: Bolivian
[2024-03-19] MEDS: Morphine Sulfate 2 MG/ML CARTRIDGE IM (07:55)
== END 2024-03-19 10:58 | disposition home or self-care (01) ==
PROVIDERS: Emergency Provider Emergency Medicine
DX: R10.9 Unspecified abdominal pain (principal); R10.2 Pelvic and perineal pain; I48.91 Unspecified atrial fibrillation; R11.0 Nausea; Z79.01 Long term (current) use of anticoagulants; Z79.899 Other long term (current) drug therapy
CPT/HCPCS: 36415; 74176; 80053; 81001; 85025; 87086; 96372; 99284; J2270

== ENCOUNTER 2024-04-04 11:38 | Outpatient (AMB) | payer OTHER, MEDICARE, SELFPAY ==
--- NOTE | 2024-04-04 11:40 | MHC.OFFVIS ---
Intake Visit Reasons: 6m/US(set) Intake Note: Patient presents today for follow up on: kidney stones and ultrasound Imaging Completed: 03/18/24 Urology Medication: Tamsulosin Antibiotic Allergies: Sulfa Blood Thinners: Eliquis Allergies Sulfa (Sulfonamide Antibiotics) [SULFA (SULFONAMIDE ANTIBIOTICS)] Allergy (Unknown, Verified 04/04/24 13:08) UNKNOWN, rash, sweating telmisartan Allergy (Unknown, Verified 04/04/24 13:08) Unknown Medication List - Last Reconciled 04/04/24 by YANA Burns apixaban (Eliquis) 5 mg PO BID ferrous sulfate 325 mg PO BID metoprolol succinate ER 25 mg PO DAILY omeprazole 40 mg PO DAILY pravastatin 40 mg PO DAILY sertraline 100 mg PO DAILY HPI Comments Details: Claudia is a very pleasant 68-year-old female patient. She has a past medical history of nephrolithiasis, breast cancer, diverticulitis, afib on Eliquis. She presents to the office today for follow-up of her recent ER visit. In discussion with the patient today she reports having seeked emergency room care approximately 1 month ago for right-sided flank pain she had been experiencing at which time a CT was ordered and performed. These results were reviewed with the patient today. Mild proximal right hydroureter and subtle periureteral edema, there is no evidence of any obstructing ureteral stone or bladder stone. The significance of these observations is uncertain. Findings could reflect sequela of a recently passed stone or a mild urinary tract infection. There are a few small stones of the left kidney without left-sided ureteral stone or hydroureteronephrosis. She reports flank pain she had been experiencing subsided shortly after her ER visit. She currently denies any bothersome urinary issues or concerns. She denies urinary urgency, urinary frequency, incontinence, nocturia, hematuria, dysuria, foul smelling urine, changes to urinary stream, flank pain, fever, and or chills. She is happy with her current voiding parameters. She was unable to provide a urine for urinalysis today. She reports feeling she possibly passed a stone. She otherwise offers no other issues or concerns at this time. Previous office note: Nephrolithiasis Reason presentation through [facility] CT scan - left side proximal ureteric stone Imaging - 10/03 renal ultrasound bilateral 3 mm - 06/02 CT 7 mm left Intervention - 06/02 left ureteroscopy Stone composition - 06/02 mixed calcium oxalate, monohydrate 80% Therapeutic plan - imaging surveillance - courage fluids - lemon water therapy PFSH Medical History Kidney stone Breast CA Diverticulitis Social History Alcohol intake: current Alcohol intake frequency: holidays/special occasions only Patient Tobacco Use Status: Never used Tobacco Review of Systems Const All systems reviewed & are unremarkable except as noted in HPI and below Eyes Reports no additional complaints ENT Reports no additional complaints Card Reports as per HPI Resp Reports no additional complaints GI Reports as per HPI Reports as per HPI Musc Reports no additional complaints Neuro Reports no additional complaints Psych Reports no additional complaints Endo Reports no additional complaints Fish/Lymph Reports as per HPI Aller/Immun Reports no additional complaints Physical Exam Const General: cooperative, healthy appearing, comfortable, no acute distress, well developed, alert and awake Orientation/consciousness: patient oriented x3 Limitations: ambulation with walker HEENT Head: Yes normal to inspection, Yes normocephalic and Yes atraumatic Ears: hearing grossly normal bilaterally Eyes General: appearance normal, both eyes and all related structures Neck Neck: Yes normal visual inspection and Yes trachea midline Chest Chest palpation & inspection: normal inspection of the chest Resp Effort & Inspection: normal respiratory effort and able to speak in complete sentences Cardio Rate: regular rate GI Inspection: Yes normal to inspection General: Yes no CVA tenderness Back/Spine/Pelvis Back: no CVA tenderness Skin General skin exam: no rashes or lesions noted Neuro General: patient oriented x3 Extrem General: Yes normal to inspection Psych Appearance: grossly normal and well kempt Mental Status: mental status grossly normal Speech and movement: Normal speech and movement present and Clear speech present Affect: normal affect Attitude: cooperative Thought process: Normal thought process present Thought content: Normal thought content present Insight: Fair insight present (Psych) Judgement: Fair judgement present (Psych) Results Reviewed Results Reviewed: Date of Service: 03/19/24 EXAMINATION: CT ABDOMEN AND PELVIS WITHOUT CONTRAST FINDINGS: LUNG BASES: No pulmonary consolidation or pleural effusion. HEPATOBILIARY: Liver has normal size, shape, and attenuation. Gallbladder has multiple small calcified stones. No gallbladder wall thickening or pericholecystic fluid. No dilated bile ducts. PANCREAS: No edema, pancreatic ductal dilatation or mass. SPLEEN: Normal. ADRENAL GLANDS: 1.8 x 2 cm solid smoothly marginated noncalcified nodule of the left adrenal gland is unchanged compared to 06/01/2023; it has a density of 2 Hounsfield units consistent with lipid rich adenoma. No adrenal imaging follow-up recommended. KIDNEYS AND URETERS: Kidneys are normal in size. There is mild proximal right hydroureter and subtle periureteral edema. However, no stones are seen within the ureter. There is a questionable punctate calyceal stone of the mid right kidney (image 227, series 4), although the finding in question might merely represent some of the background image noise. There are a few small calyceal stones of 0.2 cm and 0.3 cm size of the left kidney. The left ureter is unremarkable. No left-sided hydroureteronephrosis. BLADDER: Normal. BOWEL AND PERITONEUM: Large hiatal hernia is unchanged. No dilated bowel loops. The appendix is normal. No focal bowel wall thickening, mesenteric fat stranding or free fluid. There is an intact sigmoid colon anastomosis in the pelvis. ABDOMINAL WALL: Unremarkable. VASCULATURE: Mild atherosclerosis of the abdominal aorta without aneurysm. LYMPH NODES: No pathologic sized lymph nodes in the abdomen or pelvis. No inguinal lymphadenopathy. PELVIC VISCERA: No uterine or adnexal mass. No pelvic free fluid. MUSCULOSKELETAL: Hemangiomas of the L1 and L4 vertebral bodies. No acute or suspicious osseous abnormality. IMPRESSION: * Although there is mild proximal right hydroureter and subtle periureteral edema, there is no evidence of any obstructing ureteral stone or bladder stone. The significance of these observations is uncertain. Findings could reflect sequela of a recently passed stone or - if in the right clinical context - a mild urinary tract infection. * There are a few small stones of the left kidney without left-sided ureteral stone or hydroureteronephrosis. * Large hiatal hernia. * Cholelithiasis without evidence of cholecystitis. Assessment & Plan Assessment & Plan (1) Hydronephrosis: Code(s): N13.30 - Unspecified hydronephrosis Category: Medical (2) Flank pain: Code(s): R10.9 - Unspecified abdominal pain Category: Medical Plan Unable to obtain urine for urinalysis Recent CT results reviewed with the patient today. Will obtain retroperitoneal ultrasound for further assessment and evaluation. Discussed near future metabolic workup with 24 hour urine collection and labs. She currently denies any bothersome urinary issues or concerns. Discussed, educated, and stressed the importance of hydration in relation to nephrolithiasis. Nephrolithiasis information provided. Follow-up in 1-3 months with imaging to be completed prior; or sooner with any issues, concerns, or questions. Orders: Orders US retroperitoneal comp Today N20.0 - Calculus of kidney, N20.1 - Calculus of ureter, R39.9 - Unspecified symptoms and signs involving the genitourinary system Patient Instructions: The patient had an opportunity to ask questions regarding the treatment plan. All questions were answered. Physical exam, labs, and imaging were discussed and reviewed in detail. As well as risks, benefits, and discussion of treatment choices. No major barriers to understanding were identified. The patient expressed understanding and agreement with the above treatment plan. The patient was made aware they should contact our office by phone for worsening of their current condition, the appearance of new symptoms, or with any questions or concerns. Compliance is encouraged with any medications and follow up testing that is ordered. It is a privilege to be allowed the opportunity to participate in? your urological care.? Again, if you have any questions or concerns If you have any questions or concerns please do not hesitate to contact me. The office is [phone]. This note is constructed using voice recognition software. While every effort has been made to ensure accuracy gui developer errors may have been included. Yours sincerely, GRISEL Burns Coding Level of Care Code Est Pt Level 3 (26284) Complex EM visit Add On G2211 Diagnoses Hydronephrosis N13.30 Flank pain R10.9
== END 2024-04-04 12:04 | disposition home or self-care (01) ==
PROVIDERS: Visit Provider Nurse Practitioner Family
DX: N13.30 Unspecified hydronephrosis (principal); R10.9 Unspecified abdominal pain
CPT/HCPCS: 99213; G2211

== ENCOUNTER → 2024-04-04 11:38 | Outpatient (BNVA) | payer OTHER, MEDICARE, SELFPAY | PROVIDERS: Visit Provider Nurse Practitioner Family ==

== ENCOUNTER 2024-04-29 14:30 | Outpatient (REF) | payer OTHER, MEDICARE, SELFPAY ==
--- NOTE | ~2024-04-29 | US_ITS ---
EXAMINATION: RENAL ULTRASOUND CLINICAL INFORMATION: Calculus of ureter, kidney, UTI. COMPARISON: CT abdomen and pelvis 03/19/2024, renal ultrasound 03/18/2024 and 09/20/2023. TECHNIQUE: Real-time ultrasonographic kidneys and bladder. FINDINGS: RIGHT KIDNEY: 9.0 x 4.4 x 4.8 cm (SAG x AP x TRV). 0.3 cm right midpole calculus. No hydronephrosis. Renal cortical thickness is normal. Limited visualization. LEFT KIDNEY: 10.0 x 5.4 x 4.4 cm (SAG x AP x TRV). No hydronephrosis. No renal calculi. Renal cortical thickness is normal. Limited visualization. BLADDER: Bladder is partially distended. Prevoid bladder volume 143 mL. Postvoid bladder volume is 0 mL. Bilateral ureteral jets were visualized. US/US renal BI IMPRESSION: Right midpole 4 mm nonobstructing calculus. No hydronephrosis. Electronically signed by: Silvia Manzo MD 05/14/2024 05:19 AM EDT
== END 2024-04-29 14:31 | disposition home or self-care (01) ==
LOC: HO.HMGCX 14:30
PROVIDERS: PCP Internal Medicine; Visit Provider Urology
DX: N20.0 Calculus of kidney (principal); N20.1 Calculus of ureter; R39.9 Unspecified symptoms and signs involving the genitourinary system
CPT/HCPCS: 76775

== ENCOUNTER 2024-05-02 10:50 | Outpatient (REF) | payer OTHER, MEDICARE, SELFPAY ==
--- NOTE | ~2024-05-02 | US_ITS ---
EXAMINATION: RENAL ULTRASOUND CLINICAL INFORMATION: Calculus of ureter, kidney, UTI. COMPARISON: CT abdomen and pelvis 03/19/2024, renal ultrasound 03/18/2024 and 09/20/2023. TECHNIQUE: Real-time ultrasonographic kidneys and bladder. FINDINGS: RIGHT KIDNEY: 9.0 x 4.4 x 4.8 cm (SAG x AP x TRV). 0.3 cm right midpole calculus. No hydronephrosis. Renal cortical thickness is normal. Limited visualization. LEFT KIDNEY: 10.0 x 5.4 x 4.4 cm (SAG x AP x TRV). No hydronephrosis. No renal calculi. Renal cortical thickness is normal. Limited visualization. BLADDER: Bladder is partially distended. Prevoid bladder volume 143 mL. Postvoid bladder volume is 0 mL. Bilateral ureteral jets were visualized. US/US bladder IMPRESSION: Right midpole 4 mm nonobstructing calculus. No hydronephrosis. Electronically signed by: Silvia Manzo MD 05/14/2024 05:19 AM EDT
== END 2024-05-02 10:51 | disposition home or self-care (01) ==
LOC: HO.HMGCX 10:50
PROVIDERS: PCP Internal Medicine; Visit Provider Urology
DX: N20.0 Calculus of kidney (principal); N20.1 Calculus of ureter; R39.9 Unspecified symptoms and signs involving the genitourinary system
CPT/HCPCS: 76857

== ENCOUNTER 2024-06-03 11:25 | Outpatient (AMB) | payer OTHER, MEDICARE, SELFPAY ==
--- NOTE | 2024-06-03 11:33 | A.OFFVIS_ITS ---
Intake Visit Reasons: 2m/U/S(set) Intake Note: Patient presents today for follow up on: hydronephrosis, flank pain,and ultrasound results Imaging Completed: 04/29/24 & 05/02/24 Urology Medication: none Antibiotic Allergies: Sulfa Blood Thinners: Eliquis Farm Equipment Service Technician Required: No Accompanied by: Self / Same As Patient Allergies Sulfa (Sulfonamide Antibiotics) [SULFA (SULFONAMIDE ANTIBIOTICS)] Allergy (Unknown, Verified 06/03/24 11:49) UNKNOWN, rash, sweating telmisartan Allergy (Unknown, Verified 06/03/24 11:49) Unknown Medication List - Last Reconciled 06/03/24 by GRISEL Burns apixaban (Eliquis) 5 mg PO BID ferrous sulfate 325 mg PO BID metoprolol succinate ER 25 mg PO DAILY omeprazole 40 mg PO DAILY pravastatin 40 mg PO DAILY sertraline 100 mg PO DAILY HPI Comments Details: Claudia is a very pleasant 68-year-old female patient. She has a past medical history of nephrolithiasis, breast cancer, diverticulitis, afib on Eliquis. She presents to the office today for follow-up of her ongoing right- sided flank pain and lower abdominal pain she has been experiencing. Previous workup included a CT 04/02 that noted Mild proximal right hydroureter and subtle periureteral edema, there is no evidence of any obstructing ureteral stone or bladder stone. The significance of these observations is uncertain. Findings could reflect sequela of a recently passed stone or a mild urinary tract infection. There are a few small stones of the left kidney without left-sided ureteral stone or hydroureteronephrosis. Therefore, a renal ultrasound was ordered for further assessment evaluation. These results reviewed with the patient today. Retroperitoneal ultrasound 05/03 notes a 3 mm nonobstructing right mid pole calculus. Bilateral kidneys with no hydronephrosis. The bladder is partially distended. Pre void bladder volume is approximately 145 mL. Postvoid bladder volume is approximately 0 mL. When asked she continues to report ongoing right-sided flank pain radiating to her abdomen. No CVA tenderness bilaterally noted on exam today. We discussed potential causes for symptoms she she is experiencing. She otherwise denies any bothersome urinary issues. She denies urinary urgency, urinary frequency, incontinence, nocturia, hematuria, dysuria, foul smelling urine, changes to urinary stream, fever, and or chills. She is happy with her current voiding parameters. In office urinalysis results reviewed with the patient today. She otherwise offers no other issues or concerns at this time. Previous office note: Nephrolithiasis Reason presentation through [facility] CT scan - left side proximal ureteric stone Imaging - 10/03 renal ultrasound bilateral 3 mm - 06/02 CT 7 mm left Intervention - 06/02 left ureteroscopy Stone composition - 06/02 mixed calcium oxalate, monohydrate 80% Therapeutic plan - imaging surveillance - courage fluids - lemon water therapy PFSH Medical History Kidney stone Breast CA Diverticulitis Social History Alcohol intake: current Alcohol intake frequency: holidays/special occasions only Patient Tobacco Use Status: Never used Tobacco Review of Systems Const All systems reviewed & are unremarkable except as noted in HPI and below Eyes Reports no additional complaints ENT Reports no additional complaints Card Reports as per HPI Resp Reports no additional complaints GI Reports as per HPI Reports as per HPI Musc Reports no additional complaints Neuro Reports no additional complaints Psych Reports no additional complaints Endo Reports no additional complaints Fish/Lymph Reports as per HPI Aller/Immun Reports no additional complaints Physical Exam Const General: cooperative, healthy appearing, comfortable, no acute distress, well developed, alert and awake Orientation/consciousness: patient oriented x3 Limitations: ambulation with walker HEENT Head: Yes normal to inspection, Yes normocephalic and Yes atraumatic Ears: hearing grossly normal bilaterally Eyes General: appearance normal, both eyes and all related structures Neck Neck: Yes normal visual inspection and Yes trachea midline Chest Chest palpation & inspection: normal inspection of the chest Resp Effort & Inspection: normal respiratory effort and able to speak in complete sentences Cardio Rate: regular rate GI Inspection: Yes normal to inspection General: Yes no CVA tenderness Back/Spine/Pelvis Back: no CVA tenderness Skin General skin exam: no rashes or lesions noted Neuro General: patient oriented x3 Extrem General: Yes normal to inspection Psych Appearance: grossly normal and well kempt Mental Status: mental status grossly normal Speech and movement: Normal speech and movement present and Clear speech present Affect: normal affect Attitude: cooperative Thought process: Normal thought process present Thought content: Normal thought content present Insight: Fair insight present (Psych) Judgement: Fair judgement present (Psych) Results AMB Urinalysis, Automated UA Leukoctes 15 Moraima/uL Last Edit by [employer] on 06/03/24 11:56 UA Nitrite Negative Last Edit by [employer] on 06/03/24 11:56 UA Urobilinogen 0.2 mg/dL Last Edit by [employer] on 06/03/24 11:56 UA Protein 15 mg/dL Last Edit by [employer] on 06/03/24 11:56 UA pH 6.0 Last Edit by [employer] on 06/03/24 11:56 UA Blood 0 John/uL Last Edit by [employer] on 06/03/24 11:56 UA Specific Coleman 1.020 Last Edit by [employer] on 06/03/24 11:56 UA Ketone Negative Last Edit by [employer] on 06/03/24 11:56 UA Bilirubin 1 mg/dL Last Edit by [employer] on 06/03/24 11:56 UA Glucose 0 mg/dL Last Edit by [employer] on 06/03/24 11:56 Results Reviewed Results Reviewed: Date of Service: 05/02/24 EXAMINATION: RENAL ULTRASOUND FINDINGS: RIGHT KIDNEY: 9.0 x 4.4 x 4.8 cm (SAG x AP x TRV). 0.3 cm right midpole calculus. No hydronephrosis. Renal cortical thickness is normal. Limited visualization. LEFT KIDNEY: 10.0 x 5.4 x 4.4 cm (SAG x AP x TRV). No hydronephrosis. No renal calculi. Renal cortical thickness is normal. Limited visualization. BLADDER: Bladder is partially distended. Prevoid bladder volume 143 mL. Postvoid bladder volume is 0 mL. Bilateral ureteral jets were visualized. IMPRESSION: Right midpole 4 mm nonobstructing calculus. No hydronephrosis. Assessment & Plan Assessment & Plan (1) Kidney stone: Code(s): N20.0 - Calculus of kidney Category: Medical (2) Flank pain: Code(s): R10.9 - Unspecified abdominal pain Category: Medical Plan In office urinalysis results reviewed with the patient today; as noted above. Recent retroperitoneal ultrasound results reviewed with the patient today; as noted above. Discussed surveillance monitoring verses further intervention. She currently denies any bothersome urinary issues. She reports be happy with current voiding parameters. Discussed potential causes of symptoms patient is experiencing. Will obtain CT KUB for further assessment evaluation. Discussed seeking medical treatment for worsening symptoms. Discussed, educated, and stressed the importance of adequate hydration relation to nephrolithiasis as well as overall health and well-being. Discussed adding 1 oz of lemon juice to water daily. Follow-up in 1-4 weeks with imaging to be completed prior; or sooner with any issues, concerns, and or questions. Orders: Orders AMB Urinalysis Automated Today Z13.9 - Encounter for screening, unspecified CT kidney stone Today N20.1 - Calculus of ureter Patient Instructions: The patient had an opportunity to ask questions regarding the treatment plan. All questions were answered. Physical exam, labs, and imaging were discussed and reviewed in detail. As well as risks, benefits, and discussion of treatment choices. No major barriers to understanding were identified. The patient expressed understanding and agreement with the above treatment plan. The patient was made aware they should contact our office by phone for worsening of their current condition, the appearance of new symptoms, or with any questio ns or concerns. Compliance is encouraged with any medications and follow up testing that is ordered. It is a privilege to be allowed the opportunity to participate in? your urological care.? Again, if you have any questions or concerns If you have any questions or concerns please do not hesitate to contact me. The office is [phone]. This note is constructed using voice recognition software. While every effort has been made to ensure accuracy service delivery director errors may have been included. Yours sincerely, GRISEL Burns Coding Level of Care Code Est Pt Level 3 (60303) Complex EM visit Add On G2211 Diagnoses Kidney stone N20.0 Flank pain R10.9
== END 2024-06-03 12:09 | disposition home or self-care (01) ==
PROVIDERS: Visit Provider Nurse Practitioner Family
DX: N20.0 Calculus of kidney (principal); R10.9 Unspecified abdominal pain; Z13.9 Encounter for screening, unspecified
CPT/HCPCS: 99213; G2211

== ENCOUNTER → 2024-06-03 11:25 | Outpatient (BNVA) | payer OTHER, MEDICARE, SELFPAY | PROVIDERS: Visit Provider Nurse Practitioner Family | DX: N20.0 Calculus of kidney (principal) | CPT/HCPCS: 81003 ==

== ENCOUNTER 2024-06-09 16:25 | Outpatient (REF) | payer OTHER, MEDICARE, SELFPAY ==
--- NOTE | ~2024-06-09 | CT_ITS ---
EXAMINATION: CT ABDOMEN AND PELVIS WITHOUT CONTRAST CLINICAL INFORMATION: Calculus of ureter COMPARISON: CT abdomen and pelvis 03/19/2024, renal ultrasound 04/29/2024 TECHNIQUE: Multidetector volumetric imaging was performed from the superior aspect of the liver through the pubic symphysis. Sagittal and coronal reformatted images were obtained on the technologist's workstation. This CT examination was performed using dose optimization techniques as appropriate, variously including the following: *Automated exposure control *Adjustment of mA and/or kV according to patient size (this includes techniques or standardized protocols for targeted exams where dose is matched to indication/reason for exam; i.e. extremities or head) *Use of iterative reconstruction technique DLP: 503 mGy-cm FINDINGS: LUNG BASES: The visualized lung bases are unremarkable. LIVER, GALLBLADDER, AND BILIARY TREE: The liver is normal in size, shape, and attenuation. No focal hepatic lesion or biliary ductal dilatation is present. The gallbladder contains layering gallstones but otherwise is unremarkable with no evidence of pericholecystic inflammatory changes. PANCREAS: Unremarkable. SPLEEN: Unremarkable. ADRENAL GLANDS: Fat density 2 cm left adrenal mass unchanged consistent with a benign adenoma. There is no need for any further imaging or follow-up. The right adrenal gland is normal KIDNEYS AND URETERS: The kidneys are normal in size, shape, and attenuation. Previously seen right-sided hydronephrosis has resolved. There are tiny punctate nonobstructing left renal calculi seen, similar to prior, no right calculi. No hydronephrosis or renal masses. BLADDER: Unremarkable. GASTROINTESTINAL TRACT: A large hiatal hernia is present. A sigmoid anastomosis is present in a few scattered colonic diverticula are present without diverticulitis The small and large bowel are otherwise unremarkable. The appendix is unremarkable. ABDOMINAL WALL: No significant hernia is appreciated. LYMPH NODES: No retroperitoneal lymphadenopathy VASCULAR: Calcific atherosclerotic changes are present in the aorta and iliac vessels. There is no evidence of an abdominal aortic aneurysm. PELVIC VISCERA: The uterus and adnexa are unremarkable. OSSEOUS STRUCTURES: Unremarkable. A hemangioma is present in the L1 and L4 vertebral bodies. CT/CT kidney stone IMPRESSION: 1. Previously seen right-sided hydronephrosis has resolved. 2. Tiny punctate nonobstructing left renal calculi. 3. Incidental note made of cholelithiasis, benign left adrenal adenoma, large hiatal hernia, sigmoid anastomosis and colonic diverticulosis. Fleischner guidelines were followed. Electronically signed by: Hi Mitchell MD 06/09/2024 08:41 PM EDT RP
== END 2024-06-09 16:26 | disposition home or self-care (01) ==
LOC: HO.CT 16:25
PROVIDERS: Visit Provider Nurse Practitioner Family
DX: N20.1 Calculus of ureter (principal)
CPT/HCPCS: 74176

== ENCOUNTER 2024-07-03 16:19 | Outpatient (AMB) | payer OTHER, MEDICARE, SELFPAY ==
--- NOTE | 2024-07-03 16:19 | A.OFFVIS_ITS ---
Intake Visit Reasons: 4w/CT KUB(set) Intake Note: Patient presents today for tele visit follow up on: hydronephrosis, flank pain,and ct scan results Imaging Completed: 06/09/24 Urology Medication: none Antibiotic Allergies: Sulfa Blood Thinners: Eliquis News Writer Required: No Accompanied by: Self / Same As Patient Allergies Sulfa (Sulfonamide Antibiotics) [SULFA (SULFONAMIDE ANTIBIOTICS)] Allergy (Unknown, Verified 07/03/24 16:22) UNKNOWN, rash, sweating telmisartan Allergy (Unknown, Verified 07/03/24 16:22) Unknown HPI Comments Details: Claudia is a very pleasant 68-year-old female patient. She has a past medical history of nephrolithiasis, breast cancer, diverticulitis, afib on Eliquis. She is being followed up on today via telehealth for her history of nephrolithiasis. Of note, patient was seen approximately 1 month ago at which time a CT was ordered as patient had been experiencing and reporting right-sided flank pain and lower abdominal pain. These results were reviewed with the patient today. CT KUB 06/03 the kidneys are normal in size, shape, and attenuation. Previously seen right-sided hydronephrosis has resolved. There are tiny punctate nonobstructing left renal calculi, similar to prior, no right renal calculi. No hydronephrosis or renal masses. The bladder is unremarkable. In discussion with the patient today she continues to report episodes of abdominal pain and flank pain. She otherwise denies any bothersome urinary issues. She denies urinary urgency, urinary frequency, incontinence, nocturia, hematuria, dysuria, foul smelling urine, changes to urinary stream, fever, and or chills. She is happy with her current voiding parameters. She otherwise offers no other issues or concerns at this time. Previous office note: Nephrolithiasis Reason presentation through [facility] CT scan - left side proximal ureteric stone Imaging - 10/03 renal ultrasound bilateral 3 mm - 06/02 CT 7 mm left Intervention - 06/02 left ureteroscopy Stone composition - 06/02 mixed calcium oxalate, monohydrate 80% Therapeutic plan - imaging surveillance - courage fluids - lemon water therapy PFSH Medical History Kidney stone Breast CA Diverticulitis Social History Alcohol intake: current Alcohol intake frequency: holidays/special occasions only Patient Tobacco Use Status: Never used Tobacco Review of Systems Const All systems reviewed & are unremarkable except as noted in HPI and below Eyes Reports no additional complaints ENT Reports no additional complaints Card Reports as per HPI Resp Reports no additional complaints GI Reports as per HPI Reports as per HPI Musc Reports no additional complaints Neuro Reports no additional complaints Psych Reports no additional complaints Endo Reports no additional complaints Fish/Lymph Reports as per HPI Aller/Immun Reports no additional complaints Physical Exam Const General: cooperative Resp Effort & Inspection: able to speak in complete sentences Psych Attitude: cooperative Thought content: Normal thought content present Insight: Fair insight present (Psych) Judgement: Fair judgement present (Psych) Telehealth Telehealth [facility]health [facility] Location of provider rendering services: practice address Location of patient: address on file Patient Identification confirmed using: Name, : Yes Telehealth method: voice only Patient verbally consented to treatment: Yes Patient verbally consented to billing insurance company: Yes Patient informed of any privacy concerns related to visit: Yes Minutes spent on Phone/Video with Pt.: 20 Results Reviewed Results Reviewed: Date of Service: 06/09/24 EXAMINATION: CT ABDOMEN AND PELVIS WITHOUT CONTRAST FINDINGS: LUNG BASES: The visualized lung bases are unremarkable. LIVER, GALLBLADDER, AND BILIARY TREE: The liver is normal in size, shape, and attenuation. No focal hepatic lesion or biliary ductal dilatation is present. The gallbladder contains layering gallstones but otherwise is unremarkable with no evidence of pericholecystic inflammatory changes. PANCREAS: Unremarkable. SPLEEN: Unremarkable. ADRENAL GLANDS: Fat density 2 cm left adrenal mass unchanged consistent with a benign adenoma. There is no need for any further imaging or follow-up. The right adrenal gland is normal KIDNEYS AND URETERS: The kidneys are normal in size, shape, and attenuation. Previously seen right-sided hydronephrosis has resolved. There are tiny punctate nonobstructing left renal calculi seen, similar to prior, no right calculi. No hydronephrosis or renal masses. BLADDER: Unremarkable. GASTROINTESTINAL TRACT: A large hiatal hernia is present. A sigmoid anastomosis is present in a few scattered colonic diverticula are present without diverticulitis The small and large bowel are otherwise unremarkable. The appendix is unremarkable. ABDOMINAL WALL: No significant hernia is appreciated. LYMPH NODES: No retroperitoneal lymphadenopathy VASCULAR: Calcific atherosclerotic changes are present in the aorta and iliac vessels. There is no evidence of an abdominal aortic aneurysm. PELVIC VISCERA: The uterus and adnexa are unremarkable. OSSEOUS STRUCTURES: Unremarkable. A hemangioma is present in the L1 and L4 vertebral bodies. IMPRESSION: 1. Previously seen right-sided hydronephrosis has resolved. 2. Tiny punctate nonobstructing left renal calculi. 3. Incidental note made of cholelithiasis, benign left adrenal adenoma, large hiatal hernia, sigmoid anastomosis and colonic diverticulosis. Assessment & Plan Assessment & Plan (1) Kidney stone: Code(s): N20.0 - Calculus of kidney Category: Medical Plan Recent CT results reviewed with the patient today; as noted above. Discussed at length potential causes of abdominal pain and flank pain; discussed calling office and or seeking medical treatment if symptoms continue. Discussed worsening symptoms She currently denies any bothersome urinary issues. She reports be happy with current voiding parameters. Discussed, educated, and stressed the importance of adequate hydration relation to nephrolithiasis as well as overall health and well-being. Continue adding 1 oz of lemon juice to water daily. Will obtain renal ultrasound in 6 months. Follow-up in 6 months with imaging to be completed prior; or sooner with any issues, concerns, and or questions. Orders: Orders US renal BI 6 Months N20.0 - Calculus of kidney Patient Instructions: The patient had an opportunity to ask questions regarding the treatment plan. All questions were answered. Physical exam, labs, and imaging were discussed and reviewed in detail. As well as risks, benefits, and discussion of treatment choices. No major barriers to understanding were identified. The patient e xpressed understanding and agreement with the above treatment plan. The patient was made aware they should contact our office by phone for worsening of their current condition, the appearance of new symptoms, or with any questions or concerns. Compliance is encouraged with any medications and follow up testing that is ordered. It is a privilege to be allowed the opportunity to participate in? your urological care.? Again, if you have any questions or concerns If you have any questions or concerns please do not hesitate to contact me. The office is [phone]. This note is constructed using voice recognition software. While every effort has been made to ensure accuracy business initiatives manager errors may have been included. Yours sincerely, GRISEL Burns Coding Level of Care Code Tele Est Pt Level 3 (47312) Complex EM visit Add On G2211 Diagnoses Kidney stone N20.0
== END 2024-07-03 16:45 | disposition home or self-care (01) ==
LOC: HO.HUSH 16:19
PROVIDERS: Visit Provider Nurse Practitioner Family
DX: N20.0 Calculus of kidney (principal)
CPT/HCPCS: 99213; G2211

== ENCOUNTER → 2024-07-03 16:19 | Outpatient (BNVA) | payer OTHER, MEDICARE, SELFPAY | PROVIDERS: Visit Provider Nurse Practitioner Family ==

== ENCOUNTER 2024-12-23 12:51 | Outpatient (REF) | payer OTHER, MEDICARE, SELFPAY ==
--- NOTE | ~2024-12-23 | US_ITS ---
CLINICAL HISTORY: N20.0 - Calculus of kidney US Renal Comparison: US/SR - US RENAL BI - 09/20/23 13:07 EST Findings: Right kidney normal size and echotexture, 9.3 cm length. Left kidney normal size and echotexture, 9.8 cm length. No collecting system dilatation of either kidney. Normal color Doppler. IMPRESSION: 1. Normal kidneys. This document has been electronically signed by: Adelia Lang MD on 12/24/2024 15:53:02
--- OUTSIDE RECORDS SUMMARY | 2024-12-23 15:42 | XMS_ITS | Data Portability ---
Author Organization [place] - [facility], Allergy Address [address] [address] Care Team Providers Care Mohs Surgeon Name Role Phone MELANIE REIDRICKEYJORDAN Primary Care Provider Assessment Encounter Date Assessment Date Assessment LastModified by Organization Details LastModified Time 07/23/2024 07/23/2024 Patient with chronic voice change recently diagnosed with right upper lobe nodule. Transnasal fiberoptic examination shows a small tremor but good mobility. There is no need for any intervention. She will follow-up with PCP and pulmonary regarding the workup of the right lung nodule [place] Not available 07/23/2024 13:34:11 Plan of Treatment Reminders Order Date Submit Date Provider Last Modified By Organization Details Last Modified Time Details Appointments None record ed. Lab None record ed. Referral None record ed. Procedures None record ed. Surgeries None record ed. Imaging None record ed. Medication Orders None record ed. Patient TargetsNo targets recorded. Patient InstructionsNo instructions recorded. Reason for Referral None Reported. Results Created Date Observation Date Name Description Value Unit Range Abnormal Flag Note LastModifiedBy Organization Detail LastModifiedTime 07/22/20 audio gram No observ ation record ed. BARCODE Not Available 2023 09:52:57 07/23/20 24 06/05/2024 CT, angio gram, chest + abdom en, w/wo contr ast No observ ation record ed. [email or web address] Not Available 07/11 13:57:33 Result Notes None recorded. Problems Name Problem SNOMED Code Status Onset Date Resolution Date Notes Provider Name and Address Organization Details Recorded Time Benign paroxysma l positiona l vertigo 778048202 Active 2016 Benign paroxysma l vertigo, left ear; Note: Date Diagnosed : 7 1:31 PM (H81.12) Not Available [facility] 4 02:18:11 Dyspnea 780719915 Active 2014 Shortness of breath; Note: Date Diagnosed : 09/11/2014 3:27 PM (786.05) Not Available [facility] 4 02:18:35 Deviated nasal septum 882978129 Active 2013 Nasal septal deviation ; CMS Risk: moderate risk Ranulfo al septal deviation ; CMS Risk: moderate risk Note : Date Diagnosed : 4 12:03 PM (470) Not Available [facility] 4 02:16:58 Cough 56411135 Active 2016 Cough; Note: Date Diagnosed : 09/29/2016 11:14 AM (R05) Not Available [facility] 4 02:18:06 Dysphonia 65433163 Active 2014 Other voice and resonance disorders ; Note: Date Diagnosed : 08/13/2015 4:40 PM (R49.8) Not Available [facility] 4 02:17:50 Finding of resonance of voice 577217948 Active 2014 Other voice and resonance disorders ; Note: Date Diagnosed : 08/13/2015 4:40 PM (R49.8) Not Available [facility] 4 02:17:50 Recurrent acute sinusitis 182740551 Active 2016 Other acute recurrent sinusitis ; Note: Date Diagnosed : 09/29/2016 11:15 AM (J01.81) Not Available [facility] 4 02:18:02 Hypertrop 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 nasal turbinate s 69293898 Active 2013 Nasal turbinate hypertrop hy; Location: bilateral CMS Risk: low risk Tur binate hypertrop hy; CMS Risk: low risk Note : Date Diagnosed : 4 12:03 PM (478.0) Not Available [facility] 4 02:18:32 Posterior rhinorrhe a 79167885 Active 2019 Postnasal drip; Note: Date Diagnosed : 10/03/2019 10:13 AM (R09.82) Not Available [facility] 4 02:18:03 Disorder of eye region 404331451 Active 2018 Unspecifi ed disorder of eye and adnexa; Note: Date Diagnosed : 07/14/2019 3:19 PM (H57.9) Not Available [facility] 4 02:18:49 Uncomplic ated moderate persisten t asthma 888947601 Active 2019 Moderate persisten t asthma, uncomplic ated; Note: Date Diagnosed : 10/03/2019 10:06 AM (J45.40) Not Available [facility] 4 02:17:05 Other nasal cavity and sinus disease Active 2013 Other diseases of upper respirato ry tract: Other disease of nasal cavity and sinuses; Note: Date Diagnosed : 4 4:04 PM (478.19) Not Available [facility] 4 02:17:20 Difficult y speaking Active 2014 Hoarsenes s; Note: Date Diagnosed : 09/11/2014 3:27 PM (784.49) Not Available [facility] 4 02:18:32 Allergic rhinitis 44822032 Active 2016 Other allergic rhinitis; Note: Date Diagnosed : 7 1:31 PM (J30.89) Not Available [facility] 4 02:18:25 Postopera tive follow-up visit Active 2013 Post op; Note: Date Diagnosed : 4 10:38 AM (V67.00) Not Available [facility] 4 02:18:05 Headache 56315642 Active 2019 Facial pain NOS; Note: Date Diagnosed : 10/03/2019 10:07 AM (R51) Not Available [facility] 4 02:18:06 Chronic hoarsenes s 94218335400 05 Active 2023 KARY ZARATE MD [address] [place] [address], [place], [address] , [facility] - [facility] 4 13:33:28 Nodule of lung 568300028 Active 2023 KARY ZARATE MD [address] [place] [address],[place] [address], [place], [address] , [place] - [facility] 13:33:34 Problem Notes None recorded. Procedures Surgical History Date Name Laterality Status Provider Name and Address Organization Details Recorded Time 024 Fiberoptic Laryngoscopy (Comprehensive) completed KARY Acosta MD [address] [facility] [place] [address], [place], [address], [place] - [facility] 07/23/2024 13:34:28 large intestine excision completed KARY Acosta MD [address] [facility] [facility] [place],[address], [place], [address], [place] - [facility] 07/23/2024 13:10:46 open stone operation on kidney or renal pelvis completed KARY Acosta MD [address] [facility] [facility] [place] [address], [place], [address], [place] - [facility] 07/23/2024 13:12:43 Hysterectomy completed Yeison Santa [place] - [facility] 07/23/2024 13:18:56 ultrasonography guid ed biopsy of right breast completed Yeison Santa [place] - [facility] 07/23/2024 13:19:58 esophagoenterostomy completed Yeison nava [place] [facility] 07/23/2024 13:20:45 colonoscopy completed Yeison Santa [place] [facility] 07/23/2024 13:20:55 Imaging Results Imaging Date Name Status LastModified by Organiz ation Details LastModified Time 07/22/2024 audiogram completed BARCODE Information no t available 07/22/2024 09:52:57 06/05/2024 CT, angiogram, chest + abdomen, w/wo contrast completed [email or web address] Information not available 07/23/2024 13:57:33 Procedure Notes None recorded. Medical Equipment None Reported. Allergies Allergen ID Allergen Name Allergen Category Reaction Reaction Severity Criticality Documentation Date Start Date Code Code System Note Provider Name and Address Organization Details Recorded Time 09394 Substance with sulfonami de structure and antibacte rial mechanism of action (substanc e) medicatio n other Not available Not available 01/22/2024 46080 8003 SNOMED React ion: unkno wn, unspe cifie d;; Not Available [facility] 00:49:44 Medications Name Sig Start Date Stop Date Status Note LastModified by Organization Details LastModified Time latanopro st 0.005 % eye drops INSTILL 1 DROP INTO BOTH EYES AT BEDTIME active Not Available Not Available No t Available Augmentin 875 mg-125 mg tablet 07/23 completed Medicati on ID: [id number] Du ration Value: 14 Prescri bed By Name: SHAHAB Bain nd Name: Augmenti n Send Method: E-Prescr ibed Sub s Allowed: subs OK Speci al Instruct ion: 1 po bid for 14 days Med icationG enericNa me: Augmenti n Not Available Not Available Not Available atorvasta tin 20 mg tablet TAKE 1 TABLET BY MOUTH EVERY DAY active Not Available Not Available No t Available cyanocoba karlos (vit B-12) 2,500 mcg sublingua l tablet TAKE 1 TABLET BY MOUTH EVERY DAY active Not Available Not Available No t Available albuterol sulfate 2.5 mg/3 mL (0.083 %) solution for nebulizat ion 2016 active Medicati on ID: [id number] D uration Value: 13 Brand Name: Albutero l Sulfate Send Method: E-Prescr ibed Sub s Allowed: subs OK Medic ationGen ericName : Albutero l Sulfate Not Available Not Available Not Available pravastat in 40 mg tablet TAKE 1 TABLET BY MOUTH EVERYDAY AT BEDTIME active Not Available Not Available No t Available hydrocodo ne 5 mg-acetam inophen 325 mg tablet 1-2 tablet by mouth 2013 active Medicati [place] ID: [id number] Du ration Value: 7 Prescri bed By Name: Crystal Gill nd Name: hydrocod one-acet aminophe n Send Method: E-Prescr ibed Sub s Allowed: subs OK Medic ationGen ericName : hydrocod one-acet aminophe n Not Available Not Available Not Available ondansetr on HCl 4 mg tablet 10/03 completed Medicati on ID: [id number] D uration Value: 30 Reason: () Brand Name: soy rose HCl Send Method: E-Prescr ibed Sub s Allowed: subs OK Medic ationGen ericName : ondaosmanet rose HCl Not Available Not Available Not Available prednison e 20 mg tablet TAKE 1 TABLET BY MOUTH EVERY DAY active Not Available Not Available No t Available sertralin e 100 mg tablet TAKE 1 TABLET BY MOUTH EVERY DAY active Not Available Not Available No t Available amlodipin e 2.5 mg tablet 2018 active Medicati on ID: [id number] D uration Value: 90 Brand Name: amlodipi ne Send Method: E-Prescr ibed Sub s Allowed: subs OK Speci al Instruct ion: TAKE 1 TABLET BY MOUTH EVERY DAY Medi cationGe nericNam e: amlodipi ne Not Available Not Available Not Available potassium chloride ER 10 mEq tablet,ex tended release TAKE 1 TABLET BY MOUTH EVERY DAY active Not Available Not Available No t Available omeprazol e 40 mg capsule,d elayed release TAKE 1 CAPSULE BY MOUTH EVERY DAY active Not Available Not Available No t Available tramadol 50 mg tablet 1 tablet by mouth 07/23 completed Medicati on ID: [id number] D uration Value: 5 Prescri bed By Name: Crystal Gill nd Name: tramadol Send Method: E-Prescr ibed Sub s Allowed: subs OK Medic ationGen ericName : tramadol Not Available Not Available Not Available amlodipin e 10 mg tablet TAKE 1 TABLET BY MOUTH EVERY DAY 07/23 completed Not Available Not Available Not Available fluoxetin e 20 mg tablet 2016 active Medicati on ID: [id number] D uration Value: 90 Brand Name: fluoxeti ne Send Method: E-Prescr ibed Sub s Allowed: subs OK Medic ationGen ericName : fluoxeti ne Not Available Not Available Not Available gabapenti n 300 mg capsule 2016 active Medicati on ID: [id number] D uration Value: 30 Brand Name: gabapent in Send Method: E-Prescr ibed Sub s Allowed: subs OK Medic ationGen ericName : gabapent in Not Available Not Available Not Available metoprolo l succinate ER 25 mg tablet,ex tended release 24 hr TAKE 1 TABLET BY MOUTH EVERY DAY FOR 90 DAYS active Not Available Not Available No t Available lisinopri l 10 mg-hydroc hlorothia zide 12.5 mg tablet 10/03 completed Medicati on ID: [id number] D uration Value: 90 Reason: () Brand Name: lisinopr il-hydro chloroth iazide S end Method: E-Prescr ibed Sub s Allowed: subs OK Medic ationGen ericName : lisinopr il-hydro chloroth iazide Not Available Not Available Not Available levofloxa juan pablo 500 mg tablet 09/29 completed Medicati on ID: [id number] D uration Value: 7 Brand Name: levoflox acin Sen d Method: E-Prescr ibed Sub s Allowed: subs OK Medic ationGen ericName : levoflox acin Not Available Not Available Not Available methylpre dnisolone 4 mg tablets in a dose pack 09/29 completed Medicati on ID: [id number] D uration Value: 6 Brand Name: methylpr ednisolo ne Send Method: E-Prescr ibed Sub s Allowed: subs OK Medic ationGen ericName : methylpr ednisolo ne Not Available Not Available Not Available albuterol sulfate HFA 90 mcg/actua tion aerosol inhaler INHALE 2 PUFFS 4 TIMES A DAY, NEEDED FOR WHEEZING active Not Available Not Available No t Available ferrous sulfate 325 mg (65 mg iron) tablet,de layed release TAKE 1 TABLET BY MOUTH TWICE A DAY active Not Available Not Available No t Available ipratropi um bromide 42 mcg (0.06 %) nasal spray 2 spray into both nostrils 2016 active Medicati on ID: [id number] D uration Value: 30 Prescri bed By Name: Crystal Gill nd Name: ipratrop ium bromide Send Method: E-Prescr ibed Sub s Allowed: subs OK Medic ationGen ericName : ipratrop ium bromide Not Available Not Available Not Available fluticaso ne propionat e 50 mcg/actua tion nasal spray,rolly pension 2 puff into both nostrils 2016 active Medicati on ID: [id number] D uration Value: 120 Prescri bed By Name: SHAHAB Lama nd Name: fluticas one Send Method: E-Prescr ibed Sub s Allowed: subs OK Medic ationGen ericName : fluticas one Not Available Not Available Not Available ipratropi um bromide 21 mcg (0.03 %) nasal spray Inhale 2 spray into both nostrils three times a day as directed 2019 active Medicati on ID: [id number] P jacklynribe d By Name: Crystal Gill nd Name: ipratrop ium bromide Send Method: E-Prescr ibed Sub s Allowed: subs OK Medic ationGen ericName : ipratrop ium bromide Not Available Not Available Not Available neomycin 3.5 mg/g-poly myxin B 10,000 unit/g-de xameth 0.1 % eye oint APPLY INTO BOTH EYES AT BEDTIME active Not Available Not Available No t Available Pataday 0.2 % eye drops 1 drop 2018 active Medicati on ID: [id number] D uration Value: 10 Prescri bed By Name: Crystal Gill nd Name: Pataday Send Method: E-Prescr ibed Sub s Allowed: subs OK Medic ationGen ericName : Pataday Not Available Not Available Not Available FeroSul 325 mg (65 mg iron) tablet 2016 active Medicati on ID: [id number] D uration Value: 45 Brand Name: ferrous sulfate Send Method: E-Prescr ibed Sub s Allowed: subs OK Speci al Instruct ion: TAKE 1 TABLET DAILY FOR 2 WEEKS, THEN 2 TABS DAILY-TA KE WITH FRUIT JUI CE Medic ationGen ericName : ferrous sulfate Not Available Not Available Not Available Dulera 100 mcg-5 mcg/actua tion HFA aerosol inhaler 10/03 completed Medicati on ID: [id number] D uration Value: 90 Reason: () Brand Name: Dulera S end Method: E-Prescr ibed Sub s Allowed: subs OK Medic ationGen ericName : Dulera Not Available Not Available Not Available Eliquis 5 mg tablet TAKE 1 TABLET BY MOUTH TWICE A DAY active Not Available Not Available No t Available Breo Ellipta 200 mcg-25 mcg/dose powder for inhalatio n 2018 active Medicati on ID: [id number] D uration Value: 30 Brand Name: Vikki Medley Send Method: E-Prescr ibed Sub s Allowed: subs OK Speci al Instruct ion: TAKE 1 PUFF BY MOUTH EVERY DAY Medi cationGe nericNam e: Breo Ellipta Not Available Not Available Not Available Trelegy Ellipta 200 mcg-62.5 mcg-25 mcg powder for inhalatio n INHALE 1 PUFF INTO THE LUNGS DAILY FOR 30 DAYS. active Not Available Not Available No t Available COVID-19 At-Home Test kit FOLLOW INSTRUCT IONS INCLUDED WITH THE PACKAGE. active Not Available Not Available No t Available Vitals Date Recorded Body height Body mass index (BMI) Body weight Provider Name and Address Organization Details Last Updated DateTime 07/23/2024 157.48 cm 30.9 kg/m2 72868.11 g Yeison Santa [place] - [facility] 07/23/2024 13:00:47 Social History None recorded. Functional Status None recorded. Mental Status None recorded. Family History Nothing Reported. Medical History Condition Response Nasal or Sinus Problems Y Fibromyalgia Y Asthma Y High Cholesterol Y Gynecological HistoryNo gynecological history recorded. Obstetrics History GPAL:G 0 P 0 0 0 0 Past Encounters Encounter ID Performer Location Encounter Start Date Encounter Closed Date Diagnosis/Indication Diagnosis SNOMED-CT Code Diagnosis ICD10 Code Diagnosis Note [id number] KARY ZARATE MD [facility] [address] [address] 07/23/2024 12:35:25 07/23/2024 13:34:38 Chronic hoarseness 2385150808 105 R49.0 Nodule of lung 529834526 R91.1 Health Concerns Section Related Observation LastModified by Organization Detai ls LastModified Time None Recorded Concern Status LastModified by Organization Details LastModified Time None Recorded Advance Directives Directive None Recorded Payers Encounter Date Sequence Insurance Name Policy Number Policy Abdi Covered Member ID Abdi Member ID Guarantor Name 07/23/2024 1 [employer] (POS) [id number] Jonah Garcia [id number] Claudia Garcia Notes Date Note Type Note Provider Name and Address Organization Details Recorded Time 07/23/2024 text/html Patient reports recent finding of pulmonary nodules. She has a longstanding history of chronic rhinitis with postnasal drip. Has had some voice fluctuations and HL. No eating, drinking or swallowingRecent CT scan showed a 9 mm subtle groundglass nodule in the right upper lobe and hazy densities in the left lingula that appeared to be a resolving inflammatory process. She also had a large type III paraesophageal hernia and evidence of a left renal calculus KARY MADERA MD [address] [place] [address], [place], [address], [facility] - [facility] 07/23/2024 13:34:48 OBGyn Episode No OBEpisode recorded.
--- OUTSIDE RECORDS SUMMARY | 2024-12-23 15:42 | XMS_ITS | Clinical Summary ---
Author Organization [facility] Address [address] [place] [address] Care Team Providers Care Box Office Agent Name Role Phone Radha Myers MD Primary Care Provider [phone] Surgical History Surgery Date Site/Laterality Comments HYSTERECTOMY PROCEDURE: HISTORICAL HYSTERECTOMY TONSILLECTOMY PROCEDURE: HISTORICAL TONSILLECTOMY OTHER SURGICAL HISTORY PROCEDURE: HISTORY OTHER; COMMENT: nasal septoplasty EYE SURGERY PROCEDURE: HISTORICAL EYE SURGERY OTHER SURGICAL HISTORY PROCEDURE: HISTORY OTHER; COMMENT: kidney surgery Social History Tobacco Use Types Packs/Day Years Used Date Smoking Tobacco: Former Cigarettes Q uit: 09/10/1969 Smokeless Tobacco: Never Alcohol Use Standard Drinks/Week Comments Yes 0 (1 standard drink = 0.6 oz pur e alcohol) Comments Unknown Sex and Gender Information Value Date Recorded Sex Assigned at Not on file Legal Sex Female 5:16 AM EST Gender Identity Not on file Sexual Orientation Not on file Obstetrics History Last Filed Vital Signs Vital Sign Reading Time Taken Comments Blood Pressure 120/68 02/01/2024 2:49 PM EDT Sitting L Arm Pulse 67 02/01/2024 2:49 PM EDT Temperature - - Respiratory Rate - - Oxygen Saturation - - Inhaled Oxygen Concentration - - Weight 77.8 kg (171 lb 9.6 oz) 02/01/2024 2:49 PM EDT Height 157.5 cm (5' 2 ) 02/01/2024 2:49 PM EDT Body Mass Index 31.39 02/01/2024 2:49 PM EDT Plan of Treatment Health Maintenance Due Date Last Done Comments Breast Cancer Screening 1955 DTaP,Tdap,and Td Vaccines (1 - Tdap) 1973 Pneumococcal Vaccine: 50+ Ye ars (1 of 2 - PCV) 1973 Zoster Vaccines (1 of 2) 2004 RSV Immunization Adult Patie nts (1 - Risk 60-74 years 1-dose series) 2014 Cholesterol Screening (Lipid Panel) 08/13/2022 Colorectal Cancer Screening: Colonoscopy 08/13/2022 Depression Screening 08/13/2022 Falls Risk Assessment 08/13/2022 Hepatitis C Screening 08/13/2022 Osteoporosis Screening (Bone Density Screening) 08/13/2022 Social Influencers of Health Screening 08/13/2022 Hypertension/CHF/CAD Annual BMP Blood Test 08/23/2022 COVID-19 Vaccine (2023-2 5 season) 2024 Influenza Vaccine (Season Ended) 2025 06/09/20 20 HIB Vaccines Aged Out No longer eligi ble based on patient's age to complete this topic HPV Vaccines Aged Out No longer eligi ble based on patient's age to complete this topic Hepatitis A Vaccines Aged Out No long er eligible based on patient's age to complete this topic Hepatitis B Vaccines Aged Out No long er eligible based on patient's age to complete this topic IPV Vaccines Aged Out No longer eligi ble based on patient's age to complete this topic MMR Vaccines Aged Out No longer eligi ble based on patient's age to complete this topic Meningococcal ACWY Vaccine Aged Out N o longer eligible based on patient's age to complete this topic Meningococcal B Vaccine Aged Out No l onger eligible based on patient's age to complete this topic RSV Immunization Patients Un perico 20 months Aged Out No longer eligible b ased on patient's age to complete this topic Varicella Vaccines Aged Out No longer eligible based on patient's age to complete this topic Care Teams Box Office Agent Relationship Specialty Start Date End Date Radha Myers MD PCP - General Internal Medicine 10/06/19
== END 2024-12-23 12:52 | disposition home or self-care (01) ==
LOC: HO.HMGCX 12:51
PROVIDERS: Visit Provider Nurse Practitioner Family
DX: N20.0 Calculus of kidney (principal)
CPT/HCPCS: 76775

== ENCOUNTER → 2024-12-23 12:53 | Outpatient (BNV) | payer OTHER, MEDICARE, SELFPAY | PROVIDERS: Visit Provider Radiology Diagnostic Radiology | DX: N20.0 Calculus of kidney (principal) | CPT/HCPCS: 76775 ==

== ENCOUNTER 2024-12-30 11:17 | Outpatient (AMB) | payer OTHER, MEDICARE, SELFPAY ==
--- NOTE | 2024-12-30 11:52 | A.OFFVIS_ITS ---
Intake Visit Reasons: six-month follow-up with imaging(pending 12/23) Intake Note: Patient presents today for follow up on: hydronephrosis, flank pain, and ultrasound results Imaging Completed: 12/23/24 Urology Medication: none Antibiotic Allergies: Sulfa Blood Thinners: Eliquis Credit Advisor Required: No Accompanied by: Self / Same As Patient Allergies Sulfa (Sulfonamide Antibiotics) [SULFA (SULFONAMIDE ANTIBIOTICS)] Allergy (Unknown, Verified 12/30/24 12:32) UNKNOWN, rash, sweating telmisartan Allergy (Unknown, Verified 12/30/24 12:32) Unknown Medication List - Last Reconciled 12/30/24 by GRISEL Burns apixaban (Eliquis) 5 mg PO BID ferrous sulfate 325 mg PO BID metoprolol succinate ER 25 mg PO DAILY omeprazole 40 mg PO DAILY pravastatin 40 mg PO DAILY sertraline 100 mg PO DAILY HPI Comments Details: Claudia is a very pleasant 69-year-old female patient. She has a past medical history of nephrolithiasis, breast cancer, diverticulitis, afib on Eliquis. She presents to the office today for follow-up of her nephrolithiasis. In discussion with the patient today she reports to be doing and feeling well. She denies having had any bothersome urinary issues since her last office visit here. Recent renal imaging results were reviewed. 01/02 bilateral kidneys with no calculi, lesions, and or hydronephrosis. When asked she reports attempting to increase her fluid intake daily. She denies urinary urgency, urinary frequency, incontinence, nocturia, hematuria, dysuria, foul smelling urine, changes to urinary stream, flank pain, fever, and or chills. She is happy with her current voiding parameters. In office urinalysis results reviewed with the patient today. She otherwise offers no other issues or concerns at this time. Previous office note: Nephrolithiasis Reason presentation through [facility] CT scan - left side proximal ureteric stone Imaging - 10/03 renal ultrasound bilateral 3 mm - 06/02 CT 7 mm left Intervention - 06/02 left ureteroscopy Stone composition - 06/02 mixed calcium oxalate, monohydrate 80% Therapeutic plan - imaging surveillance - courage fluids - lemon water therapy PFSH Medical History Kidney stone Breast CA Diverticulitis Social History Alcohol intake: current Alcohol intake frequency: holidays/special occasions only Patient Tobacco Use Status: Never used Tobacco Review of Systems Const All systems reviewed & are unremarkable except as noted in HPI and below Eyes Reports no additional complaints ENT Reports no additional complaints Card Reports as per HPI Resp Reports no additional complaints GI Reports as per HPI Reports as per HPI Musc Reports no additional complaints Neuro Reports no additional complaints Psych Reports no additional complaints Endo Reports no additional complaints Fihs/Lymph Reports as per HPI Aller/Immun Reports no additional complaints Physical Exam Const General: cooperative, healthy appearing, comfortable, no acute distress, well developed, alert and awake Orientation/consciousness: patient oriented x3 Limitations: ambulation with walker HEENT Head: Yes normal to inspection, Yes normocephalic and Yes atraumatic Ears: hearing grossly normal bilaterally Eyes General: appearance normal, both eyes and all related structures Neck Neck: Yes normal visual inspection and Yes trachea midline Chest Chest palpation & inspection: normal inspection of the chest Resp Effort & Inspection: normal respiratory effort and able to speak in complete sentences Cardio Rate: regular rate GI Inspection: Yes normal to inspection General: Yes no CVA tenderness Back/Spine/Pelvis Back: no CVA tenderness Skin General skin exam: no rashes or lesions noted Neuro General: patient oriented x3 Extrem General: Yes normal to inspection Psych Appearance: grossly normal and well kempt Mental Status: mental status grossly normal Speech and movement: Normal speech and movement present and Clear speech present Affect: normal affect Attitude: cooperative Thought process: Normal thought process present Thought content: Normal thought content present Insight: Fair insight present (Psych) Judgement: Fair judgement present (Psych) Results AMB Urinalysis, Automated UA Leukoctes 70 Moraima/uL Last Edit by Pam Melgar on 12/30/24 15:34 UA Nitrite Last Edit by Pam Melgar on 12/30/24 15:34 UA Urobilinogen 0.2 mg/dL Last Edit by [employer] UKe Ramón on 12/30/24 15:34 UA Protein 0 mg/dL Last Edit by [employer]adalgisa Melgar on 12/30/24 15:34 UA pH 6.5 Last Edit by Dwainyce Ramón on 12/30/24 15:34 UA Blood 0 John/uL Last Edit by Jerseye Ramón on 12/30/24 15:34 UA Specific [place] 1.015 Last Edit by [employer]pearle Ramón on 12/30/24 15:34 UA Ketone Last Edit by [employer]adalgisa Melgar on 12/30/24 15:34 UA Bilirubin 0 mg/dL Last Edit by Pam Melgar on 12/30/24 15:34 UA Glucose 0 mg/dL Last Edit by [employer]adalgisa Melgar on 12/30/24 15:34 Results Reviewed Results Reviewed: Laboratory Last Values Urine pH (Auto) 6.5 12/30/24 15:33 Specific [place] (Auto) 1.015 12/30/24 15:33 Urine Protein (Auto) 0 mg/dL 12/30/24 15:33 Glucose (UA)(Auto) 0 mg/dL 12/30/24 15:33 Urine Blood (Auto) 0 John/uL 12/30/24 15:33 Urine Bilirubin (Auto) 0 mg/dL 12/30/24 15:33 Urine Urobilinogen (Auto) 0.2 mg/dL 12/30/24 15:33 Leukocyte Esterase (Auto) 70 Moraima/uL 12/30/24 15:33 Date of Service: 12/23/24 Procedure(s): US renal BI US Renal Comparison: US/SR - US RENAL BI - 09/20/23 13:07 EST Findings: Right kidney normal size and echotexture, 9.3 cm length. Left kidney normal size and echotexture, 9.8 cm length. No collecting system dilatation of either kidney. Normal color Doppler. IMPRESSION: 1. Normal kidneys. Assessment & Plan Assessment & Plan (1) Kidney stone: Code(s): N20.0 - Calculus of kidney Category: Medical Plan In office urinalysis results reviewed with the patient today; as noted above. Recent renal imaging results reviewed with the patient today; as noted above. Discussed, educated, and stressed the importance of adequate hydration relation to nephrolithiasis as well as overall health and well-being. Continue adding 1 oz of lemon juice to water daily. Patient currently denies any bothersome urinary issues. She reports be happy with current voiding parameters. Will obtain renal ultrasound in 1 year. Follow-up in 1 year with imaging to be completed prior; or sooner with any issues, concerns, and or questions. Orders: Orders AMB Urinalysis Automated Today Z13.9 - Encounter for screening, unspecified US renal BI 1 Year N20.0 - Calculus of kidney Patient Instructions: The patient had an opportunity to ask questions regarding the treatment plan. All questions were answered. Physical exam, labs, and imaging were discussed and reviewed in detail. As well as risks, benefits, and discussion of treatment choices. No major barriers to understanding were identified. The patient express ed understanding and agreement with the above treatment plan. The patient was made aware they should contact our office by phone for worsening of their current condition, the appearance of new symptoms, or with any questions or concerns. Compliance is encouraged with any medications and follow up testing that is ordered. It is a privilege to be allowed the opportunity to participate in? your urological care.? Again, if you have any questions or concerns If you have any questions or concerns please do not hesitate to contact me. The office is [phone]. This note is constructed using voice recognition software. While every effort has been made to ensure accuracy cut press operator errors may have been included. Yours sincerely, GRISEL Burns Coding Level of Care Code Est Pt Level 3 (68057) Complex EM visit Add On G2211 Diagnoses Kidney stone N20.0
--- OUTSIDE RECORDS SUMMARY | 2024-12-30 13:34 | XMS_ITS | Data Portability ---
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 [email or web address] Not Available 07/11 13:57:33 Result Notes None recorded. Problems Name Problem SNOMED Code Status Onset Date Resolution Date Notes Provider Name and Address Organization Details Recorded Time Benign paroxysma l positiona l vertigo 943029331 Active 2016 Benign paroxysma l vertigo, left ear; Note: Date Diagnosed : 7 1:31 PM (H81.12) Not Available [facility] 4 02:18:11 Dyspnea 885213760 Active 2014 Shortness of breath; Note: Date Diagnosed : 09/11/2014 3:27 PM (786.05) Not Available [facility] 4 02:18:35 Deviated nasal septum 232680245 Active 2013 Nasal septal deviation ; CMS Risk: moderate risk Ranulfo al septal deviation ; CMS Risk: moderate risk Note : Date Diagnosed : 4 12:03 PM (470) Not Available [facility] 4 02:16:58 Cough 99222568 Active 2016 Cough; Note: Date Diagnosed : 09/29/2016 11:14 AM (R05) Not Available [facility] 4 02:18:06 Dysphonia 12683016 Active 2014 Other voice and resonance disorders ; Note: Date Diagnosed : 08/13/2015 4:40 PM (R49.8) Not Available [facility] 4 02:17:50 Finding of resonance of voice 446389166 Active 2014 Other voice and resonance disorders ; Note: Date Diagnosed : 08/13/2015 4:40 PM (R49.8) Not Available [facility] 4 02:17:50 Recurrent acute sinusitis 363740143 Active 2016 Other acute recurrent sinusitis ; Note: Date Diagnosed : 09/29/2016 11:15 AM (J01.81) Not Available [facility] 4 02:18:02 Hypertrop hy of nasal turbinate s 36854211 Active 2013 Nasal turbinate hypertrop hy; Location: bilateral CMS Risk: low risk Tur binate hypertrop hy; CMS Risk: low risk Note : Date Diagnosed : 4 12:03 PM (478.0) Not Available [facility] 4 02:18:32 Posterior rhinorrhe a 83480725 Active 2019 Postnasal drip; Note: Date Diagnosed : 10/03/2019 10:13 AM (R09.82) Not Available [facility] 4 02:18:03 Disorder of eye region 611726842 Active 2018 Unspecifi ed disorder of eye and adnexa; Note: Date Diagnosed : 07/14/2019 3:19 PM (H57.9) Not Available [facility] 4 02:18:49 Uncomplic ated moderate persisten t asthma 440314242 Active 2019 Moderate persisten t asthma, uncomplic ated; Note: Date Diagnosed : 10/03/2019 10:06 AM (J45.40) Not Available [facility] 4 02:17:05 Other nasal cavity and sinus disease Active 2013 Other diseases of upper respirato ry tract: Other disease of nasal cavity and sinuses; Note: Date Diagnosed : 4 4:04 PM (478.19) Not Available [facility] 4 02:17:20 Difficult y speaking Active 2014 Hoarsenes s; Note: Date Diagnosed : 09/11/2014 3:27 PM (784.49) Not Available [facility] 4 02:18:32 Allergic rhinitis 98556751 Active 2016 Other allergic rhinitis; Note: Date Diagnosed : 7 1:31 PM (J30.89) Not Available [facility] 4 02:18:25 Postopera tive follow-up visit Active 2013 Post op; Note: Date Diagnosed : 4 10:38 AM (V67.00) Not Available [facility] 4 02:18:05 Headache 64846764 Active 2019 Facial pain NOS; Note: Date Diagnosed : 10/03/2019 10:07 AM (R51) Not Available [facility] 4 02:18:06 Chronic hoarsenes s 72964601144 05 Active 2023 KARY ZARATE MD [address] [place] [address], [place], [address] , [facility] - [facility] 4 13:33:28 Nodule of lung 643869752 Active 2023 KARY ZARATE MD [address] [place] [address],[place] [address], [place], [address] , [place] [facility] 13:33:34 Problem Notes None recorded. Procedures Surgical History Date Name Laterality Status Provider Name and Address Organization Details Recorded Time 024 Fiberoptic Laryngoscopy (Comprehensive) completed KARY Acosta MD [address] [facility] [place] [address], [place], [address], [place] - [facility] 07/23/2024 13:34:28 large intestine excision completed KARY Acosta MD [address] [facility] [place], [place], [address], [place] - [facility] 07/23/2024 13:10:46 open stone operation on kidney or renal pelvis completed KARY Acosta MD [address] [facility] [place] [address], [place], [address], [place] - [facility] 07/23/2024 13:12:43 Hysterectomy completed Yeison Santa [place] - [facility] 07/23/2024 13:18:56 ultrasonography guid ed biopsy of right breast completed Yeison Santa [place] - [facility] 07/23/2024 13:19:58 esophagoenterostomy completed Yeison nava [place] [facility] 07/23/2024 13:20:45 colonoscopy completed Yeison [place] [facility] 07/23/2024 13:20:55 Imaging Results Imaging Date Name Status LastModified by Organiz ation Details LastModified Time 07/22/2024 audiogram completed [facility] Information no t available 07/22/2024 09:52:57 06/05/2024 CT, angiogram, chest + abdomen, w/wo contrast completed [email or web address] Information not available 07/23/2024 13:57:33 Procedure Notes None recorded. Medical Equipment None Reported. Allergies Allergen ID Allergen Name Allergen Category Reaction Reaction Severity Criticality Documentation Date Start Date Code Code System Note Provider Name and Address Organization Details Recorded Time 41608 Substance with sulfonami de structure and antibacte rial mechanism of action (substanc e) medicatio n other Not available Not available 01/22/2024 93799 8003 SNOMED React ion: unkno wn, unspe cifie d;; Not Available [facility] 00:49:44 Medications Name Sig Start Date Stop Date Status Note LastModified by Organization Details LastModified Time latanopro st 0.005 % eye drops INSTILL 1 DROP INTO BOTH EYES AT BEDTIME active Not Available Not Available No t Available Augmentin 875 mg-125 mg tablet 07/23 completed Medicati on ID: [id number] Du ration Value: 14 Prescri bed By [...] nebulizat ion 2016 active Medicati on ID: 947444 D uration Value: 13 Brand Name: Albutero [...] by mouth 2013 active Medicati on ID: 14630 Du ration Value: 7 Prescri bed By Name: Crystal Gill nd Name: hydrocod one-acet aminophe n Send Method: E-Prescr ibed Sub s Allowed: subs OK Medic ationGen ericName : hydrocod one-acet aminophe n Not Available Not Available Not Available ondansetr on HCl 4 mg tablet 10/03 completed Medicati on ID: 897187 D uration Value: 30 Reason: () Brand [...] mg tablet 2018 active Medicati on ID: 313123 D uration Value: 90 Brand Name: amlodipi [...] by mouth 07/23 completed Medicati on ID: 373126 D uration Value: 5 Prescri bed By Name: Crystal Gill nd Name: tramadol Send Method: E-Prescr ibed Sub s Allowed: subs OK Medic ationGen ericName : tramadol Not Available Not Available Not Available amlodipin e 10 mg tablet TAKE 1 TABLET BY MOUTH EVERY DAY 07/23 completed Not Available Not Available Not Available fluoxetin e 20 mg tablet 2016 active Medicati on ID: 634792 D uration Value: 90 Brand Name: fluoxeti ne Send Method: E-Prescr ibed Sub s Allowed: subs OK Medic ationGen ericName : fluoxeti ne Not Available Not Available Not Available gabapenti n 300 mg capsule 2016 active Medicati on ID: 828921 D uration Value: 30 Brand Name: gabapent [...] mg tablet 10/03 completed Medicati on ID: 792922 D uration Value: 90 Reason: () Brand Name: lisinopr il-hydro chloroth iazide S end Method: E-Prescr ibed Sub s Allowed: subs OK Medic ationGen ericName : lisinopr il-hydro chloroth iazide Not Available Not Available Not Available levofloxa juan pablo 500 mg tablet 09/29 completed Medicati on ID: 453221 D uration Value: 7 Brand Name: levoflox acin Sen d Method: E-Prescr ibed Sub s Allowed: subs OK Medic ationGen ericName : levoflox acin Not Available Not Available Not Available methylpre dnisolone 4 mg tablets in a dose pack 09/29 completed Medicati on ID: [id number] D uration Value: 6 Brand Name: methylpr [...] both nostrils 2016 active Medicati on ID: 987369 D uration Value: 30 Prescri bed By Name: Crystal Gill nd Name: ipratrop ium bromide Send Method: E-Prescr ibed Sub s Allowed: subs OK Medic ationGen ericName : ipratrop ium bromide Not Available Not Available Not Available fluticaso ne propionat e 50 mcg/actua tion nasal spray,rolly pension 2 puff into both nostrils 2016 active Medicati on ID: 330713 D uration Value: 120 Prescri bed By Name: SHAHAB Lama nd Name: fluticas one Send Method: E-Prescr ibed Sub s Allowed: subs OK Medic ationGen ericName : fluticas one Not Available Not Available Not Available ipratropi um bromide 21 mcg (0.03 %) nasal spray Inhale 2 spray into both nostrils three times a day as directed 2019 active Medicati on ID: 360159 P jacklynribe d By Name: Crystal Gill [...] 1 drop 2018 active Medicati on ID: 647661 D uration Value: 10 Prescri bed By Name: Crystal Gill nd Name: Pataday Send Method: E-Prescr ibed Sub s Allowed: subs OK Medic ationGen ericName : Pataday Not Available Not Available Not Available FeroSul 325 mg (65 mg iron) tablet 2016 active Medicati on ID: 768390 D uration Value: 45 Brand Name: ferrous sulfate Send Method: E-Prescr ibed Sub s Allowed: subs OK Speci al Instruct ion: TAKE 1 TABLET DAILY FOR 2 WEEKS, THEN 2 TABS DAILY-TA KE WITH FRUIT JUI CE Medic ationGen ericName : ferrous sulfate Not Available Not Available Not Available Dulera 100 mcg-5 mcg/actua tion HFA aerosol inhaler 10/03 completed Medicati on ID: 242256 D uration Value: 90 Reason: () Brand [...] inhalatio n 2018 active Medicati on ID: 784155 D uration Value: 30 Brand Name: Vikki [...] Updated DateTime 07/23/2024 157.48 cm 30.9 kg/m2 15875.11 g Yeison Santa [place] [facility] 07/23/2024 13:00:47 Social History None recorded. Functional [...] SNOMED-CT Code Diagnosis ICD10 Code Diagnosis Note [id number] KARY ZARATE MD [facility] [address] [address] 07/23/2024 12:35:25 07/23/2024 13:34:38 Chronic hoarseness 4694313378 105 R49.0 Nodule of lung 231063233 R91.1 Health Concerns Section Related Observation LastModified by Organization Detai ls LastModified Time None Recorded Concern Status LastModified by Organization Details LastModified Time None Recorded Advance Directives Directive None Recorded Payers Encounter Date Sequence Insurance Name Policy Number Policy Abdi Covered Member ID Abdi Member ID Guarantor Name 07/23/2024 1 [employer] (POS) [id number] Jonah Garcia [id number] Claudia Garcia Notes Date Note Type [...] a left renal calculus KARY MADERA MD [address] [place] [address], [place], [address], [facility] - [facility] 07/23/2024 13:34:48 OBGyn Episode No OBEpisode recorded.
--- OUTSIDE RECORDS SUMMARY | 2024-12-30 13:34 | XMS_ITS | Clinical Summary ---
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
== END 2024-12-30 12:28 | disposition home or self-care (01) ==
LOC: HO.HUSH 11:17
PROVIDERS: Visit Provider Nurse Practitioner Family
DX: N20.0 Calculus of kidney (principal); Z13.9 Encounter for screening, unspecified
CPT/HCPCS: 99213; G2211

== ENCOUNTER → 2024-12-30 11:17 | Outpatient (BNVA) | payer OTHER, MEDICARE, SELFPAY | PROVIDERS: Visit Provider Nurse Practitioner Family | DX: Z87.442 Personal history of urinary calculi (principal) | CPT/HCPCS: 81003 ==